=== PATIENT | male | born 1935 | race Caucasian/White ===

== ENCOUNTER 2022-01-19 20:55 | Emergency (ER) | payer MEDICARE, BC, SELFPAY ==
[2022-01-19 20:59] VITALS: BP 160/111; PULSE 88; RESP 30; TEMP 37.1; O2SAT 88
[2022-01-19 21:30] VITALS: BP 153/102; PULSE 73; RESP 23; O2SAT 100
[2022-01-19 22:00] VITALS: BP 148/113; PULSE 78; RESP 20; O2SAT 96
[2022-01-19 22:10] LABS: Basophils Absolute Auto 0.03 K/uL (0.00-0.30); Basophils Percent Auto 0.4 % (0.0-3.0); Eosinophils Absolute Auto 0.16 K/uL (0.00-0.50); Eosinophils Percent Auto 2.1 % (0.0-7.0); Hematocrit 47.3 % (37.0-53.0); Hemoglobin* 15.8 gm/dL (13.5-17.5); Immature Granulocytes Abs Auto 0.02 K/uL (0.00-0.30); Lymphocytes Absolute Auto 2.58 K/uL (0.90-2.90); Lymphocytes Percent Auto 34.4 % (20-44); Mean Corpuscular HGB Conc 33 gm/dL (32-36); Mean Corpuscular Hemoglobin 30 pg (26-34); Mean Corpuscular Volume 88 fL (80-100); Monocytes Percent Auto 7.6 % (0.0-11.0); Neutrophils Absolute Auto 4.14 K/uL (1.7-7.0); Neutrophils Percent Auto 55.2 % (42.0-72.0); Platelet Count* 273 K/uL (140-440); RDW Coefficient of Variation % 13.2 % (11.5-15.5); Red Blood Count 5.35 m/uL (4.30-5.90)
[2022-01-19 22:13] LABS: Slide Review Reflex No
--- NOTE | 2022-01-19 22:25 | ED.NURSE ---
Patient oxygen turned off to trial SpO2 response per Dr. Carolina verbal order.
[2022-01-19 22:30] VITALS: BP 145/109; PULSE 91; RESP 13; O2SAT 97
[2022-01-19 22:34] LABS: INR 1.18 (0.91-1.10); Prothrombin Time 15.4 Seconds
[2022-01-19 22:45] VITALS: BP 133/83; PULSE 87; RESP 19; O2SAT 97
[2022-01-19 22:46] LABS: Alanine Aminotransferase* 20 U/L (4-50); Albumin* 4.5 g/dL (3.3-5.0); Alkaline Phosphatase* 122 U/L (40-150); Aspartate Amino Transferase* 24 U/L (12-35); Bilirubin Total* 1.1 mg/dL (0.1-1.5); Blood Urea Nitrogen* 27 mg/dL (7-30); Calcium* 9.4 mg/dL (8.4-10.6); Carbon Dioxide* 26 mmol/L (20-32); Chloride* 103 mmol/L (96-114); Glucose* 156 mg/dL (60-115); Potassium* 4.1 mmol/L (3.6-5.1); Sodium* 139 mmol/L (135-149); Total Protein* 7.1 g/dL (6.0-8.3)
--- NOTE | 2022-01-19 23:14 | ED.NURSE ---
Pt voided x1 via urinal. MD at bedside reviewing results. VSS. Pt denies pain at this time. Friend at bedside. Report given to CHELSEA Carrington.
--- NOTE | 2022-01-19 23:22 | ED.ARRPALP ---
HPI - Arrhythmia/Palpitations General Date Seen: 01/19/22 Chief Complaint: Arrhythmia/Palpitations Stated Complaint: cardiac Time Seen by Provider: 01/19/22 21:31 History of Present Illness HPI narrative: Patient is an 86-year-old male who presents with palpitations. Says around 6:00 p.m. had been somewhere where they checked his heart rate and it was 114, which is very unusual for him. He says his heart rate is usually in the 40s. He does have a history of atrial fibrillation, which he told me he has only had once, but he says that he has been on Eliquis ever since his stroke back 15 years ago. He says this is due to atrial fibrillation, which he says he had at that time. He is under the impression that it never recurred. He came into the emergency department complaining of shortness of breath, he was tachypneic with a respiratory rate of 30, nursing reported that he was very panicky. He denied chest pain. He says that around 8:00 p.m. he checked his heart rate again in it was 100. He came into the ER around 9:00 p.m.. He otherwise has been feeling well, has not had any recent illness, fevers, vomiting or diarrhea, no black or bloody stools. Has not had a cough for shortness of breath otherwise. He has chronic swelling in his legs, no changes there. He says he was at [facility] 3 weeks ago for a checkup of his heart, which was not related any cardiac symptoms. He had an echocardiogram and says he was told that things were fine. He has a history of mitral valve replacement says he has never had a heart attack. He does not really know any results from his echo. 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 He gets around with a walker and a scooter now. Related Data Home Medications Medication Instructions Recorded Confirmed acetaminophen 500 mg tablet 500 mg PO Q4-6H PRN 01/19/22 01/19/22 (Tylenol Extra Strength) amiodarone 200 mg tablet 200 mg PO DAILY 01/19/22 01/19/22 amlodipine 5 mg tablet 5 mg PO DAILY 01/19/22 01/19/22 amoxicillin 500 mg capsule 2,000 mg PO PRN 01/19/22 01/19/22 apixaban 5 mg tablet (Eliquis) 5 mg PO BID 01/19/22 01/19/22 fluticasone propionate 110 2 puff INHALATION Q12H 01/19/22 01/19/22 mcg/actuation HFA aerosol inhaler (Flovent HFA) furosemide 40 mg tablet 40 mg PO DAILY 01/19/22 01/19/22 losartan 100 mg tablet 100 mg PO DAILY 01/19/22 01/19/22 multivitamin with minerals 1 tab PO DAILY 01/19/22 01/19/22 (Multiple Vitamin-Minerals tablet) rosuvastatin 10 mg tablet 10 mg PO .QHS 01/19/22 01/19/22 zolpidem 5 mg tablet 5 mg PO .HS PRN 01/19/22 01/19/22 Allergies Allergy/AdvReac Type Severity Reaction Status Date / Time Sulfa (Sulfonamide Allergy Intermediate Hives Verified 01/19/22 21:24 Antibiotics) latex Allergy Mild allergy Verified 01/19/22 21:24 test Review of Systems Status of ROS: Reports: 10 or more systems reviewed and unremarkable except as noted in History and below [facility] Medical History Arrhythmia Atrial fibrillation Chronic bronchitis Chronic insomnia CVA (cerebral vascular accident) Frailty syndrome in geriatric patient GERD (gastroesophageal reflux disease) Hyperlipidemia Hypertension Melanoma in situ Obstructive sleep apnea Pre-diabetes Rosacea Systolic congestive heart failure Thyroid nodule Tubular adenoma of colon Surgical History H/O arthroscopic knee surgery H/O bilateral cataract extraction Hx of tonsillectomy S/P hernia surgery S/P mitral valve repair S/P Mohs surgery for basal cell carcinoma S/P rotator cuff repair Status post prostatectomy Social History Smoking Status: Former smoker How often do you have a drink containing alcohol: 2-3 times a week AUDIT-C Alcohol total score: 3 Non-prescribed substance use: denies use Exam Narrative: Exam Narrative: Vital signs as noted below. In general, an alert, nontoxic elderly male. At the time of my exam, he is breathing comfortably. Head: Normocephalic, atraumatic. Eyes: Pupils are equal and reactive. Extraocular movements are full. Conjunctivae are normal. ENT: Mucous membranes are moist. Neck: Supple without lymphadenopathy. Heart: Irregularly irregular. Regular rate. No significant systolic murmur at this time. No click. Lungs: Clear bilaterally. No increased work of breathing, crackles or wheezes. Abdomen: Soft and nontender. No organomegaly. Extremities: Significant bilateral edema. No calf tenderness. Neurologic: Patient is alert and oriented to person and place. Speech is slightly dysarthric. He has a slight droop on the left side of his face. He is however conversant, answers questions appropriately, memory is reasonably good. Moves all extremities. Affect: Normal. Skin: Warm and dry. Well perfused. Const: Vital Signs, click to edit/add: Vital Signs - 24 hr 01/19/22 20:59 01/19/22 21:30 01/19/22 22:00 Temperature 98.7 F Pulse Rate [Left P ulse Oximeter] 88 73 78 Respiratory Rate 30 H 23 20 Blood Pressure [Ri ght Upper Arm] 160/111 H 153/102 H 148/113 H Pulse Oximetry 88 100 96 01/19/22 22:30 01/19/22 22:45 Temperature Pulse Rate [Left P ulse Oximeter] 91 87 Respiratory Rate 13 19 Blood Pressure [Ri ght Upper Arm] 145/109 H 133/83 Pulse Oximetry 97 97 Documenting provider has reviewed patient's vital signs: yes Course Course Hospital Course: On arrival, patient was initially put on oxygen. He had O2 sats recorded in the upper 80s, respiratory rates of 30, noted to be fairly anxious. We kept him on oxygen for a bit here, and he calmed down considerably. By the time I saw him he was resting comfortably. He had an EKG which by my review showed atrial fibrillation with a controlled ventricular rate of 88 beats per minute. I ordered labs including a CBC, metabolic panel, LFTs, INR, and troponin. In the meantime, I reviewed his records from our facility. We do not have his [place] or [place] records available. I noted that Dr. Mendoza mentioned at least 2 times he has had cardioversion with failure to convert of his atrial fibrillation. His rate has been consistently controlled here, I have not seen anything over 100. He has had echoes here previously that of showed an EF of 20-25%. At this time, his lungs are clear. We took him off oxygen and his O2 sats are 96%. He no longer feels short of breath. I did order a BNP although that was pending at the time of completion of the rest of his ER workup. His other labs showed a normal white blood cell count and hemoglobin, an INR of 1.18, a metabolic panel showed a creatinine of 1.0 and normal electrolytes. Troponin was 0, and I do not think there is any evidence here of acute coronary syndrome. LFTs were normal. Review of his records also show that he has had significantly more atrial fibrillation than he realizes. For a long period of time he was apparently chronically in atrial fibrillation. He was started on amiodarone for rate control and he remains on that drug. I do not think he would be served by a cardioversion tonight, despite the fact that he seems to have gone into atrial fibrillation in the past several hours according to him. At this point, he is tolerating atrial fibrillation well. Whether not he can use to tolerate it well remains to be seen. He has had an EF of 20-25% for quite some time, and seemingly tolerated AFib in the past. However, I discussed with him if he is developing more shortness of breath, or has difficulty with rate control he can certainly return to the emergency department. Otherwise, I would recommend that he follows up with Dr. Mendoza next week for recheck to make sure that he is not developing signs of congestive heart failure. For now, will keep him on his current medications including his Eliquis, amiodarone, and Lasix. I did not wait for his BNP to complete, because his friend, Earnest, who was his ride home, really needed to leave as it was after 11:00 p.m.. Vital Signs Vital signs: Initial Vital Signs Temperature 98.7 F 01/19/22 20:59 Temperature Source Temporal Artery Scan 01/19/22 20:59 Pulse Rate 88 01/19/22 20:59 Pulse Rhythm 01/19/22 20:59 Pulse Strength 3+ Normal 01/19/22 20:59 Respiratory Rate 30 H 01/19/22 20:59 Blood Pressure 160/111 H 01/19/22 20:59 Blood Pressure Mean 127 01/19/22 20:59 Blood Pressure Position Sitting 01/19/22 20:59 Pulse Oximetry 88 01/19/22 20:59 Oxygen Delivery Method 01/19/22 20:59 Vital Signs Temperature 98.7 F 01/19/22 20:59 Pulse Rate 88 01/19/22 20:59 Respiratory Rate 30 H 01/19/22 20:59 Blood Pressure 160/111 H 01/19/22 20:59 Pulse Oximetry 88 01/19/22 20:59 Temperature 98.7 F 01/19/22 20:59 Pulse Rate 87 01/19/22 22:45 Respiratory Rate 19 01/19/22 22:45 Blood Pressure 133/83 01/19/22 22:45 Pulse Oximetry 97 01/19/22 22:45 MDM - Arrhythmia/Palpitations Lab Data Labs: Lab Results 01/19/22 01/19/22 01/19/22 Range/Units 21:15 21:15 21:15 WBC 7.50 (4.50-11.00) K/uL RBC 5.35 (4.30-5.90) m/uL Hgb 15.8 (13.5-17.5) gm/dL Hct 47.3 (37.0-53.0) % MCV 88 (80-100) fL MCH 30 (26-34) pg MCHC 33 (32-36) gm/dL RDW Coeff of Melissa 13.2 (11.5-15.5) % Plt Count 273 (140-440) K/uL Neut % (Auto) 55.2 (42.0-72.0) % Lymph % (Auto) 34.4 (20-44) % [place] % (Auto) 7.6 (0.0-11.0) % Eos % (Auto) 2.1 (0.0-7.0) % Baso % (Auto) 0.4 (0.0-3.0) % Neut # (Auto) 4.14 (1.7-7.0) K/uL Lymph # (Auto) 2.58 (0.90-2.90) K/uL [place] # (Auto) 0.60 (0.00-0.90) K/UL Eos # (Auto) 0.16 (0.00-0.50) K/uL Baso # (Auto) 0.03 (0.00-0.30) K/uL Abs Immat Gran (auto) 0.02 (0.00-0.30) K/uL INR 1.18 H (0.91-1.10) Sodium 139 (135-149) mmol/L Potassium 4.1 (3.6-5.1) mmol/L Chloride 103 (96-114) mmol/L Carbon Dioxide 26 (20-32) mmol/L BUN 27 (7-30) mg/dL Creatinine 1.0 (0.5-1.5) mg/dL Glucose 156 H (60-115) mg/dL Calcium 9.4 (8.4-10.6) mg/dL Total Bilirubin 1.1 (0.1-1.5) mg/dL AST 24 (12-35) U/L ALT 20 (4-50) U/L Alkaline Phosphatase 122 (40-150) U/L Total Protein 7.1 (6.0-8.3) g/dL Albumin 4.5 (3.3-5.0) g/dL POC Troponin I (0.01-0.04) ng/ml 01/19/22 Range/Units 21:15 WBC (4.50-11.00) K/uL RBC (4.30-5.90) m/uL Hgb (13.5-17.5) gm/dL Hct (37.0-53.0) % MCV (80-100) fL MCH (26-34) pg MCHC (32-36) gm/dL RDW Coeff of Melissa (11.5-15.5) % Plt Count (140-440) K/uL Neut % (Auto) (42.0-72.0) % Lymph % (Auto) (20-44) % [place] % (Auto) (0.0-11.0) % Eos % (Auto) (0.0-7.0) % Baso % (Auto) (0.0-3.0) % Neut # (Auto) (1.7-7.0) K/uL Lymph # (Auto) (0.90-2.90) K/uL [place] # (Auto) (0.00-0.90) K/UL Eos # (Auto) (0.00-0.50) K/uL Baso # (Auto) (0.00-0.30) K/uL Abs Immat Gran (auto) (0.00-0.30) K/uL INR (0.91-1.10) Sodium (135-149) mmol/L Potassium (3.6-5.1) mmol/L Chloride (96-114) mmol/L Carbon Dioxide (20-32) mmol/L BUN (7-30) mg/dL Creatinine (0.5-1.5) mg/dL Glucose (60-115) mg/dL Calcium (8.4-10.6) mg/dL Total Bilirubin (0.1-1.5) mg/dL AST (12-35) U/L ALT (4-50) U/L Alkaline Phosphatase (40-150) U/L Total Protein (6.0-8.3) g/dL Albumin (3.3-5.0) g/dL POC Troponin I 0.00 L (0.01-0.04) ng/ml Discharge Plan Discharge Clinical Impression: Atrial fibrillation Patient Disposition: Home, Self-Care Condition: Stable Instructions: A-fib (Atrial Fibrillation) (ED) Additional Instructions: Follow-up in the next week with Dr. Mendoza for recheck. If you have new symptoms such as chest pain, worsening shortness of breath, very fast heart rate, or other significant changes, follow-up in the emergency department. Continue your current medications. Prescriptions: No Action amoxicillin 500 mg capsule 2,000 mg PO PRN 0RF Label Comments: TK FOUR CS PO 1 HOUR B DAPP furosemide 40 mg tablet 40 mg PO DAILY 0RF Label Comments: TAKE ONE TABLET BY MOUTH DAILY amiodarone 200 mg tablet 200 mg PO DAILY 0RF Label Comments: TAKE ONE TABLET BY MOUTH DAILY amlodipine 5 mg tablet 5 mg PO DAILY 0RF Label Comments: TAKE ONE TABLET BY MOUTH DAILY zolpidem 5 mg tablet 5 mg PO .HS PRN 0RF Label Comments: TAKE ONE TABLET BY MOUTH AT BEDTIME NEEDED losartan 100 mg tablet 100 mg PO DAILY 0RF Label Comments: TAKE ONE TABLET BY MOUTH DAILY fluticasone propionate [Flovent HFA] 110 mcg/actuation HFA aerosol inhaler 2 puff INHALATION Q12H 0RF Label Comments: INHALE 2 PUFFS TWICE A DAY rosuvastatin 10 mg tablet 10 mg PO .QHS 0RF Label Comments: TAKE ONE TABLET BY MOUTH DAILY Eliquis 5 mg tablet 5 mg PO BID 0RF Label Comments: TAKE ONE TABLET BY MOUTH TWICE A DAY Multiple Vitamin-Minerals Tablet 1 tab PO DAILY 0RF acetaminophen [Tylenol Extra Strength] 500 mg tablet 500 mg PO Q4-6H PRN0RF Follow Up/Referrals: Maria Esther Mendoza MD [Primary Care Provider] - Stand Alone Forms: [facility] Info Instructions
[2022-01-19 23:33] LABS: NT Pro B Type NatriureticPept* 297 PG/mL (0-450)
[2022-01-20 01:20] VITALS: BP 133/83; PULSE 87; RESP 19; TEMP 37.1
== END 2022-01-19 23:39 | disposition home or self-care (01) ==
LOC: ED 23:22
PROVIDERS: Emergency Provider Emergency Medicine; PCP Internal Medicine
DX: I48.91 Unspecified atrial fibrillation (principal)
CPT/HCPCS: 36415; 80053; 83880; 84484; 85025; 85610; 93005; 99284; 99285

== ENCOUNTER 2022-04-02 18:06 | Outpatient (CLI) | payer MEDICARE, BC, SELFPAY | END 2022-04-02 18:07 | disposition home or self-care (01) | LOC: AMB 04-20 15:36 | PROVIDERS: PCP Internal Medicine; Visit Provider Emergency Medicine Emergency Medical Services | DX: R06.09 Other forms of dyspnea (principal); R00.0 Tachycardia, unspecified | CPT/HCPCS: A0425; A0427 ==

== ENCOUNTER 2022-04-02 18:49 | Inpatient (IN) | payer MEDICARE, BC, SELFPAY ==
[2022-04-02] VITALS (10 sets, daily range): BP systolic 120–151; BP diastolic 88–109; PULSE 98–113; RESP 12–21; TEMP 36.8–37; O2SAT 90–97; BMI 65.0; BMI 29.5
--- OUTSIDE RECORDS SUMMARY | 2022-04-02 19:36 | XMS_ITS | Encounter Summary ---
:1935 Author Organization [facility] Address [address] [place] [address] Care Team Providers Name Role Phone Unavailable Primary Care Provider Unavailable Encounter Details Date Type Department Care Team Description 02/06/2022 Clinical Communication Department of Zoran Nuñez Cardiovascular Medicine Drew Baltazar in [facility] [address] [facility] [address] [place] [id number] [phone] Social History Tobacco Use Types Packs/Day Years Used Date Smoking Tobacco: Never Smokeless Tobacco: Never Alcohol Use Standard Drinks/Week Comments Yes 1 (1 standard drink = 0.6 oz pure alcoho l) Alcohol Habits Answer Date Recorded How often do you have a drink containing alcohol? 2-4 times a month 12/20/2021 How many drinks containing alcohol do you have on a 1 or 2 12/20/2021 typical day when you are drinking? How often do you have six or more drinks on one Never 12/20/2021 occasion? Comment: Not asked Social Isolation Answer Date Recorded In a typical week, how many times do you More than three jackelyn es a week 12/20/2021 talk on the phone with family, friends, or neighbors? How often do you get together with friends Three times a wee k 12/20/2021 or relatives? How often do you attend anabaptist or More than 4 times per year 12/20/2021 mandaen services? Do you belong to any clubs or Yes 12/20/2021 organizations such as anabaptist groups, unions, fraternal or athletic groups, or school groups? How often do you attend meetings of the More than 4 times pe r year 12/20/2021 clubs or organizations you belong to? Are you now , , , 12/20/2021 , never or living with a partner? Physical Activity Answer Date Recorded On average, how many days per week do you engage in moderate to 3 days 12/20/2021 strenuous exercise (like walking fast, running, jogging, dancing, swimming, biking, or other activities that cause a light or heavy sweat)? On average, how many minutes do you engage in exercise at th is 10 min 12/20/2021 level? Stress Answer Date Recorded Do you feel stress - tense, restless, nervous, or anxious, N ot at all 12/20/2021 or unable to sleep at night because your mind is troubled all the time - these days? Financial Resource Strain Answer Date Recorded How hard is it for you to pay for the very basics like Not h sally at all 12/20/2021 food, housing, medical care, and heating? Intimate Partner Violence Answer Date Recorded Within the last year, have you been afraid of your partner o r No 12/20/2021 ex-partner? Within the last year, have you been humiliated or emotionall y No 12/20/2021 abused in other ways by your partner or ex-partner? Within the last year, have you been kicked, hit, slapped, or No 12/20/2021 otherwise physically hurt by your partner or ex-partner? Within the last year, have you been raped or forced to have any No 12/20/2021 kind of sexual activity by your partner or ex-partner? Food Insecurity Answer Date Recorded Within the past 12 months, you worried that your food would Never true 12/20/2021 run out before you got money to buy more. Within the past 12 months, the food you bought just didn't N ever true 12/20/2021 last and you didn't have money to get more. Transportation Needs Answer Date Recorded In the past 12 months, has lack of transportation kept you f rom No 12/20/2021 medical appointments or from getting medications? In the past 12 months, has lack of transportation kept you f rom No 12/20/2021 meetings, work, or getting things needed for daily living? Housing Stability Answer Date Recorded In the last 12 months, was there a time when you were not ab le No 12/20/2021 to pay the mortgage or rent on time? In the last 12 months, how many places have you lived? 1 12/20/2021 In the last 12 months, was there a time when you did not hav e a No 12/20/[address] or slept in a long term (including now)? Education Answer Date Recorded What is the highest level of school you have completed or th e Doctorate 12/20/2021 highest degree you have received? Sex Assigned at Date Recorded Male 02/28/2018 2:32 PM CDT documented as of this encounter Miscellaneous Notes Telephone Encounter - Kelly Oneal - 02/06/2022 10:27 AM CDT Good morning, Pt called to report that he has had 5 episodes now of afib, the first of which sent him to his localER in [place]. He would like to know what you advise he do to treat this. He asked if he needed anew medication or an adjustment to dosage on the medication he takes now. If you wanted to see pt, pt will be here for other appts 02/22, so could coordinate a visit with you, if you were available. Thank you, Kelly documented in this encounter Plan of Treatment Not on filedocumented as of this encounter Visit Diagnoses Not on filedocumented in this encounter
--- OUTSIDE RECORDS SUMMARY | 2022-04-02 19:36 | XMS_ITS | Encounter Summary ---
:1935 Author Organization [facility] Address [address] [place] [address] Care Team Providers Name Role Phone Unavailable Primary Care Provider Unavailable Encounter Details Date Type Department Care Team Description 01/11/2022 Clinical Communication Division of Bud L[facility]pez Internal Medicine in [place], [place] [address] [facility] [address] [place] [id number] [phone] Social History Tobacco Use Types Packs/Day Years [...] or relatives? How often do you attend scientology or More than 4 times per year 12/20/2021 advent services? Do you belong to any clubs or Yes 12/20/2021 organizations such as scientology groups, unions, fraternal or athletic groups, or [...] minutes do you engage in exercise at is 10 min 12/20/2021 level? Stress Answer [...] place to sleep or slept in a senior care (including now)? Education Answer Date Recorded What is the highest level of school you have completed or th e Doctorate 12/20/2021 highest degree you have received? Sex Assigned at Date Recorded Male 02/28/2018 2:32 PM CDT documented as of this encounter Miscellaneous Notes Telephone Encounter - Maureen Tierney - 01/11/2022 10:[address] Shea, When calling to schedule the General Surgery Consult, they said it should go through Colon and Rectal Surgery for the indications. Maureen Amin documented in this encounter Plan of Treatment Not on filedocumented as of this encounter Visit Diagnoses Not on filedocumented in this encounter
--- OUTSIDE RECORDS SUMMARY | 2022-04-02 19:36 | XMS_ITS | Clinical Summary ---
:1935 Author Organization [facility] [place] [address] Care Team Providers Name Role Phone Garima Jorgensen AuD Unavailable [phone] Maria Esther Mendoza MD Primary Care Provider Allergies No known active allergies Medications Medication Sig Dispensed Refills Start Date End Date Status COZAAR 50 MG TAB None Entered 0 Active MULTIVITAMIN ORAL None Entered 0 Active FISH OIL CAP None Entered 0 Acti ve simvastatin (ZOCOR) 20 Take 20 mg by 3 04/26/2017 Active mg tablet mouth at bedtime. chlorpheniramine Take 1 tablet by 0 07/24/2017 Active (CHLOR-TRIMETON) 4 mg mouth every 4 tablet hours if needed for Rhinitis. triamcinolone, 55 mcg Inhale 2 Sprays 16.5 g 0 07/24/2017 Active each actuation, nasal into both nostrils (NASACORT AQ) 55 mcg once daily. nasal spray fluticasone (FLOVENT Inhale 1 Puff by 1 Inhaler 0 07/24/2017 Active DISKUS) 100 mouth 2 times mcg/actuation inhaler daily. medication order Focus Select 2mg 0 07/24/2017 Active composer per day, macular degeneration and glaucoma zolpidem (AMBIEN) 5 mg Take 1 tablet by 0 07/24/2017 Active tablet mouth at bedtime if needed for Sleep. furosemide (LASIX) 40 Take 1 tablet by 0 08/08/2017 Active mg tablet mouth every morning. amiodarone (CORDARONE) Start amiodarone 180 tablet 3 8 Active 200 mg 400mg (2 pills) tabletIndications: twice daily for Persistent atrial one week - fibrillation (HC) 09/04/2017 decrease to 400mg (2 pills) daily -10/03/2017 decrease to 200mg daily rivaroxaban (XARELTO) Take 1 tablet by 180 tablet 1 11/19/2017 Active 20 mg mouth once daily tabletIndications: with evening meal. Atrial fibrillation, unspecified type (HC) apixaban (ELIQUIS) 5 Take 1 tablet by 180 tablet 3 04/16/2020 Active mg tabletIndications: mouth 2 times PAF (paroxysmal atrial daily. fibrillation) (HC) Active Problems Problem Noted Date Persistent atrial fibrillation 08/28/2017 Unspecified essential hypertension 10/17/2006 Pure hypercholesterolemia 10/17/2006 Sensorineural hearing loss, bilateral 10/16/2006 Family History Medical History Relation Name Comments Cancer Brother 2 Psychiatric illness Brother 3 Good Health Daughter 2 Cancer Father Cancer Maternal Grandmother Arthritis Mother Cancer Mother Hypertension Mother Stroke Mother Heart Disease Paternal Grandfather Allergies Son 2 Relation Name Status Comments Brother 1 Alive Brother 2 Brother 3 Daughter 1 Alive Daughter 2 Father Maternal Grandmother Mother Other Other Sabrina Paternal Grandfather Son 1 Alive Son 2 Social History Tobacco Use Types Packs/Day Years Used Date Never Smoker Smokeless Tobacco: Never Used Tobacco Cessation: Counseling Given: Yes Alcohol Use Standard Drinks/Week Comments Yes 1 (1 standard drink = 0.6 oz pure alcoho l) Sex Assigned at Date Recorded Not on file Obstetrics History Last Filed Vital Signs Vital Sign Reading Time Taken Comments Blood Pressure 114/78 12/14/2020 11:07 AM CDT Pulse 60 12/14/2020 11:07 AM CDT Temperature 35.8 ??C (96.4 ??F) 08/28/2017 11:00 AM TAX RECORD CLERK Respiratory Rate 20 12/14/2020 11:07 AM CDT Oxygen Saturation 98% 08/28/2017 1:00 PM TAX RECORD CLERK Inhaled Oxygen Concentration - - Weight 87.1 kg (192 lb) 04/16/2020 2:43 PM CDT Height 172.7 cm (5' 8) 08/28/2017 10:57 AM TAX RECORD CLERK Body Mass Index 29.19 08/28/2017 10:57 AM TAX RECORD CLERK Plan of Treatment Health Maintenance Due Date Last Done Comments Tdap 1946 Depression screening for age 12+ 1947 BMI (ht and wt on same day) for age 0209/15/1953 18+ Tetanus booster 1955 Zoster (shingles) series for age 50+ 1985 (1 of 2) Medicare Wellness for age 65+ 2000 Pneumococcal series for age 65+ (1 - 2000 PCV) COVID-19 vaccine series (4 - Booster 10/11/2021 06/13/2021, 09/01/2020, for Moderna series) 08/04/2020 Influenza for age 65+ 03/23/2022 Results Not on filefrom Last 3 Months Insurance Payer Benefit Plan / Subscriber ID Effective Dates Phone Addre ss Type Group MEDICARE PART A MEDICARE PART A [id number] 2000-Presen ATTN: CLAIMS - HB USE ONLY HB ONLY t [address] [place] [address] MEDICARE PART B MEDICARE PART B [id number] 2003-Presen ATTN: CLAIMS - HB USE ONLY HB ONLY t [address] [place] [address] MEDICARE - PB MEDICARE PB [id number] 2003-Presen ATTN : CLAIMS USE ONLY ONLY t [address] [place] [address] BLUE CROSS BLUE CROSS OF [id number] 2016-Presen [address] [facility] [place] [address] Care Teams Product Safety Consultant Relationship Specialty Start Date End Date Maria Esther Mendoza MD PCP - General Internal Medicine 08/21/171999 [place] [address] Garima Jorgensen, [facility] 12/14/05
--- OUTSIDE RECORDS SUMMARY | 2022-04-02 19:36 | XMS_ITS | Encounter Summary ---
:1935 Author Organization [facility] Address [address] [place] [address] Care Team Providers Name Role Phone Unavailable Primary Care Provider Unavailable Reason for Referral Outpatient (Routine) - Closed Specialty Diagnoses / Procedures Referred By Contact Refer red To Contact Diagnoses Polyp Colon Personal History Ernesto Shea M.D. [facility] Procedures Colonoscopy [address] [place] [address] Referral ID Status Reason Start Date Expiration Date Visits Requ ested Visits Authorized [id number] Closed 12/20/2021 12/20/2022 1 1 Reason for Visit Outpatient (Routine) - Closed Specialty Diagnoses / Procedures Referred By Contact Refer red To Contact Diagnoses Polyp Colon Personal History Ernesto Shea M.D. [facility] Procedures Colonoscopy [address] [place] [address] Referral ID Status Reason Start Date Expiration Date Visits Requ ested Visits Authorized [id number] Closed 12/20/2021 12/20/2022 1 1 Encounter Details Date Type Department Care Team Description 12/23/2021 Hospital Encounter Division of [facility] on Gastroenterology in Ernesto Cai M.D. Personal History [place], [place] [address] [place] [address] [place] [phone] Social History Tobacco Use Types Packs/Day Years [...] or relatives? How often do you attend yazdanism or More than 4 times per year 12/20/2021 jainism services? Do you belong to any clubs or Yes 12/20/2021 organizations such as yazdanism groups, unions, fraternal or athletic groups, or [...] place to sleep or slept in a mcc (including now)? Education Answer Date Recorded What is the highest level of school you have completed or th e Doctorate 12/20/2021 highest degree you have received? Sex Assigned at Date Recorded Male 02/28/2018 2:32 PM CDT documented as of this encounter Last Filed Vital Signs Vital Sign Reading Time Taken Comments Blood Pressure 160/85 12/23/2021 4:44 PM CDT Pulse 62 12/23/2021 4:54 PM CDT Temperature 36.8 ??C (98.2 ??F) 12/23/2021 4:42 PM CDT Respiratory Rate 11 12/23/2021 4:54 PM CDT Oxygen Saturation 97% 12/23/2021 4:54 PM CDT Inhaled Oxygen Concentration - - Weight - - Height - - Body Mass Index - - documented in this encounter Medications at Time of Discharge Medication Sig Dispensed Refills Start Date End Date chlorpheniramine Take 1 tablet by 0 09/27/2016 (CHLOR-TRIMETON) 4 mg mouth daily as tablet needed. Rhinitis fluticasone propionate Inhale 1-2 puffs at 0 08/24 (FLOVENT HFA) 110 bedtime. 2 puffs mcg/actuation inhaler twice daily; during summer months only 1 puff twice daily triamcinolone (NASACORT) Administer 1-2 sprays 0 55 mcg/actuation nasal into each nostril spray daily. vit Take 2 tablets by 0 C/E/Zn/coppr/lutein/zeax mouth daily. an (PRESERVISION AREDS-2 ORAL) amiodarone (PACERONE) Take 200 mg by mouth 0 03/2302/22/2022 200 mg tablet daily. amLODIPine (NORVASC) 5 Take 5 mg by mouth 0 11/1402/22/2022 mg tablet daily. furosemide (LASIX) 40 mg Take 40 mg by mouth 0 02/22/2022 tablet daily. losartan (COZAAR) 100 mg Take 100 mg by mouth 0 0 10/18/2021 02/22/2022 tablet daily. zolpidem (AMBIEN) 5 mg Take 1 tablet by 0 017 02/22/2022 tablet mouth at bedtime. Insomnia acetaminophen (TYLENOL) Take 650 mg by mouth 0 02/22/2022 325 mg tablet every 4 (four) hours as needed for pain. amoxicillin (AMOXIL) 500 Take 4 capsules by 0 02/22/2022 mg capsule mouth once. Take all capsules one hour before procedure. apixaban (ELIQUIS) 5 mg Take 1 tablet by 0 201902/22/2022 tablet mouth 2 (two) times a day. AZITHROMYCIN ORAL Take by mouth as 0 06/25/2017 0 02/22/2022 needed. Capsule. 5 day regimen, Twice a year for bronchitis hydrocortisone (HYTONE) Apply topically as 0 /10/201602/22/2022 2.5 % cream needed. Hydrocortisone PF. Itching omeprazole magnesium Take 1 tablet by 0 7 02/22/2022 (PRILOSEC OTC ORAL) mouth as needed. Enteric coated. Acid Reflux simvastatin (ZOCOR) 10 Take 10 mg by mouth 0 08/200802/22/2022 mg tablet at bedtime. documented as of this encounter H&P Notes Tim Brown M.D. - 12/23/2021 2:30 PM CDT ASSESSMENT / PLAN Patient Name: Gregg Villa Colonoscopy Procedure Department : DIVISION OF GASTROENTEROLOGY IN [place], [place] SUBJECTIVE Past Medical History: Diagnosis Date ??? Gastroesophageal Reflux Disease NOS ??? Polyp Colon ??? Stroke (HCC) Past Surgical History: Procedure Laterality Date ??? CHOLECYSTECTOMY N/A 01/24/1991 Laparoscopic cholecystectomy. ??? COLONOSCOPY N/A 06/06/1996 Colonoscopy with Polyp Biopsies and Fulgurations ??? COLONOSCOPY W/ BIOPSIES AND POLYPECTOMY N/A 03/26/2009 Complex colonoscopy. Biopsy. Injection. Polypectomy, snare. Grade I external hemorrhoids. ??? MITRAL VALVE REPAIR N/A 08/15/2006 Mitral valve repair with insertion of C-shaped posterior annuloplasty ring and plication of the posterior leaflet. ??? MOHS EXCISION OF LESION N/A 05/27/2015 Mohs micrographic surgery with complex layered closure for nodular basal cell carcinoma, right central forehead, ??? POLYPECTOMY N/A 03/06/2012 Complex large polyp resection at the base of the cecum with submucosal injection, snare removal, hemoclip placement times two and López basket extraction. ??? PROSTATE BIOPSY N/A 05/10/2004 Transrectal diagnostic echography with needle biopsies of the prostate under ultrasound guidance inthe biopsy suite. ??? PROSTATECTOMY RADICAL RETROPUBIC N/A 07/25/2004 Radical retropubic prostatectomy with bilateral nerve bundle preservation. Bilateral pelvic lymphadenectomy (22 modifier, +1). ??? REPAIR HERNIA INGUINAL WITH MESH N/A 06/04/2007 Right inguinal hernia repair with panel of Prolene mesh. ??? REPAIR HERNIA RECURRENT INGUINAL N/A 03/25/2008 Prolene mesh repair, recurrent inguinal hernia, preperitoneal approach. ??? UVULOPALATOPHARYNGOPLASTY N/A 06/02/2002 Bilateral inferior turbinate radiofrequency reduction. Tongue base reduction. Uvulopalatopharyngoplasty. Social History Socioeconomic History ??? Marital status: ??? Highest education level: Doctorate Tobacco Use ??? Smoking status: Never Smoker ??? Smokeless tobacco: Never Used Vaping Use ??? Vaping Use: never used Substance and Sexual Activity ??? Alcohol use: Yes Alcohol/week: 1.0 standard drink Types: 1 Standard drinks or equivalent per week OBJECTIVE Pain Score: 0 - No pain Consents Obtained: written The benefits, risks and alternatives of sedation or anesthesia, as well as the names, roles, and responsibilities of the healthcare team members, were discussed with the patient and/or decision maker: yes Procedure / Reason for visit: colonoscopy The following portions of the patient's history were reviewed and updated as appropriate: allergies,current medications, family history, medical history, surgical history, social history and problem list. yes Review of systems: pertinent ROS negative Mallampati: unable to assess Heart: normal Lung: normal General / Constitutional: normal ASA physical exam: class 2 - patient with mild systemic disease Patient seen, evaluated and approved for sedation Sedation plan: sedation not required Baseline Behavior: Psychosocial (WDL): Within Defined Limits Abdominal Exam: Abdomen Inspection: Soft documented in this encounter Plan of Treatment Not on filedocumented as of this encounter Procedures Procedure Name Priority Date/Time Associated Diagnosis Comme nts SURGICAL PATHOLOGY Routine 12/23/2021 4:21 PM Res ults for this CDT procedure are i n the results section. COLONOSCOPY Routine 12/23/2021 3:53 PM Polyp Colon Personal R esults for this CDT History procedure are i n the results section. COLONOSCOPY Routine 12/23/2021 3:53 PM Polyp Colon Personal CDT History documented in this encounter Results Surgical Pathology (12/23/2021 4:21 PM CDT) Component Value Ref Test Analysis Performed At [facility] Method Time Signature 12/26/2021 DTL 12:00 PM CDT Report Di Osborne M.D., Ph.D. 12/26/2021 DTL electronically 12:00 PM signed by CDT I verify that I have examined all relevant slides/materials for the specimen(s) and rendered or confirmed the diagnosis. Gross Description Received in formalin labeled with patient's name, medical 12/26/2021 DTL record number and colon, cecum are three pale monzon-pink 12:00 PM irregular soft tissues, ranging from 0.1-0.5 cm in greatest CDT dimension. Specimens are submitted en toto in cassette A1. Grossed by LMB. Interpretation FINAL DIAGNOSIS 12/26/2021 DTL A. ??Colon, cecum, polypoid lesion, endoscopic biopsy: 12:00 PM Sessile serrated adenoma. CDT Specimen (Source) Anatomical Collection Method Collection Time Re ceived Time Location / / Volume Laterality Biopsy (Colon) 12/23/2021 4:21 PM CDT Narrative This result has an attachment that is no t available. Tim Brown M.D. LAB SURG PATH ORDERABLES Performing Organization Address City/State/ZIP Code Phon e Number [facility] [address] [place], [place] [address] [facility] [place] [address] [facility] [address] Colonoscopy (12/23/2021 3:53 PM CDT) Specimen (Source) Anatomical Collection Method Collection Time Re ceived Time Location / / Volume Laterality 12/23/2021 3:53 PM CDT [facility] 12/23/2021 4:56 PM CDT Post-op Diagnoses: ? - Hemorrhoids found on perianal e xam. ? - Benign polypoid lesion at the a ppendiceal orifice. Biopsied. ? - Diverticulosis in the sigmoid c olon. ? - External and internal hemorrhoi ds. ? - The examination was otherwise n ormal. ? - The examined portion of the ile um was normal. Narrative [facility] - 12/23/2021 4:56 PM CDT [facility] 9 GI GI Patient Name: Gregg Villa Date of : 1935 Age: 86 Gender: Male Procedure Date: 12/23/2021 Procedure: ? Colonosc opy Providers: ? Tim Brown MD Referring Provider: ?Ernesto Rosado anisasaleem Pre-op Diagnoses: ?High risk c olon cancer surveillance: Personal ? his tory of colonic polyps Recommendation: ? - Await pathology results. If tis gabriella is adenomatous, then would need to ? consider surgical consideration f or appendectomy, since endoscopic ? treatment at the appendiceal orif ice would likely be inadequate. Findings: ? Hemorrhoids were found on periana l exam. ? A 15 mm polypoid lesion was found at the appendiceal orifice. The lesion ? was flat. This was biopsied with a cold forceps for histology. ? Diverticula were found in the sig moid colon. ? External and internal hemorrhoids were found. The hemorrhoids were small. ? The exam was otherwise without ab normality. ? The terminal ileum appeared alfredo l. Procedural Details: ? The patient was seen, evaluated, history reviewed, airway and heart-lung ? exams were performed by licensed provider and were satisfactory for ? planned level of sedation care. ? The risks, benefits and alternati ves for the procedure and sedation were ? discussed and informed consent wa s obtained. A procedural pause was ? conducted in the presence of assi sting personnel to verify the correct ? patient identity and procedure to be performed. Throughout the ? procedure, the patient's blood pr essure, pulse, and oxygen saturations ? were monitored continuously. The Pediatric Colonoscope was introduced ? under direct vision through the a nus and advanced to 3 cm into the ? ileum. The colonoscopy was perfor med without difficulty. The patient ? tolerated the procedure well. The quality of the bowel preparation was ? adequate. The terminal ileum, ile ocecal valve, appendiceal orifice, and ? rectum were photographed. Estimated Blood Loss: ?Estimated blo od loss was minimal. Complications: ? No immedia te complications. Sedation: ? No sedation administered. Attending Participation: I personally pe rformed the entire procedure. Tim Brown MD 12/23/2021 4:56:42 PM This report has been signed electronical ly. Number of Addenda: 0 Ernesto Shea M.D. GI PROCEDURE ORDERABLES Performing Organization Address City/State/ZIP Code Phon e Number [employer] NA documented in this encounter Visit Diagnoses Diagnosis Polyp Colon Personal History documented in this encounter Administered Medications Inactive Administered Medications - up to 3 most recent administrations Medication Order MAR Action Action Date Dose Rate Site simethicone drops (MYLICON) Given 12/23/2021 4:20 PM CDT 40 mg Code/trauma/sedation medication, Starting on Sun12/23/21 at 1620 documented in this encounter
--- OUTSIDE RECORDS SUMMARY | 2022-04-02 19:36 | XMS_ITS | Clinical Summary ---
:1935 Author Organization [facility] Address [address] [place] [address] Care Team Providers Name Role Phone Unavailable Primary Care Provider Unavailable Source Comments Patient records contain information from all sites at [facility]. For routine questions regarding patient records, call [phone] during business hours, M-F 8:00 AM - 5:00 PM Central Time. Record requests for emergency care only can be directed to [phone] at any time.[facility] Allergies Active Allergy Reactions Severity Noted Date Comments Apple GI intolerance Low 12/23/2012 Raw apples ca use excessive amoun t of intestinal gas. Cat Dander Other (see comments) Low 02/25/2018 Itching , postnasal drip House Dust Mite Other (see comments) Low 10/18/2013 Itch ing, postnasal drip, throat irritation Grass Pollen Other (see comments) Medium 10/18/2013 Itching , postnasal drip, throat irritation Latex Other (see comments) Low 08/19/2009 Unknown reaction Mold Other (see comments) Medium 02/25/2018 Throat irritation Pollen Extracts Other (see comments) Medium 10/18/2013 Thro at irritation Sulfa (Sulfonamide Hives, Other (see Medium 02/23/2011 Slee p pattern change Antibiotics) comments) Medications Medication Sig Dispensed Refills Start Date End Date Status chlorpheniramine Take 1 tablet by 0 09/27/2016 Active (CHLOR-TRIMETON) 4 mg mouth daily as tablet needed. Rhinitis fluticasone propionate Inhale 1-2 puffs 0 09/12/2016 Active (FLOVENT HFA) 110 at bedtime. 2 mcg/actuation inhaler puffs twice daily; during summer months only 1 puff twice daily triamcinolone Administer 1-2 0 A ctive (NASACORT) 55 sprays into each mcg/actuation nasal nostril daily. spray vit Take 2 tablets by 0 Ac tive C/E/Zn/coppr/lutein/trena mouth daily. kelly (PRESERVISION AREDS-2 ORAL) amiodarone (PACERONE) Take 200 mg by 0 01/19/2022 Active 200 mg tablet mouth daily. amLODIPine (NORVASC) 5 Take 5 mg by 0 01/19/2022 Active mg tablet mouth daily. apixaban (ELIQUIS) 5 mg Take 5 mg by 0 01/19/2022 Active tablet mouth 2 (two) times a day. inhaler,assist Take 2 puffs by 0 01/19/2022 Active device,accesory mouth every 12 (INHALER,ASSIST (twelve) hours. DEVICES,ACCESS MISC) furosemide (LASIX) 40 Take 40 mg by 0 01/19/2022 Active mg tablet mouth daily. losartan (COZAAR) 100 Take 100 mg by 0 01/19/2022 Active mg tablet mouth daily. rosuvastatin (CRESTOR) Take 10 mg by 0 01/19/2022 Active 10 mg tablet mouth at bedtime. zolpidem (AMBIEN) 5 mg Take 5 mg by 0 01/19/2022 Active tablet mouth at bedtime as needed. 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 Atrial Fibrilla tion (HCC); Hypertension Es sential Primary; Bradycardia; Polyp Colon Rosalina nomatous 02/22/2022 Comprehensive Visit Colon and Rectal Bernadette Schwarz Colon Surgery Jose Alejandro Hernández M.D., M.B.AErnesto Og M.D. 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 01/11/2022 Orders Only General Internal Shabbir, Polyp Colon Medicine Ernesto Cai M.D. Adenomatous (Pr imary Dx) 01/11/2022 Clinical General Internal Shabbir, Communication Medicine Ernesto Cai M.D. 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 would like to receive here this visit.) SARS-COV-2 (COVID-19) - MODERNA 12/20/2021 (Deferred: Other - Pt. would like to receive this visit. Booster #2 (4th dose series)) Td Preservative Free (TENIVAC, 10/12/2014 DECAVAC) Tdap 10/12/2014 influenza high dose (65 years or 04/29/2020, 04/24/2019, 10/2017, older) (PF) 04/26/2017, 05/23/2016 influenza vaccine quad 05/03/2020, 03/25/2019, 05/06/2018, (FLUZONE/FLUARIX) (6 months and 05/10/2013 older)(PF) Social History Tobacco Use Types Packs/Day Years Used Date Smoking Tobacco: Never Smokeless Tobacco: Never Tobacco Cessation: Counseling Given: Not Answered Alcohol Use Standard Drinks/Week Comments Yes 1 [...] or relatives? How often do you attend temple or More than 4 times per year 12/20/2021 baptism services? Do you belong to any clubs or Yes 12/20/2021 organizations such as temple groups, unions, fraternal or athletic groups, or [...] Date Recorded Male 02/28/2018 2:32 PM CDT Last Filed Vital Signs Vital Sign Reading Time Taken Comments Blood Pressure 135/70 02/22/2022 10:00 AM CDT Pulse 50 02/22/2022 10:00 AM CDT Temperature 36.5 ??C (97.7 ??F) 01/10/2022 11:03 AM CDT Respiratory Rate 11 12/23/2021 4:54 PM CDT Oxygen Saturation 97% 12/23/2021 4:54 PM CDT Inhaled Oxygen Concentration - - Weight 90 kg (198 lb 6.6 oz) 01/10/2022 11:03 AM CDT Height 172 cm (5' 7.72) 12/20/2021 10:10 AM CDT Body Mass Index 30.42 12/20/2021 10:10 AM CDT Plan of Treatment Health Maintenance Due Date Last Done Comments Cologuard 1935 CT Colonography 09/12/2006 09/12/2001 Zoster Vaccines (3 of 3) 03/07/2022 01/10/2022, 06/12/2006 Influenza Vaccine (#1) 2022 05/09/2021, 05/03/2020, 04/29/2020, Additional history exists Creatinine Level 01/10/2023 01/10/2022, 04/15/2018, 09/28/2016, Additional history exists Potassium Level 01/10/2023 01/10/2022, 04/15/2018, 09/28/2016, Additional history exists Sodium Level 01/10/2023 01/10/2022, 04/15/2018, 09/28/2016, Additional history exists DTaP,Tdap,and Td Vaccines (2 - Td 10/12/2024 10/12/2014, or Tdap) Colonoscopy 12/23/2026 12/23/2021, 12/23/2021, 12/23/2021, Additional history exists Colorectal Cancer Surveillance 12/23/2026 Pneumococcal vaccine (65+ years) Completed 06/28/2017, 05/2017, 10/12/2014 Depression Screening (Annual Completed 12/20/2021 PHQ-2) Fall Risk Screen (Annual) Completed 12/23/2021 COVID-19 Vaccine Completed 01/09/2022, 06/13/2021, 09/01/2020, Additional history exists Medical Devices Implanted Type Area Candy Separator Enrobing Device Shelf Model / Identifier Expiration Serial / Date Lot Band-Annuloplasty Flex-25mm - Valenzuela [id number] Cardiac Valve Other/ Legacy - Medtronic Implanted: Qty: 1 on 08/15/2006 Prosthesis See Implant Description Description: Device Candy Separator Enrobing - [employer] Body Location - Other. Mitral. Device Status Text - [id number]. Hardware E.G. Hardware e.g. Mouth Pins/Screws/Rods pins/screws/rods Velma Lee Fuzzy 1 X 1 - Valenzuela 1667 Mesh or Patch DeRoyal In dustries Implanted: Qty: 1 on 08/15/2006 Inc Description: Device Candy Separator Enrobing - DeRoy al. Device Status Text - [id number]. [facility] Data - [id number]. Mesh Prolene 3 X 6 Pmii - Valenzuela 969 Mesh or Patch Ethicon Implanted: Qty: 1 on 06/04/2007 Description: Device Candy Separator Enrobing - Ethic on. Device Status Text - [id number]. Mesh Prolene 3 X 6 Pmii - Valenzuela 969 Mesh or Patch Ethicon Implanted: Qty: 2 on 03/25/2008 Description: Device Candy Separator Enrobing - Ethic on. Device Status Text - [id number]. Ocular Lens Ocular Lens Bilateral: Eye Procedures Procedure Name Priority Date/Time Associated Comments Diagnosis GLUCOSE, FASTING, S/P Routine 01/10/2022 10:16 Repair Mitral R esults for this AM CDT Valve Status Pos t procedure are in Cerebellar Stroke the result s Syndrome section. SODIUM, S/P Routine 01/10/2022 10:15 Repair Mitral Results fo r this AM CDT Valve Status Pos t procedure are in Cerebellar Stroke the result s Syndrome section. PROTHROMBIN TIME (PT), P Routine 01/10/2022 10:15 Repair Cecy l Results for this AM CDT Valve Status Pos t procedure are in Cerebellar Stroke the result s Syndrome section. POTASSIUM, S/P Routine 01/10/2022 10:15 Repair Mitral Results for this AM CDT Valve Status Pos t procedure are in Cerebellar Stroke the result s Syndrome section. NT-PRO B-TYPE Routine 01/10/2022 10:15 Repair Mitral Results f or this NATRIURETIC PEPTIDE AM CDT Valve Status Post procedure are in (BNP), S Cerebellar Stroke the result s Syndrome section. CREATININE WITH EGFR, Routine 01/10/2022 10:15 Repair Mitral R esults for this S/P AM CDT Valve Status Pos t procedure are in Cerebellar Stroke the result s Syndrome section. CBC WITH DIFFERENTIAL, B Routine 01/10/2022 10:15 Repair Cecy l Results for this AM CDT Valve Status Pos t procedure are in Cerebellar Stroke the result s Syndrome section. ASPARTATE Routine 01/10/2022 10:15 Repair Mitral Results fo r this AMINOTRANSFERASE (AST), AM CDT Valve St atus Post procedure are in S/P Cerebellar Stroke the result s Syndrome section. ALANINE AMINOTRANSFERASE Routine 01/10/2022 10:15 Repair Cecy l Results for this (ALT), S/P AM CDT Valve Status Pos t procedure are in Cerebellar Stroke the result s Syndrome section. ALBUMIN, S/P Routine 01/10/2022 10:15 Repair Mitral Results fo r this AM CDT Valve Status Pos t procedure are in Cerebellar Stroke the result s Syndrome section. from Last 3 Months Results (ABNORMAL) Glucose, Fasting (01/10/2022 10:16 AM CDT) athologist Signature Glucose, P 115 (H) 70 - 100 01/10/2022 DTL mg/dL 11:21 AM CDT Last Intake 17 hr 01/10/2022 DTL 10:16 AM CDT Specimen Anatomical Collection Method Collection Time Receive d Time (Source) Location / / Volume Laterality Blood (Blood, 01/10/2022 10:16 01/10/2022 Venous) AM CDT 11:03 AM CDT Ernesto Shea M.D. LAB BLOOD NON ADD-ON Performing Organization Address City/State/ZIP Code Phon e Number [facility] - [address] [place], [place] [address] [facility] [address] Laboratories-[facility] [address] NT-Pro B-Type Natriuretic Peptide (BNP) (01/10/2022 10:15 AM CDT) athologist Signature NT-Pro BNP 274 <=540 pg/mL 01/10/2022 DTL 11:38 AM CDT Comment: NT-proBNP values less than 300 pg/mL hav e a 99% negative predictive value for excluding acute con gestive heart failure. A cutoff of 1200 pg/mL for cathryn ents with an eGFR<60 yields a diagnostic sensitivity and spec ificity of 89% and 72% for acute congestive heart failure. A diagnostic NT-proBNP cutoff of 1800 pg/mL has been suggested in adults over 75 years of age in the absence of r enal failure. Specimen Anatomical Collection Method Collection Time Receive d Time (Source) Location / / Volume Laterality Blood (Blood, 01/10/2022 10:15 01/10/2022 Venous) AM CDT 11:04 AM CDT Ernesto Shea M.D. LAB BLOOD ADD-ON Performing Organization Address City/[facility] Phon e Number [facility] - [address] [place], [place] [address] [facility] [place] [address] Laboratories-[address] (ABNORMAL) Prothrombin Time (PT) (01/10/2022 10:15 AM CDT) Patholo gist Method Time Signature Prothrombin 14.3 (H) 9.4 - 12.5 01/10/2022 DTL Time, P sec 10:50 AM CDT INR 1.3 0.9 - 1.1 01/10/2022 DTL 10:50 AM CDT Comment: ----ADDITIONAL INFORMATION---- Standard intensity warfarin therapeutic range: 2.0 to 3.0 ?? High intensity warfarin therapeutic rang e: 2.5 to 3.5 Specimen Anatomical Collection Method Collection Time Receive d Time (Source) Location / / Volume Laterality Blood (Blood, 01/10/2022 10:15 01/10/2022 Venous) AM CDT 10:36 AM CDT Ernesto Shea M.D. LAB BLOOD ADD-ON Performing Organization Address City/[facility] Phon e Number [facility] - [address] [place] [address] [facility] [place] [address] Laboratories-[address] CBC with Differential, Blood (01/10/2022 10:15 AM CDT) P athologist Signature Hemoglobin 13.6 13.2 - 01/10/2022 DTL 16.6 g/dL 11:02 AM CDT Hematocrit 42.6 38.3 - 01/10/2022 DTL 48.6 % 11:02 AM CDT Erythrocytes 4.70 4.35 - 01/10/2022 DTL 5.65 11:02 AM CDT x10(12)/L MCV 90.6 78.2 - 01/10/2022 DTL 97.9 fL 11:02 AM CDT RBC Distrib Width 13.3 11.8 - 01/10/2022 DTL 14.5 % 11:02 AM CDT Platelet Count 228 135 - 317 01/10/2022 DTL x10(9)/L 11:02 AM CDT Leukocytes 7.1 3.4 - 9.6 01/10/2022 DTL x10(9)/L 11:02 AM CDT Neutrophils 5.46 1.56 - 01/10/2022 DTL 6.45 11:02 AM CDT x10(9)/L Lymphocytes 1.00 0.95 - 01/10/2022 DTL 3.07 11:02 AM CDT x10(9)/L Monocytes 0.45 0.26 - 01/10/2022 DTL 0.81 11:02 AM CDT x10(9)/L Eosinophils 0.15 0.03 - 01/10/2022 DTL 0.48 11:02 AM CDT x10(9)/L Basophils 0.04 0.01 - 01/10/2022 DTL 0.08 11:02 AM CDT x10(9)/L Specimen Anatomical Collection Method Collection Time Receive d Time (Source) Location / / Volume Laterality Blood (Blood, 01/10/2022 10:15 01/10/2022 Venous) AM CDT 10:36 AM CDT Ernesto Shea M.D. LAB BLOOD ADD-ON Performing Organization Address City/State/ZIP Code Phon e Number [facility] - [address] [place], [place] [address] [facility] [place] [address] Laboratories-[facility] [address] ALT (Alanine Aminotransferase) (01/10/2022 10:15 AM CDT) [facility] gist Method Time Signature Alanine 16 7 - 55 01/10/2022 DTL Aminotransferase U/L 11:38 AM CDT (ALT), S Specimen Anatomical Collection Method Collection Time Receive d Time (Source) Location / / Volume Laterality Blood (Blood, 01/10/2022 10:15 01/10/2022 Venous) AM CDT 11:04 AM CDT Ernesto Shea M.D. LAB BLOOD ADD-ON Performing Organization Address City/[facility]/ZIP Code Phon e Number [facility] - [address] AST (Aspartate Aminotransferase) (01/10/2022 10:15 AM CDT) Patholo gist Method Time Signature Aspartate 17 8 - 48 01/10/2022 DTL Aminotransferase U/L 11:38 AM CDT (AST), S Specimen Anatomical Collection Method Collection Time Receive d Time (Source) Location / / Volume Laterality Blood (Blood, 01/10/2022 10:15 01/10/2022 Venous) AM CDT 11:04 AM CDT Ernesto Shea M.D. LAB BLOOD ADD-ON Performing Organization Address City/[facility]/ZIP Code Phon e Number [facility] - [id number] [place] [address] (ABNORMAL) Sodium (01/10/2022 10:15 AM CDT) P athologist Signature Sodium, S 146 (H) 135 - 145 01/10/2022 DTL mmol/L 11:38 AM CDT Specimen Anatomical Collection Method Collection Time Receive d Time (Source) Location / / Volume Laterality Blood (Blood, 01/10/2022 10:15 01/10/2022 Venous) AM CDT 11:04 AM CDT Ernesto Shea M.D. LAB BLOOD ADD-ON Performing Organization Address City/State/ZIP Code Phon e Number [facility] - [address] Potassium (01/10/2022 10:15 AM CDT) P athologist Signature Potassium, S 4.2 3.6 - 5.2 01/10/2022 DTL mmol/L 11:38 AM CDT Specimen Anatomical Collection Method Collection Time Receive d Time (Source) Location / / Volume Laterality Blood (Blood, 01/10/2022 10:15 01/10/2022 Venous) AM CDT 11:04 AM CDT Ernesto Shea M.D. LAB BLOOD ADD-ON Performing Organization Address City/State/[facility] Code Phon e Number [facility] - [address] [place], [place] [address] [facility] [place] [address] Laboratories-[address] (ABNORMAL) Creatinine with Estimated GFR (01/10/2022 10:15 AM CDT) athologist Signature Creatinine 1.17 0.74 - 01/10/2022 DTL 1.35 mg/dL 11:38 AM CDT eGFR-Non 56 (L) >=60 01/10/2022 DTL Black/ mL/min/BSA 11:38 AM CDT Ecuadorean Comment: ----ADDITIONAL INFORMATION---- Estimated GFR calculated using the 2009 CKD_EPI creatinine equation. eGFR-Black/ 65 >=60 mL/min/BSA 2021 11:38 AM CDT DTL Comment: ----ADDITIONAL INFORMATION---- Estimated GFR calculated using the 2009 CKD_EPI creatinine equation. Specimen Anatomical Collection Method Collection Time Receive d Time (Source) Location / / Volume Laterality Blood (Blood, 01/10/2022 10:15 01/10/2022 Venous) AM CDT 11:04 AM CDT Ernesto Shea M.D. LAB BLOOD ADD-ON Performing Organization Address City/State/ZIP Code Phon e Number [facility] - [address] [place], [place] [address] [facility] [place] [address] Laboratories-[address] Albumin (01/10/2022 10:15 AM CDT) athologist Signature Albumin, S 4.0 3.5 - 5.0 01/10/2022 DTL g/dL 11:38 AM CDT Specimen Anatomical Collection Method Collection Time Receive d Time (Source) Location / / Volume Laterality Blood (Blood, 01/10/2022 10:15 01/10/2022 Venous) AM CDT 11:04 AM CDT Ernesto H Shea M.D. LAB BLOOD ADD-ON Performing Organization Address City/State/ZIP Code Phon e Number [facility] - [address] [place], [place] [address] [facility] [place] [address] Laboratories-[facility] [address] from Last 3 Months Insurance Payer Benefit Plan Subscriber ID Effective Phone Address Typ e / Group Dates MEDICARE MEDICARE A [id number] 2000-Prese [address] [place] [address] [employer] [id number] 2016-Prese [phone] [address] Indemnity [employer] [place] [phone] [place] [address] Advance Directives For more information, please contact: [phone] Documents on File Type Date Recorded Patient Technical Instructor Explanati on Advance Directives 08/22/2006 12:00 AM Legacy doc ument. See document viewer.
--- OUTSIDE RECORDS SUMMARY | 2022-04-02 19:36 | XMS_ITS | Encounter Summary ---
:1935 Author Organization [facility] Address [address] [place] [address] Care Team Providers Name Role Phone Unavailable Primary Care Provider Unavailable Encounter Details Date Type Department Care Team Description 01/10/2022 Hospital Encounter Department of Ernesto Shea Mitral Valve Status Post; Laboratory Medicine Joann Cai Cerebellar Stroke Syndrome and Pathology, [address] [facility], in [place], [place] [address] [place] [address] [place], [place] (Work) [phone] Social History Tobacco Use Types Packs/Day Years [...] or relatives? How often do you attend pentecostalism or More than 4 times per year 12/20/2021 voodoo services? Do you belong to any clubs or Yes 12/20/2021 organizations such as pentecostalism groups, unions, fraternal or athletic groups, or [...] place to sleep or slept in a longterm (including now)? Education Answer Date Recorded What is the highest level of school you have completed or th e Doctorate 12/20/2021 highest degree you have received? Sex Assigned at Date Recorded Male 02/28/2018 2:32 PM CDT documented as of this encounter Medications at Time of Discharge [...] C/E/Zn/coppr/lutein/zeax mouth daily. an (PRESERVISION AREDS-2 ORAL) acetaminophen (TYLENOL) Take 650 mg by mouth 0 02/22/2022 325 mg tablet every 4 (four) hours as needed for pain. amiodarone (PACERONE) Take 200 mg by mouth 0 03/2302/22/2022 200 mg tablet daily. amLODIPine (NORVASC) 5 Take 5 mg by mouth 0 11/1402/22/2022 mg tablet daily. amoxicillin (AMOXIL) 500 Take 4 capsules by 0 02/22/2022 mg capsule mouth once. Take all capsules one hour before procedure. apixaban (ELIQUIS) 5 mg Take 1 tablet by 0 201902/22/2022 tablet mouth 2 (two) times a day. AZITHROMYCIN ORAL Take by mouth as 0 06/25/2017 0 02/22/2022 needed. Capsule. 5 day regimen, Twice a year for bronchitis furosemide (LASIX) 40 mg Take 40 mg by mouth 0 02/22/2022 tablet daily. hydrocortisone (HYTONE) Apply topically as 0 10/201602/22/2022 2.5 % cream needed. Hydrocortisone PF. Itching losartan (COZAAR) 100 mg Take 100 mg by mouth 0 0 10/18/2021 02/22/2022 tablet daily. omeprazole magnesium Take 1 tablet by 0 7 02/22/2022 (PRILOSEC OTC ORAL) mouth as needed. Enteric coated. Acid Reflux simvastatin (ZOCOR) 10 Take 10 mg by mouth 0 08/200802/22/2022 mg tablet at bedtime. zolpidem (AMBIEN) 5 mg Take 1 tablet by 0 017 02/22/2022 tablet mouth at bedtime. Insomnia documented as of this encounter Plan of Treatment Not on filedocumented as of this encounter Procedures Procedure Name Priority Date/Time Associated Comments [...] Cerebellar Stroke the result s Syndrome section. documented in this encounter Results (ABNORMAL) Glucose, Fasting (01/10/2022 10:16 AM [...] LAB BLOOD NON ADD-ON Performing Organization Address City/[facility] Code Phon e Number [facility] - [address] [place], [place] [address] [facility] [place] [address] Laboratories-[facility] [address] [facility] (ABNORMAL) Sodium (01/10/2022 10:15 AM CDT) athologist Signature Sodium, S 146 (H) 135 - 145 01/10/2022 DTL mmol/L 11:38 AM CDT Specimen Anatomical Collection Method Collection Time Receive d Time (Source) Location / / Volume Laterality Blood (Blood, 01/10/2022 10:15 01/10/2022 Venous) AM CDT 11:04 AM CDT Ernesto Shea M.D. LAB BLOOD ADD-ON Performing Organization Address City/[facility] Code Phon e Number [facility] - [address] [place], [place] [address] [place] [address] [place] [address] (ABNORMAL) Prothrombin Time (PT) (01/10/2022 10:15 AM CDT) [facility] g[facility] Method Time Signature Prothrombin 14.3 (H) [...] M.D. LAB BLOOD ADD-ON Performing Organization Address City/State/[facility] Code Phon e Number [facility] - [address] [place], [place] [address] [place] [address] Potassium (01/10/2022 10:15 AM CDT) athologist [facility] Potassium, S 4.2 3.6 - 5.2 01/10/2022 DTL mmol/L 11:38 AM CDT Specimen Anatomical Collection Method Collection Time Receive d Time (Source) Location / / Volume Laterality Blood (Blood, 01/10/2022 10:15 01/10/2022 Venous) AM CDT 11:04 AM CDT Ernesto Shea M.D. LAB BLOOD ADD-ON Performing Organization Address City/State/[facility] Phon e Number [facility] [address] [place], [place] [phone] [place] [address] NT-Pro B-Type Natriuretic Peptide (BNP) (01/10/2022 10:15 [...] M.D. LAB BLOOD ADD-ON Performing Organization Address City/[facility] Phon e Number [facility] - [address] (ABNORMAL) Creatinine with Estimated GFR (01/10/2022 10:15 AM CDT) athologist Signature Creatinine 1.17 0.74 - 01/10/2022 DTL 1.35 mg/dL 11:38 AM CDT eGFR-Non 56 (L) >=60 01/10/2022 DTL Black/ mL/min/BSA 11:38 AM CDT Belarusian Comment: ----ADDITIONAL INFORMATION---- Estimated GFR calculated using [...] M.D. LAB BLOOD ADD-ON Performing Organization Address City/[facility] Phon e Number [facility] - [address] [place] [address] [address] [facility] [address] CBC with Differential, Blood (01/10/2022 10:15 [...] Organization Address City/State/ZIP Code Phon e Number [facility] - [address] [place] [address] [facility] [place] [address] [facility] [address] [facility] AST (Aspartate Aminotransferase) (01/10/2022 10:15 AM CDT) [facility] gist Method Time Signature Aspartate 17 8 - 48 01/10/2022 DTL Aminotransferase U/L 11:38 AM CDT (AST), S Specimen Anatomical Collection Method Collection Time Receive d Time (Source) Location / / Volume Laterality Blood (Blood, 01/10/2022 10:15 01/10/2022 Venous) AM CDT 11:04 AM CDT Ernesto Shea M.D. LAB BLOOD ADD-ON Performing Organization Address City/State/ZIP Code Phon e Number [facility] [address] [place], [place] [address] [place] [address] ALT (Alanine Aminotransferase) (01/10/2022 10:15 AM CDT) [facility] Method Time Signature Alanine 16 7 - 55 01/10/2022 DTL Aminotransferase U/L 11:38 AM CDT (ALT), S Specimen Anatomical Collection Method Collection Time Receive d Time (Source) Location / / Volume Laterality Blood (Blood, 01/10/2022 10:15 01/10/2022 Venous) AM CDT 11:04 AM CDT Ernesto Shea M.D. LAB BLOOD ADD-ON Performing Organization Address City/State/ZIP Code Phon e Number [facility] - [address] [place], [place] [address] [facility] [place] [address] Albumin (01/10/2022 10:15 AM CDT) P athologist Signature Albumin, S 4.0 3.5 - 5.0 01/10/2022 DTL g/dL 11:38 AM CDT Specimen Anatomical Collection Method Collection Time Receive d Time (Source) Location / / Volume Laterality Blood (Blood, 01/10/2022 10:15 01/10/2022 Venous) AM CDT 11:04 AM CDT Ernesto Shea M.D. 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
--- OUTSIDE RECORDS SUMMARY | 2022-04-02 19:36 | XMS_ITS | Encounter Summary ---
:1935 Author Organization [facility] Address [address] [place] [address] Care Team Providers Name Role Phone Unavailable Primary Care Provider Unavailable Encounter Details Date Type Department Care Team Description 12/23/2021 Ancillary Procedure Department of Gastroenterology Social History Tobacco Use Types Packs/Day Years [...] or relatives? How often do you attend gnosticist or More than 4 times per year 12/20/2021 zoroastrianism services? Do you belong to any clubs or Yes 12/20/2021 organizations such as gnosticist groups, unions, fraternal or athletic groups, or [...] place to sleep or slept in a chcf (including now)? Education Answer Date Recorded What is the highest level of school you have completed or th e Doctorate 12/20/2021 highest degree you have received? Sex Assigned at Date Recorded Male 02/28/2018 2:32 PM CDT documented as of this encounter Plan of Treatment Not on filedocumented as of this encounter Procedures Procedure Name Priority Date/Time Associated Comments Diagnosis GASTROENTEROLOGY IMAGE Routine 12/23/2021 3:55 Re sults for this EXAM PM CDT procedure are i n the results section. documented in this encounter Results Colon, Appendiceal orifice Colonoscopy-Gastroenterology Image Exam (12/23/2021 3:55 PM CDT) Specimen (Source) Anatomical Collection Method Collection Time Re ceived Time Location / / Volume Laterality 12/23/2021 3:53 PM CDT Narrative [facility] - 12/23/2021 5:01 PM CDT This order has been created and auto-finalized to support the import of images acquired without order. The clini kaci documentation to support these images can be found on the encounter kelvin t produced images. Provider Not In System IMG NON RAD IMAGING PROCEDUR ES Performing Organization Address City/State/ZIP Code Phon e Number [facility] NA documented in this encounter Visit Diagnoses Not on filedocumented in this encounter
--- OUTSIDE RECORDS SUMMARY | 2022-04-02 19:36 | XMS_ITS | Encounter Summary ---
:1935 Author Organization 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 [address] [place] [address] Referral ID Status Reason Start Expiration Visits Visits Date Date Requested Authorized [id number] Authorized Patient 02/22/2022 02/22/2023 99 99 Preference Reason for Visit Outpatient (Routine) - Closed Specialty Diagnoses / Procedures Referred By Referred To Contact Contact Physical Medicine and Diagnoses 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 [facility]brovascular Acc[facility] [address] [place] [address] Referral ID Status Reason Start Date Expiration Date Visits Requ ested Visits Authorized [id number] Closed 12/20/2021 12/20/2022 1 1 Encounter Details Date Type Department Care Team Description 02/22/2022 Comprehensive Visit Department of Loki 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, [place] [address] [facility] [phone] [place] [phone] Social History Tobacco Use Types Packs/Day [...] or relatives? How often do you attend muslim or More than 4 times per year 12/20/2021 advent services? Do you belong to any clubs or Yes 12/20/2021 organizations such as muslim groups, unions, fraternal or athletic groups, or [...] Pulse 50 02/22/2022 10:00 AM CDT Temperature - - Respiratory Rate - - Oxygen Saturation - - Inhaled Oxygen Concentration - - Weight - - Height - - Body Mass Index - - documented in this encounter Consult Notes Maine Avelar M.D. - 02/22/2022 10:00 AM CDT SUBJECTIVE REQUESTING PROVIDER Ernesto Shea M.D. 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 At that time, there was discussion on sending him for driving assessment to determine whether he would be safe to return to driving. 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 Additionally, he reports that driving outside of town is becoming very tiring and taxing for him. Instead, heis now utilizing his electric scooter which has an approximate 14 mi radius, which enables him to goto and from the grocery store, as well as struggling down by the river. When not utilizing his electric scooter, he is consistently ambulating with his 4 wheeled walker which provides him stability. Due to the consistent use of his walker, he denies any falls since 2019. In fact, he has been practicing getting up from the ground in the event that he does fall and able to use the furniture surroundinghim to assist him back up to a seated position. He has also been exercising more, utilizing a stationary bike regularly and now is able to walk up to 1/2 mi before he feels tired or needs to take a rest. 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 Due to this instability in the right hand, he does require assistance with cutting his food. Otherwise, he is independent with all his other ADLs and IADLs. He is able to transfer independently to and from the bed into his electric scooter or to his 4 wheeled walker. Denies any current pain or recurrent dizziness. He states that later this month, he is planning on going to occupational therapy to assist him with his writing difficulties. Upon review of the [facility] symptom checklist, he does report decreased hearing for which he uses hearing aids, along with decreased vision. He states it has been over a year since his last eye exam and finds that reading the small text in the newspapers has become more difficult. Additionally, he states that he has been experiencing some urinary accidents due to urinary frequency.He is currently taking Lasix as well as losartan. Since his stroke in 2017, he is also now taking zolpidem more regularly, previously was utilizing a few times a week and is now taking it every single night before bed at a dose of 5 mg. He on average sleeps 8 hours a night and once he falls asleep butthe zolpidem, he is able to stay asleep all night. Lastly, he has been experiencing more dry mouth and finds that eating and drinking can be difficult at times if he does not pre hydrate enough beforehand. The following portions of the patient's history were reviewed and updated as appropriate: allergies,current medications, family history, medical history, social history, surgical history, and problem list. REVIEW OF SYSTEMS I have briefly reviewed the Review of Systems as noted on the Health history form. I am only responding to those symptoms which are directly relevant to the specific indication for my consultation. I recommend that the patient follow up with their primary or referring provider to pursue any other symptoms which may be of concern. Ears, nose, mouth, throat, and face: positive for dry mouth Genitourinary:positive for frequency Musculoskeletal:negative except for mild decreased range of motion at the level of the knees Neurological: positive for coordination problems, gait problems, and tremors OBJECTIVE BP 135/70 (BP Location: Right arm, Patient Position: Sitting, Cuff Size: Regular) Pulse (!) 50 PHYSICAL EXAM General/Constitutional: Alert. Well-developed, well-nourished individual in no acute distress. Mental Status/Psychiatric: Appropriate mood and affect. Grossly oriented with coherent speech and thought processing. Neurologic: Cranial nerves: Cranial nerve function grossly intact bilaterally. Coordination abnormal in the right upper and lower extremities, including overshooting on airblg-ui-ixns testing, dysdiadochokinesia, inability to perform adequate heel to trevizo test. Muscle strength 5/5 bilateral upper lower extremities. Musculoskeletal: Strength: All major muscle groups of the bilateral upper and lower extremities havenormal and symmetric muscle strength, bulk, and tone. Gait was not evaluated secondary to safety issues with lack of 4 walker on hand for ambulation Skin: Skin inspection grossly negative for erythema, breakdown, or concerning lesions in affected area. Eyes: Visual field grossly intact to confrontation. No redness appreciated. 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 At this time, his biggest concern is maintaining his strength in continuing to practice safe ambulation in an attempt to prevent future falls and complications. We did discuss sending him to the physical therapist for 1 time visit in order to obtain a series of graded exercise programs along with stretches which can then be taken with him to his local gym where he can work with a lead trainer to keep him accountable for these exercises. He states that otherwise, if given the exercises to do at home, he will notconsistently perform them. We will plan to keep him scheduled for occupational therapy to work on his writing and also look into using adaptive equipment to help with cutting his food. I did provide him a fall prevention strategies book today and went through the major higgins components of preventing falls. #2 Insomnia He continues to use zolpidem 5 mg every night, which is an increase from what he used to use years ago for sleep. He has not tried any other medication strategies for sleep and due to his fall risk, herve discuss also looking into alternative medications for his sleep with his primary care provider. Some examples include but are not limited to melatonin, valerian root and trazodone. His daughter whowas with him at the appointment today stated that his last fall in 2019 was due to the fact that he took his zolpidem to early on before heading to bed. He was open to discussing this further with his primary care provider to find a better alternative that would provide him with restful sleep as well as reducing his fall risk. Additionally, we discussed undergoing home sleep studies/oximetry study todetermine if this is also affecting his sleep. #3 Urinary Frequency There was some concern regarding his frequency of urination and a potential fall risk during the daytime if he is rushing to use the bathroom. He states that often times, if he is unable to make to thebathroom in time, he will not quiles himself as he knows he is at increased risk of falls, however this then results in urinary accidents. We did discuss speaking to his primary care provider regarding his Lasix and losartan doses to determine if any adjustments can be made to help reduce his urinary frequency. EDUCATION We discussed the diagnosis and treatment plan in detail. The patient expressed understanding of the content. No apparent learning barriers were identified; learning preferences include listening. Signed by: Maine Avelar M.D. 02/22/2022 10:08 AM CDT Associated attestation - Kalina Manjarrez M.D. - 02/22/2022 2:41 PM CDT I saw and evaluated the patient, participating in the higgins portions of the service. I reviewed the resident/fellow???s note. I agree with the resident/fellow???s findings and plan. I have generated external PT prescription and will send to his patient portal. Recommend that once he has established independent exercise program from his PT, he should establish with a local computer technology trainer to help him with continuing exercise program to maintain benefits. I have placed order for pulse oximetry overnight given his worsened sleep disturbance after his stroke such that he is requiring prescription sleep aid. Discussed increase risk for falls in the setting of using Ambien and diuretics that are causing him urinary urgency. Recommend that he review these medications with his prescribing health manager medicare to determine if there are reasonable alternatives. Kalina Manjarrez M.D. 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
--- OUTSIDE RECORDS SUMMARY | 2022-04-02 19:36 | XMS_ITS | Encounter Summary ---
:1935 Author Organization [facility] Address [address] [place] [address] Care Team Providers Name Role Phone Unavailable Primary Care Provider Unavailable Encounter Details Date Type Department Care Team Description 01/18/2022 Orders Only Division of General Internal [place] Ernesto perla M.D. Medicine in [place], [facility] [address] [place], [place] [address] [facility] [address] [place] [address] [phone] Social History Tobacco Use Types Packs/Day Years [...] place to sleep or slept in a intermediate (including now)? Education Answer Date Recorded What is the highest level of school you have completed or e Doctorate 12/20/2021 highest degree you have received? Sex Assigned at Date Recorded Male 02/28/2018 2:32 PM CDT documented as of this encounter Plan of Treatment Not on filedocumented as of this encounter Visit Diagnoses Not on filedocumented in this encounter
--- OUTSIDE RECORDS SUMMARY | 2022-04-02 19:36 | XMS_ITS | Encounter Summary ---
:1935 Author Organization [facility] Address [address] [place] [address] Care Team Providers Name Role Phone Unavailable Primary Care Provider Unavailable Reason for Visit Outpatient (Routine) - Closed Specialty Diagnoses / Procedures Referred By Contact Refer red To Contact Colon and Rectal Diagnoses Polyp Colon Adenomatous Ernesto Shea, [facility] [address] [place] [address] Referral ID Status Reason Start Date Expiration Date Visits Requ ested Visits Authorized [id number] Closed 01/11/2022 01/11/2023 1 1 Encounter Details Date Type Department Care Team Description 02/22/2022 Comprehensive Visit Division of Colon Jefferson Schwarz M.D., M.B.A. [address] [place] [phone] Polyp Colon and Rectal Surgery Ernesto Shea M.D. [address] [place] [phone] Adenomatous in [place], [place] [address] [place] [address] [phone] Social History Tobacco Use Types Packs/Day Years [...] or relatives? How often do you attend orthodox or More than 4 times per year 12/20/2021 latter day services? Do you belong to any clubs or Yes 12/20/2021 organizations such as orthodox groups, unions, fraternal or athletic groups, or [...] PM CDT documented as of this encounter Consult Notes Dimitris Schwarz M.D., M.B.A. 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 given the patient's comorbidities and age I would not recommend surgical therapy if desires to desire to cross all TS a CT of the abdomen pelvis would define whether not the appendix is indeed abnormal if normal in caliber than he is at e xtremely low risk of this being a malignancy or devolved into of malignancy during his lifetime and therefore I would not recommend surgical therapy that has high risk if the appendix on CT was grosslyabnormal then there would be a higher need or likely head of a potential malignancy and therefore surgical indication would be increased all this is been described the patient at this time point the patient wishes to be conservative without any further therapy documented in this encounter Plan of Treatment Not on filedocumented as of this encounter Visit Diagnoses Diagnosis Polyp Colon Adenomatous documented in this encounter
--- OUTSIDE RECORDS SUMMARY | 2022-04-02 19:36 | XMS_ITS | Encounter Summary ---
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 [facility] [address] [place] [phone] Referral ID Status Reason Start Date Expiration Date Visits Requ ested Visits Authorized [id number] Closed 10/25/2021 10/25/2022 1 1 Encounter Details Date Type Department Care Team Description 01/10/2022 Comprehensive Visit Department of Nir Johnson Mitral Valve Status Post; Neurology in [place] Ba Cerebellar Stroke Syndrome [place], [place] [address] [place] [address] [address] [place] [phone] Social History Tobacco Use Types Packs/Day Years [...] or relatives? How often do you attend pentecostal or More than 4 times per year 12/20/2021 latter day services? Do you belong to any clubs or Yes 12/20/2021 organizations such as pentecostal groups, unions, fraternal or athletic groups, or [...] place to sleep or slept in a snf (including now)? Education Answer Date Recorded What is the highest level of school you have completed or th e Doctorate 12/20/2021 highest degree you have received? Sex Assigned at Date Recorded Male 02/28/2018 2:32 PM CDT documented as of this encounter Last Filed Vital Signs Vital Sign Reading Time Taken Comments Blood Pressure 152/77 01/10/2022 11:03 AM CDT Pulse 54 01/10/2022 11:03 AM CDT Temperature 36.5 ??C (97.7 ??F) 01/10/2022 11:03 AM CDT Respiratory Rate - - Oxygen Saturation - - Inhaled Oxygen Concentration - - Weight 90 kg (198 lb 6.6 oz) 01/10/2022 11:03 AM CDT Height - - Body Mass Index 30.42 12/20/2021 10:10 AM CDT documented in this encounter Consult Notes Nir Johnson M.D. - 01/10/2022 11:00 AM CDT SUBJECTIVE Ernesto Shea M.D. CHIEF COMPLAINT / REASON FOR VISIT Gregg Villa is a 86 y.o. male who presents for evaluation of . 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 He suffered the infarction as noted above. Although initially not ambulating give ventrally through physical therapy and some occupational therapy was able to ambulate short distances without an aid but routinely used a walker and went home often a cane. He now states that his walking has deteriorated. He can walk short distances with a walker and he has concerns about falls. He has been scheduled to be seen physical medicine rehabilitation with his main concerns likely occupational therapy, things he can do to make his walking safer. Hiswife is in a care unit [place] with dementia. He would like to be able to go out visit her. Afsanehws that with his physical limitations he would be able to take care of her needs. The mechanism of his infarctions was likely atrial fibrillation which is been subsequently documented. When last seen he was on rivaroxaban but because of financial considerations he is on Eliquis which he had taken previously. This was discontinued only because of financial reasons. Overall he had itremains as active as he can be. As far as his exercise program he does note that if he rides his stationary bike three to 4 times a week that his ambulation is better. REVIEW OF SYSTEMS: REVIEW OF SYSTEMS OBJECTIVE PHYSICAL EXAM Patient is bright alert. Language appears to be normal. 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 His speech is clearly intelligible however. When formal muscle testing is performed when he activates I think the muscle strength is normal throughout with the exception of his rotator cuffs which are 3- patrick aterally. Coordination of the left upper and left lower extremity are normal. He has significant 2+ ataxia of right upper extremity and left lower extremity. On reflex testing he has a pendular reflex in the right lower extremity. 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 He is appropriately cautious and transfers. I think from the standpoint of stroke prevention he is doing everything that needs to be done. I think the main issue is gait safety and perhaps exercises for him to maintain his current level of independence. He notes that he does not right perhaps there would be some things occupational therapy could do to improve his writing using the right hand. From talking to the patient a goal would be to go to [place] and be able to see his . He conversed six days a week, primarily singing via the computer. 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
--- OUTSIDE RECORDS SUMMARY | 2022-04-02 19:36 | XMS_ITS | Encounter Summary ---
:1935 Author Organization [facility] Address [address] [place] [address] Care Team Providers Name Role Phone Unavailable Primary Care Provider Unavailable Reason for Visit Appointment Request (Routine) - Closed Specialty Diagnoses / Procedures Referred By Contact Refer red To Contact General Internal Medicine Referral ID Status Reason Start Date Expiration Date Visits Requ ested Visits Authorized [id number] Closed 01/09/2022 01/09/2023 1 Encounter Details Date Type Department Care Team Description 01/10/2022 Nurse Only Division of General Internal Kirshna Baumann ra, Medicine in [facility] [address] [place] [phone] Social History Tobacco Use Types Packs/Day Years [...] or relatives? How often do you attend worship or More than 4 times per year 12/20/2021 zoroastrianism services? Do you belong to any clubs or Yes 12/20/2021 organizations such as worship groups, unions, fraternal or athletic groups, or [...] place to sleep or slept in a custodial (including now)? Education Answer Date Recorded What [...]
--- OUTSIDE RECORDS SUMMARY | 2022-04-02 19:36 | XMS_ITS | Encounter Summary ---
:1935 Author Organization [facility] Address [address] [place] [address] Care Team Providers Name Role Phone Unavailable Primary Care Provider Unavailable Reason for Visit Appointment Request (Routine) - Authorized Specialty Diagnoses / Procedures Referred By Contact Refer red To Contact General Internal Medicine Referral ID Status Reason Start Date Expiration Date Visits V isits Requested Authorized [id number] Authorized 12/20/2021 12/20/2022 1 Encounter Details Date Type Department Care Team Description 12/20/2021 Admin Visit Division of General Internal Medicine in [place], [place] [address] [place] [phone] Social History Tobacco Use Types Packs/Day Years Used Date Smoking Tobacco: Never Smokeless Tobacco: Never Alcohol Habits Answer Date Recorded How often [...] or relatives? How often do you attend nondenominational or More than 4 times per year 12/20/2021 buddhist services? Do you belong to any clubs or Yes 12/20/2021 organizations such as nondenominational groups, unions, fraternal or athletic groups, or [...]
--- OUTSIDE RECORDS SUMMARY | 2022-04-02 19:36 | XMS_ITS | Encounter Summary ---
:1935 Author Organization [facility] Address [address] [place] [address] Care Team Providers Name Role Phone Unavailable Primary Care Provider Unavailable Reason for Visit Appointment Request (Routine) - Closed Specialty Diagnoses / Procedures Referred By Contact Refer red To Contact General Internal Medicine Referral ID Status Reason Start Date Expiration Date Visits Requ ested Visits Authorized [id number] Closed 11/02/2021 11/02/2022 1 1 Encounter Details Date Type Department Care Team Description 01/10/2022 Office Visit Division of Ernesto López 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 Cerebrovascular Accident (Primary Dx); Internal Medicine in H, M.D. Atrial Fibrillation (HCC); [place], [place] [address] [facility] Hypertension Essential Primary; [address] [place], [place] Bradycardia; [place] [address] Cancer Skin Basal Cell Personal History; [id number] Polyp Colon Adenomatous Social History Tobacco Use Types Packs/Day Years [...] or relatives? How often do you attend roman catholic or More than 4 times per year 12/20/2021 mormon services? Do you belong to any clubs or Yes 12/20/2021 organizations such as roman catholic groups, unions, fraternal or athletic groups, or [...] place to sleep or slept in a prison (including now)? Education Answer Date Recorded What is the highest level of school you have completed or th e Doctorate 12/20/2021 highest degree you have received? Sex Assigned at Date Recorded Male 02/28/2018 2:32 PM CDT documented as of this encounter Progress Notes Ernesto Shea M.D. - 01/10/2022 3:30 PM CDT CHIEF COMPLAINT Mr. Villa presents to clinic for follow up of tests and/or consultations completed to date. Recall that he is an 86 y.o. 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 The stroke was in the posterior inferior cerebel lar artery territory and has left him with significant ataxia ever since as well as increasing difficulty writing. He manages to navigate his apartment with a walker as well as to ambulate down to the dining hay 3 times daily and to the exercise room as well. He has not had any recent falls after falling 4 times between 2017 and 2019 without major injury. He came for re-evaluation and recommendations with regard to his ambulation and strength. He has been seen by Neurology with plans for additional evaluation to come in February 2022 with the [facility]. He also has a history of prior mitral valve repair and was seen again byCardiology with an accompanying echocardiogram performed showing stability. His past history has additionally been inclusive of a sessile serrated adenoma noted in 2014. We repeated a colonoscopy at his request and found a 1.5 cm polyp at the cecum. At this juncture, he and we are considering options focused on his preferences and the risks and benefits involved with an operative intervention. We anticipate his return in February. The following portions of the patient's history were reviewed and updated as appropriate: allergies,current medications, family history, medical history, social history, surgical history and problem list. ASSESSMENT AND PLAN #1 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 Cerebrovascular Accident Consultation: Neurology Recommendations: We include the following taken directly from their note. Overall since I saw him in 2018 I think things are relatively stable. He is appropriately cautious and transfers. I think from the standpoint of stroke prevention he is doing everything that needs to be done. I think the main issue is gait safety and perhaps exercises for him to maintain his current level of independence. ?? He notes that he does not right perhaps there would be some things occupational therapy could do to improve his writing using the right hand. ?? From talking to the patient a goal would be to go to [place] and be able to see his . He conversed six days a week, primarily singing via the computer. #2 Atrial Fibrillation (HCC) #3 Hypertension Essential Primary #4 Bradycardia Consultation: Cardiology Procedures: Electrocardiogram showed sinus bradycardia with first-degree AV block. Heart rate was 48 but regular. Nonspecific T-wave abnormalities were noted. Minimal criteria for a past anteroseptal infarct or present but this is without clinical correlates. There are no major concerns otherwise. Echocardiogram was performed which showed the following--- 1. Mildly enlarged left ventricular chamber size, no regional wall motion abnormalities, calculated 2-D linear ejection fraction 55%. 2. Abnormal left ventricular geometry with eccentric left ventricular hypertrophy, indeterminate filling pressure. 3. Mildly enlarged right ventricular chamber size, normal systolic function, estimated right ventricular systolic pressure 43 mmHg (right atrial pressure of 5 mmHg). 4. Status post mitral valve repair ( 2006). Moderate residual regurgitation with a very eccentric anteriorly directed jet with Coanda effect. This appears unchanged on direct [id number] comparison with the study of 04/15/2018. There is no stenosis with a mean diastolic gradient of 1 mmHg at a heart rate of 50. 5. Moderate-severe tricuspid valve regurgitation. Regurgitant volume 45 ml. This has worsened compared to previous study. 6. No pericardial effusion. 7. Repeat transthoracic echocardiogram is recommended in 1-2 years. Recommendations: We include the following taken directly from their note. 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 His last echocardiogram in 2018 showed moderate mitral regurgitation. He has no clinical symptoms fortunately. I was not able to hear a murmur today that does not exclude mild or moderate mitral regurgitation. He is having an echocardiogram later. I will review that and correspond with him. ?? He is not experiencing any signs or symptoms of heart failure. His lipids are reasonably well controlled although I would like his LDL cholesterol at or below 70 mg/dL given his prior history of stroke. His stroke was attributable to paroxysmal atrial fibrillation but he has history of hypertension makes me suspicious that he may have suffered a stroke from it. Nonetheless he will continue on anticoagulation as appropriate. ?? I explained to him that should he require mitral valve treatment going forward we likely would recommend percutaneous treatment of transcatheter edge to edge mitral valve repair or mitral valve replacement percutaneously if it is available when the need arises. His history of stroke makes redo surgeryhigher risk option. ?? Later: I reviewed the echocardiogram. The result shows no significant change from his last echo - hehas residual moderate MR with preserved LV systolic function. I would not recommend any additional treatment at this time. ?? #5 Cancer Skin Basal Cell Personal History Recommendations: Continue yearly skin checks with Dermatology. #6 Polyp Colon Adenomatous Procedures: Colonoscopy was performed which showed a 1.5 cm sessile serrated adenomatous polyp at the appendiceal orifice. Recommendations: Surgery consult along with risk calculator estimates and contacts once more with the clinicians above to help the patient make an informed decision. Answers for HPI/ROS submitted by the patient on 12/20/2021 No general issues: Yes No eye issues: Yes No ENT issues: Yes No heart issues: Yes No respiratory issues: Yes No GI issues: Yes No muscle/bone issues: Yes No skin issues: Yes No neurologic issues: Yes No mental health issues: Yes No blood/lymph issues: Yes Urgency: Yes documented in this encounter Plan of Treatment Not on filedocumented as of this encounter Visit Diagnoses Diagnosis 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 Cerebrovascular Accid ent - Primary Atrial Fibrillation (HCC) Hypertension Essential Primary Bradycardia Cancer Skin Basal Cell Personal History Polyp Colon Adenomatous documented in this encounter
--- OUTSIDE RECORDS SUMMARY | 2022-04-02 19:36 | XMS_ITS | Encounter Summary ---
:1935 Author Organization [facility] Address [address] [place] [address] Care Team Providers Name Role Phone Unavailable Primary Care Provider Unavailable Reason for Referral Outpatient (Routine) - Closed Specialty Diagnoses / Procedures Referred By Contact Refer red To Contact Colon and Rectal Diagnoses Polyp [facility]omatous [facility] [address] [place] [address] Referral ID Status Reason Start Date Expiration Date Visits Requ ested Visits Authorized [id number] Closed 01/11/2022 01/11/2023 1 1 Encounter Details Date Type Department Care Team Description 01/11/2022 Orders Only Division of Ernesto López Polyp Colon Adenomatous Internal Medicine hugh Cai M.D. (Primary Dx) [place], [place] [address] [facility] [address] [place] [phone] Social History Tobacco Use Types Packs/Day Years [...] or relatives? How often do you attend yarsanism or More than 4 times per year 12/20/2021 religion services? Do you belong to any clubs or Yes 12/20/2021 organizations such as yarsanism groups, unions, fraternal or athletic groups, or [...] place to sleep or slept in a nursing home (including now)? Education Answer Date Recorded What is the highest level of school you have completed or th e Doctorate 12/20/2021 highest degree you have received? Sex Assigned at Date Recorded Male 02/28/2018 2:32 PM CDT documented as of this encounter Plan of Treatment Scheduled Referrals Name Type Priority Associated Diagnoses Order S chedule Colon and Rectal Outpatient Referral Routine Polyp Colon Expe cted: Surgery - General Adenomatous 01/11/2022 consult (clinic) (Approximat e), Expires: 04/13/2023 documented as of this encounter Visit Diagnoses Diagnosis Polyp Colon Adenomatous - Primary documented in this encounter
--- OUTSIDE RECORDS SUMMARY | 2022-04-02 19:37 | XMS_ITS | Encounter Summary ---
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 [facility] Procedures DX Chest AP or PA and Lateral 2 Views [address] [place] [address] Referral ID Status Reason Start Date Expiration Date Visits V isits Requested Authorized [id number] Authorized 12/20/2021 12/20/2022 1 1 Outpatient (Routine) - Authorized Specialty Diagnoses / Procedures Referred By Contact Refer red To Contact [facility] [address] [place] [phone] Referral ID Status Reason Start Date Expiration Date Visits V isits Requested Authorized [id number] Authorized 12/20/2021 12/20/2022 1 1 Reason for Visit Outpatient (Routine) - Closed Specialty Diagnoses / Referred By Contact Referred To Contact Procedures Cardiovascular Diseases / Diagnoses Repair Mitral Valve Status Post Cerebellar Stroke Syndrome [facility] Joann [address] [place] [address] Referral ID Status Reason Start Date Expiration Date Visits Requ ested Visits Authorized [id number] Closed 10/25/2021 10/25/2022 1 1 Encounter Details Date Type Department Care Team Description 12/20/2021 Comprehensive Visit Department of Zoran Nuñez 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 Do you belong to any clubs [...] place to sleep or slept in a assisted (including now)? Education Answer Date Recorded What is the highest level of school you have completed or th e Doctorate 12/20/2021 highest degree you have received? Sex Assigned at Date Recorded Male 02/28/2018 2:32 PM CDT documented as of this encounter Consult Notes Zoran Nuñez M.D. - 12/20/2021 3:00 PM CDT SUBJECTIVE Referring Provider: Ernesto Shea M.D. CHIEF COMPLAINT / REASON FOR CONSULT Cardiovascular follow-up HISTORY OF PRESENT ILLNESS Gregg Villa is a 86 y.o. male who presents to [facility] for cardiovascular follow-up. He underwent mitral valve repair on 08/15/2006 for severe mitral regurgitation. He hadinsertion of a C-shaped posterior annuloplasty ring with plication of the posterior leaflet. He had p ostoperative atrial fibrillation for a short time and required amiodarone. He converted to normal sinus rhythm. He was dismissed home after a few days in hospital and has had no further cardiovascular issues to speak of. 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 He presented to the [facility] with nausea, vomiting, severe frontal headaches, some dysarthria andright-sided incoordination. He was noted to be severely hypertensive at that time. He now requires the use of a walker because of the issues following the stroke and lives alone in anapartment in [place], [place]. His second suffer severe dementia and is in a long-term care facility in [place]. They communicate daily via video conference seeing and stay connected with singing. He does not have any active cardiovascular symptoms. Specifically he is not having exertional dyspnea, orthopnea, paroxysmal nocturnal dyspnea, palpitations or chest discomfort. He has intermittent edema and manages it with compression socks and low-dose furosemide. He leads his active lifestyle as possible. 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 Cardiac History: Previous cardiac history includes: Patient Active Problem List Diagnosis ??? Hypertension ??? 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 Stroke (HCC) ??? Bronchitis Chronic (HCC) ??? Asthma NOS ??? Abnormal Oximetry ??? Atrial Fibrillation Paroxysmal (HCC) PAST MEDICAL/SURGICAL HISTORY 1. Previous colon polypectomy. 2. Labile hypertension. 3. Hyperlipidemia, treated. 4. Status post tonsillectomy. 5. Status post cholecystectomy. 6. Prostate cancer status post radical prostatectomy in 2004. Ten months after this surgery, he developed an abscess (Staphylococcus) and was treated accordingly. 7. Gastroesophageal reflux disease. 8. Davison of hearing, wears hearing aids. 9. Varicose veins. 10. Seasonal allergies. 11. Atrial premature beats. 12. Status post mitral valve repair, 08/15/2006. 13. Paroxysmal atrial fibrillation ?? No past medical history on file. 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 No tobacco or alcohol use. He has two adult children who do not live in [place]. Social History Tobacco Use ??? Smoking status: Never Smoker ??? Smokeless tobacco: Never Used Substance Use Topics ??? Alcohol use: Not on file No family history on file. Current Outpatient Medications: ??? acetaminophen (TYLENOL) 325 mg tablet, Take 650 mg by mouth every 4 (four) hours as needed for pain., Disp: , Rfl: ??? amiodarone (PACERONE) 200 mg tablet, Take 200 mg by mouth daily., Disp: , Rfl: ??? amLODIPine (NORVASC) 5 mg tablet, Take 5 mg by mouth daily., Disp: , Rfl: ??? amoxicillin (AMOXIL) 500 mg capsule, Take 4 capsules by mouth once. Take all capsules one hour before procedure., Disp: , Rfl: ??? apixaban (ELIQUIS) 5 mg tablet, Take 1 tablet by mouth 2 (two) times a day., Disp: , Rfl: ??? AZITHROMYCIN ORAL, Take by mouth as needed. Capsule. 5 day regimen, Twice a year for bronchitis,Disp: , Rfl: ??? chlorpheniramine (CHLOR-TRIMETON) 4 mg tablet, Take 1 tablet by mouth daily as needed. Rhinitis,Disp: , Rfl: ??? fluticasone propionate (FLOVENT HFA) 110 mcg/actuation inhaler, Inhale 1-2 puffs at bedtime. 2 puffs twice daily; during summer months only 1 puff twice daily, Disp: , Rfl: ??? furosemide (LASIX) 40 mg tablet, Take 40 mg by mouth daily., Disp: , Rfl: ??? hydrocortisone (HYTONE) 2.5 % cream, Apply topically as needed. Hydrocortisone PF. Itching, Disp: , Rfl: ??? losartan (COZAAR) 100 mg tablet, Take 100 mg by mouth daily., Disp: , Rfl: ??? omeprazole magnesium (PRILOSEC OTC ORAL), Take 1 tablet by mouth as needed. Enteric coated. AcidReflux, Disp: , Rfl: ??? polyethylene glycol-electrolytes (NULYTELY) 420 gram solution, Take 4,000 mL by mouth once for 1dose., Disp: 4000 mL, Rfl: 0 ??? simvastatin (ZOCOR) 10 mg tablet, Take 10 mg by mouth at bedtime., Disp: , Rfl: ??? triamcinolone (NASACORT) 55 mcg/actuation nasal spray, Administer 1-2 sprays into each nostril daily., Disp: , Rfl: ??? vit C/E/Zn/coppr/lutein/zeaxan (PRESERVISION AREDS-2 ORAL), Take 2 tablets by mouth daily., Disp: , Rfl: ??? zolpidem (AMBIEN) 5 mg tablet, Take 1 tablet by mouth at bedtime. Insomnia, Disp: , Rfl: Allergies Allergen Reactions ??? Grass Pollen Other (see comments) Itching, postnasal drip, throat irritation ??? Mold Other (see comments) Throat irritation ??? Pollen Extracts Other (see comments) Throat irritation ??? Sulfa (Sulfonamide Antibiotics) Hives and Other (see comments) Sleep pattern change ??? Apple GI intolerance Raw apples cause excessive amount of intestinal gas. ??? Cat Dander Other (see comments) Itching, postnasal drip ??? Dust Mite [House Dust Mite] Other (see comments) Itching, postnasal drip, throat irritation ??? Latex Other (see comments) Unknown reaction I have reviewed the chart including most recent evaluations and noted the findings. REVIEW OF SYSTEMS Pertinent items are noted in HPI; all other review of systems was negative. OBJECTIVE There were no vitals taken for this visit. PHYSICAL EXAMINATION General Appearance: Alert, cooperative, no distress, appears stated age. Eyes: Normal without any redness or drainage. Neck: Supple, symmetrical. Trachea midline. No adenopathy. Carotids 4/4, no bruits; JVP 8 cm, normalwaveform Lungs: Clear to auscultation bilaterally, respirations unlabored. Chest Wall: No tenderness or deformity. Heart: Regular rate and rhythm, S1 normal and S2 normal, no rub or gallop, no appreciable murmur. Abdomen: Soft, nontender. Bowel sounds active all four quadrants. No masses. No organomegaly. Extremities: Extremities normal, atraumatic, no cyanosis or edema. Vessels: No edema appreciated. Peripheral pulses are symmetrical and of normal contour. Skin: Skin color, texture, turgor normal. No rashes or lesions. Psychiatric: Normal mood and cognitive reasoning appear normal. Neurologic: Normal strength and sensation. No obvious weakness. DIAGNOSTICS I have reviewed the patient's current laboratory, imaging, and other diagnostic studies. Pertinent imaging studies have been reviewed and are notable for: ECG: ECG 12 Lead Result Date: 12/20/2021 Marked sinus bradycardia with 1st degree A-V block Non-specific intra-ventricular conduction delay Cannot rule out Anteroseptal infarct Nonspecific T wave abnormality When compared with ECG of 15-APR-2018 12:59, Minimal criteria for Anteroseptal infarct is now present Reviewed by CORWIN Clarke Chest x-ray: DX Chest AP or PA and Lateral 2 Views Result Date: 12/20/2021 Impression: Sternotomy with mitral annuloplasty. Mild cardiomegaly. The heart has enlarged slightly since 04/15/2018. Slight increase in mildly enlarged central pulmonary arteries which may be due to pulmonary arterial hypertension. Small amount of new scarring/atelectasis in the lower lungs. Otherwise no change. Segmental eventration right hemidiaphragm. Mild degenerative changes in the spine. Abdominal surgical clips. Echocardiogram: Pending for later today Labs: Appointment on 12/20/2021 Component Date Value ??? Ventricular Rate ECG/Min 12/20/2021 48 ??? CT Interval 12/20/2021 224 ??? QRSD Interval 12/20/2021 110 ??? QT Interval 12/20/2021 490 ??? QTC Interval 12/20/2021 437 ??? R [place] 12/20/2021 62 ??? 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 He is not experiencing any signs or [...] he will continue on anticoagulation as appropriate. I explained to him that should he require mitral valve treatment going forward we likely would recommend percutaneous treatment of transcatheter edge to edge mitral valve repair or mitral valve replacement percutaneously if it is available when the need arises. His history of stroke makes redo surgeryhigher risk option. Later: I reviewed the echocardiogram. The result shows no significant change from his last echo - hehas residual moderate MR with preserved LV systolic function. I would not recommend any additional treatment at this time. It was a pleasure to see him today and answer questions. I will plan to see him back in a year or sooner if clinically appropriate. 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 3 Cerebrovascular Accident Hyperlipidemia Mixed Echo Transthoracic Echocardiography Routine Repair Mitral Valv e Expected: (TTE) Status Post 12/20/2022 Cerebellar Stroke (Approxima te) Syndrome , Expires: 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 3 Cerebrovascular Accident Hyperlipidemia Mixed AST (Aspartate Lab Routine Repair Mitral Valve Expect ed: Aminotransferase) Status Post 12/20/2022 Cerebellar Stroke (Approxima te) Syndrome , Expires: 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 3 Cerebrovascular Accident Hyperlipidemia Mixed Comprehensive Lab Routine Repair Mitral Valve Expecte d: Metabolic Panel Status Post 12/20/2022 Cerebellar Stroke (Approxima te) Syndrome , Expires: 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 3 Cerebrovascular Accident Hyperlipidemia Mixed Lipid Panel Lab Routine Repair Mitral Valve Expected : Status Post 12/20/2022 Cerebellar Stroke (Approxima te) Syndrome , Expires: 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
--- OUTSIDE RECORDS SUMMARY | 2022-04-02 19:37 | XMS_ITS | Encounter Summary ---
:1935 Author Organization [facility] Address [address] [place] [address] Care Team Providers Name Role Phone Unavailable Primary Care Provider Unavailable Encounter Details Date Type Department Care Team Description 05/14/2018 Documentation Department of Cardiovascular Sandoval, Maryanne Mathis Jr., Medicine in [facility] [address] [facility] [address] [place] [phone] (Wo rk) Social History Tobacco Use Types Packs/Day Years Used Date Smoking Tobacco: Never Alcohol Habits Answer Date Recorded [...] or relatives? How often do you attend jehovah's witness or More than 4 times per year 12/20/2021 yazidism services? Do you belong to any clubs or Yes 12/20/2021 organizations such as jehovah's witness groups, unions, fraternal or athletic groups, or [...] place to sleep or slept in a long-term (including now)? Sex Assigned at Date Recorded Male 02/28/2018 2:32 PM CDT documented as of this encounter Progress Notes Liang Sandoval Jr., M.D. 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 He tells me that his overnight oximetry study showed saturations below 90% about 25% of the time. I believe this is important enough to have him be seen in [place] [facility] to consider polysomnography. He will send a copy of the overnight oximetry report to me and I will request a sleep consultation in the meantime. He has paroxysmal atrial fibrillation, had a CVA, and we do not wish to have any further potential CATALOGUE ILLUSTRATOR emboli or to have him become demented.. documented in this encounter Plan of Treatment Not on filedocumented as of this encounter Visit Diagnoses Not on filedocumented in this encounter
--- OUTSIDE RECORDS SUMMARY | 2022-04-02 19:37 | XMS_ITS | Encounter Summary ---
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 [facility] Procedures Echo Transthoracic (TTE) [address] [place] [address] Referral ID Status Reason Start Date Expiration Date Visits Requ ested Visits Authorized [id number] Closed 10/25/2021 10/25/2022 1 1 Encounter Details Date Type Department Care Team Description 12/20/2021 Hospital Encounter [employer] Shea itral Valve Status Post; Cardiovascular Diseases Ernesto Cai M.D. Cerebellar Stroke Syndrome in [facility] [address] [place] [id number] Social History Tobacco Use Types Packs/Day Years [...] or relatives? How often do you attend synagogue or More than 4 times per year 12/20/2021 christianity services? Do you belong to any clubs or Yes 12/20/2021 organizations such as synagogue groups, unions, fraternal or athletic groups, or [...] for the very basics like Not h salyl at all 12/20/2021 food, housing, medical care, [...] place to sleep or slept in a [place] facility (including now)? Education Answer Date Recorded What [...] 10 Take 10 mg by mouth 0 09/08/200802/22/2022 mg tablet at bedtime. zolpidem (AMBIEN) 5 mg Take 1 tablet by 0 017 02/22/2022 tablet mouth at bedtime. Insomnia documented as of this encounter Plan of Treatment Not on filedocumented as of this encounter Procedures Procedure Name Priority Date/Time Associated Diagnosis Comme nts (TTE) 2D ECHO Routine 12/20/2021 6:15 PM Repair Mitral Valve R esults for this DOPPLER COLOR CDT Status Post procedure are in Cerebellar Stroke the result s Syndrome section. documented in this encounter Results (TTE) 2D ECHO DOPPLER COLOR (12/20/2021 6:15 PM CDT) [facility] Method Time Signature Ejection Fraction 55 MC CV EIMS Mid-Ascending Aorta 42 MC CV EIMS LV Mass Index 122 MC CV EIMS LV End-Diastolic 54 MC CV EIMS Diameter LV End-Systolic 38 MC CV EIMS Diameter Left ventricular 37 MC CV EIMS stroke volume index Cardiac Output 3.58 MC CV EIMS Cardiac Index 1.76 MC CV EIMS LV Interventricular 12 MC CV EIMS Septal Wall Thickness LV Posterior Wall 11 MC CV EIMS Thickness LV Relative Wall 41 MC CV EIMS Thickness TAPSE 22 MC CV EIMS Tricuspid Annular S? 0.17 MC CV EIMS TR Vmax 3.10 MC CV EIMS RA Pressure 5 MC CV EIMS RV Systolic Pressure 43 MC CV EIM S AV mean gradient 2 MC CV EIMS Aortic valve area 3.60 MC CV EIMS Aortic Valve 0.73 MC CV EIMS Dimensionless Index MV mean gradient 1 MC CV EIMS TV Regurgitant 45 MC CV EIMS Volume LA Volume Index 58 MC CV EIMS Aortic Valve 0.80 MC CV EIMS Systolic Peak Velocity Anatomical Region Laterality Modality Echocardiography Specimen (Source) Anatomical Collection Method Collection Time Re ceived Time Location / / Volume Laterality 12/20/2021 5:10 PM CDT Impressions 12/20/2021 6:46 PM CDT LEFT VENTRICLE:Mildly enlarged left ventricular chamber size. Abnormal left ventricular geometry with ??eccentric left ventricular hypertrophy. Calculated 2-D linear left ventricular ejection fraction 5 5%. No regional wall motion abnormalitie s. Indeterminate left ventricular filling p ressure. RIGHT VENTRICLE:Mildly enlarged right ve ntricular chamber size. Normal right ventricular systolic function. Estimated right ventricular systolic pressure 43 mmHg (right atrial pressure of 5 mmHg). ATRIA:Severely enlarged left atrial size . Left atrial volume index 58 ml/m2. Severely enlarged right atrial size. CARDIAC VALVES:Trileaflet aortic valve. Mildly thickened aortic valve. Trivial aortic valve regurgitation. 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 Mitral valve diastolic mean Doppler gradient 1 mmHg (heart rate 50 BPM). Moderate mitral valve regurgitation. Normal pulmonary valve. N ormal pulmonary valve systolic velocities. Trivial pulmonary valve regurgitation. Normal tricuspid valve. Tricuspid annulus dilatation. Moderate-severe tricuspid valve regurgitation. Tricuspid regurgita tion ERO (PISA) 0.42 cm2. Tricuspid regurgitant v olume (PISA) 45 ml. OTHER ECHO FINDINGS:Normal inferior vena cava size with normal inspiratory collapse (>50%). Normal mid ascending aorta diameter of 42 mm. Upper limit of normal of the mid ascending aorta, for age, sex and BSA is 44 mm. Abdominal aorta incompletely visualized. Normal abdominal aorta Doppl er flow pattern. Positive for atrial level shunt by color flow imaging. No intracardiac mass or thrombus, but the left atrial appendage cannot be visualized adequ ately with transthoracic echo to exclude thrombus in this location. No ??pericardial effusion . For the complete report, see the [employer] Documents. Narrative 12/20/2021 6:46 PM CDT For the complete report, see the Order-Level Documents. Final Impressions 1. Mildly enlarged left ventricular christophe milo size, no regional wall motion abnormalities, calculated 2-D linear ejection fraction 55%. 2. Abnormal left ventricular geometry wi th ??eccentric left ventricular hypertrophy, indeterminate filling pressure. 3. Mildly enlarged right ventricular brady mber size, normal systolic function, estimated right ventricular systolic pressure 43 mmHg (right atrial pressure of 5 mmHg). 4. Status post mitral valve repair ( 200 7). Moderate residual regurgitation with ??a very eccentric anteriorly directed jet with Coanda effect. This appears unchanged on direct [id number]-[id number] comparison w ith the study of 04/15/2018. There is no stenosis with a mean diastolic gradient of 1 mmHg at a heart rate of 50. 5. Moderate-severe tricuspid valve regur gitation. Regurgitant volume 45 ml. This has worsened compared to previous study. 6. No ??pericardial effusion. 7. Repeat transthoracic echocardiogram i s recommended in 1-2 years. Procedure Note Preet Horan M.D., Ph.D. - 022 For the complete report, see the [employer] Documents. Final Impressions 1. Mildly enlarged left ventricular christophe milo size, no regional wall motion abnormalities, calculated 2-D linear ejection fraction 55%. 2. Abnormal left ventricular geometry wi th eccentric left ventricular hypertrophy, indeterminate filling pressure. 3. Mildly enlarged right ventricular brady mber size, normal systolic function, estimated right ventricular systolic pressure 43 mmHg (right atrial pressure of 5 mmHg). 4. Status post mitral valve repair ( 200 7). Moderate residual regurgitation with a very eccentric anteriorly directed jet with Coanda effect. This appears unchanged on direct [id number] comparison with the study of 04/15/2018. There is no stenosi s with a mean diastolic gradient of 1 mmHg at a heart rate of 50. 5. Moderate-severe tricuspid valve regur gitation. Regurgitant volume 45 ml. This has worsened compared to previous study. 6. No pericardial effusion. 7. Repeat transthoracic echocardiogram i s recommended in 1-2 years. Findings LEFT VENTRICLE:Mildly enlarged left vent ricular chamber size. Abnormal left ventricular geometry with eccentric left ventricular hypertrophy. Calculated 2-D linear left ventricular ejection fraction 55%. No regional wall motion abnormalities. Indeterminate left ventricular filling pressure. RIGHT VENTRICLE:Mildly enlarged right ve ntricular chamber size. Normal right ventricular systolic function. Estimated right ventricular systolic pressure 43 mmHg (right atrial pressure of 5 mmHg). ATRIA:Severely enlarged left atrial size . Left atrial volume index 58 ml/m2. Severely enlarged right atrial size. CARDIAC VALVES:Trileaflet aortic valve. Mildly thickened aortic valve. Trivial aortic valve regurgitation. 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 Mitral valve diastolic mean Doppler gradient 1 mmHg (heart rate 50 BPM). Moderate mitral valve regu rgitation. Normal pulmonary valve. Normal pulmonary valve systolic velocities. Trivial pulmonary valve regurgitation. Normal tricuspid valve. Tricuspid annulus dilatation. Moderate-severe tricuspid valve regurgit ation. Tricuspid regurgitation ERO (PISA) 0.42 cm2. Tricuspid regurgitant volume (PISA) 45 ml. OTHER ECHO FINDINGS:Normal inferior vena cava size with normal inspiratory collapse (>50%). Normal mid ascending aorta diameter of 42 mm. Upper limit of normal of the mid ascending aorta, for age, sex and BSA is 44 mm. Abdominal aorta incompletely visualized. Normal abdominal aorta Doppler flow pattern. Positive for atrial level shunt by color flow imaging. No intracardiac mass or thrombus, but the left atrial appendage cannot be visualized adequately with transthoracic echo to exclude thrombus in this location. No pericardial effusion. For the complete report, see the [employer] Documents. Ernesto Shea M.D. 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
--- OUTSIDE RECORDS SUMMARY | 2022-04-02 19:37 | XMS_ITS | Encounter Summary ---
:1935 Author Organization [facility] Address [address] [place] [address] Care Team Providers Name Role Phone Unavailable Primary Care Provider Unavailable Encounter Details Date Type Department Care Team Description 05/27/2015 Hospital Encounter HX RST DERM SURG Andrea [place] [address] Social History Tobacco Use Types Packs/Day Years Used Date Smoking Tobacco: Never Assessed Alcohol Habits Answer Date Recorded How often [...] or relatives? How often do you attend quaker or More than 4 times per year 12/20/2021 worship services? Do you belong to any clubs or Yes 12/20/2021 organizations such as quaker groups, unions, fraternal or athletic groups, or [...] place to sleep or slept in a detention (including now)? Sex Assigned at Date Recorded Male 02/28/2018 2:32 PM CDT documented as of this encounter Last Filed Vital Signs Vital Sign Reading Time Taken Comments Blood Pressure 141/87 05/27/2015 3:11 PM [employer] Vital sign result from Clinical Notes. Pulse 55 05/27/2015 3:11 PM [employer] Vital sign result from Clinical Notes. Temperature - - Respiratory Rate - - Oxygen Saturation - - Inhaled Oxygen Concentration - - Weight - - Height - - Body Mass Index - - documented in this encounter Medications at Time of Discharge Medication Sig Dispensed Refills Start Date End Date simvastatin (ZOCOR) 10 mg Take 10 mg by mouth 0 0 03/24/2009 02/22/2022 tablet at bedtime. documented as of this encounter Plan of Treatment Not on filedocumented as of this encounter Visit Diagnoses Not on filedocumented in this encounter Additional Health Concerns Assessment Noted Time PHQ-9 Depression Total Score: 1 12/24/2012 5:00 PM CDT documented as of this encounter
--- OUTSIDE RECORDS SUMMARY | 2022-04-02 19:37 | XMS_ITS | Encounter Summary ---
:1935 Author Organization [facility] Address [address] [place] [address] Care Team Providers Name Role Phone Unavailable Primary Care Provider Unavailable Encounter Details Date Type Department Care Team Description 03/11/2018 Orders Only Department of Liang Sandoval Fibrillation Atrial Cardiovascular Medicine Arya Saldana Paroxysmal (HCC) in [facility] pacheco [address] [facility] (Primary Dx) [address] [place] [phone] Social History Tobacco Use Types Packs/Day Years [...] or relatives? How often do you attend methodist or More than 4 times per year 12/20/2021 protestant services? Do you belong to any clubs or Yes 12/20/2021 organizations such as methodist groups, unions, fraternal or athletic groups, or [...] place to sleep or slept in a fdc (including now)? Sex Assigned at Date Recorded Male 02/28/2018 2:32 PM CDT documented as of this encounter Plan of Treatment Not on filedocumented as of this encounter Results (TTE) 2D ECHO DOPPLER COLOR (04/15/2018 5:26 PM CDT) [facility] Method Time Signature Ejection Fraction 52 MC CV EIMS Sinus of Valsalva 38 MC CV EIMS Sinotubular Junction 26 MC CV EIM S Mid-Ascending Aorta 41 MC CV EIMS LV Mass Index 98 MC CV EIMS LV End-Diastolic 54 MC CV EIMS Diameter LV End-Systolic 40 MC CV EIMS Diameter MV E Velocity 0.9 MC CV EIMS MV A Velocity 0.5 MC CV EIMS MV E/A 1.80 MC CV EIMS MV e' Velocity 0.07 MC CV EIMS Medial MV e' Velocity 0.11 MC CV EIMS Lateral MV E/e' Medial 12.9 MC CV EIMS MV E/e' Lateral 8.2 MC CV EIMS Left ventricular 51 MC CV EIMS stroke volume index Cardiac Output 4.74 MC CV EIMS Cardiac Index 2.41 MC CV EIMS LV Interventricular 10 MC CV EIMS Septal Wall Thickness LV Posterior Wall 9 MC CV EIMS Thickness LV Relative Wall 33 MC CV EIMS Thickness TAPSE 18 MC CV EIMS Tricuspid Annular S? 0.13 MC CV EIMS TR Vmax 3.00 MC CV EIMS RA Pressure 5 MC CV EIMS RV Systolic Pressure 41 MC CV EIM S MV mean gradient 2 MC CV EIMS MV regurgitant 49 MC CV EIMS volume LA Volume Index 53 MC CV EIMS Anatomical Region Laterality Modality Echocardiography Specimen (Source) Anatomical Collection Method Collection Time Re ceived Time Location / / Volume Laterality 04/15/2018 2:16 PM CDT Narrative 04/15/2018 4:13 PM CDT This result has an attachment that is no t available. See PDF For Result Procedure Note Dany Arreola M.D. - 04/15/2018F ormatting of this note might be different from the original. See PDF For Result Liang Sandoval Jr., M.D. CV ECHO PROCEDURES ECG 12 Lead (04/15/2018 12:59 PM CDT) P athologist Signature Ventricular Rate 60 BPM MUSE ECG/Min [place] Interval 282 ms MUSE QRSD Interval 120 ms MUSE QT Interval 480 ms MUSE QTC Interval 480 ms MUSE P [place] 80 degrees MUSE R [place] 7 degrees MUSE T Wave [place] 51 degrees MUSE Specimen Anatomical Collection Method Collection Time Receive d Time (Source) Location / / Volume Laterality 04/15/2018 12:59 04/15/2018 1:27 PM CDT PM CDT Impressions MUSE - 04/15/2018 1:27 PM CDT Sinus rhythm with 1st degree A-V block Non-specific intra-ventricular conductio n delay Nonspecific T wave abnormality When compared with ECG of 11-SEP-2016 18 :18, Premature ventricular complexes are no l onger present Narrative This result has an attachment that is no t available. Liang Sandoval Jr., M.D. ECG ORDERABLES Performing Organization Address City/State/ZIP Code Phon e Number MUSE MUSE NA DX Chest AP or PA and Lateral 2 Views (04/15/2018 12:25 PM CDT) Anatomical Region Laterality Modality Chest, Thoracic RST LOS, Thoracic ARZ LOS, Thoracic N/A Digital Radiography FLA LOS Specimen (Source) Anatomical Collection Method Collection Time Re ceived Time Location / / Volume Laterality 04/15/2018 1:05 PM CDT Impressions 04/15/2018 1:06 PM CDT IMPRESSION: ??No change since 11/16/2015. Sternotomy with mitral annuloplasty. Borderline cardiomegaly. Pulmonary vascu larity is within normal limits. Prominent fat pad at the cardiac apex. M ildly tortuous aorta. Abdominal surgical clips. Postoperative changes left should er. Narrative 04/15/2018 1:06 PM CDT EXAM: ??DX CHEST AP OR PA AND LATERAL 2 VIEWS Procedure Note Nicole Greene M.D. - 04/15/2018Fo rmatting of this note might be different from the original. EXAM: DX CHEST AP OR PA AND LATERAL 2 EWS IMPRESSION: No change since 11/16/2015. S ternotomy with mitral annuloplasty. Borderline cardiomegaly. Pulmonary vascu larity is within normal limits. Prominent fat pad at the cardiac apex. M ildly tortuous aorta. Abdominal surgical clips. Postoperative changes left should er. Liang Sandoval Jr., M.D. IMG DIAGNOSTIC IMAGING PROCE DURES (ABNORMAL) NT-Pro B-Type Natriuretic Peptide (BNP) (04/15/2018 11:59 AM CDT) athologist Signature NT-Pro BNP 274 (H) <=135 04/15/2018 [facility] pg/mL 1:34 PM CDT [facility] Comment: NT-proBNP values less than 300 pg/mL hav e a 99% negative predictive value for excluding acute congestive heart carl lure. A cutoff of 1200 pg/mL for patients with an eGFR<60 yields a diagno stic sensitivity and specificity of 89% and 72% for acute congestive heart f ailure. ??A diagnostic NT-proBNP cutoff of 1800 pg/mL has been suggested in adults over 75 years of age in the absence of renal failure. Specimen Anatomical Collection Method Collection Time Receive d Time (Source) Location / / Volume Laterality Blood (Blood, 04/15/2018 11:59 04/15/2018 Venous) AM CDT 12:08 PM CDT Liang Sandoval Jr., M.D. LAB BLOOD ADD-ON Performing Organization Address City/State/ZIP Code Phon e Number [facility]ATORIES - [address] [place], [place] [address] [facility] Lipid Panel (04/15/2018 11:59 AM CDT) athologist Signature Cholesterol, 174 mg/dL 04/15/2018 [facility] Total 1:34 PM CDT [facility] Comment: ----REFERENCE VALUE---- Desirable: < 200 Borderline high: 200 - 239 High: > or = 240 Triglycerides 74 mg/dL 04/15/2018 1:34 PM CDT [facility] S Comment: ----REFERENCE VALUE---- Normal: <150 Borderline high: 150-199 High: 200-499 Very high: > or =500 Cholesterol, HDL, S 59 >=40 mg/dL 04/15/2018 1:34 PM CDT [facility] PUS Calculated LDL 100 mg/dL 04/15/2018 1:34 PM CDT [place] [facility] P[facility] Comment: ----REFERENCE VALUE---- Desirable: <100 Above Desirable: 100-129 Borderline high: 130-159 High: 160-189 Very high: > or =190 Cholesterol, Non-HDL, 115 mg/dL 04/15/2018 1:3 4 PM CDT [facility] Calculated - [facility] Comment: ----REFERENCE VALUE---- Desirable: <130 Above Desirable: 130-159 Borderline high: 160-189 High: 190-219 Very high: > or =220 Specimen Anatomical Collection Method Collection Time Receive d Time (Source) Location / / Volume Laterality Blood (Blood, 04/15/2018 11:59 04/15/2018 Venous) AM CDT 12:08 PM CDT Liang Sandoval Jr., M.D. LAB BLOOD ADD-ON Performing Organization Address City/State/ZIP Code Phon e Number [facility] - [address] [place], [place] [address] [facility] CBC with Differential (04/15/2018 11:59 AM CDT) [facility] gist Method Time Signature Hemoglobin 15.0 13.2 - 04/15/2018 [facility] 16.6 g/dL 12:13 PM CDT [facility] Hematocrit 46.0 38.3 - 04/15/2018 [facility] 48.6 % 12:13 PM CDT [facility] Erythrocytes 5.08 4.35 - 04/15/2018 [facility] 5.65 12:13 PM CDT LABORATORIES - x10(12)/L [facility] MCV 90.6 78.2 - 04/15/2018 [facility] 97.9 fL 12:13 PM CDT [facility] RBC Distrib Width 13.6 11.8 - 04/15/2018 [facility] 14.5 % 12:13 PM CDT [facility] Platelet Count 237 135 - 317 04/15/2018 [facility] x10(9)/L 12:13 PM CDT [facility] Leukocytes 6.4 3.4 - 9.6 04/15/2018 [facility] x10(9)/L 12:13 PM CDT [facility] Neutrophils 3.98 1.56 - 04/15/2018 [facility] 6.45 12:13 PM CDT LABORATORIES - x10(9)/L [facility] Lymphocytes 1.81 0.95 - 04/15/2018 [facility] 3.07 12:13 PM CDT LABORATORIES - x10(9)/L [facility] Monocytes 0.47 0.26 - 04/15/2018 [facility] 0.81 12:13 PM CDT LABORATORIES - x10(9)/L [facility] Eosinophils 0.08 0.03 - 04/15/2018 [facility] 0.48 12:13 PM CDT LABORATORIES - x10(9)/L [facility] Basophils 0.03 0.01 - 04/15/2018 [facility] 0.08 12:13 PM CDT LABORATORIES - x10(9)/L [facility] Specimen Anatomical Collection Method Collection Time Receive d Time (Source) Location / / Volume Laterality Blood (Blood, 04/15/2018 11:59 04/15/2018 Venous) AM CDT 12:08 PM CDT Liang Sandoval Jr., M.D. LAB BLOOD ADD-ON Performing Organization Address City/[facility]/ZIP Code Phon e Number [facility]IES - [address] S-TSH (Thyroid-Stimulating Hormone - Sensitive) (04/15/2018 11:59 AM CDT) P athologist Signature TSH, Sensitive 0.5 0.3 - 4.2 04/15/2018 [facility] mIU/L 1:34 PM CDT LABORATORIES - [facility] Specimen Anatomical Collection Method Collection Time Receive d Time (Source) Location / / Volume Laterality Blood (Blood, 04/15/2018 11:59 04/15/2018 Venous) AM CDT 12:08 PM CDT Liang Sandoval Jr., M.D. LAB BLOOD ADD-ON Performing Organization Address City/[facility] Code Phon e Number [facility]IES - [address] (ABNORMAL) PT (Prothrombin Time) with INR (04/15/2018 11:59 AM CDT) Patholo gist Method Time Signature Prothrombin 13.4 (H) 9.4 - 04/15/2018 [facility] Time, P 12.5 sec 12:24 PM CDT LABORATORIES - [facility] INR 1.2 0.9 - 1.1 04/15/2018 [facility] 12:24 PM CDT LABORATORIES - [facility] Comment: ----ADDITIONAL INFORMATION---- Standard intensity warfarin therapeutic range: 2.0 to 3.0 ?? High intensity warfarin therapeutic rang e: 2.5 to 3.5 Specimen Anatomical Collection Method Collection Time Receive d Time (Source) Location / / Volume Laterality Blood (Blood, 04/15/2018 11:59 04/15/2018 Venous) AM CDT 12:09 PM CDT Liang Sandoval Jr., M.D. LAB BLOOD ADD-ON Performing Organization Address City/[facility] Code Phon e Number [facility] - [address] [place] [phone] [facility] (ABNORMAL) Sodium (04/15/2018 11:59 AM CDT) P athologist Signature Sodium, S 148 (H) 135 - 145 04/15/2018 [facility] mmol/L 1:34 PM CDT LABORATORIES - [facility] Specimen Anatomical Collection Method Collection Time Receive d Time (Source) Location / / Volume Laterality Blood (Blood, 04/15/2018 11:59 04/15/2018 Venous) AM CDT 12:08 PM CDT Liang Sandoval Jr., M.D. LAB BLOOD ADD-ON Performing Organization Address City/[facility]/ZIP Code Phon e Number [facility]IES - [address] [place] [phone] [facility] Potassium (04/15/2018 11:59 AM CDT) P athologist Signature Potassium, S 4.9 3.6 - 5.2 04/15/2018 [facility] mmol/L 1:34 PM CDT LABORATORIES - [facility] Specimen Anatomical Collection Method Collection Time Receive d Time (Source) Location / / Volume Laterality Blood (Blood, 04/15/2018 11:59 04/15/2018 Venous) AM CDT 12:08 PM CDT Liang Sandoval Jr., M.D. LAB BLOOD ADD-ON Performing Organization Address City/[facility]/ZIP Code Phon e Number [facility]IES - [address] [place] [phone] [facility] (ABNORMAL) Glucose, Fasting (04/15/2018 11:59 AM CDT) P athologist Signature Glucose, P 116 (H) 70 - 100 04/15/2018 [facility] mg/dL 12:43 PM CDT [facility] Last Intake 17 hr 04/15/2018 [facility] 12:08 PM CDT LABORATORIES - [facility] Specimen Anatomical Collection Method Collection Time Receive d Time (Source) Location / / Volume Laterality Blood (Blood, 04/15/2018 11:59 04/15/2018 Venous) AM CDT 12:08 PM CDT Liang Sandoval Jr., M.D. LAB BLOOD NON ADD-ON Performing Organization Address City/[facility] Code Phon e Number [facility]IES - [address] Creatinine with Estimated GFR (04/15/2018 11:59 AM CDT) [facility] Time Signature Creatinine 1.12 0.74 - 04/15/2018 [facility] 1.35 mg/dL 1:34 PM CDT LABORATORIES [facility] eGFR-Non 61 >=60 04/15/2018 [facility] Black/ mL/min/BSA 1:34 PM CDT LABORATORIES - [facility] Comment: ----ADDITIONAL INFORMATION---- Estimated GFR calculated using the 2009 CKD_EPI creatinine equation. eGFR-Black/ 70 >=60 mL/min/BSA 04/15/2018 1:34 [facility] Haitian CDT LABORATORIES [facility] Comment: ----ADDITIONAL INFORMATION---- Estimated GFR calculated using the 2009 CKD_EPI creatinine equation. Specimen Anatomical Collection Method Collection Time Receive d Time (Source) Location / / Volume Laterality Blood (Blood, 04/15/2018 11:59 04/15/2018 Venous) AM CDT 12:08 PM CDT Liang Sandoval Jr., M.D. LAB BLOOD ADD-ON Performing Organization Address City/State/[facility] Phon e Number [facility]IES - [address] [place] [phone] [facility] Albumin (04/15/2018 11:59 AM CDT) athologist Signature Albumin, S 4.3 3.5 - 5.0 04/15/2018 [facility] g/dL 1:34 PM CDT LABORATORIES - [facility] Specimen Anatomical Collection Method Collection Time Receive d Time (Source) Location / / Volume Laterality Blood (Blood, 04/15/2018 11:59 04/15/2018 Venous) AM CDT 12:08 PM CDT Liang Sandoval Jr., M.D. LAB BLOOD ADD-ON Performing Organization Address City/State/ZIP Code Phon e Number [facility]IES - [address] [place], [place] [address] [facility] documented in this encounter Visit Diagnoses Diagnosis Atrial Fibrillation Paroxysmal (HCC) - P rimary Atrial Fibrillation Paroxysmal (HCC) Atrial Fibrillation Paroxysmal (HCC) documented in this encounter
--- OUTSIDE RECORDS SUMMARY | 2022-04-02 19:37 | XMS_ITS | Encounter Summary ---
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 [facility] Procedures DX Chest AP or PA and Lateral 2 Views [address] [place] [address] Referral ID Status Reason Start Date Expiration Date Visits Requ ested Visits Authorized [id number] Closed 10/25/2021 10/25/2022 1 1 Outpatient (Routine) - Closed Specialty Diagnoses / Referred By Contact Referred To Contact Procedures Cardiovascular Diseases / Diagnoses Repair Mitral Valve Status [facility] C[facility] Joann [address] [place] [address] Referral ID Status Reason Start Date Expiration Date Visits Requ ested Visits Authorized [id number] Closed 10/25/2021 10/25/2022 1 1 Scheduling Instructions CM Outpatient (Routine) - Closed Specialty Diagnoses / Procedures Referred By Contact Refer red To Contact Neurology Diagnoses 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 [facility] [address] [place] [address] Referral ID Status Reason Start Date Expiration Date Visits Requ ested Visits Authorized [id number] Closed 10/25/2021 10/25/2022 1 1 Scheduling Instructions CM Reason for Visit Reason Comments Triage Encounter Details Date Type Department Care Team Description 10/11/2021 Clinical Communication Division of General Prescheduli ng, Triage Internal Medicine in [place], [place] [address] [place] [phone] Social History Tobacco Use Types Packs/Day Years [...] or slept in a mcc (including now)? Sex Assigned at Date Recorded Male 02/28/2018 2:32 PM CDT documented as of this encounter Miscellaneous Notes Telephone Encounter - Yanet Swenson - 10/12/2021 2:47 PM CDT [facility] DECISION: Approve CONSULTS: Cardiology: Valvular heart disease consult. Indication: Mitral valve repair, cerebellar stroke, query pacemaker versus Watchman. Integrative Medicine. Lifestyle medicine. Indication: Wellness consult Neurology: Cerebrovascular consult. Indication: Cerebellar stroke, mitral valve repair, patient would like to review medications prescribed to prevent further stroke. Complexity: LOW Telephone Encounter - Boo Bolaños - 10/11/2021 3:42 PM CDT Gregg Villa [id number] years Gender: Male Who filled out ARF: Patient?? 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 The records of all my many visits are at [facility]. 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 After intensive physical therapy I stillneed a walker and have limited mobility which has impeded my coming to [place]. It is past time tohave a more complete physical examination. I might also need a pacemaker or Watchman. Duration: More than 12 months Previous Eval: Yes Institution: [place] [address] Maria Esther Carroll is my primary care physician. Have had: Blood or urine tests Diagnosis: Take medicines; all is probably OK. Outcome: My blood pressure has increased recently for no apparent reason. My heart rate remains low (42-55). Expectations: I need a complete physical exam to see what problems may have developed. ADDITIONAL - 1 My medicines. Description: I now take many stroke-related medicines. Is this the right combination given my bradycardia and heart history? Duration: More than 12 months Previous Eval: Yes Institution: [facility] Have had: Blood or urine tests Diagnosis: All is probably OK. Outcome: It probably OK. Expectations: A thorough examination. ADDITIONAL - 2 Description: Duration: Previous Eval: Institution: Have had: Diagnosis: Outcome: Expectations: ADDITIONAL - 3 Description: Duration: Previous Eval: Institution: Have had: Diagnosis: Outcome: Expectations: ADDITIONAL - 4 Description: Duration: Previous Eval: Institution: Have had: Diagnosis: Outcome: Expectations: ADDITIONAL CONCERNS: ? LIFESTYLE MEDICINE CONSULTATION: Yes? CONDITIONS: None of the above BOTHERED BY: Feeling nervous, anxious or on edge - Not being able to control or stop worrying - Little interest or pleasure in doing things - Feeling down, depressed, or helpless - Willing to speak to a mental health professional - PAIN LONGER THAN 3 MONTHS: CARE PROVIDERS TO DATE: LOWEST PAIN LAST 7 DAYS (0 to 10): PAIN INTERFERENCE PAST 3 MONTHS (0 to 10): PAIN AREAS: FATIGUE A MAIN REASON FOR VISIT: FATIGUE/HOW LONG: PROBLEMS WITH SLEEP: SLEEP PROBLEMS LAST 2 WEEKS: SLEEP APNEA DIAGNOSIS: Willing to attend [facility] appointments - DAILY MEDS: 7 OPIOIDS: No CURRENT DIALYSIS: No CURRENT HEALTH/PAST YEAR: Good CONFIDENCE: Agree NOT AVAILABLE: I AM AVAILABLE ANY TIME PHONE: [phone] documented in this encounter Plan of Treatment Scheduled Referrals Name Type Priority Associated Order Schedule Diagnoses Neurology - Outpatient Routine Repair Mitral Expected: Cerebrovascular consult Referral Valve St atus Post 12/20/2021, (clinic) Cerebellar Stroke Expires: Syndrome 12/20/2022 Cardiovascular Disease - Outpatient Routine Repair Mitral Ex pected: Valvular heart disease Referral Valve Sta tus Post 12/20/2021, ([facility]) consult (clinic) Cerebellar Stroke Expires: Syndrome 12/20/2022 documented as of this encounter Results (ABNORMAL) Glucose, Fasting (01/10/2022 10:16 AM CDT) P athologist Signature Glucose, P 115 (H) 70 - 100 01/10/2022 DTL mg/dL 11:21 AM CDT Last Intake 17 hr 01/10/2022 DTL 10:16 AM CDT Specimen Anatomical Collection Method Collection Time Receive d Time (Source) Location / / Volume Laterality Blood (Blood, 01/10/2022 10:16 01/10/2022 Venous) AM CDT 11:03 AM CDT Ernesto Shea M.D. LAB BLOOD NON ADD-ON Performing Organization Address City/[facility] Phon e Number [facility] - [address] [place] [address] [address] [facility] (ABNORMAL) Sodium (01/10/2022 10:15 AM CDT) P athologist Signature Sodium, S 146 (H) 135 - 145 01/10/2022 DTL mmol/L 11:38 AM CDT Specimen Anatomical Collection Method Collection Time Receive d Time (Source) Location / / Volume Laterality Blood (Blood, 01/10/2022 10:15 01/10/2022 Venous) AM CDT 11:04 AM CDT Ernesto Shea M.D. LAB BLOOD ADD-ON Performing Organization Address City/[facility] Phon e Number [facility] - [address] [place] [address] (ABNORMAL) Prothrombin Time (PT) (01/10/2022 10:15 [...] M.D. LAB BLOOD ADD-ON Performing Organization Address City/[facility] Phon e Number [facility] - [address] Potassium (01/10/2022 10:15 AM CDT) athologist [facility] Potassium, S 4.2 3.6 - 5.2 01/10/2022 DTL mmol/L 11:38 AM CDT Specimen Anatomical Collection Method Collection Time Receive d Time (Source) Location / / Volume Laterality Blood (Blood, 01/10/2022 10:15 01/10/2022 Venous) AM CDT 11:04 AM CDT Ernesto Shea M.D. LAB BLOOD ADD-ON Performing Organization Address City/[facility] Phon e Number [facility] - [address] NT-Pro B-Type Natriuretic Peptide (BNP) (01/10/2022 [...] M.D. LAB BLOOD ADD-ON Performing Organization Address City/[facility] Phon e Number [facility] - [address] [place], [place] [address] [place] [address] [place] [address] (ABNORMAL) Creatinine with Estimated GFR (01/10/2022 10:15 AM CDT) athologist Signature Creatinine 1.17 0.74 - 01/10/2022 DTL 1.35 mg/dL 11:38 AM CDT eGFR-Non 56 (L) >=60 01/10/2022 DTL Black/ mL/min/BSA 11:38 AM CDT South African Comment: ----ADDITIONAL INFORMATION---- Estimated GFR calculated using [...] M.D. LAB BLOOD ADD-ON Performing Organization Address City/[facility] Phon e Number [facility] - [address] [place], [place] [address] [place] [address] [place], [place] [phone] [place] [address] CBC with Differential, Blood (01/10/2022 10:15 AM CDT) athologist Signature Hemoglobin 13.6 13.2 - 01/10/2022 [...] Address City/State/ZIP Code Phon e Number [facility] - [address] [place], [place] [address] [facility] [place] [address] Laboratories-[facility] [address] AST (Aspartate Aminotransferase) (01/10/2022 10:15 AM CDT) [facility] Method Time Signature Aspartate 17 8 - 48 01/10/2022 DTL Aminotransferase U/L 11:38 AM CDT (AST), S Specimen Anatomical Collection Method Collection Time Receive d Time (Source) Location / / Volume Laterality Blood (Blood, 01/10/2022 10:15 01/10/2022 Venous) AM CDT 11:04 AM CDT Ernesto Shea M.D. LAB BLOOD ADD-ON Performing Organization Address City/State/ZIP Code Phon e Number [facility] - [address] [place], [place] [address] [facility] [place] [phone] [place] [address] ALT (Alanine Aminotransferase) (01/10/2022 10:15 AM CDT) [facility] Method Time Signature Alanine 16 7 - 55 01/10/2022 DTL Aminotransferase U/L 11:38 AM CDT (ALT), S Specimen Anatomical Collection Method Collection Time Receive d Time (Source) Location / / Volume Laterality Blood (Blood, 01/10/2022 10:15 01/10/2022 Venous) AM CDT 11:04 AM CDT Ernesto Shea M.D. LAB BLOOD ADD-ON Performing Organization Address City/State/ZIP Code Phon e Number [facility] - [address] [place], [place] [address] [facility] [place], [place] [phone] [place] [address] Albumin (01/10/2022 10:15 AM CDT) P athologist Signature Albumin, S 4.0 3.5 - 5.0 01/10/2022 DTL g/dL 11:38 AM CDT Specimen Anatomical Collection Method Collection Time Receive d Time (Source) Location / / Volume Laterality Blood (Blood, 01/10/2022 10:15 01/10/2022 Venous) AM CDT 11:04 AM CDT Ernesto Shea M.D. LAB BLOOD ADD-ON Performing Organization Address City/State/ZIP Code Phon e Number [facility] - [address] [place] [address] [place] [phone] [place] [address] (TTE) 2D ECHO DOPPLER COLOR (12/20/2021 6:15 PM CDT) [facility] Method Time Signature Ejection Fraction 55 [...] For the complete report, see the [employer] Documents. Narrative 12/20/2021 6:46 PM CDT For [...] Coanda effect. This appears unchanged on direct tzqi-uo-uwwl comparison w ith the study of 04/15/2018. [...] 022 For the complete report, see the [employer] [facility] [employer] Documents. Final Impressions 1. Mildly enlarged left [...] Coanda effect. This appears unchanged on direct mito-ho-eriz comparison with the study of 04/15/2018. There [...] Documents. Ernesto Shea M.D. CV ECHO PROCEDURES DX Chest AP or PA and Lateral 2 Views (12/20/2021 12:53 PM CDT) Anatomical Region Laterality Modality Chest, Thoracic RST LOS, Thoracic ARZ LOS, Thoracic N/A Digital Radiography FLA LOS Specimen (Source) Anatomical Collection Method Collection Time Re ceived Time Location / / Volume Laterality 12/20/2021 12:55 PM CDT Impressions 12/20/2021 12:57 PM CDT Sternotomy with mitral annuloplasty. Mild cardiomegaly. The heart has enlarged slightly since 04/15/2018. Slight increase in mil dly enlarged central pulmonary arteries which may be due to pulmonary arterial hypertension. Small a mount of new scarring/atelectasis in the lower lungs. Otherwise no change. Segmental eventrati on right hemidiaphragm. Mild degenerative changes in the spine. Abdominal surgical clips. Narrative 12/20/2021 12:57 PM CDT EXAM: ??DX CHEST AP OR PA AND LATERAL 2 VIEWS Procedure Note Nicole Greene M.D. - 12/20/2021Fo rmatting of this note might be different from the original. EXAM: DX CHEST AP OR PA AND LATERAL 2 EWS IMPRESSION: Sternotomy with mitral annuloplasty. Mil d cardiomegaly. The heart has enlarged slightly since 04/15/2018. Slight increase in mil dly enlarged central pulmonary arteries which may be due to pulmonary arterial hypertension. Small a mount of new scarring/atelectasis in the lower lungs. Otherwise no change. Segmental eventrati on right hemidiaphragm. Mild degenerative changes in the spine. Abdominal surgical clips. Ernesto Shea M.D. IMG DIAGNOSTIC IMAGING PROCE [facility] ECG 12 Lead (12/20/2021 12:18 PM CDT) P athologist Signature Ventricular Rate 48 BPM MUSE ECG/Min MS Interval 224 ms MUSE QRSD Interval 110 ms MUSE QT Interval 490 ms MUSE QTC Interval 437 ms MUSE R [place] 62 degrees MUSE T Wave [place] 42 degrees MUSE Specimen Anatomical Collection Method Collection Time Receive d Time (Source) Location / / Volume Laterality 12/20/2021 12:18 12/20/2021 PM CDT 12:25 PM CDT Impressions MUSE - 12/20/2021 12:25 PM CDT Marked sinus bradycardia with 1st degree A-V block Non-specific intra-ventricular conductio n delay Cannot rule out Anteroseptal infarct Nonspecific T wave abnormality When compared with ECG of 15-APR-2018 12 :59, Minimal criteria for Anteroseptal infarc t is now present Reviewed by CORWIN Clarke Narrative This result has an attachment that is no t available. Procedure Note Bereket Garcia M.D. - 12/20/2021Forma tting of this note might be different from the original. IMPRESSION: Marked sinus bradycardia with 1st degree A-V block Non-specific intra-ventricular conductio n delay Cannot rule out Anteroseptal infarct Nonspecific T wave abnormality When compared with ECG of 15-APR-2018 12 :59, Minimal criteria for Anteroseptal infarc t is now present Reviewed by CORWIN Clarke Ernesto Shea M.D. 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
--- OUTSIDE RECORDS SUMMARY | 2022-04-02 19:37 | XMS_ITS | Encounter Summary ---
:1935 Author Organization [facility] Address [address] [place] [address] Care Team Providers Name Role Phone Unavailable Primary Care Provider Unavailable Encounter Details Date Type Department Care Team Description 09/11/2016 Hospital Encounter HX NO MAPPING Social History Tobacco Use Types Packs/Day Years [...] or relatives? How often do you attend scientologist or More than 4 times per year 12/20/2021 restoration services? Do you belong to any clubs or Yes 12/20/2021 organizations such as scientologist groups, unions, fraternal or athletic groups, or [...] place to sleep or slept in a fci (including now)? Sex Assigned at Date Recorded [...]
--- OUTSIDE RECORDS SUMMARY | 2022-04-02 19:37 | XMS_ITS | Encounter Summary ---
:1935 Author Organization [facility] Address [address] [place] [address] Care Team Providers Name Role Phone Unavailable Primary Care Provider Unavailable Encounter Details Date Type Department Care Team Description 06/04/2015 Hospital Encounter HX RST [facility] Gloria Roper M.B.B.S. [address] [place] [address] (Wo rk) Social History Tobacco Use Types [...] More than 4 times per year 12/20/2021 restorationist services? Do you belong to any clubs [...] or slept in a [facility] (including now)? Sex Assigned at Date Recorded [...]
--- OUTSIDE RECORDS SUMMARY | 2022-04-02 19:37 | XMS_ITS | Encounter Summary ---
:1935 Author Organization [facility] Address [address] [place] [address] Care Team Providers Name Role Phone Unavailable Primary Care Provider Unavailable Encounter Details Date Type Department Care Team Description 03/28/2018 Documentation Department of Cardiovascular Sandoval, Maryanne Mathis Jr., Medicine in [facility] [address] [facility] [address] [place] [phone] (Wo rk) Social History Tobacco Use Types [...] place to sleep or slept in a care home (including now)? Sex Assigned at Date Recorded Male 02/28/2018 2:32 PM CDT documented as of this encounter Progress Notes Liang Sandoval Jr., M.D. - 03/28/2018 9:28 AM CDT Outside records received from [facility] and [facility] dated September 11, 2016. The MRI scan was interpreted to show a recent acute to subacute infarct of the right cerebellum predominantly within the right SCA distribution without intracranial hemorrhage, plus mild generalized global volume loss and chronic deep white matter small vessel ischemic changes. Another report from 3 min later indicates: bilateral carotid siphons are patent, patent comanche of [place] with diminutive bilateral posterior communicating arteries comma visualized bilateral DAVID and MCA circulations are patent without focal stenosis or aneurysm, bilateral NURSE MIDWIFE circulations are patent without stenosis or aneurysm comma code dominant vertebrobasilar system. The report of a chest image from September 11, 2016 done because of ???hypoxia?? was reported shows sternotomy wires with prior mitral valve surgery and elevation of the right hemidiaphragm with some bibasilar atelectasis but without any consolidation or pleural effusion. The report of new chest images from July 25, 2017, was compared with the previous study. The new report describes hyperinflated lungs with flat hemidiaphragm suggesting chronic obstructive pulmonary disease, previous median sternotomy with (sic.) prosthetic mitral valve, enlarged heart with mild inte rstitial vascular congestion and small left pleural effusion consistent with congestive heart failure, monitoring leads over the chest wall and surgical clips in the upper abdomen. 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 I will have the reports scanned into the chart. documented in this encounter Plan of Treatment Not on filedocumented as of this encounter Visit Diagnoses Not on filedocumented in this encounter
--- OUTSIDE RECORDS SUMMARY | 2022-04-02 19:37 | XMS_ITS | Encounter Summary ---
:1935 Author Organization [facility] Address [address] [place] [address] Care Team Providers Name Role Phone Unavailable Primary Care Provider Unavailable Encounter Details Date Type Department Care Team Description 04/15/2018 Hospital Encounter Department of Liang Sandoval Atrial Cardiovascular Diseases Drew Mathis Jr. Paroxysmal (HCC) in [facility] pacheco [address] [place] [phone] Social History Tobacco Use Types Packs/Day Years [...] or relatives? How often do you attend taoist or More than 4 times per year 12/20/2021 worship services? Do you belong to any clubs or Yes 12/20/2021 organizations such as taoist groups, unions, fraternal or athletic groups, or [...] place to sleep or slept in a retirement (including now)? Sex Assigned at Date Recorded [...] puff twice daily triamcinolone (NASACORT) Administer 1-2 0 55 mcg/actuation nasal sprays into each spray nostril daily. acetaminophen (TYLENOL) Take 2 tablets by 0 09/2712/20/2021 325 mg tablet mouth every 6 (six) hours as needed. Pain amiodarone (PACERONE) 200 Start amiodarone 0 12/201712/20/2021 mg tablet 400mg (2 pills) twice daily for one week - 09/04/2017 decrease to 400mg (2 pills) daily -10/03/2017 decrease to 200mg daily amoxicillin (AMOXIL) 500 Take 4 capsules by 0 02/22/2022 mg capsule mouth once. Take all capsules one hour before procedure. AZITHROMYCIN ORAL Take by mouth as 0 06/25/2017 0 02/22/2022 needed. Capsule. 5 day regimen, Twice a year for bronchitis dilTIAZem CD (CARDIZEM Take 180 mg by mouth 3 12/20/2021 CD/CARTIA XT) 180 mg 24 hr once daily. capsule fluticasone (FLONASE) 50 Administer 2 sprays 0 12/20/2021 mcg/actuation nasal spray into affected nostril(s) at bedtime. One spray per nostril daily. furosemide (LASIX) 40 mg Take 40 mg by mouth 0 02/22/2022 tablet daily. hydroCHLOROthiazide Take 2 tablets by 0 7 12/20/2021 (HYDRODIURIL) 12.5 mg mouth daily. tablet hydrocortisone (HYTONE) Apply topically as 0 12/10/201602/22/2022 2.5 % cream needed. Hydrocortisone PF. Itching losartan (COZAAR) 25 mg Take 2 tablets by 0 09/2712/20/2021 tablet mouth daily. metroNIDAZOLE (METROCREAM) Apply topically as 0 1 08/26/2016 12/20/2021 0.75 % cream needed. Rosacea iqmtngxpjkks-tvppccck-UJ-l Take 1 tablet by 0 12/20/2021 ycopene-lutein (CENTRUM mouth as directed. SILVER) 0.4 mg-300 mcg- takes four times 250 mcg tablet weekly omega-3/dha/epa/fish oil Take 1 capsule by 0 08/2412/20/2021 (SEA-OMEGA 50 ORAL) mouth daily. 500-300-200 mg capsule. Contains 500 mg Theresa-3 Fatty acids per capsule omeprazole magnesium Take 1 tablet by 0 7 02/22/2022 (PRILOSEC OTC ORAL) mouth as needed. Enteric coated. Acid Reflux rivaroxaban (XARELTO) 20 Take 1 tablet by 0 12/1412/20/2021 mg tablet mouth daily. With food simvastatin (ZOCOR) 10 mg Take 10 mg by mouth 0 0 03/24/2009 02/22/2022 tablet at bedtime. UNABLE TO FIND daily. Focus Select, 0 06/25/2017 12/20/2021 2 one time daily. Macular degeneration. vitamins A,C,Y-xzdg-epogks Take 1 tablet by 0 12/20/2021 (PRESERVISION AREDS) 7,160 mouth daily. Units-113 mg-100 Units per tablet zinc 50 mg tablet Take 2-3 tablets by 0 7 12/20/2021 mouth once a week. Zinc-50 tablet 50 mg zolpidem (AMBIEN) 5 mg Take 1 tablet by 0 017 02/22/2022 tablet mouth at bedtime. Insomnia documented as of this encounter Plan of Treatment Not on filedocumented as of this encounter Procedures Procedure Name Priority Date/Time Associated Diagnosis Comme nts (TTE) 2D ECHO Routine 04/15/2018 5:26 PM Fibrillation Atrial R esults for this DOPPLER COLOR CDT Paroxysmal (HCC) procedure are in the results section. documented in this encounter Results (TTE) 2D ECHO DOPPLER COLOR (04/15/2018 5:26 PM CDT) [facility] Method Time Signature Ejection Fraction 52 [...] Liang Sandoval Jr., M.D. CV ECHO PROCEDURES documented in this encounter Visit Diagnoses Diagnosis Atrial Fibrillation Paroxysmal (HCC) documented in this encounter
--- OUTSIDE RECORDS SUMMARY | 2022-04-02 19:37 | XMS_ITS | Encounter Summary ---
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 [facility] Procedures DX Chest AP or PA and Lateral 2 Views [address] [place] [phone] Referral ID Status Reason Start Date Expiration Date Visits Requ ested Visits Authorized [id number] Closed 10/25/2021 10/25/2022 1 1 Encounter Details Date Type Department Care Team Description 12/20/2021 Hospital Encounter Department of Ernesto Shea Mitral Valve Status Post; Radiology, Juan Cai M.D. Cerebellar Stroke Syndrome Building, in [address] [place], [place] [address] [facility] [address] [place], [place] [phone] (Work) [phone] Social History Tobacco Use Types Packs/Day Years [...] or relatives? How often do you attend christianity or More than 4 times per year 12/20/2021 buddhism services? Do you belong to any clubs or Yes 12/20/2021 organizations such as christianity groups, unions, fraternal or athletic groups, or [...] fluticasone propionate Inhale 1-2 puffs at 0 2 07/2016 (FLOVENT HFA) 110 bedtime. 2 puffs mcg/actuation inhaler twice daily; during summer months only 1 puff twice daily triamcinolone (NASACORT) Administer 1-2 sprays 0 55 mcg/actuation nasal into each nostril spray daily. vit Take 2 tablets by 0 C/E/Zn/coppr/lutein/zeax mouth daily. an (PRESERVISION AREDS-2 ORAL) polyethylene Take 4,000 mL by 4000 mL 0 12/20/20212021 glycol-electrolytes mouth once for 1 (NULYTELY) 420 gram dose. solution acetaminophen (TYLENOL) Take 650 mg by mouth [...] Procedure Name Priority Date/Time Associated Comments Diagnosis DX CHEST AP OR PA RAD - Routine 12/20/2021 12:53 Repair Mitral Resu lts for this AND LATERAL 2 (most inpatients PM CDT Valve Status Po st procedure are in VIEWS and all Cerebellar Stroke the result s outpatients) Syndrome section. documented in this encounter Results DX Chest AP or PA and Lateral [...] in the spine. Abdominal surgical clips. 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
--- OUTSIDE RECORDS SUMMARY | 2022-04-02 19:37 | XMS_ITS | Encounter Summary ---
:1935 Author Organization [facility] Address [address] [place] [address] Care Team Providers Name Role Phone Unavailable Primary Care Provider Unavailable Encounter Details Date Type Department Care Team Description 06/04/2015 Hospital Encounter HX NO MAPPING Social History [...] or relatives? How often do you attend oriental orthodox or More than 4 times per year 12/20/2021 alevism services? Do you belong to any clubs or Yes 12/20/2021 organizations such as oriental orthodox groups, unions, fraternal or athletic groups, [...] place to sleep or slept in a usp (including now)? Sex Assigned at Date Recorded [...]
--- OUTSIDE RECORDS SUMMARY | 2022-04-02 19:37 | XMS_ITS | Encounter Summary ---
:1935 Author Organization [facility] Address [address] [place] [address] Care Team Providers Name Role Phone Unavailable Primary Care Provider Unavailable Reason for Referral Outpatient (Routine) - Closed Specialty Diagnoses / Procedures Referred By Contact Refer red To Contact Diagnoses Polyp Colon Personal History Ernesto Shea M.D. 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 ? Need for pace maker. Annual Exam Colonoscopy Hx: Polyps.Last colonoscopy 6 years ago. Stroke Follow up-Affected Cerebellu m Appointment Request (Routine) - Closed Specialty Diagnoses / Procedures Referred By Contact Refer red To Contact General Internal Diagnoses General Medical Examination Adult Medicine Referral ID Status Reason Start Date Expiration Date Visits Requ ested Visits Authorized [id number] Closed 10/10/2021 10/10/2022 1 Encounter Details Date Type Department Care Team Description 12/20/2021 Comprehensive Visit Division of General Mejia Shea Mitral Valve Status Post (Primary Dx); Internal Medicine Ernesto Cai M.D. 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 Do you belong to any clubs [...] place to sleep or slept in a correction (including now)? Education Answer Date Recorded What is the highest level of school you have completed or th e Doctorate 12/20/2021 highest degree you have received? Sex Assigned at Date Recorded Male 02/28/2018 2:32 PM CDT documented as of this encounter Last Filed Vital Signs Vital Sign Reading Time Taken Comments Blood Pressure 147/69 12/20/2021 10:10 AM Average of 3 . CDT Pulse 47 12/20/2021 10:10 AM CDT Temperature - - Respiratory Rate - - Oxygen Saturation - - Inhaled Oxygen Concentration - - Weight 91 kg (200 lb 9.9 oz) 12/20/2021 10:10 AM CDT Height 172 cm (5' 7.72) 12/20/2021 10:10 AM CDT Body Mass Index 30.76 12/20/2021 10:10 AM CDT documented in this encounter H&P Notes Ernesto Shea M.D. - 12/20/2021 10:30 AM CDT CHIEF COMPLAINT/REASON FOR VISIT Chief Complaint Patient presents with ??? Heart Problem Open heart surgery 15 years ago. ? Need for pace maker. ??? Annual Exam ??? Colonoscopy Hx: Polyps. Last colonoscopy 6 years ago. ??? Stroke Follow up-Affected Cerebellum HISTORY OF PRESENT ILLNESS Gregg Villa is an 86 y.o. 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 He manages to navigate his apartment with a walker as well as to ambulate down to the dining hay 3 times daily and to the exercise room as well. He has not had any recent falls after falling 4 times between 2017 and 2019 without major injury. He comes for re-evaluation and recommendations with regard to his ambulation and strengt h. 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 An annuloplasty ring was placed. He presented with dyspnea on exertion at the time. He presently does not describe symptoms of palpitations, progressive shortness of breath, or chest pain. He ambulates as described above. He also exercises on a stationary bike 3 times weekly for 14 minutes or more. We note that he has bradycardia as well as hypertension which is not maximally controlled. He denies any episodes of syncope. The patient also has a history of colon polyps in the past with his most recent colonoscopy being performed on 06/10/2015 and showing a 6 mm sessile serrated adenoma in the ascending colon. He has not had any repeat surveillance. He requests a colonoscopy. We apprised him of the risks. He is strong inhis preference for a repeat procedure and is aware that his Eliquis will be discontinued. He states that the Eliquis was held for 3 days last year when he underwent a basal cell skin cancer removal. Hehas been followed up again by his mortgage manager within the past 12 months. He does not abuse substances. He is quite proud of his to children who are both teachers. His son chito church history professor at the [employer]. His daughter is a Special Education high-head school custodian in [employer] [place]. His 1st tragically while they were hiking in [facility] andshe fell off a paul ledge with resulting skull fracture and brain hemorrhage almost instantaneously. His 2nd has significant dementia and has now moved in with her daughter in [place]. The following portions of the patient's history were reviewed and updated as appropriate: allergies,current medications, family history, medical history, social history, surgical history and problem list. REVIEW OF SYSTEMS A complete review of systems was performed and negative except as mentioned in the HPI. VITAL SIGNS Blood Pressure: 147/69 Height: 172 cm Weight: 91 kg BMI (Calculated): 30.8 kg/m?? PHYSICAL EXAM General: Healthy well-appearing, in no acute distress. Wears hearing aids. ENT: Tympanic membranes visualized with normal landmarks. Oral mucosa without lesions. Lymph: No palpable axillary, cervical or supraclavicular lymphadenopathy. Heart: Slow rate and regular rhythm. Prominen mitral regurgitation murmur radiating to the mid axillary line. Lungs: Clear to auscultation bilaterally. Abdomen: Soft, nontender, nondistended. No pain with palpation. Normal bowel sounds. Extremities: Bilateral venous stasis edema with evidence of varicosities. Gait: Patient can stand but cannot walk without 2 person assist or a walker. Neuro: Ataxia apparent. Mental: , ZHENG-7 Total Score (max 21): 0 (12/20/21 0939), PHQ-2 Score: 0 ASSESSMENT/PLAN #1 Repair Mitral Valve Status Post Echocardiogram and Cardiology review. #2 Bradycardia Cardiology review. I have some question as to whether the amiodarone may be playing a role here. #3 Atrial Fibrillation (HCC) Remains on Eliquis as well as amiodarone. #4 Hypertension Essential Primary Consider increasing medication thing. 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 #6 Polyp Colon Personal History Colonoscopy at patient's request #7 Cancer Skin Basal Cell Personal History Up-to-date surveillance. Answers for HPI/ROS submitted by the patient [...] Name Type Priority Associated Diagnoses Order 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
--- OUTSIDE RECORDS SUMMARY | 2022-04-02 19:37 | XMS_ITS | Encounter Summary ---
:1935 Author Organization [facility] Address [address] [place] [address] Care Team Providers Name Role Phone Unavailable Primary Care Provider Unavailable Encounter Details Date Type Department Care Team Description 09/13/2016 - Hospital Encounter HX RST CARLOS ALLEN [address] [place], 09/29/2016 Joann Gilman [address] [place] [address] Social History Tobacco Use Types Packs/Day Years [...] or relatives? How often do you attend faith or More than 4 times per year 12/20/2021 gnosticism services? Do you belong to any clubs or Yes 12/20/2021 organizations such as faith groups, unions, fraternal or athletic groups, or [...] place to sleep or slept in a half-way (including now)? Sex Assigned at Date Recorded Male 02/28/2018 2:32 PM CDT documented as of this encounter Last Filed Vital Signs Vital Sign Reading Time Taken Comments Blood Pressure 144/79 09/29/2016 9:56 AM NIBP - Value from [facility]. Pulse 80 09/29/2016 9:56 AM Value from [facility]. [facility] Temperature - - Respiratory Rate 16 09/29/2016 9:56 AM Value from C [facility]. TRAUMA DIRECTOR Oxygen Saturation - - Inhaled Oxygen - - Concentration Weight 83.5 kg (184 lb 1.4 09/27/2016 6:39 AM standing scale oz) TRAUMA DIRECTOR Height 172 cm (5' 7.72) 09/13/2016 8:50 PM TRAUMA DIRECTOR Body Mass Index 28.22 09/13/2016 8:50 PM TRAUMA DIRECTOR documented in this encounter Medications at Time of Discharge Medication Sig Dispensed Refills Start Date End Date chlorpheniramine Take 1 tablet by 0 09/27/2016 (CHLOR-TRIMETON) 4 mg mouth daily as tablet needed. Rhinitis fluticasone propionate Inhale 1-2 puffs 0 017 (FLOVENT HFA) 110 at bedtime. 2 mcg/actuation inhaler puffs twice daily; during summer months only 1 puff twice daily acetaminophen (TYLENOL) 325 Take 2 tablets by 0 0 09/27/2016 12/20/2021 mg tablet mouth every 6 (six) hours as needed. Pain fluticasone (FLONASE) 50 Administer 2 0 7 12/20/2021 mcg/actuation nasal spray sprays into affected nostril(s) at bedtime. One spray per nostril daily. hydroCHLOROthiazide Take 2 tablets by 0 7 12/20/2021 (HYDRODIURIL) 12.5 mg mouth daily. tablet losartan (COZAAR) 25 mg Take 2 tablets by 0 09/2712/20/2021 tablet mouth daily. qxpdxwznffcq-lybryozu-HX-ly Take 1 tablet by 0 12/20/2021 copene-lutein (CENTRUM mouth as directed. SILVER) 0.4 mg-300 mcg- 250 takes four times mcg tablet weekly omega-3/dha/epa/fish oil Take 1 capsule by 0 08/2412/20/2021 (SEA-OMEGA 50 ORAL) mouth daily. 500-300-200 mg capsule. Contains 500 mg [place]-3 Fatty acids per capsule simvastatin (ZOCOR) 10 mg Take 10 mg by 0 009 02/22/2022 tablet mouth at bedtime. zolpidem (AMBIEN) 5 mg Take 1 tablet by 0 017 02/22/2022 tablet mouth at bedtime. Insomnia documented as of this encounter Plan of Treatment Not on filedocumented as of this encounter Procedures Procedure Name Priority Date/Time Associated Comments Diagnosis ELECTROLYTE (CHEM 4) Routine 09/28/2016 8:28 AM R esults for this PANEL, S/P TRAUMA DIRECTOR procedure are i n the results section. ELECTROLYTE (CHEM 4) Routine 09/24/2016 6:24 AM R esults for this PANEL, S/P TRAUMA DIRECTOR procedure are i n the results section. ELECTROLYTE (CHEM 4) Routine 09/21/2016 6:49 AM R esults for this PANEL, S/P TRAUMA DIRECTOR procedure are i n the results section. documented in this encounter Results Electrolyte (Chem 4) Panel (09/28/2016 8:28 AM TRAUMA DIRECTOR) Analysis Performed At Patho logist Time Signature Chloride, S 103 98 - 107 [facility] MMOL/L LAB[facility]ATORIES - [facility] HX Bicarbonate, 23 22 - 29 [facility] P/S MMOL/L LAB[facility]IES - [facility] Creatinine 0.9 0.8 - 1.3 [facility] MG/DL LABORATORIES - [facility] BUN (Blood Urea 23 8 - 24 [facility] Nitrogen), S MG/DL LABORATORIES [facility] Sodium, S 141 135 - 145 [facility] MMOL/L [facility] - [facility] Potassium, S 4.4 3.6 - 5.2 [facility] MMOL/L LABORATORIES [facility] Anion Gap 15 7 - 15 [facility] - [facility] Glucose, S 123 70 - 140 [facility] MG/DL [facility] Specimen Anatomical Collection Method Collection Time Receive d Time (Source) Location / / Volume Laterality 09/28/2016 8:28 AM 7 8:28 TRAUMA DIRECTOR AM TRAUMA DIRECTOR Vidya Lynne M.D. LAB BLOOD ADD-ON Performing Organization Address City/[facility] Code Phon e Number [facility]ORATORIES - [address] [place] [id number] [facility] (ABNORMAL) Electrolyte (Chem 4) Panel (09/24/2016 6:24 AM TRAUMA DIRECTOR) [facility] Method Time Signature Sodium, S 140 135 - 145 [facility] MMOL/L [facility] - [facility] Potassium, S 4.4 3.6 - 5.2 [facility] MMOL/L [facility]ATORIES - [facility] Creatinine 0.9 0.8 - 1.3 [facility] MG/DL [facility] - [facility] BUN (Blood Urea 24 8 - 24 [facility] Nitrogen), S MG/DL [facility] - [facility] Chloride, S 104 98 - 107 [facility] MMOL/L [facility] - [facility] HX Bicarbonate, 21 (L) 22 - 29 [facility] P/S MMOL/L [facility] - [facility] Anion Gap 15 7 - 15 [facility] - [facility] Glucose, S 108 70 - 140 [facility] MG/DL [facility] - [facility] Specimen Anatomical Collection Method Collection Time Receive d Time (Source) Location / / Volume Laterality 09/24/2016 6:24 AM 7 6:24 TRAUMA DIRECTOR AM TRAUMA DIRECTOR Ofelia Montalvo M.D. LAB BLOOD ADD-ON Performing Organization Address City/[facility] Code Phon e Number [facility] - [address] [place] [id number] [facility] (ABNORMAL) Electrolyte (Chem 4) Panel (09/21/2016 6:49 AM TRAUMA DIRECTOR) [facility] Method Time Signature Chloride, S 106 98 - 107 [facility] MMOL/L [facility] - [facility] Creatinine 1.0 0.8 - 1.3 [facility] MG/DL [facility] - [facility] Sodium, S 140 135 - 145 [facility] MMOL/L [facility] - [facility] Potassium, S 5.1 3.6 - 5.2 [facility] MMOL/L [facility] - [facility] BUN (Blood Urea 25 (H) 8 - 24 [facility] Nitrogen), S MG/DL [facility]IES - [facility] Glucose, S 118 70 - 140 [facility] MG/DL [facility] - [facility] HX Bicarbonate, 23 22 - 29 [facility] P/S MMOL/L LABORATORIES - [facility] Anion Gap 11 7 - 15 [facility] - [facility] Specimen Anatomical Collection Method Collection Time Receive d Time (Source) Location / / Volume Laterality 09/21/2016 6:49 AM 7 6:49 TRAUMA DIRECTOR AM TRAUMA DIRECTOR Vidya Lynne M.D. LAB BLOOD ADD-ON Performing Organization Address City/State/ZIP Code Phon e Number [facility] - [address] [place], [place] [address] [facility] documented in this encounter Visit Diagnoses Not on filedocumented in this encounter
--- OUTSIDE RECORDS SUMMARY | 2022-04-02 19:37 | XMS_ITS | Encounter Summary ---
:1935 Author Organization [facility] Address [address] [place] [address] Care Team Providers Name Role Phone Unavailable Primary Care Provider Unavailable Encounter Details Date Type Department Care Team Description 11/16/2015 Hospital Encounter HX NO MAPPING Social History [...] or relatives? How often do you attend sikh or More than 4 times per year 12/20/2021 evangelical services? Do you belong to any clubs or Yes 12/20/2021 organizations such as sikh groups, unions, fraternal or athletic groups, or [...] [place] [facility] (including now)? Sex Assigned at Date Recorded [...]
--- OUTSIDE RECORDS SUMMARY | 2022-04-02 19:37 | XMS_ITS | Encounter Summary ---
:1935 Author Organization [facility] Address [address] [place] [address] Care Team Providers Name Role Phone Unavailable Primary Care Provider Unavailable Encounter Details Date Type Department Care Team Description 09/11/2016 - Hospital Encounter HX RST LINDSEY 2D Nir Johnson, 09/13/2016 M.DHorace [address] [place] [address] Social History Tobacco Use Types Packs/Day Years [...] or relatives? How often do you attend gnosticism or More than 4 times per year 12/20/2021 yarsani services? Do you belong to any clubs or Yes 12/20/2021 organizations such as gnosticism groups, unions, fraternal or athletic groups, or [...] place to sleep or slept in a [facility] (including now)? Sex Assigned at Date Recorded Male 02/28/2018 2:32 PM CDT documented as of this encounter Last Filed Vital Signs Vital Sign Reading Time Taken Comments Blood Pressure 141/83 09/13/2016 12:42 NIBP - Value fr om PM BATCH TANK CONTROLLER [employer]. Pulse 51 09/13/2016 12:42 Value from Sarah tplus. PM BATCH TANK CONTROLLER Temperature - - Respiratory Rate 18 09/13/2016 12:42 Value from Yesenia rtplus. PM BATCH TANK CONTROLLER Oxygen Saturation - - Inhaled Oxygen - - Concentration Weight 80 kg (176 lb 5.9 09/11/2016 5:35 PM oz) B[employer] T[employer]ER Height 172 cm (5' 7.72) 09/11/2016 5:35 PM BATCH TANK CONTROLLER Body Mass Index 27.04 09/11/2016 5:35 PM BATCH TANK [employer]OLLER documented in this encounter Medications at Time of Discharge Medication Sig Dispensed Refills Start Date End Date fluticasone propionate Inhale 1-2 puffs at 0 08/24 (FLOVENT HFA) 110 bedtime. 2 puffs mcg/actuation inhaler twice daily; during summer months only 1 puff twice daily lnkcuxpxdlco-eqvmmewe-QW Take 1 tablet by 0 09/1212/20/2021 -lycopene-lutein mouth as directed. (CENTRUM SILVER) 0.4 takes four times mg-300 mcg- 250 mcg weekly tablet omega-3/dha/epa/fish oil Take 1 capsule by 0 08/2412/20/2021 (SEA-OMEGA 50 ORAL) mouth daily. 500-300-200 mg capsule. Contains 500 mg [place]-3 Fatty acids per capsule simvastatin (ZOCOR) 10 Take 10 mg by mouth 0 08/200802/22/2022 mg tablet at bedtime. documented as of this encounter Plan of Treatment Not on filedocumented as of this encounter Procedures Procedure Name Priority Date/Time Associated Comments Diagnosis LIPID PANEL, S Routine 09/11/2016 7:29 PM Results for this B[employer]ER procedure are i n the results section. ELECTROLYTE (CHEM 4) Routine 09/11/2016 7:29 PM R esults for this PANEL, S/P B[employer]LLER procedure are i n the results section. SEDIMENTATION RATE, B Routine 09/11/2016 7:29 PM Results for this B[employer]ER procedure are i n the results section. CBC WITH DIFFERENTIAL, Routine 09/11/2016 7:29 PM Results for this B BATCH TANK [employer]OLLER procedure are i n the results section. C-REACTIVE PROTEIN Routine 09/11/2016 7:29 PM Res ults for this (CRP), S/P B[employer] T[employer]OLLER procedure are i n the results section. THYROID-STIMULATING Routine 09/11/2016 7:29 PM Re sults for this HORMONE-SENSITIVE B[employer]LLER procedure are in (S-TSH) the results section. HEMOGLOBIN A1C, B Routine 09/11/2016 7:29 PM Resu lts for this [employer]ER procedure are i n the results section. INTERPRETATION OF Routine 09/11/2016 6:35 PM Resu lts for this OUTSIDE MR NECK B[employer] T[employer]OLLER procedure ar e in the results section. INTERPRETATION OF Routine 09/11/2016 6:34 PM Resu lts for this OUTSIDE MR HEAD B[employer] TANK [employer]OLLER procedure ar e in the results section. ECG Routine 09/11/2016 6:18 PM Results f or this B[employer] T[employer]LLER procedure are i n the results section. documented in this encounter Results (ABNORMAL) Hemoglobin A1c (09/11/2016 7:29 PM BATCH TANK CONTROLLER) [facility] Method Time Signature Hemoglobin A1c, 6.1 (H) 4.0 - 5.6 [facility] B % LABORATORIES - [facility] Comment: Hemoglobin A1c values of 5.7-6.4 percent indicate an ? increased risk for developing diabetes m ellitus. In ? diabetic patients, HbA1c goals should be discussed with ? healthcare provider. ? Specimen Anatomical Collection Method Collection Time Receive d Time (Source) Location / / Volume Laterality 09/11/2016 7:29 PM 7 7:29 BATCH TANK CONTROLLER PM BATCH TANK CONTROLLER Nida Walter M.D. LAB BLOOD ADD-ON Performing Organization Address City/State/[facility] Code Phon e Number [facility] LABORATORIES - [address] [place], [place] [address] [facility] (ABNORMAL) Electrolyte (Chem 4) Panel (09/11/2016 7:29 PM BATCH TANK CONTROLLER) [facility] gist Method Time Signature Sodium, S 143 135 - 145 [facility] MMOL/L [facility] Potassium, S 3.6 3.6 - 5.2 [facility] MMOL/L [facility] Chloride, S 103 98 - 107 [facility] MMOL/L [facility] HX Bicarbonate, 23 22 - 29 [facility] P/S MMOL/L [facility] Creatinine 1.0 0.8 - 1.3 [facility] MG/DL [facility] BUN (Blood Urea 18 8 - 24 [facility] Nitrogen), S MG/DL [facility] Anion Gap 17 (H) 7 - 15 [facility] Glucose, S 121 70 - 140 [facility] MG/DL [facility] Specimen Anatomical Collection Method Collection Time Receive d Time (Source) Location / / Volume Laterality 09/11/2016 7:29 PM 7 7:29 BATCH TANK CONTROLLER PM B[employer] TANK CONTROLLER Nida Walter M.D. LAB BLOOD ADD-ON Performing Organization Address City/State/ZIP Code Phon e Number [facility] LABORATORIES - [address] [place], [place] [address] [facility] Sedimentation Rate (09/11/2016 7:29 PM BATCH TANK CONTROLLER) [facility] Behind the [employer]er Method Time Signature Sedimentation 5 0 - 22 [facility] Rate, B MM/1 H [facility] Specimen Anatomical Collection Method Collection Time Receive d Time (Source) Location / / Volume Laterality 09/11/2016 7:29 PM 7 7:29 BATCH TANK CONTROLLER PM BATCH TANK CONTROLLER Nida Walter M.D. LAB BLOOD ADD-ON Performing Organization Address City/[facility] Code Phon e Number [facility] LABORATORIES - [address] [place], [place] [address] [facility] Lipid Panel (09/11/2016 7:29 PM BATCH TANK CONTROLLER) [facility] [employer] Method Time Signature Cholesterol, 121 SeeComment [facility] Total MG/DL [facility] Comment: ? REFERENCE VALUE------ ? Desirable: < 200 ? Borderline high: 200 - 239 ? High: > or = 240 ? Triglycerides 50 SeeComment MG/DL [facility] Comment: ? REFERENCE VALUE------ ? Normal: <150 ? Borderline high: 150-199 ? High: 200-499 ? Very high: > or =500 ? Cholesterol, Non-HDL, 67 SeeComment MG/DL [facility] - Calculated [facility] Comment: ? REFERENCE VALUE------ ? Desirable: <130 ? Above Desirable: 130-159 ? Borderline high: 160-189 ? High: 190-219 ? Very high: > or =220 ? Cholesterol, HDL, S 54 >=40 MG/DL [facility] Calculated LDL 57 SeeComment MG/DL [facility] Comment: ? REFERENCE VALUE------ ? Desirable: <100 ? Above Desirable: 100-129 ? Borderline high: 130-159 ? High: 160-189 ? Very high: > or =190 ? Specimen Anatomical Collection Method Collection Time Receive d Time (Source) Location / / Volume Laterality 09/11/2016 7:29 PM 7 7:29 BATCH TANK CONTROLLER PM BATCH TANK CONTROLLER Nida Walter M.D. LAB BLOOD ADD-ON Performing Organization Address City/[facility]/ZIP Code Phon e Number [facility] LABORATORIES - [address] S-TSH (Thyroid-Stimulating Hormone - Sensitive) (09/11/2016 7:29 PM BATCH TANK CONTROLLER) P athologist Signature TSH, Sensitive 0.7 0.3 - 4.2 [facility] MIU/L [facility] Specimen Anatomical Collection Method Collection Time Receive d Time (Source) Location / / Volume Laterality 09/11/2016 7:29 PM 7 7:29 BATCH TANK CONTROLLER PM BATCH TANK CONTROLLER Nida Walter M.D. LAB BLOOD ADD-ON Performing Organization Address City/[facility]/ZIP Code Phon e Number [facility] LABORATORIES - [address] (ABNORMAL) CBC with Differential (09/11/2016 7:29 PM BATCH TANK CONTROLLER) [facility] gist Method Time Signature Hemoglobin 13.7 13.5 - [facility] 17.5 G/DL [facility] Hematocrit 39.5 38.8 - [facility] 50.0 % LABORATORIES - [facility] RBC Distrib 13.1 11.8 - [facility] Width 15.6 % LABORATORIES - [facility] Platelet Count 183 150 - 450 [facility] X10(9)/L LABORATORIES - [facility] Leukocytes 8.4 3.5 - [facility] 10.5 LABORATORIES - X10(9)/L [facility] Neutrophils 6.84 1.70 - [facility] 7.00 LABORATORIES - X10(9)/L [facility] Lymphocytes 1.05 0.90 - [facility] 2.90 LABORATORIES - X10(9)/L [facility] Monocytes 0.51 0.30 - [facility] 0.90 LABORATORIES - X10(9)/L [facility] Erythrocytes 4.44 4.32 - [facility] 5.72 LABORATORIES - X10(12)/L [facility] MCV 89.0 81.2 - [facility] 95.1 [place] LABORATORIES - [facility] Eosinophils 0.00 (L) 0.05 - [facility] 0.50 LABORATORIES - X10(9)/L [facility] Basophils 0.00 0.00 - [facility] 0.30 LABORATORIES - X10(9)/L [facility] Specimen Anatomical Collection Method Collection Time Receive d Time (Source) Location / / Volume Laterality 09/11/2016 7:29 PM 7 7:29 BATCH TANK CONTROLLER PM BATCH TANK CONTROLLER Nida Walter M.D. LAB BLOOD ADD-ON Performing Organization Address City/[facility]/ZIP Code Phon e Number [facility] LABORATORIES - [address] CRP (C-Reactive Protein) (09/11/2016 7:29 PM BATCH TANK CONTROLLER) P athologist Signature C-Reactive <3.0 <=8.0 MG/L [facility] Protein (CRP), LABORATORIES - S [facility] Specimen Anatomical Collection Method Collection Time Receive d Time (Source) Location / / Volume Laterality 09/11/2016 7:29 PM 7 7:29 BATCH TANK CONTROLLER PM BATCH TANK CONTROLLER Nida Walter M.D. LAB BLOOD ADD-ON Performing Organization Address City/[facility] Phon e Number [facility] LABORATORIES - [address] [place] [phone] [facility] Interpretation of Outside MR Neck (09/11/2016 6:35 PM BATCH TANK CONTROLLER) Anatomical Region Laterality Modality N/A Magnetic Resonance Specimen (Source) Anatomical Collection Method Collection Time Re ceived Time Location / / Volume Laterality 09/11/2016 6:35 PM BATCH TANK CONTROLLER Narrative 09/11/2016 7:24 PM BATCH TANK CONTROLLER 11-Sep-2016 18:35:00 ??Exam: Interp of OS MR Neck Indications: evaluation of arteries for stenosis/dissection ORIGINAL REPORT - 11-Sep-2016 19:24:00 EXAM: ??Interp of OS MR Head ??(accessio n [id number]), Interp of OS MR Neck (accession [id number]) Outside MRI of the head without and with contrast dated 09/11/2016 Outside noncontrast intracranial MRA of the head dated 09/11/2016 Outside MRA of the neck without and with contrast dated 09/11/2016 FINDINGS: Head: Since 12/24/2012, there has been int erval development of restricted diffusion within the right cerebellar hemisphere consistent with an acute infarct. Minimal associated nonenhancing T2 signal with this infarct without evidence for signif icant mass effect within the posterior fossa at this time. No hydrocephalus. Stable appearance to the moderate changes of generalized cerebral and cerebellar volu me loss as well as moderate changes of c hronic small vessel ischemia. No other areas of restricted diffusion to suggest additional areas of acute infarction. Remainder of the head is negative. Intracranial MRA demonstrates codominant vertebral arteries which are patent with flow in the cephalad direction. Diminutive/absent posterior communicating arteries bilaterally. Patent anterior communic ating artery. Nothing convincing for int racranial aneurysm. MRA of the neck: The images are of borde rline technical quality with associated motion artifact as well as venous contamination. Normal branching pattern to the great vessels as they arise from the aort ic arch. Nothing convincing for hemodyna mically significant stenoses involving the bilateral common, external, or internal carotid arteries. Nothing convincing for dissection. Remainder negative. Electronically signed by: ?? Johnna Sumner MD [id number] 11-Sep-2016 19:24 Procedure Note Carmelo Sumner M.D. - 10/17/2017Fo rmatting of this note might be different from the original. 11-Sep-2016 18:35:00 Exam: Interp of OS MR Neck Indications: evaluation of arteries for stenosis/dissection ORIGINAL REPORT - 11-Sep-2016 19:24:00 EXAM: Interp of OS MR Head (accession [id number]), Interp of OS MR Neck (accession [id number]) Outside MRI of the head without and with contrast dated 09/11/2016 Outside noncontrast intracranial MRA of the head dated 09/11/2016 Outside MRA of the neck without and with contrast dated 09/11/2016 FINDINGS: Head: Since 12/24/2012, there has been int erval development of restricted diffusion within the right cerebellar hemisphere consistent with an acute infarct. Minimal associated nonenhancing T2 signal with this infarct without evidence for significant mass ef fect within the posterior fossa at this time. No hydrocephalus. Stable appearance to the moderate changes of generalized cerebral and cerebellar volume loss as well as moderate changes of chronic small vessel ischemia . No other areas of restricted diffusion to suggest additional areas of acute infarction. Remainder of the head is negative. Intracranial MRA demonstrates codominant vertebral arteries which are patent with flow in the cephalad direction. Diminutive/absent posterior communicating arteries bilaterally. Patent anterior communicating artery. Nothing convincing for intracranial aneu rysm. MRA of the neck: The images are of borde rline technical quality with associated motion artifact as well as venous contamination. Normal branching pattern to the great vessels as they arise from the aortic arch. Nothing convincing for hemodynamically s ignificant stenoses involving the bilateral common, external, or internal carotid arteries. Nothing convincing for dissection. Remainder negative. Electronically signed by: Johnna Sumner MD [id number] 11-Sep-2016 19:24 Nida ZENG MRI PROCEDURES Interpretation of Outside MR Head (09/11/2016 6:34 PM BATCH TANK CONTROLLER) Anatomical Region Laterality Modality N/A Magnetic Resonance Specimen (Source) Anatomical Collection Method Collection Time Re ceived Time Location / / Volume Laterality 09/11/2016 6:34 PM BATCH TANK CONTROLLER Narrative 09/11/2016 7:24 PM BATCH TANK CONTROLLER 11-Sep-2016 18:34:00 ??Exam: Interp of OS MR Head Indications: evaluation of arteries for stenosis/dissection ORIGINAL REPORT - 11-Sep-2016 19:24:00 EXAM: ??Interp of OS MR Head ??(accessio n [id number]), Interp of OS MR Neck (accession [id number]) Outside MRI of the head without and with contrast dated 09/11/2016 Outside noncontrast intracranial MRA of the head dated 09/11/2016 Outside MRA of the neck without and with contrast dated 09/11/2016 FINDINGS: Head: Since 12/24/2012, there has been int erval development of restricted diffusion within the right cerebellar hemisphere consistent with an acute infarct. Minimal associated nonenhancing T2 signal with this infarct without evidence for signif icant mass effect within the posterior fossa at this time. No hydrocephalus. Stable appearance to the moderate changes of generalized cerebral and cerebellar volu me loss as well as moderate changes of c hronic small vessel ischemia. No other areas of restricted diffusion to suggest additional areas of acute infarction. Remainder of the head is negative. Intracranial MRA demonstrates codominant vertebral arteries which are patent with flow in the cephalad direction. Diminutive/absent posterior communicating arteries bilaterally. Patent anterior communic ating artery. Nothing convincing for int racranial aneurysm. MRA of the neck: The images are of borde rline technical quality with associated motion artifact as well as venous contamination. Normal branching pattern to the great vessels as they arise from the aort ic arch. Nothing convincing for hemodyna mically significant stenoses involving the bilateral common, external, or internal carotid arteries. Nothing convincing for dissection. Remainder negative. Electronically signed by: ?? Johnna Sumner MD [phone] 11-Sep-2016 19:24 Procedure Note Carmelo Sumner M.D. - 10/17/2017Fo rmatting of this note might be different from the original. 11-Sep-2016 18:34:00 Exam: Interp of OS MR Head Indications: evaluation of arteries for stenosis/dissection ORIGINAL REPORT - 11-Sep-2016 19:24:00 EXAM: Interp of OS MR Head (accession [id number]), Interp of OS MR Neck (accession [id number]) Outside MRI of the head without and with contrast dated 09/11/2016 Outside noncontrast intracranial MRA of the head dated 09/11/2016 Outside MRA of the neck without and with contrast dated 09/11/2016 FINDINGS: Head: Since 12/24/2012, there has been int erval development of restricted diffusion within the right cerebellar hemisphere consistent with an acute infarct. Minimal associated nonenhancing T2 signal with this infarct without evidence for significant mass ef fect within the posterior fossa at this time. No hydrocephalus. Stable appearance to the moderate changes of generalized cerebral and cerebellar volume loss as well as moderate changes of chronic small vessel ischemia . No other areas of restricted diffusion to suggest additional areas of acute infarction. Remainder of the head is negative. Intracranial MRA demonstrates codominant vertebral arteries which are patent with flow in the cephalad direction. Diminutive/absent posterior communicating arteries bilaterally. Patent anterior communicating artery. Nothing convincing for intracranial aneu rysm. MRA of the neck: The images are of borde rline technical quality with associated motion artifact as well as venous contamination. Normal branching pattern to the great vessels as they arise from the aortic arch. Nothing convincing for hemodynamically s ignificant stenoses involving the bilateral common, external, or internal carotid arteries. Nothing convincing for dissection. Remainder negative. Electronically signed by: Johnna Sumner MD [id number] 11-Sep-2016 19:24 Nida Walter M.D. IMG MRI PROCEDURES ECG 12 Lead (09/11/2016 6:18 PM BATCH TANK CONTROLLER) Specimen (Source) Anatomical Collection Method Collection Time Re ceived Time Location / / Volume Laterality 09/11/2016 6:18 PM [facility] RADIOLOGY SYSTEM - 09/11/2016 6:23 PM [facility] [id number] 18:18 VENTRICULAR RATE 56 Sinus bradycardia with 1st degree A-V bl ock Premature ventricular complexes Otherwise normal ECG When compared with ECG of 16-NOV-2015 08 :41, No significant change was found [id number]^YADIRA FARRELL^BIJAN Procedure Note Bijan Chakraborty M.D., Ph.D. - 8 [id number] 18:18 VENTRICULAR RATE 56 Sinus bradycardia with 1st degree A-V bl ock Premature ventricular complexes Otherwise normal ECG When compared with ECG of 16-NOV-2015 08 :41, No significant change was found [id number]^YADIRA FARRELL^BIJAN Nida Walter M.D. ECG ORDERABLES Performing Organization Address City/State/ZIP Code Phon e Number HX [facility] [address] [place] [address], [place] documented in this encounter Visit Diagnoses Not on filedocumented in this encounter Additional Health Concerns Assessment Noted Time PHQ-9 Depression Total Score: 1 12/24/2012 5:00 PM CDT documented as of this encounter
--- OUTSIDE RECORDS SUMMARY | 2022-04-02 19:37 | XMS_ITS | Encounter Summary ---
:1935 Author Organization [facility] Address [address] [place] [address] Care Team Providers Name Role Phone Unavailable Primary Care Provider Unavailable Encounter Details Date Type Department Care Team Description 04/15/2018 Hospital Encounter Department of Liang Sandoval Atrial Radiology, Nate Saldana M.D. Paroxysmal ([facility]) Building, in [address] [place] [address] [place] [id number] [place], [place] [phone] (Work) [phone] Social History Tobacco Use Types Packs/Day Years [...] More than 4 times per year 12/20/2021 anabaptism services? Do you belong to any clubs [...] place to sleep or slept in a jail (including now)? Sex Assigned at Date Recorded [...] only 1 puff twice daily acetaminophen (TYLENOL) Take 2 tablets by 0 [...] 08/26/2016 12/20/2021 0.75 % cream needed. Rosacea mlpmkmgbnczg-xgownexh-TG-l Take 1 tablet by 0 12/20/2021 ycopene-lutein (CENTRUM mouth as directed. SILVER) 0.4 mg-300 mcg- takes four times 250 mcg tablet weekly omega-3/dha/epa/fish oil Take 1 capsule by 0 08/2412/20/2021 (SEA-OMEGA 50 ORAL) mouth daily. 500-300-200 mg capsule. Contains 500 mg [place]-3 Fatty acids per capsule omeprazole magnesium Take [...] 12/20/2021 2 one time daily. Macular degeneration. zinc 50 mg tablet Take 2-3 tablets [...] CHEST AP OR PA RAD - Routine 04/15/2018 12:25 Fibrillation Atria l Results for this AND LATERAL 2 (most inpatients PM CDT Paroxysmal (HCC) proced ure are in VIEWS and all the results outpatients) section. documented in this encounter Results DX [...] Liang Sandoval Jr., M.D. IMG DIAGNOSTIC IMAGING CHRIS KRISHNAN documented in this encounter Visit Diagnoses Diagnosis Atrial Fibrillation Paroxysmal (HCC) documented in this encounter
--- OUTSIDE RECORDS SUMMARY | 2022-04-02 19:37 | XMS_ITS | Encounter Summary ---
:1935 Author Organization [facility] Address [address] [place] [address] Care Team Providers Name Role Phone Unavailable Primary Care Provider Unavailable Encounter Details Date Type Department Care Team Description 02/25/2018 Abstract DATA ABSTRACTION Provider, Historical Social History Tobacco Use Types Packs/Day Years [...] or relatives? How often do you attend latter-day or More than 4 times per year 12/20/2021 cheondoism services? Do you belong to any clubs or Yes 12/20/2021 organizations such as latter-day groups, unions, fraternal or athletic groups, or [...]
--- OUTSIDE RECORDS SUMMARY | 2022-04-02 19:37 | XMS_ITS | Encounter Summary ---
:1935 Author Organization [facility] Address [address] [place] [address] Care Team Providers Name Role Phone Unavailable Primary Care Provider Unavailable Reason for Visit Appointment Request (Routine) - Closed Specialty Diagnoses / Procedures Referred By Contact Refer red To Contact Neurology Nir Johnson M. D. [address] [place] [address] Referral ID Status Reason Start Date Expiration Date Visits Requ ested Visits Authorized [id number] Closed 02/22/2018 02/22/2019 1 Encounter Details Date Type Department Care Team Description 03/04/2018 Office Visit Department of Nir Johnson Fibrillation Atrial (HCC) (Primary Dx); Neurology hugh Ba M.D. Stroke (HCC); [place], [place] [address] [facility] Anticoagulant Therapy [address] [place] [phone] Social History Tobacco Use Types Packs/Day Years [...] or relatives? How often do you attend mormonism or More than 4 times per year 12/20/2021 yarsanism services? Do you belong to any clubs or Yes 12/20/2021 organizations such as mormonism groups, unions, fraternal or athletic groups, or [...] documented as of this encounter Consult Notes Nir Johnson M.D. - 03/04/2018 2:30 PM CDT HPI: Mr. 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 Initially he was not ambulating but sincethrough physical therapy and occupational therapy he is able to ambulate short distances without an aid but routinely uses a walker when he is away from home and may use a cane at home. He did have 1 fall associated with taking Ambien and then sitting up watching TV and when he tried to go to bed he was very drowsy. He fell against a piece of furniture. His evaluation in hospital include cardiac monitoring and this captured an event that was disputed as whether it represented atrial fibrillation or atrial tachycardia. He was however started on anticoagulation initially with apixaban and subsequently because of Medicare rules this was switched to rivaroxaban. While on anticoagulation he had episode of bleeding from the left nostril. This needed to becoagulated. This is not recurred. 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 Cardioversion was attempted but did not hold now he is on amiodarone. At the same time they are tapering his diltiazem. He is driving but only short distances and limits himself primarily to [place]. He has changed his living arrangements, into assisted living. But he still maintains his independence. 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 On formal muscle testing when he activates I think power is normal on the right except for the rotator cuff which is weakbilaterally. On reflex testing he has symmetric but diminished reflexes in both upper extremities and reflexes are trace at the knee essentially absent at the ankles bilaterally (this has been long-standing). Assessment and plan: #1 Embolic right cerebellar infarction #2 Atrial fibrillation #3 Right alida ataxia Overall I find that Mr. Villa his doing quite well. He initially was unable to walk after his stroke and now he is doing quite well. I would overall make no specific changes in his medical program although he will be meeting with Cardiology next month, Dr. Sandoval, to assess his medical program in regards to his atrial fibrillation. He tells me he would like to get off of amiodarone. I discussed with him the need to avoid falls as much as possible because of his use of anticoagulation and the risk of bleeding. I also recommended that he use his ceiling wash for his nose on a regular basis even in the summer. Together we reviewed his MR scan and discussed that we could anticipate in the future. I do not believe that the ataxia will totally resolved but it is important to continue using the right hand and would continue with occupational and physical therapies that he has done before to continue at least keeping things stable. He expressed understanding. 35 min total time documented in this encounter Plan of Treatment Not on filedocumented as of this encounter Visit Diagnoses Diagnosis Atrial Fibrillation (HCC) - Primary Stroke (HCC) Anticoagulant Therapy documented in this encounter
--- OUTSIDE RECORDS SUMMARY | 2022-04-02 19:37 | XMS_ITS | Encounter Summary ---
:1935 Author Organization [facility] Address [address] [place] [address] Care Team Providers Name Role Phone Unavailable Primary Care Provider Unavailable Encounter Details Date Type Department Care Team Description 05/14/2018 Orders Only Department of Liang Sandoval (Primary Dx); Cardiovascular Medicine Arya Saldana 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 Cerebrovascular Accid ent; in [facility] pacheco [address] Fibrillation Atrial Paroxysmal (HCC) [address] [place] [phone] Social History Tobacco Use Types Packs/Day Years [...] or relatives? How often do you attend christian or More than 4 times per year 12/20/2021 mandaeism services? Do you belong to any clubs or Yes 12/20/2021 organizations such as christian groups, unions, fraternal or athletic groups, or [...] or slept in a longterm (including now)? Sex Assigned at Date Recorded Male 02/28/2018 2:32 PM CDT documented as of this encounter Plan of Treatment Not on filedocumented as of this encounter Visit Diagnoses Diagnosis Abnormal Oximetry - Primary 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 Cerebrovascular Accid ent Atrial Fibrillation Paroxysmal (HCC) documented in this encounter
--- OUTSIDE RECORDS SUMMARY | 2022-04-02 19:37 | XMS_ITS | Encounter Summary ---
:1935 Author Organization [facility] Address [address] [place] [address] Care Team Providers Name Role Phone Unavailable Primary Care Provider Unavailable Reason for Visit Reason Comments Triage Encounter Details Date Type Department Care Team Description 10/26/2021 Clinical Communication Department of Edgard Schwarz Cardiovascular Medicine Mejia, M.S.NHorace, in [facility] R.N. [address] [facility] [address] [place] [phone] [place], [place] [phone] Social History Tobacco Use Types Packs/Day Years [...] or relatives? How often do you attend amish or More than 4 times per year 12/20/2021 jehovah's witness services? Do you belong to any clubs or Yes 12/20/2021 organizations such as amish groups, unions, fraternal or athletic groups, or [...] this encounter Miscellaneous Notes Telephone Encounter - Yuly Ramon - 10/28/2021 2:54 PM CDT Called pt, l/m. Telephone Encounter - Edna Escobar RBenigno. - 10/27/2021 1:24 PM CDT Melinda- Patient does not meet LAAO criteria as he has no bleeding events. It sounds like he just wants to beoff his medications. Please let him know this Watchman procedure is for patients that are not able to tolerate anticoagulation. From his MD notes, he is tolerating his just fine. If he still wants to pursue, there is a trial that he could potentially be able to enroll in and this is just for patients that just want to be off anticoagulation but have no bleeding disorders. You could let him know that and if interested, then I can contact the trial coordinators for him. Please let me know what he wants to do- Edna Amin Telephone Encounter - Germania Del Cid RAlden - 10/26/2021 12:57 PM CDT Images from the original note were not included. NFTF Chart Review for L[facility]O [facility] Gregg Villa is a 86 y.o. male was self-referred to [facility] and questions PPM vs LAAO per [facility]. Indication for referral for LAAO: per patient, cerebellar stroke 5 years ago. [id number] score of 5 (age, HTN, stroke). Past Medical History: Last Available Cardiology Note 04/16/2020 Dr. Dimitris Michel: Current anticoagulation/antiplatelet medications: Unclear if it is Xarelto or Eliquis currently. Does patient have HHT? no Nickel Allergy: none CV Surgical History: Mitral Valve repair 2006 - [facility] ??? Has BRIANNA been amputated? Documented atrial fibrillation on ECG: yes Recent TTE from 04/15/2018: -- future scheduled for 01/03/2022 Any Mitral Valve Stenosis? No Patient meets FDA/CMS criteria for LAAO implant due to ncreased [id number] score. Telephone Encounter - Alejandra Green - 10/26/2021 12:43 PM CDT Triage/Record Review Internal/external: Internal/Valve/LAAO vs PPM Goal or summary: Query PPM vs LAAO Requested date: First Available Additional comments: Per Valve Traige Telephone Encounter - Edgard Schwarz M.S.N., R.N. - 10/26/2021 11:27 AM CDT INTERNAL REFERRING PROVIDER: Ernesto Shea M.D. CHIEF COMPLAINT/REASON FOR VISIT: Mitral valve repair, cerebellar stroke, query pacemaker versus Watchman RECOMMENDATIONS TO APPOINTMENT OFFICE Regular Valve testing / Consult documented in this encounter Plan of Treatment Not on filedocumented as of this encounter Visit Diagnoses Not on filedocumented in this encounter
--- OUTSIDE RECORDS SUMMARY | 2022-04-02 19:38 | XMS_ITS | Encounter Summary ---
:1935 Author Organization [facility] Address [address] [place] [address] Care Team Providers Name Role Phone Unavailable Primary Care Provider Unavailable Encounter Details Date Type Department Care Team Description 12/26/2001 Hospital Encounter HX NO MAPPING Social History [...] or relatives? How often do you attend baptist or More than 4 times per year 12/20/2021 mandaen services? Do you belong to any clubs or Yes 12/20/2021 organizations such as baptist groups, unions, fraternal or athletic groups, or [...] place to sleep or slept in a alf (including now)? Sex Assigned at Date Recorded Male 02/28/2018 2:32 PM CDT documented as of this encounter Plan of Treatment Not on filedocumented as of this encounter Visit Diagnoses Not on filedocumented in this encounter
--- OUTSIDE RECORDS SUMMARY | 2022-04-02 19:38 | XMS_ITS | Encounter Summary ---
:1935 Author Organization [facility] Address [address] [place] [address] Care Team Providers Name Role Phone Unavailable Primary Care Provider Unavailable Encounter Details Date Type Department Care Team Description 03/25/2008 Hospital Encounter HX NO MAPPING Social History [...] More than 4 times per year 12/20/2021 orthodox services? Do you belong to any clubs [...]
--- OUTSIDE RECORDS SUMMARY | 2022-04-02 19:38 | XMS_ITS | Encounter Summary ---
:1935 Author Organization [facility] Address [address] [place] [address] Care Team Providers Name Role Phone Unavailable Primary Care Provider Unavailable Encounter Details Date Type Department Care Team Description 06/02/2002 Hospital Encounter HX NO MAPPING Social History [...] More than 4 times per year 12/20/2021 congregation services? Do you belong to any clubs [...] or slept in a snf (including now)? Sex Assigned at Date Recorded Male 02/28/2018 2:32 PM CDT documented as of this encounter Plan of Treatment Not on filedocumented as of this encounter Procedures Procedure Name Priority Date/Time Associated Diagnosis Comme nts HXGENERAL PATHOLOGY Routine 06/02/2002 3:21 PM Re sults for this REPORT STOP ATTACHER procedure are i n the results section. documented in this encounter Results Hx general Pathology Report (06/02/2002 3:21 PM STOP ATTACHER) Specimen Anatomical Collection Method Collection Time Receive d Time (Source) Location / / Volume Laterality 06/02/2002 3:21 PM 2 3:21 STOP ATTACHER PM STOP ATTACHER Narrative [facility] - 06/02/2002 3:21 PM STOP ATTACHER [id number] Surgical Pathology Requested By: ? Erik ramsay M.D. ?([id number]) ?? TISSUE DESCRIPTION: ?? Uvula (2.2 x 1.2 x 1 cm) ?? [id number] ?? DIAGNOSIS: ?? Uvula, excision: ??Uvula lined by be nign squamous mucosa. ?? 02Jun2002 ?Kelly Díaz M.D.:mgs Procedure Note 10/13/2017 02Jun2002 Surgical Pathology Requested By: Erik Solorzano M.D. ( [id number]) TISSUE DESCRIPTION: Uvula (2.2 x 1.2 x 1 cm) [id number] DIAGNOSIS: Uvula, excision: Uvula lined by benign squamous mucosa. 02Jun2002 Kelly Díaz M.D.:s Erik Solorzano M.D. LAB PATHOLOGY/CYTOLOGY ORDER RAMA Performing Organization Address City/State/ZIP Code Phon e Number [facility] - [address] [place], [place] [address] [facility] documented in this encounter Visit Diagnoses Not on filedocumented in this encounter
--- OUTSIDE RECORDS SUMMARY | 2022-04-02 19:38 | XMS_ITS | Encounter Summary ---
:1935 Author Organization [facility] Address [address] [place] [address] Care Team Providers Name Role Phone Unavailable Primary Care Provider Unavailable Encounter Details Date Type Department Care Team Description 06/04/2007 Hospital Encounter HX NO MAPPING Social History [...] More than 4 times per year 12/20/2021 church services? Do you belong to any clubs [...]
--- OUTSIDE RECORDS SUMMARY | 2022-04-02 19:38 | XMS_ITS | Encounter Summary ---
:1935 Author Organization [facility] Address [address] [place] [address] Care Team Providers Name Role Phone Unavailable Primary Care Provider Unavailable Encounter Details Date Type Department Care Team Description 03/29/2005 Hospital Encounter HX NO MAPPING Social History [...] or relatives? How often do you attend confucianist or More than 4 times per year 12/20/2021 uatsdin services? Do you belong to any clubs or Yes 12/20/2021 organizations such as confucianist groups, unions, fraternal or athletic groups, or [...]
--- OUTSIDE RECORDS SUMMARY | 2022-04-02 19:38 | XMS_ITS | Encounter Summary ---
:1935 Author Organization [facility] Address [address] [place] [address] Care Team Providers Name Role Phone Unavailable Primary Care Provider Unavailable Encounter Details Date Type Department Care Team Description 06/02/2002 - Hospital Encounter HX RST CAROLS LAZAROErik Kelley 06/03/2002 Joann Calvillo Social History Tobacco Use Types Packs/Day Years [...] or relatives? How often do you attend voodoo or More than 4 times per year 12/20/2021 orthodoxy services? Do you belong to any clubs or Yes 12/20/2021 organizations such as voodoo groups, unions, fraternal or athletic groups, or [...] place to sleep or slept in a residential (including now)? Sex Assigned at Date Recorded Male 02/28/2018 2:32 PM CDT documented as of this encounter Plan of Treatment Not on filedocumented as of this encounter Visit Diagnoses Not on filedocumented in this encounter
--- OUTSIDE RECORDS SUMMARY | 2022-04-02 19:38 | XMS_ITS | Encounter Summary ---
:1935 Author Organization [facility] Address [address] [place] [address] Care Team Providers Name Role Phone Unavailable Primary Care Provider Unavailable Encounter Details Date Type Department Care Team Description 06/12/2006 - Hospital Encounter HX RST [facility] Yara Negrete 06/19/2006 ALYSON Hay M.D. [address] [place] [address] Social History Tobacco Use Types Packs/Day Years [...] More than 4 times per year 12/20/2021 hindu services? Do you belong to any clubs [...]
--- OUTSIDE RECORDS SUMMARY | 2022-04-02 19:38 | XMS_ITS | Encounter Summary ---
:1935 Author Organization [facility] Address [address] [place] [address] Care Team Providers Name Role Phone Unavailable Primary Care Provider Unavailable Encounter Details Date Type Department Care Team Description 08/14/2006 - Hospital Encounter HX RST [facility] FLOOR Alejandra Gamble, 08/21/2006 PRACTICE P[facility] [address] [place] [address] Social History Tobacco Use Types Packs/Day Years [...] or relatives? How often do you attend jewish or More than 4 times per year 12/20/2021 zoroastrianism services? Do you belong to any clubs or Yes 12/20/2021 organizations such as jewish groups, unions, fraternal or athletic groups, or [...]
--- OUTSIDE RECORDS SUMMARY | 2022-04-02 19:38 | XMS_ITS | Encounter Summary ---
:1935 Author Organization [facility] Address [address] [place] [address] Care Team Providers Name Role Phone Unavailable Primary Care Provider Unavailable Encounter Details Date Type Department Care Team Description 04/04/2002 Hospital Encounter HX NO MAPPING Provider, Historical Social History Tobacco Use Types [...] or relatives? How often do you attend caodaism or More than 4 times per year 12/20/2021 cheondoism services? Do you belong to any clubs or Yes 12/20/2021 organizations such as caodaism groups, unions, fraternal or athletic groups, or [...]
--- OUTSIDE RECORDS SUMMARY | 2022-04-02 19:38 | XMS_ITS | Encounter Summary ---
:1935 Author Organization [facility] Address [address] [place] [address] Care Team Providers Name Role Phone Unavailable Primary Care Provider Unavailable Encounter Details Date Type Department Care Team Description 06/02/2005 - 06/05/2005 Hospital Encounter HX RST DOMITIZANAA 3D Social History Tobacco Use Types Packs/Day Years [...] or relatives? How often do you attend zoroastrianism or More than 4 times per year 12/20/2021 pentecostalism services? Do you belong to any clubs or Yes 12/20/2021 organizations such as zoroastrianism groups, unions, fraternal or athletic groups, or [...] or slept in a assisted (including now)? Sex Assigned at Date Recorded Male 02/28/2018 2:32 PM CDT documented as of this encounter Plan of Treatment Not on filedocumented as of this encounter Visit Diagnoses Not on filedocumented in this encounter
--- OUTSIDE RECORDS SUMMARY | 2022-04-02 19:38 | XMS_ITS | Encounter Summary ---
:1935 Author Organization [facility] Address [address] [place] [address] Care Team Providers Name Role Phone Unavailable Primary Care Provider Unavailable Encounter Details Date Type Department Care Team Description 06/02/2013 Hospital Encounter HX NO MAPPING Social History [...] or relatives? How often do you attend sabianism or More than 4 times per year 12/20/2021 church services? Do you belong to any clubs or Yes 12/20/2021 organizations such as sabianism groups, unions, fraternal or athletic groups, or [...]
--- OUTSIDE RECORDS SUMMARY | 2022-04-02 19:38 | XMS_ITS | Encounter Summary ---
:1935 Author Organization [facility] Address [address] [place] [address] Care Team Providers Name Role Phone Unavailable Primary Care Provider Unavailable Encounter Details Date Type Department Care Team Description 06/09/2005 Hospital Encounter HX NO MAPPING Social History [...] or slept in a prison (including now)? Sex Assigned at Date Recorded Male 02/28/2018 2:32 PM CDT documented as of this encounter Plan of Treatment Not on filedocumented as of this encounter Visit Diagnoses Not on filedocumented in this encounter
--- OUTSIDE RECORDS SUMMARY | 2022-04-02 19:38 | XMS_ITS | Encounter Summary ---
:1935 Author Organization [facility] Address [address] [place] [address] Care Team Providers Name Role Phone Unavailable Primary Care Provider Unavailable Encounter Details Date Type Department Care Team Description 12/23/2012 - Hospital Encounter HX RST Tom Huerta , 12/25/2012 M.DHorace [address] [place] [address] Social History Tobacco Use Types Packs/Day Years [...] or relatives? How often do you attend hinduism or More than 4 times per year 12/20/2021 yazidi services? Do you belong to any clubs or Yes 12/20/2021 organizations such as hinduism groups, unions, fraternal or athletic groups, or [...] Sign Reading Time Taken Comments Blood Pressure 137/60 12/25/2012 8:30 AM NIBP - Value from CDT [facility]. Pulse 58 12/25/2012 9:00 AM Value from Ch [facility]. CDT Temperature - - Respiratory Rate 16 12/25/2012 8:30 AM Value from C [facility]art[facility]. CDT Oxygen Saturation - - Inhaled Oxygen - - Concentration Weight 84.9 kg (187 lb 2.7 12/25/2012 7:30 AM Value fro m [facility]. oz) CDT Height - - Body Mass Index 28.04 12/23/2012 3:43 PM CDT documented in this encounter Medications at Time of Discharge Medication Sig Dispensed Refills Start Date End Date simvastatin (ZOCOR) 10 mg Take 10 mg by mouth 0 0 03/24/2009 02/22/2022 tablet at bedtime. documented as of this encounter Plan of Treatment Not on filedocumented as of this encounter Procedures Procedure Name Priority Date/Time Associated Comments Diagnosis EXERCISE ECG Routine 12/24/2012 4:31 PM CDT MR BRAIN WITHOUT AND Routine 12/24/2012 10:59 Res ults for this WITH IV CONTRAST AM CDT procedure a re in the results section. DX CHEST AP OR PA AND Routine 12/23/2012 8:02 PM Results for this LATERAL 2 VIEWS CDT procedure ar e in the results section. ELECTROLYTE (CHEM 4) Routine 12/23/2012 6:07 PM R esults for this PANEL, S/P CDT procedure are i n the results section. CBC WITH Routine 12/23/2012 6:07 PM Results f or this DIFFERENTIAL, B CDT procedure ar e in the results section. documented in this encounter Results Exercise ECG (12/24/2012 4:31 PM CDT) Specimen (Source) Anatomical Collection Method Collection Time Re ceived Time Location / / Volume Laterality 12/24/2012 4:31 PM CDT Jaki Navarro M.D. CV STRESS PROCEDURES Performing Organization Address City/State/ZIP Code Phon e Number HX [place] CONVERSION MR Brain without and with IV Contrast (12/24/2012 10:59 AM CDT) Anatomical Region Laterality Modality Head, Brain N/A Magnetic Resonance Specimen (Source) Anatomical Collection Method Collection Time Re ceived Time Location / / Volume Laterality 12/24/2012 10:59 AM CDT Narrative 12/24/2012 11:40 AM CDT 24-Dec-2012 10:59:00 ??Exam: MRI Hd wo&w Indications: [id number] mri head - d izziness; r/o cerebellar infarct; pt had an artificial heart valve repair in 2007 ORIGINAL REPORT - 24-Dec-2012 11:40:00 EXAM: MRI Brain without and with IV cont rast: COMPARISON: No prior MRIs. Prior maxillo facial CT scan May 30, 2010. FINDINGS: ?? Mild cerebral and cerebellar volume loss . A few, scattered, periventricular and subcortical T2/FLAIR hyperintensities are nonspecific though most compatible chronic small vessel ischemia. Numerous sligh tly prominent perivascular spaces bilate rally at the level of the basal ganglia and high anterior frontal lobes. No mass, abnormal enhancement, hemorrhage, or restricted diffusion. 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 Mil d mucosal thickening of a few ethmoid ai r cells. Trace fluid within the right mastoid air cells. Remainder normal. [id number] Electronically signed by: ?? Dorota Soliman M.D. 24-Dec-2012 11:40 ?Ori Myles MD [phone] 24-Dec-2012 11:40 ?Lilly Maharaj MD [phone] [id number] 24-Dec-2012 11:40 Procedure Note Ernesto Soliman M.D., Ph.D. - 10/19/2017Fo rmatting of this note might be different from the original. 24-Dec-2012 10:59:00 Exam: MRI Hd wo&w Indications: [id number] mri head - d izziness; r/o cerebellar infarct; pt had an artificial heart valve repair in 2007 ORIGINAL REPORT - 24-Dec-2012 11:40:00 EXAM: MRI Brain without and with IV cont rast: COMPARISON: No prior MRIs. Prior maxillo facial CT scan May 30, 2010. FINDINGS: Mild cerebral and cerebellar volume loss . A few, scattered, periventricular and subcortical T2/FLAIR hyperintensities are nonspecific though most compatible chronic small vessel ischemia. Numerous slightly prominent perivascular spaces bilaterall y at the level of the basal ganglia and high anterior frontal lobes. No mass, abnormal enhancement, hemorrhage, or restricted diffusion. 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 Mild mucosal thickening of a few ethmoid air cells. T race fluid within the right mastoid air cells. Remainder normal. [id number] Electronically signed by: Dorota Soliman M.D. 8-24-Dec-2012 11:40 Ori Myles MD [phone] 24-Dec-2012 11:40 Lilly Maharaj MD [phone] [id number] 24-Dec-2012 11:40 Tom Barahona M.D. IMG MRI PROCEDURES DX Chest AP or PA and Lateral 2 Views (12/23/2012 8:02 PM CDT) Anatomical Region Laterality Modality Chest N/A Radiographic Imaging Specimen (Source) Anatomical Collection Method Collection Time Re ceived Time Location / / Volume Laterality 12/23/2012 8:02 PM CDT Narrative 12/24/2012 6:24 AM CDT 23-Dec-2012 20:02:00 ??Exam: Chest-- 2 Views Indications: baseline ORIGINAL REPORT - 23-Dec-2012 20:28:00 Chest; 2 views: No significant change since 05/06/2010. Sternotomy with mitral valve annuloplasty. Linear scarring and/or atelectasis in the left costophrenic angle. Thoracolumbar curve. Degenerative changes in the upper lumbar spine. Surgical clips RUQ. Electronically signed by: ?Jamie Salas MD [phone] 23-Dec-2012 20:28 I have reviewed the films/images and agr ee with the above interpretation. Electronically signed by: ?? Winsome Scales ?? [phone] 24-Dec-2012 06:24 Procedure Note Tao Scales M.D. - 10/19/2017Formatti ng of this note might be different from the original. 23-Dec-2012 20:02:00 Exam: Chest-- 2 Vie ws Indications: baseline ORIGINAL REPORT - 23-Dec-2012 20:28:00 Chest; 2 views: No significant change since 05/06/2010. Sternotomy with mitral valve annuloplasty. Linear scarring and/or atelectasis in the left costophrenic angle. Thoracolumbar curve. Degenerative changes in the upper lumbar spine. Surgical clips RUQ. Electronically signed by: Felicia Salas MD [phone] 23-Dec-2012 20:28 I have reviewed the films/images and agr ee with the above interpretation. Electronically signed by: Winsome Scales MD [phone] 24-Dec-2012 06:24 Wilma Solano APRN, C.N.P. IMG DIAGNOSTIC IMAGING PROCEDURES Electrolyte (Chem 4) Panel (12/23/2012 6:07 PM CDT) Analysis Performed At Patho logist Time Signature Sodium, S 143 135 - 145 [facility] MMOL/L [facility] Potassium, S 4.2 3.6 - 5.2 [facility] MMOL/L [facility] Creatinine 0.9 0.8 - 1.3 [facility] MG/DL [facility] BUN (Blood Urea 20 8 - 24 [facility] Nitrogen), S MG/DL [facility] Chloride, S 104 100 - 108 [facility] MMOL/L [facility] HX Bicarbonate, 26 22 - 29 [facility] P/S MMOL/L LAB[facility]ATORIES - [facility] Anion Gap 13 7 - 15 [facility] - [facility] Glucose, S 106 70 - 140 [facility] MG/DL [facility] Specimen Anatomical Collection Method Collection Time Receive d Time (Source) Location / / Volume Laterality 12/23/2012 6:07 PM 3 6:07 CDT PM CDT Wilma Solano APRN, C.N.P. LAB BLOOD ADD-ON Performing Organization Address City/State/ZIP Code Phon e Number [facility] - [address] [place] [id number] [facility] CBC with Differential (12/23/2012 6:07 PM CDT) [facility] gist Method Time Signature Erythrocytes 5.04 4.32 - [facility] 5.72 LABORATORIES - X10(12)/L [facility] MCV 88.7 81.2 - [facility] 95.1 [place] LABORATORIES - [facility] Leukocytes 5.7 3.5 - [facility] 10.5 LABORATORIES - X10(9)/L [facility] Neutrophils 3.86 1.70 - [facility] 7.00 LABORATORIES - X10(9)/L [facility] Lymphocytes 1.37 0.90 - [facility] 2.90 LABORATORIES - X10(9)/L [facility] Monocytes 0.34 0.30 - [facility] 0.90 LABORATORIES - X10(9)/L [facility] Hemoglobin 15.4 13.5 - [facility] 17.5 G/DL LAB[facility]ATORIES - [facility] Hematocrit 44.7 38.8 - [facility] 50.0 % LABORATORIES - [facility] RBC Distrib Width 12.9 11.8 - [facility] 15.6 % LABORATORIES - [facility] Platelet Count 162 150 - 450 [facility] X10(9)/L LABORATORIES - [facility] Eosinophils 0.08 0.05 - [facility] 0.50 LABORATORIES - X10(9)/L [facility] Basophils 0.01 0.00 - [facility] 0.30 LABORATORIES - X10(9)/L [facility] Specimen Anatomical Collection Method Collection Time Receive d Time (Source) Location / / Volume Laterality 12/23/2012 6:07 PM 3 6:07 CDT PM CDT Wilma Solano APRN, C.N.P. LAB BLOOD ADD-ON Performing Organization Address City/State/ZIP Code Phon e Number [facility] - [address] [place], [place] [address] [facility] documented in this encounter Visit Diagnoses Not on filedocumented in this encounter
--- OUTSIDE RECORDS SUMMARY | 2022-04-02 19:38 | XMS_ITS | Encounter Summary ---
:1935 Author Organization [facility] Address [address] [place] [address] Care Team Providers Name Role Phone Unavailable Primary Care Provider Unavailable Encounter Details Date Type Department Care Team Description 05/29/2001 Hospital Encounter HX NO MAPPING Provider, Historical [...] or relatives? How often do you attend samaritan or More than 4 times per year 12/20/2021 congregational services? Do you belong to any clubs or Yes 12/20/2021 organizations such as samaritan groups, unions, fraternal or athletic groups, or [...] place to sleep or slept in a penitentiary (including now)? 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
--- OUTSIDE RECORDS SUMMARY | 2022-04-02 19:38 | XMS_ITS | Encounter Summary ---
:1935 Author Organization [facility] Address [address] [place] [address] Care Team Providers Name Role Phone Unavailable Primary Care Provider Unavailable Encounter Details Date Type Department Care Team Description 04/29/2007 Hospital Encounter HX NO MAPPING Social History [...] or relatives? How often do you attend congregation or More than 4 times per year 12/20/2021 nondenominational services? Do you belong to any clubs or Yes 12/20/2021 organizations such as congregation groups, unions, fraternal or athletic groups, or [...]
--- OUTSIDE RECORDS SUMMARY | 2022-04-02 19:38 | XMS_ITS | Encounter Summary ---
:1935 Author Organization [facility] Address [address] [place] [address] Care Team Providers Name Role Phone Unavailable Primary Care Provider Unavailable Encounter Details Date Type Department Care Team Description 02/23/2011 Hospital Encounter HX NO MAPPING Social History [...] or relatives? How often do you attend restorationism or More than 4 times per year 12/20/2021 oriental orthodox services? Do you belong to any clubs or Yes 12/20/2021 organizations such as restorationism groups, unions, fraternal or athletic groups, or [...]
--- OUTSIDE RECORDS SUMMARY | 2022-04-02 19:38 | XMS_ITS | Encounter Summary ---
:1935 Author Organization [facility] Address [address] [place] [address] Care Team Providers Name Role Phone Unavailable Primary Care Provider Unavailable Encounter Details Date Type Department Care Team Description 08/14/2006 - Hospital Encounter HX RST [facility] Yara Negrete 08/21/2006 ALYSON Hay M.D. [address] [place] [address] Social History Tobacco Use Types Packs/Day Years [...] or relatives? How often do you attend shinto or More than 4 times per year 12/20/2021 presybeterian services? Do you belong to any clubs or Yes 12/20/2021 organizations such as shinto groups, unions, fraternal or athletic groups, or [...]
--- OUTSIDE RECORDS SUMMARY | 2022-04-02 19:38 | XMS_ITS | Encounter Summary ---
:1935 Author Organization [facility] Address [address] [place] [address] Care Team Providers Name Role Phone Unavailable Primary Care Provider Unavailable Encounter Details Date Type Department Care Team Description 07/24/2004 Hospital Encounter HX NO MAPPING Social History [...] or relatives? How often do you attend mu-ism or More than 4 times per year 12/20/2021 latter-day services? Do you belong to any clubs or Yes 12/20/2021 organizations such as mu-ism groups, unions, fraternal or athletic groups, or [...]
--- OUTSIDE RECORDS SUMMARY | 2022-04-02 19:38 | XMS_ITS | Encounter Summary ---
:1935 Author Organization [facility] Address [address] [place] [address] Care Team Providers Name Role Phone Unavailable Primary Care Provider Unavailable Encounter Details Date Type Department Care Team Description 06/05/2006 Hospital Encounter HX NO MAPPING Social History [...] More than 4 times per year 12/20/2021 faith services? Do you belong to any clubs [...]
--- OUTSIDE RECORDS SUMMARY | 2022-04-02 19:38 | XMS_ITS | Encounter Summary ---
:1935 Author Organization [facility] Address [address] [place] [address] Care Team Providers Name Role Phone Unavailable Primary Care Provider Unavailable Encounter Details Date Type Department Care Team Description 03/26/2009 Hospital Encounter HX NO MAPPING Social History [...] or relatives? How often do you attend mosque or More than 4 times per year 12/20/2021 sikhism services? Do you belong to any clubs or Yes 12/20/2021 organizations such as mosque groups, unions, fraternal or athletic groups, or [...]
--- OUTSIDE RECORDS SUMMARY | 2022-04-02 19:38 | XMS_ITS | Encounter Summary ---
:1935 Author Organization [facility] Address [address] [place] [address] Care Team Providers Name Role Phone Unavailable [...] or relatives? How often do you attend presybeterian or More than 4 times per year 12/20/2021 anglican services? Do you belong to any clubs or Yes 12/20/2021 organizations such as presybeterian groups, unions, fraternal or athletic groups, or [...] or slept in a intermediate (including now)? Sex Assigned at Date Recorded Male 02/28/2018 2:32 PM CDT documented as of this encounter Miscellaneous Notes Miscellaneous - Conversion, Historical Provider Ser - 05/29/2001 12:00 AM SOCIAL [employer] J[employer] [id number] *-*-*-*-* SEE SCANNED REPORT *-*-*-*-* Source: [id number] Document Id: [id number] documented in this encounter Plan of Treatment Not on filedocumented as of this encounter Visit Diagnoses Not on filedocumented in this encounter
--- OUTSIDE RECORDS SUMMARY | 2022-04-02 19:38 | XMS_ITS | Encounter Summary ---
:1935 Author Organization [facility] Address [address] [place] [address] Care Team Providers Name Role Phone Unavailable Primary Care Provider Unavailable Encounter Details Date Type Department Care Team Description 06/16/2005 Hospital Encounter HX NO MAPPING Social History [...]
--- OUTSIDE RECORDS SUMMARY | 2022-04-02 19:38 | XMS_ITS | Encounter Summary ---
:[address] [facility] Address [address] [place] [address] Care Team Providers Name Role Phone Unavailable [...] or relatives? How often do you attend taoism or More than 4 times per year 12/20/2021 pentecostal services? Do you belong to any clubs or Yes 12/20/2021 organizations such as taoism groups, unions, fraternal or athletic groups, or [...] slept in a senior care (including now)? Sex Assigned at Date Recorded Male 02/28/2018 2:32 PM CDT documented as of this encounter Plan of Treatment Not on filedocumented as of this encounter Visit Diagnoses Not on filedocumented in this encounter
[2022-04-02 19:46] LABS: Lactate* 1.5 mmol/L (0.5-1.9)
[2022-04-02 19:55] LABS: Eosinophils Absolute Auto 0.01 K/uL (0.00-0.50); Eosinophils Percent Auto 0.1 % (0.0-7.0); Immature Granulocytes Abs Auto 0.01 K/uL (0.00-0.30); Lymphocytes Percent Auto 6.5 % (20-44); Mean Corpuscular HGB Conc 33 gm/dL (32-36); Mean Corpuscular Hemoglobin 30 pg (26-34); Mean Corpuscular Volume 89 fL (80-100); Monocytes Percent Auto 6.4 % (0.0-11.0); Neutrophils Percent Auto 86.9 % (42.0-72.0); Platelet Count* 229 K/uL (140-440); RDW Coefficient of Variation % 13.1 % (11.5-15.5); Red Blood Count 5.05 m/uL (4.30-5.90); White Blood Count* 6.72 K/uL (4.50-11.00)
[2022-04-02 19:59] LABS: Slide Review Reflex No
[2022-04-02 20:00] LABS: Troponin, Point-of-Care* 0.02 ng/ml (0.01-0.04)
[2022-04-02 20:06] LABS: Albumin* 4.4 g/dL (3.3-5.0); Chloride* 104 mmol/L (96-114)
[2022-04-02 20:07] LABS: Sodium* 138 mmol/L (135-149)
[2022-04-02 20:08] LABS: SARS PCR* POSITIVE SARS-CoV-2 (Negative)
[2022-04-02 20:09] LABS: Aspartate Amino Transferase* 24 U/L (12-35); Bilirubin Direct* 0.2 mg/dL (0.0-0.5); Bilirubin Total* 1.3 mg/dL (0.1-1.5); Carbon Dioxide* 26 mmol/L (20-32); Creatinine* 1.1 mg/dL (0.5-1.5); Est. Creatinine Clearance* 46.64; Estimated Glomerular Filt Rate 65 ml/min; Total Protein* 7.7 g/dL (6.0-8.3)
[2022-04-02 20:10] LABS: Alanine Aminotransferase* 18 U/L (4-50); Alkaline Phosphatase* 98 U/L (40-150); Blood Urea Nitrogen* 29 mg/dL (7-30); Calcium* 8.7 mg/dL (8.4-10.6); Glucose* 178 mg/dL (60-115); Magnesium* 2.1 mg/dL (1.5-2.6)
[2022-04-02 20:12] LABS: C Reactive Protein* 1.7 mg/dL (0.5-1.0)
--- NOTE | 2022-04-02 21:55 | ED.GENADULT ---
HPI - General Adult General Date Seen: 04/02/22 Chief complaint: Weakness Stated complaint: Weakness Time Seen by Provider: 04/02/22 19:00 Source: patient History of Present Illness HPI narrative: Patient is an 86-year-old male who comes in saying he felt weaker than usual after watching TV this afternoon. He says he usually gets around with a walker and does reasonably well but he tried to get up from watching TV and he says he tried 20 times and he just could not get up. He lives in assisted living at [facility]. He denies any focal symptoms. He specifically denies headache, fever, chest pain, abdominal pain, vomiting, diarrhea, black or bloody stools, he does note that he is feeling just a little bit short of breath but he thinks that is because he tried to get up so many times in a row. He thinks his heart is going a little bit fast for the same reason, but also says it might be because he has not been drinking enough fluids. He says as long as he is laying in bed he feels pretty okay, just when he tries to get up and walk that he notices that his legs feel weak. He denies focal weakness. He says his arms feel fine. No difficulty with speech or balance. Related Data Home Medications Medication Instructions Recorded Confirmed acetaminophen 500 mg tablet 500 mg PO Q4-6H PRN 01/19/22 01/24/22 (Tylenol Extra Strength) amoxicillin 500 mg capsule 2,000 mg PO PRN 01/19/22 01/24/22 rosuvastatin 10 mg tablet 10 mg PO .QHS 01/19/22 01/24/22 Previous Rx's Medication Instructions Recorded fluticasone propionate 110 2 puff inhalation Q12H #12 grams 01/24/22 mcg/actuation HFA aerosol inhaler (Flovent HFA) zolpidem 5 mg tablet 5 mg PO .HS PRN #90 tabs 02/27/22 amiodarone 200 mg tablet 200 mg PO DAILY #90 tabs 03/28/22 amlodipine 5 mg tablet 5 mg PO DAILY #90 tabs 03/28/22 apixaban 5 mg tablet (Eliquis) 5 mg PO BID #180 tabs 03/28/22 furosemide 40 mg tablet 40 mg PO DAILY #90 tabs 09/06/22 losartan 100 mg tablet 100 mg PO DAILY #90 tabs 03/28/22 Allergies Allergy/AdvReac Type Severity Reaction Status Date / Time Sulfa (Sulfonamide Allergy Intermediate Hives Verified 01/24/22 11:15 Antibiotics) latex Allergy Mild allergy Verified 01/24/22 11:15 test Review of Systems Status of ROS: Reports: 10 or more systems reviewed and unremarkable except as noted in History and below [facility] Medical History Obstructive sleep apnea Physician orders for life-sustaining treatment (POLST) form indicates patient wish for full code resuscitation status (01/08/18) Pre-diabetes Thyroid nodule Tubular adenoma of colon Surgical History H/O arthroscopic knee surgery H/O bilateral cataract extraction History of cholecystectomy (1990) History of uvulopalatopharyngoplasty (2001) Hx of tonsillectomy (~1942) Melanoma in situ (2018) S/P hernia surgery (2006) S/P mitral valve repair (2006) S/P Mohs surgery for basal cell carcinoma (2014) S/P rotator cuff repair Status post prostatectomy Social History Smoking Status: Never smoker How often do you have a drink containing alcohol: 2-3 times a week AUDIT-C Alcohol total score: 3 Non-prescribed substance use: denies use Exam Narrative: Exam Narrative: Vital signs as noted above. In general, an alert, well-appearing patient. Head: Normocephalic, atraumatic. Eyes: Pupils are equal reactive. Extraocular movements are full. Conjunctivae are normal. ENT: Mucous membranes are moist. Throat is normal. Neck: Supple without lymphadenopathy. Heart: Regular rate and rhythm. No murmur or rub. Lungs: Clear bilaterally. No increased work of breathing, crackles or wheezes. Abdomen: Soft and nontender. No organomegaly. Extremities: Well perfused. No edema. No calf tenderness. Pulses intact. Neurologic: Patient is alert and oriented to person and place. Speech is fluent. Face is symmetric. Moves all extremities equally. Affect: Normal. Skin: Warm and dry. Well perfused. Const: Vital Signs, click to edit/add: Vital Signs - 24 hr 04/02/22 19:03 Temperature 98.6 F Pulse Rate [Pulse Oximeter] 110 H Respiratory Rate 18 Blood Pressure [Le ft Upper Arm] 120/92 H Pulse Oximetry 95 Oxygen Delivery Me thod Nasal Cannula Course Course Hospital Course: Patient had an EKG which by my review was actually essentially useless. There is significant artifact, the nurse said that she just could not get it resolved any better than it was. I am not even able to tell whether it sinus as there is so much baseline artifact. On the monitor it does look like of sinus tachycardia at around 105. Labs showed normal white blood cell count 6.7, hemoglobin of 15, normal platelets. Electrolytes are entirely within normal limits. Blood sugars 178. LFTs are normal. CRP minimally elevated at 1.7. Most notably, his COVID is positive. Troponin is unremarkable at 0.02. We did try and see if he was able to manage with his walker, he simply isn't able to stand here. I do think he will need to be in the hospital until his strength improves. Vital Signs Vital signs: Initial Vital Signs Temperature 98.6 F 04/02/22 19:03 Temperature Source Temporal Artery Scan 04/02/22 19:03 Pulse Rate 110 H 04/02/22 19:03 Respiratory Rate 18 04/02/22 19:03 Blood Pressure 120/92 H 04/02/22 19:03 Blood Pressure Mean 101 04/02/22 19:03 Blood Pressure Position Supine 04/02/22 19:03 Pulse Oximetry 95 04/02/22 19:03 Oxygen Delivery Method 04/02/22 19:03 Vital Signs Temperature 98.6 F 04/02/22 19:03 Pulse Rate 110 H 04/02/22 19:03 Respiratory Rate 18 04/02/22 19:03 Blood Pressure 120/92 H 04/02/22 19:03 Pulse Oximetry 95 04/02/22 19:03 Oxygen Delivery Method 04/02/22 19:03 Temperature 98.6 F 04/02/22 19:03 Pulse Rate 110 H 04/02/22 19:03 Respiratory Rate 18 04/02/22 19:03 Blood Pressure 120/92 H 04/02/22 19:03 Pulse Oximetry 95 04/02/22 19:03 Oxygen Delivery Method 04/02/22 19:03 Medical Decision Making Lab Data Labs: Lab Results 04/02/22 04/02/22 04/02/22 Range/Units 19:18 19:41 19:41 WBC 6.72 (4.50-11.00) K/uL RBC 5.05 (4.30-5.90) m/uL Hgb 15.0 (13.5-17.5) gm/dL Hct 45.0 (37.0-53.0) % MCV 89 (80-100) fL MCH 30 (26-34) pg MCHC 33 (32-36) gm/dL RDW Coeff of Melissa 13.1 (11.5-15.5) % Plt Count 229 (140-440) K/uL Neut % (Auto) 86.9 H (42.0-72.0) % Lymph % (Auto) 6.5 L (20-44) % Richardson % (Auto) 6.4 (0.0-11.0) % Eos % (Auto) 0.1 (0.0-7.0) % Baso % (Auto) 0.0 (0.0-3.0) % Neut # (Auto) 5.80 (1.7-7.0) K/uL Lymph # (Auto) 0.40 L (0.90-2.90) K/uL Richardson # (Auto) 0.40 (0.00-0.90) K/UL Eos # (Auto) 0.01 (0.00-0.50) K/uL Baso # (Auto) 0.00 (0.00-0.30) K/uL Abs Immat Gran (auto) 0.01 (0.00-0.30) K/uL Sodium 138 (135-149) mmol/L Potassium 4.0 (3.6-5.1) mmol/L Chloride 104 (96-114) mmol/L Carbon Dioxide 26 (20-32) mmol/L BUN 29 (7-30) mg/dL Creatinine 1.1 (0.5-1.5) mg/dL Estimated Creat Clear 46.64 Estimated GFR 65 ml/min Glucose 178 H (60-115) mg/dL Lactate (0.5-1.9) mmol/L Calcium 8.7 (8.4-10.6) mg/dL Magnesium 2.1 (1.5-2.6) mg/dL Total Bilirubin 1.3 (0.1-1.5) mg/dL Direct Bilirubin 0.2 (0.0-0.5) mg/dL AST 24 (12-35) U/L ALT 18 (4-50) U/L Alkaline Phosphatase 98 (40-150) U/L C-Reactive Protein 1.7 H (0.5-1.0) mg/dL Total Protein 7.7 (6.0-8.3) g/dL Albumin 4.4 (3.3-5.0) g/dL SARS-CoV-2 (PCR) POSITIVE SARS-CoV-2 A (Negative) POC Troponin I (0.01-0.04) ng/ml 04/02/22 04/02/22 Range/Units 19:41 19:41 WBC (4.50-11.00) K/uL RBC (4.30-5.90) m/uL Hgb (13.5-17.5) gm/dL Hct (37.0-53.0) % MCV (80-100) fL MCH (26-34) pg MCHC (32-36) gm/dL RDW Coeff of Melissa (11.5-15.5) % Plt Count (140-440) K/uL Neut % (Auto) (42.0-72.0) % Lymph % (Auto) (20-44) % Richardson % (Auto) (0.0-11.0) % Eos % (Auto) (0.0-7.0) % Baso % (Auto) (0.0-3.0) % Neut # (Auto) (1.7-7.0) K/uL Lymph # (Auto) (0.90-2.90) K/uL Richardson # (Auto) (0.00-0.90) K/UL Eos # (Auto) (0.00-0.50) K/uL Baso # (Auto) (0.00-0.30) K/uL Abs Immat Gran (auto) (0.00-0.30) K/uL Sodium (135-149) mmol/L Potassium (3.6-5.1) mmol/L Chloride (96-114) mmol/L Carbon Dioxide (20-32) mmol/L BUN (7-30) mg/dL Creatinine (0.5-1.5) mg/dL Estimated Creat Clear Estimated GFR ml/min Glucose (60-115) mg/dL Lactate 1.5 (0.5-1.9) mmol/L Calcium (8.4-10.6) mg/dL Magnesium (1.5-2.6) mg/dL Total Bilirubin (0.1-1.5) mg/dL Direct Bilirubin (0.0-0.5) mg/dL AST (12-35) U/L ALT (4-50) U/L Alkaline Phosphatase (40-150) U/L C-Reactive Protein (0.5-1.0) mg/dL Total Protein (6.0-8.3) g/dL Albumin (3.3-5.0) g/dL SARS-CoV-2 (PCR) (Negative) POC Troponin I 0.02 (0.01-0.04) ng/ml Discharge Plan Discharge Clinical Impression: COVID-19 Patient Disposition: Admitted As Inpatient Condition: Stable
--- NOTE | 2022-04-02 22:24 | ED.NURSE ---
Pt's daughter, Teresa, updated with plan to hospitalize pt and pt on portable phone with daughter. Daughter requests updates ([phone]) tomorrow morning with plan. Daughter also states she will update [facility] that pt to stay overnight, as RN unable to get ahold of facility. Pt requesting food/drink. Okayed with MD and pt eats half ham sandwich, jello, apple sauce, and drinking water. Pt still unable to provide UA at this time.
--- NOTE | 2022-04-02 23:14 | W.PC.EDHO ---
Primary Language: Preferred Language: Orientation Status: [] Alert & Oriented [] Slight Confusion [] Known Dx Dementia Transfers By: [] Assist of 1 [] Assist of 2 [] Lift Description of Symptoms ED Triage Present Problem pt was watching tv, went to the bathroom and could Description not gget self off toilet. was too weak. went out to lunch and had walked to car without difficulty. pt lives at [facility]. per ems pt had hr higher than usual. blood sugar 201 for ems . ED Triage Date of Onset of 04/02/22 Symptoms Oxygen Administration Pulse Oximetry 95 Oxygen Delivery Method Nasal Cannula
--- NOTE | 2022-04-03 00:10 | ED.NURSE ---
Pt's shoes brought to med surg unit in belongings bag with pt's label. Per , acceptance by [facility]. Med surg updated.
--- NOTE | 2022-04-03 00:10 | ED.NURSE ---
Unable to obtain UA in ER. rn security updated.
--- NOTE | 2022-04-03 00:24 | P.IMCN_ITS ---
Date of Consult Consult date: 04/03/22 Primary Care Provider: Maria Esther Mendoza MD Consult Narrative Narrative: Gregg Villa is a 86 year old male [facility] Medical History Obstructive sleep apnea Physician orders for life-sustaining treatment (POLST) form indicates patient wish for full code resuscitation status (01/08/18) Pre-diabetes Thyroid nodule Tubular adenoma of colon Surgical History H/O arthroscopic knee surgery H/O bilateral cataract extraction History of cholecystectomy (1990) History of uvulopalatopharyngoplasty (2001) Hx of tonsillectomy (~1942) Melanoma in situ (2018) S/P hernia surgery (2006) S/P mitral valve repair (2006) S/P Mohs surgery for basal cell carcinoma (2014) S/P rotator cuff repair Status post prostatectomy Social History Smoking Status: Never smoker How often do you have a drink containing alcohol: 2-3 times a week AUDIT-C Alcohol total score: 3 Non-prescribed substance use: denies use Meds Home Medications and Allergies Home Medications Medication Instructions Recorded Confirmed Type acetaminophen 500 mg tablet 500 mg PO Q4-6H PRN 01/19/22 01/24/22 History (Tylenol Extra Strength) amoxicillin 500 mg capsule 2,000 mg PO PRN 01/19/22 01/24/22 History rosuvastatin 10 mg tablet 10 mg PO .QHS 01/19/22 01/24/22 History Allergies Allergy/AdvReac Type Severity Reaction Status Date / Time Sulfa (Sulfonamide Allergy Intermediate Hives Verified 01/24/22 11:15 Antibiotics) latex Allergy Mild allergy Verified 01/24/22 11:15 test Exam Const: Vital Signs, click to edit/add: Vital Signs - 24 hr 04/02/22 19:03 04/02/22 19:02 04/02/22 19:30 Temperature 98.6 F Pulse Rate [Pulse Oximeter] 110 H 108 H Respiratory Rate 18 20 Blood Pressure [Le ft Upper Arm] 120/92 H 134/92 H Pulse Oximetry 95 94 90 Oxygen Delivery Me thod Nasal Cannula Room Air 04/02/22 20:00 04/02/22 20:30 04/02/22 21:00 Temperature Pulse Rate [Pulse Oximeter] 106 H 107 H 108 H Respiratory Rate 17 21 20 Blood Pressure [Le ft Upper Arm] 140/88 H 133/93 H 136/96 H Pulse Oximetry 94 97 Oxygen Delivery Me thod Room Air Room Air Room Air 04/02/22 22:00 04/02/22 23:00 Temperature Pulse Rate [Pulse Oximeter] 113 H 111 H Respiratory Rate 12 15 Blood Pressure [Le ft Upper Arm] 147/109 H 128/102 H Pulse Oximetry 95 97 Oxygen Delivery Me thod Room Air Room Air Labs Labs: Short CBC 04/02/22 Range/Units 19:41 WBC 6.72 (4.50-11.00) K/uL Hgb 15.0 (13.5-17.5) gm/dL Hct 45.0 (37.0-53.0) % Plt Count 229 (140-440) K/uL BMP 04/02/22 19:41 Sodium 138 Potassium 4.0 Chloride 104 Carbon Dioxide 26 BUN 29 Creatinine 1.1 Glucose 178 H Calcium 8.7 Liver Function 04/02/22 Range/Units 19:41 Total Bilirubin 1.3 (0.1-1.5) mg/dL Direct Bilirubin 0.2 (0.0-0.5) mg/dL AST 24 (12-35) U/L ALT 18 (4-50) U/L Alkaline Phosphatase 98 (40-150) U/L Albumin 4.4 (3.3-5.0) g/dL Assessment and Plan Assessment and plan (1) COVID-19: Status[facility]: Reason for consult: COVID infection, weakness HPI: Patient is a pleasant 86-year-old male brought in from his assisted living facility for weakness that started this afternoon. He became too weak to get around. He is also been having some shortness of breath which he noticed when he tried to do minimal activity. He has had some cough that started today. He denies any fevers or chills. He has not had any significant chest pain but did have a couple brief intermittent episodes of chest pain earlier today. He denies headache or lightheadedness. He denies any abdominal pain, nausea, or diarrhea. He has not had dysuria. He denies fevers or chills. Patient is a non-smoker. He drinks alcohol on rare occasion. He does not use any recreational drugs. We did discuss CODE STATUS and he wishes to be a full code. Exam (performed via interactive video with assistance of bedside nurse): General: Alert, cooperative, no acute distress HEENT: Pupils reported ERRL, oral mucosa pink and moist without erythema Lungs: Clear to auscultation bilaterally without crackle or wheeze CV: Irregularly irregular, tachycardic Abd: Bowel sounds present, denies tenderness and does not exhibit signs of pain with palpation done by bedside nurse Ext: +2 pitting edema noted bilateral lower EXTR Skin: No rashes, bruises or lesions appreciated on gross visualization of exposed skin Neuro: Alert, oriented x 3. CN III -VII, XI, XII grossly intact, moves all extremities without any significant focal deficit appreciated by nurse Assessment and Plan: 1. COVID infection 2. Weakness Patient is a pleasant 86-year-old male admitted for COVID infection. He was too weak to get around at his assisted living facility. He has not been hypoxic at any point here so no COVID-specific therapies have been initiated. If he does require oxygen dexamethasone should be initiated and remdesivir could be considered. For his weakness we will PT and OT assess him in the morning. His chronic outpatient medications have been restarted per the med rec. He is chronically anticoagulated so no pharmacologic DVT prophylaxis has been entered. PRNs are available for pain and nausea. Patient is a full code. Thank you for including [facility] in the patients care. This service is available for further assistance as requested by your care team by calling [phone].
[2022-04-03] MEDS: ZOLPIDEM 5 MG TABLET PO ×2 (01:07→20:43)
[2022-04-03] MEDS: ROSUVASTATIN CALCIUM 10 MG TABLET PO ×2 (01:11→20:43)
--- NOTE | 2022-04-03 01:22 | PC.NURSE ---
PIV attempted X4 by 2 different nurses, patient refused further attempts, education provided on need for PIV and patient continues to refuse.
[2022-04-03 02:30] LABS: Appearance Urine Cloudy (Clear); Bilirubin Urine Negative (Negative); Blood Urine Negative (Negative); Color Urine Yellow (Yellow); Glucose Urine Negative (Negative); Ketones Urine Negative (Negative); Leukocyte Esterase Urine Negative (Negative); Nitrite Urine Negative (Negative); Protein Urine 1+ (Negative); Urobilinogen Urine 0.2 (0.2-1.0); pH Urine 5.5 (5.0-8.5)
[2022-04-03 02:37] LABS: Fine Granular Casts Urine Few; RBC Urine 0-2 (0-2)
[2022-04-03 03:00] VITALS: BP 139/102; PULSE 96; RESP 18; TEMP 36.6; O2SAT 92
--- NOTE | 2022-04-03 05:44 | PC.NURSE ---
patient brought to floor from ER via . patient states he is to weak to stand on scale, bed scale used for admit weight, able to pivot from WC to bed with assist of one staff and tolerated fair. patient in able to turn side to side in bed independency. patient states he has occasional urinary incontinence at baseline but refused brief and prefers own sleep pants/underpants. slept majority of shift. pleasant and cooperative with cares. patient has been on room air entire shift, sats 90-95%, no c/o SOB, afebrile. BPs remain elevated and HR tachy 90s-110s, Dr Alcantara aware, patient refused PIV placement. appears to have slept well overnight. patient reports occasional dry cough
[2022-04-03 07:00] VITALS: BP 102/75; PULSE 96; RESP 20; TEMP 36.2; O2SAT 92
--- NOTE | 2022-04-03 07:31 | CRLHL7_ITS ---
For Patients: As a result of the Century Cures Act, medical imaging exams and procedure reports are released immediately into your electronic medical record. You may view this report before your referring provider. If you have questions, please contact your health care provider. INDICATION: weakness, covid + TECHNIQUE: Chest 1 view COMPARISON: 07/25/2017 FINDINGS: Cardiovascular and mediastinum: Postop changes median sternotomy. Cardiac silhouette upper limits normal. Tortuosity aorta. Lungs and pleural spaces: No dense consolidation. No edema or effusion. No pneumothorax. Mild ill-defined parenchymal densities right lung. Bones and soft tissues: Postop changes left shoulder. IMPRESSION: Mild right-sided infiltrates. Dictated by Dimitris Magaña MD @ 04/03/2022 9:14:17 AM (Electronically Signed)
[2022-04-03] MEDS: APIXABAN 5 MG TABLET PO ×2 (09:24→20:43)
[2022-04-03] MEDS: FUROSEMIDE 40 MG TABLET PO (09:24)
[2022-04-03] MEDS: AMIODARONE 200 MG TABLET PO (09:24)
--- NOTE | 2022-04-03 09:39 | PM.IMPN1 ---
Progress Note: A&P Assessment and plan (1) COVID-19: Problem details: + 04/02/2022 Status: Acute Assessment and Plan: Patient continues to do well, not requiring supplemental oxygen or COVID specific therapies. (2) Hypertension: Problem details: Outpatient management: Losartan increased 04/11 and 05/11, Amlodipine added 11/11 Status: Chronic Assessment and Plan: Intermittent hypotension, holding parameters placed on losartan and amlodipine. (3) Atrial fibrillation: Problem details: noted at time of stroke 09/08 and anticoagulation started then, s/p unsuccessful DCCV at [facility] 09/09, amiodarone started then Status: Acute Assessment and Plan: Patient remains rate controlled, continue amiodarone and apixaban. (4) Pneumonia: Status: Acute Assessment and Plan: Initiate azithromycin and ceftriaxone today for radiographic findings of pneumonia. (5) Weakness: Status: Acute Assessment and Plan: Appreciate input from PT and OT. (6) Systolic congestive heart failure: Problem details: Right and left systolic function decreased, first noted 08/09. Last TTE 12/2021: 1. Mildly enlarged left ventricular chamber size, no regional wall motion abnormalities, calculated 2-D linear ejection fraction 55%. 2. Abnormal left ventricular geometry with eccentric left ventricular hypertrophy, indeterminate filling pressure. 3. Mildly enlarged right ventricular chamber size, normal systolic function, estimated right ventricular systolic pressure 43 mmHg (right atrial pressure of 5 mmHg). 4. Status post mitral valve repair (2006). Moderate residual regurgitation with a very eccentric anteriorly directed jet with Coanda effect. This appears unchanged on direct [id number] comparison with the study of 04/15/2018. There is no stenosis with a mean diastolic gradient of 1 mmHg at a heart rate of 50. 5. Moderate-severe tricuspid valve regurgitation. Regurgitant volume 45 ml. This has worsened compared to previous study. 6. No pericardial effusion. 7. Repeat transthoracic echocardiogram is recommended in 1-2 years. Status: Chronic Assessment and Plan: At Baseline, continue home dosing of Lasix (monitoring fluid balance). 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 Ambulates with walker. Follows with [facility] as an outpatient. Status: Acute Assessment and Plan: Baseline. Plan Per above. Appreciate input from PT, OT, and SW regarding dispo planning (patient lives at [facility], may require SNF placement upon discharge for weakness). Continue ppx with Apixaban. Daughter Teresa ([phone]) updated by phone, questions answered. Time Spent With Patient Total time spent: 35, >50% in chart review, care coordination, updates. Subjective Date Seen: 04/03/22 Interval history: No acute events overnight. Gregg continues to complain of weakness, primarily in his lower extremities. He continues to have intermittent coughing, but no dyspnea and no chest pain today. Appetite has been poor, but working on eating and drinking. Chest x-ray completed this morning, right-sided infiltrates noted. Patient has no history of aspiration, denies any recent choking episodes. Exam Narrative: Exam Narrative: GEN: Alert and oriented, answering questions appropriately and speaking in full sentences HEENT: Normal external ears, EOMIs bilaterally, no scleral icterus CV: Rate in the 80s, rhythm is controlled atrial fibrillation, no concerning murmurs, rubs, or gallops R: LCTA bilaterally without concerning wheezing. Mild rhonchi bilateral bases, air movement adequate Ext: wwp, no concerning edema, wearing Laron hose Skin: No concerning skin lesions or rashes on exposed skin Neuro: Nonfocal, no resting tremor Psych: Appropriate Const: Vital Signs, click to edit/add: Vital Signs - 24 hr 04/02/22 19:03 04/02/22 23:47 04/02/22 23:47 Temperature 98.6 F 98.2 F Pulse Rate [Pulse Oximeter] 110 H Pulse Rate [Right Pulse Oximeter] 98 Respiratory Rate 18 18 Blood Pressure [Le ft Upper Arm] 120/92 H Blood Pressure [Ri ght Arm] 151/101 H Pulse Oximetry 95 92 93 Oxygen Delivery Me thod Nasal Cannula Room Air Room Air 04/02/22 19:18 04/02/22 19:02 04/02/22 19:30 Temperature Pulse Rate [Pulse Oximeter] 108 H Pulse Rate [Right Pulse Oximeter] Respiratory Rate 20 Blood Pressure [Le ft Upper Arm] 134/92 H Blood Pressure [Ri ght Arm] Pulse Oximetry 92 94 90 Oxygen Delivery Me thod Room Air 04/02/22 20:00 04/02/22 20:30 04/02/22 21:00 Temperature Pulse Rate [Pulse Oximeter] 106 H 107 H 108 H Pulse Rate [Right Pulse Oximeter] Respiratory Rate 17 21 20 Blood Pressure [Le ft Upper Arm] 140/88 H 133/93 H 136/96 H Blood Pressure [Ri ght Arm] Pulse Oximetry 94 97 Oxygen Delivery La thod Room Air Room Air Room Air 04/02/22 22:00 04/02/22 23:00 04/03/22 03:00 Temperature 98 F Pulse Rate [Pulse Oximeter] 113 H 111 H Pulse Rate [Right Pulse Oximeter] 96 Respiratory Rate 12 15 18 Blood Pressure [Le ft Upper Arm] 147/109 H 128/102 H Blood Pressure [Ri ght Arm] 139/102 H Pulse Oximetry 95 97 92 Oxygen Delivery La thod Room Air Room Air Room Air 04/03/22 07:00 04/03/22 07:00 Temperature 97.1 F L Pulse Rate [Pulse Oximeter] Pulse Rate [Right Pulse Oximeter] 96 96 Respiratory Rate 20 20 Blood Pressure [Le ft Upper Arm] Blood Pressure [Ri ght Arm] 102/75 Pulse Oximetry 92 Oxygen Delivery La thod Room Air Labs Labs: Laboratory Results - last 24 hr 04/02/22 04/02/22 04/02/22 19:18 19:18 19:41 WBC 6.72 RBC 5.05 Hgb 15.0 Hct 45.0 MCV 89 MCH 30 MCHC 33 RDW Coeff of Melissa 13.1 Plt Count 229 Neut % (Auto) 86.9 H Lymph % (Auto) 6.5 L [place] % (Auto) 6.4 Eos % (Auto) 0.1 Baso % (Auto) 0.0 Neut # (Auto) 5.80 Lymph # (Auto) 0.40 L [place] # (Auto) 0.40 Eos # (Auto) 0.01 Baso # (Auto) 0.00 Abs Immat Gran (auto) 0.01 Sodium Potassium Chloride Carbon Dioxide BUN Creatinine Estimated Creat Clear Estimated GFR Glucose Lactate Calcium Magnesium Total Bilirubin Direct Bilirubin AST ALT Alkaline Phosphatase C-Reactive Protein Total Protein Albumin Urine Color Yellow Urine Appearance Cloudy A Urine pH 5.5 Ur Specific [place] 1.020 Urine Protein 1+ A Urine Glucose (UA) Negative Urine Ketones Negative Urine Blood Negative Urine Nitrite Negative Urine Bilirubin Negative Urine Urobilinogen 0.2 Ur Leukocyte Esterase Negative Urine RBC 0-2 Urine WBC 2-5 Ur Squamous Epith Cells None Urine Bacteria None Fine Granular Casts Few A SARS-CoV-2 (PCR) POSITIVE SARS-CoV-2 A POC Troponin I 04/02/22 04/02/22 04/02/22 19:41 19:41 19:41 WBC RBC Hgb Hct MCV MCH MCHC RDW Coeff of Melissa Plt Count Neut % (Auto) Lymph % (Auto) [place] % (Auto) Eos % (Auto) Baso % (Auto) Neut # (Auto) Lymph # (Auto) [place] # (Auto) Eos # (Auto) Baso # (Auto) Abs Immat Gran (auto) Sodium 138 Potassium 4.0 Chloride 104 Carbon Dioxide 26 BUN 29 Creatinine 1.1 Estimated Creat Clear 46.64 Estimated GFR 65 Glucose 178 H Lactate 1.5 Calcium 8.7 Magnesium 2.1 Total Bilirubin 1.3 Direct Bilirubin 0.2 AST 24 ALT 18 Alkaline Phosphatase 98 C-Reactive Protein 1.7 H Total Protein 7.7 Albumin 4.4 Urine Color Urine Appearance Urine pH Ur Specific [place] Urine Protein Urine Glucose (UA) Urine Ketones Urine Blood Urine Nitrite Urine Bilirubin Urine Urobilinogen Ur Leukocyte Esterase Urine RBC Urine WBC Ur Squamous Epith Cells Urine Bacteria Fine Granular Casts SARS-CoV-2 (PCR) POC Troponin I 0.02
--- NOTE | 2022-04-03 09:42 | PC.NURSE ---
Addendum entered by All Vides RN 04/03/22 10:48: PT assisted pt up to chair with moderate assist. Pt took small steps using walker from bed to chair. Pt verbalized, I'm still weak but this is better than yesterday. Dtr Teresa ( ) updated at 1030. IV abx and oral started today d/t CXR. repeat CXR ordered for tomorrow AM. No 02 support needed at this time, 02 sats 90-93% on RA. Pt up in chair reading a book at this time. Original Note: Low BP this AM, encouraged fluids. Dr. Zazueta updated and 2 BP meds held today. Pt tolerated regular diet in bed due to weakness. PT in room at this time to assess transfer and ambulation. Pt denies pain. fine crackles to lower lobes. CXR done this AM at bedside, shows some infiltrates right lobe. IV placed to left FA, #22. Saline locked. Afebrile. 2+ pitting edema to BLE, TEDS on.
[2022-04-03] MEDS: AZITHROMYCIN 250 MG TABLET 500 MG PO (10:13)
[2022-04-03] MEDS: cefTRIAXone 1 GM in 0.9 % SODIUM CHLORIDE Mini-bag 100 ML IVPB (10:14)
[2022-04-03 10:17] LABS: Thyroid Stimulating Hormone* 0.953 uIU/mL (0.270-4.20)
[2022-04-03] MEDS: FLUTICASONE 110 MCG INHALER 2 PUFF IH ×2 (10:59→20:43)
[2022-04-03 11:00] VITALS: BP 129/87; PULSE 97; RESP 20; TEMP 36.7; O2SAT 93
[2022-04-03 15:00] VITALS: BP 125/85; PULSE 98; RESP 18; RESP 20; TEMP 36.7; O2SAT 94
[2022-04-03 19:00] VITALS: BP 151/78; PULSE 60; RESP 22; TEMP 37.1; O2SAT 96
[2022-04-03 23:00] VITALS: BP 132/62; PULSE 74; RESP 20; TEMP 37.1; O2SAT 93
[2022-04-04] VITALS (9 sets, daily range): BP systolic 111–151; BP diastolic 65–83; PULSE 51–103; RESP 16–24; TEMP 36.6–37.2; O2SAT 91–95
--- NOTE | 2022-04-04 05:51 | PC.NURSE ---
END OF SHIFT NOTE: PT VSS ON RA. AFEBRILE. BLE WITH 2+ PITTING EDEMA. BLL DIMINISHED WITH FINE CRACKLES. INTERMITTENT NON-PRODUCTIVE COUGH. PT DID NOT GET OUT OF BED THIS SHIFT. PT IS ABLE TO TURN IN BED WITH MINIMAL ASSISTANCE AND WAS NOTED TO BE REPOSITIONING SELF IN BED DURING [employer]. PT USED URINAL IN BED. ATTEMPT TO MOVE PT TO SIDE OF BED TO USE URINAL WAS UNSUCCESSFUL D/T PT'S UNSTEADINESS AND WEAKNESS TO SIT. PT EDUCATED ON USE OF INCENTIVE SPIROMETER AND AEROBIKA WITH PT'S RETURNING DEMONSTRATION. PT PATRICK.
--- NOTE | 2022-04-04 07:00 | CRLHL7_ITS ---
For Patients: As a result of the Century Cures Act, medical imaging exams and procedure reports are released immediately into your electronic medical record. You may view this report before your referring provider. If you have questions, please contact your health care provider. INDICATION: COVID with question of pneumonia. COMPARISON: 04/03/2022 TECHNIQUE: AP sitting single-view study obtained portably FINDINGS: TUBES AND LINES: None. HEART AND MEDIASTINUM: The heart size is normal. The mediastinal contour appears normal for patient age. LUNGS AND PLEURAL SPACES: Trace patchy opacities laterally at the left base and at the right base. Is could be atelectatic or inflammatory. No micheal focal consolidation.The pleural spaces are unremarkable. OSSEOUS STRUCTURES: Age-appropriate appearance. No acute focal finding. IMPRESSION: Bilateral patchy opacities. These are primarily at the bases and appears minimally progressive since the prior study. No micheal focal consolidation. No pleural effusion. Dictated by Jeff Mkcinley MD @ 04/04/2022 9:58:57 AM (Electronically Signed)
[2022-04-04 07:19] LABS: Basophils Absolute Auto 0.01 K/uL (0.00-0.30); Basophils Percent Auto 0.2 % (0.0-3.0); Eosinophils Absolute Auto 0.04 K/uL (0.00-0.50); Eosinophils Percent Auto 0.6 % (0.0-7.0); Hematocrit 38.3 % (37.0-53.0); Hemoglobin* 12.9 gm/dL (13.5-17.5); Immature Granulocytes Abs Auto 0.01 K/uL (0.00-0.30); Lymphocytes Percent Auto 16.5 % (20-44); Mean Corpuscular HGB Conc 34 gm/dL (32-36); Mean Corpuscular Hemoglobin 30 pg (26-34); Mean Corpuscular Volume 89 fL (80-100); Monocytes Percent Auto 10.9 % (0.0-11.0); Neutrophils Absolute Auto 4.49 K/uL (1.7-7.0); Neutrophils Percent Auto 71.6 % (42.0-72.0); Platelet Count* 174 K/uL (140-440); RDW Coefficient of Variation % 13.5 % (11.5-15.5); Red Blood Count 4.29 m/uL (4.30-5.90); White Blood Count* 6.26 K/uL (4.50-11.00)
[2022-04-04 07:22] LABS: Slide Review Reflex No
[2022-04-04 07:38] LABS: Chloride* 105 mmol/L (96-114)
[2022-04-04 07:39] LABS: Potassium* 3.4 mmol/L (3.6-5.1); Sodium* 137 mmol/L (135-149)
[2022-04-04 07:41] LABS: Estimated Glomerular Filt Rate 73 ml/min
[2022-04-04 07:42] LABS: Blood Urea Nitrogen* 21 mg/dL (7-30); Calcium* 7.9 mg/dL (8.4-10.6); Carbon Dioxide* 25 mmol/L (20-32); Glucose* 131 mg/dL (60-115)
[2022-04-04] MEDS: FUROSEMIDE 40 MG TABLET PO (08:52)
[2022-04-04] MEDS: AMIODARONE 200 MG TABLET PO (08:52)
[2022-04-04] MEDS: LOSARTAN POTASSIUM 50 MG TABLET 100 MG PO (08:52)
[2022-04-04] MEDS: APIXABAN 5 MG TABLET PO ×2 (08:52→20:10)
[2022-04-04] MEDS: AZITHROMYCIN 250 MG TABLET 500 MG PO (09:35)
[2022-04-04] MEDS: cefTRIAXone 1 GM in 0.9 % SODIUM CHLORIDE Mini-bag 100 ML IVPB (09:36)
--- NOTE | 2022-04-04 09:48 | PM.IMPN1 ---
Progress Note: A&P Assessment and plan (1) COVID-19: Problem details: + 04/02/2022 Status: Acute Assessment and Plan: Doing well at this time without hypoxia, not requiring COVID specific therapies. (2) Hypertension: Problem details: Outpatient management: Losartan increased 04/11 and 05/11, Amlodipine added 11/11 Status: Chronic Assessment and Plan: Intermittent hypotension noted throughout stay, we are holding his amlodipine and we have holding parameters on his losartan. (3) Atrial fibrillation: Problem details: noted at time of stroke 09/08 and anticoagulation started then, s/p unsuccessful DCCV at [facility] 09/09, amiodarone started then Status: Acute Assessment and Plan: Continue amiodarone and apixaban. (4) Pneumonia: Problem details: Ceftriaxone and azithromycin initiated 04/03/2022 Status: Acute Assessment and Plan: Chest x-ray appears improved today; formal radiology read pending. Continue ceftriaxone and azithromycin. (5) Weakness: Status: Acute Assessment and Plan: Continue PT and OT. Patient will be able to return to [facility] when back to functional baseline. (6) Systolic congestive heart failure: Problem details: Right and left systolic function decreased, first noted 08/09. Last TTE 12/2021: 1. Mildly enlarged left ventricular chamber size, no regional wall motion abnormalities, calculated 2-D linear ejection fraction 55%. 2. Abnormal left ventricular geometry with eccentric left ventricular hypertrophy, indeterminate filling pressure. 3. Mildly enlarged right ventricular chamber size, normal systolic function, estimated right ventricular systolic pressure 43 mmHg (right atrial pressure of 5 mmHg). 4. Status post mitral valve repair (2006). Moderate residual regurgitation with a very eccentric anteriorly directed jet with Coanda effect. This appears unchanged on direct [id number] comparison with the study of 04/15/2018. There is no stenosis with a mean diastolic gradient of 1 mmHg at a heart rate of 50. 5. Moderate-severe tricuspid valve regurgitation. Regurgitant volume 45 ml. This has worsened compared to previous study. 6. No pericardial effusion. 7. Repeat transthoracic echocardiogram is recommended in 1-2 years. Status: Chronic Assessment and Plan: Continue home medications, holding parameters placed on losartan given intermittent hypotension. 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 Ambulates with walker. Follows with [facility] as an outpatient. Status: Acute (8) Normocytic anemia: Status: Acute Assessment and Plan: Noted on labs 04/04. No evidence of acute bleeding. BUN is normal. Continue to follow. Plan Per above. Patient improving, anticipates going back to [facility] when back to functional baseline. Time Spent With Patient Total time spent: 35, including care coordination and discussion of care plan with patient Subjective Date Seen: 04/04/22 Interval history: No acute events overnight. Gregg is feeling better today, feels that his strength is improving. His cough is also improving. He has intermittent rhinorrhea, does not feel that he needs any additional treatment for this. He ate his entire breakfast this morning. Exam Narrative: Exam Narrative: GEN: Alert and oriented, answering questions appropriately and sitting comfortably in bedside chair HEENT: Normal external ears, EOMIs bilaterally, no scleral icterus CV: Atrial fibrillation with rate in the 70s, No concerning murmurs, rubs, or gallops R: Mild rhonchi bilateral bases, right greater than left, air movement adequate. No wheezing. Ext: wwp, trace bilateral lower extremity edema, symmetric Skin: No concerning skin lesions or rashes on exposed skin Neuro: Nonfocal Psych: Appropriate Const: Vital Signs, click to edit/add: Vital Signs - 24 hr 04/03/22 11:00 04/03/22 15:00 04/03/22 15:00 Temperature 98.1 F 98.1 F Pulse Rate [Right Pulse Oximeter] 97 98 98 Respiratory Rate 20 20 18 Blood Pressure [Le ft Arm] Blood Pressure [Ri ght Arm] 129/87 125/85 Pulse Oximetry 93 94 Oxygen Delivery Me thod Room Air Room Air 04/03/22 19:00 04/03/22 23:00 04/03/22 23:00 Temperature 98.8 F 98.8 F Pulse Rate [Right Pulse Oximeter] 60 74 74 Respiratory Rate 22 20 20 Blood Pressure [Le ft Arm] Blood Pressure [Ri ght Arm] 151/78 H 132/62 Pulse Oximetry 96 93 Oxygen Delivery Me thod Room Air Room Air 04/04/22 03:00 04/04/22 08:08 04/04/22 09:10 Temperature 98.5 F 98.2 F Pulse Rate [Right Pulse Oximeter] 103 H 67 67 Respiratory Rate 16 20 20 Blood Pressure [Le ft Arm] 111/77 117/65 Blood Pressure [Ri ght Arm] Pulse Oximetry 93 91 Oxygen Delivery Me thod Room Air Room Air Labs Labs: Laboratory Results - last 24 hr 04/02/22 04/04/22 04/04/22 19:41 07:07 07:07 WBC 6.26 RBC 4.29 L Hgb 12.9 L Hct 38.3 MCV 89 MCH 30 MCHC 34 RDW Coeff of Melissa 13.5 Plt Count 174 Neut % (Auto) 71.6 Lymph % (Auto) 16.5 L [place] % (Auto) 10.9 Eos % (Auto) 0.6 Baso % (Auto) 0.2 Neut # (Auto) 4.49 Lymph # (Auto) 1.00 [place] # (Auto) 0.70 Eos # (Auto) 0.04 Baso # (Auto) 0.01 Abs Immat Gran (auto) 0.01 Sodium 137 Potassium 3.4 L Chloride 105 Carbon Dioxide 25 BUN 21 Creatinine 1.0 Estimated Creat Clear 51.30 Estimated GFR 73 Glucose 131 H Calcium 7.9 L TSH 0.953
[2022-04-04] MEDS: POTASSIUM CHLORIDE 10 MEQ CAPSULE ER 20 MEQ PO (10:40)
--- NOTE | 2022-04-04 17:35 | PC.NURSE ---
End of shift-- Very pleasant and cooperative, alert and oriented patient. [place]. VSS and pt is afebrile. SPO2 maintained >90% on RA. He denied any pain. He c/o some mild SOB following exertion, but otherwise denied. Irregular heart rate as per pt's baseline afib. Occasionally jerrod with HR as low as high 40s. 2+ pitting edema in bilateral LE. Occasional rhonchi noted in right base of lungs, otherwise clear but diminished. Occasional cough noted and pt stated that he did manage to produce some sputum this afternoon but none was visualized. He declined to use Aerobika and/or IS stating, I just don't think I need that. He denied nausea and appetite was improved today with patient eating 100% of breakfast, 50% of lunch and ordering a full dinner. No BM today, but BS+ x4 and pt is passing flatus. Pt initially voided frequent small amounts with urinal this morning, but voided 700ml+ clear, yellow urine once he got up to commode. He was up to the chair and commode with assist of 1, belt and walker and tolerated it fairly well. Update was given to daughter Teresa via telephone and all questions were answered. Report to oncoming shift.
[2022-04-04] MEDS: ROSUVASTATIN CALCIUM 10 MG TABLET PO (20:10)
[2022-04-04] MEDS: ZOLPIDEM 5 MG TABLET PO ×2 (20:17→22:23)
[2022-04-04] MEDS: SODIUM CHLORIDE 0.9 % (FLUSH) 10 ML SYRINGE 5 ML IVF (20:18)
--- NOTE | 2022-04-04 22:48 | PC.NURSE ---
shift [id number] pt this shift in bed for the night upon arrival. Talked extensively about , children, career, and current physical health as well as an upcoming trip. Request Ambien 5mg HS. After an hour, requested a second dose, new order placed, see eMAR. Second dose given after 2 hours of first dose. Upper lobes clear, distal lobes diminished. Pt refused IS, Aerobika, and inhaler. Intermittent cough, non productive, though pt reports coughing up phlegm throughout day. Moderate tremor noted in upper extremities. 2+ pitting edema bilat lower extremities. dorsiflexion and plantar flexion against resistance equal in strength, pt tolerated well. Able to lift each leg 30 degrees off of bed while semi-seymour. Assisted to right lateral position for bed.
[2022-04-05] MEDS: MELATONIN 3 MG TABLET PO ×2 (01:17→21:34)
[2022-04-05 05:44] VITALS: BP 154/91; PULSE 77; RESP 18; TEMP 36.9; O2SAT 91
--- NOTE | 2022-04-05 05:46 | PC.NURSE ---
Shift note: The pt has been in RA with Spo2 in low 90s. He has been coughing occasionally. He denied chest pain and other distress throughout the shift. The pt was 2 assist to [facility] last night; the pt was very weak . The pt stated that he had been having difficult of sleeping after Ambien was given; PRN Melatonin was given;the pt stated that he has been sleeping well since.
[2022-04-05 07:00] VITALS: BP 134/74; PULSE 74; RESP 22; TEMP 37.2; O2SAT 93
[2022-04-05 07:44] LABS: Basophils Absolute Auto 0.02 K/uL (0.00-0.30); Basophils Percent Auto 0.3 % (0.0-3.0); Eosinophils Absolute Auto 0.03 K/uL (0.00-0.50); Eosinophils Percent Auto 0.5 % (0.0-7.0); Hematocrit 38.7 % (37.0-53.0); Immature Granulocytes Abs Auto 0.01 K/uL (0.00-0.30); Lymphocytes Percent Auto 14.8 % (20-44); Mean Corpuscular HGB Conc 34 gm/dL (32-36); Mean Corpuscular Hemoglobin 30 pg (26-34); Mean Corpuscular Volume 89 fL (80-100); Monocytes Percent Auto 8.6 % (0.0-11.0); Neutrophils Percent Auto 75.6 % (42.0-72.0); Platelet Count* 171 K/uL (140-440); RDW Coefficient of Variation % 13.2 % (11.5-15.5); Red Blood Count 4.34 m/uL (4.30-5.90); White Blood Count* 6.62 K/uL (4.50-11.00)
[2022-04-05 07:51] LABS: Chloride* 107 mmol/L (96-114); Potassium* 3.5 mmol/L (3.6-5.1); Sodium* 138 mmol/L (135-149)
[2022-04-05 07:54] LABS: Blood Urea Nitrogen* 25 mg/dL (7-30); Carbon Dioxide* 23 mmol/L (20-32); Creatinine* 0.9 mg/dL (0.5-1.5); Estimated Glomerular Filt Rate 83 ml/min; Glucose* 143 mg/dL (60-115)
[2022-04-05 07:55] LABS: Calcium* 8.1 mg/dL (8.4-10.6)
[2022-04-05 07:56] LABS: Slide Review Reflex No
[2022-04-05] MEDS: SODIUM CHLORIDE 0.9 % (FLUSH) 10 ML SYRINGE 5 ML IVF ×3 (10:01→21:45)
[2022-04-05] MEDS: 0.9 % SODIUM CHLORIDE 250 ml IV (10:02)
[2022-04-05] MEDS: cefTRIAXone 1 GM in 0.9 % SODIUM CHLORIDE Mini-bag 100 ML IVPB (10:02)
[2022-04-05] MEDS: FUROSEMIDE 40 MG TABLET PO (10:24)
[2022-04-05] MEDS: LOSARTAN POTASSIUM 50 MG TABLET 100 MG PO (10:24)
[2022-04-05] MEDS: POTASSIUM CHLORIDE 10 MEQ CAPSULE ER 20 MEQ PO (10:24)
[2022-04-05] MEDS: APIXABAN 5 MG TABLET PO ×2 (10:44→21:34)
[2022-04-05] MEDS: AMIODARONE 200 MG TABLET PO (10:44)
[2022-04-05] MEDS: FLUTICASONE 110 MCG INHALER 2 PUFF IH ×2 (10:44→21:34)
[2022-04-05 11:00] VITALS: BP 126/74; PULSE 63; RESP 20; TEMP 36.6; O2SAT 93
--- NOTE | 2022-04-05 11:22 | PM.IMPN1 ---
Progress Note: A&P Assessment and plan (1) COVID-19: Problem details: + 04/02/2022 Status: Acute Assessment and Plan: Doing well, has remained on room air throughout stay. Has not required any COVID specific therapies. (2) Hypertension: Problem details: Outpatient management: Losartan increased 04/11 and 05/11, Amlodipine added 11/11 Status: Chronic Assessment and Plan: We are holding his home amlodipine given hypotension on admission, blood pressure currently stable. (3) Atrial fibrillation: Problem details: noted at time of stroke 09/08 and anticoagulation started then, s/p unsuccessful DCCV at [facility] 09/09, amiodarone started then Status: Acute Assessment and Plan: Rate controlled, continue amiodarone and apixaban (4) Pneumonia: Problem details: Ceftriaxone and azithromycin initiated 04/03/2022 Status: Acute Assessment and Plan: Continues to improve, no hypoxia. (5) Weakness: Status: Acute Assessment and Plan: Improving with therapies. Will likely be able to discharge back to [facility] with home care. (6) Systolic congestive heart failure: Problem details: Right and left systolic function decreased, first noted 08/09. Last TTE 12/2021: 1. Mildly enlarged left ventricular chamber size, no regional wall motion abnormalities, calculated 2-D linear ejection fraction 55%. 2. Abnormal left ventricular geometry with eccentric left ventricular hypertrophy, indeterminate filling pressure. 3. Mildly enlarged right ventricular chamber size, normal systolic function, estimated right ventricular systolic pressure 43 mmHg (right atrial pressure of 5 mmHg). 4. Status post mitral valve repair (2006). Moderate residual regurgitation with a very eccentric anteriorly directed jet with Coanda effect. This appears unchanged on direct [id number] comparison with the study of 04/15/2018. There is no stenosis with a mean diastolic gradient of 1 mmHg at a heart rate of 50. 5. Moderate-severe tricuspid valve regurgitation. Regurgitant volume 45 ml. This has worsened compared to previous study. 6. No pericardial effusion. 7. Repeat transthoracic echocardiogram is recommended in 1-2 years. Status: Chronic Assessment and Plan: Stable, continue home Lasix, ARB. 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 Ambulates with walker. Follows with [facility] as an outpatient. Status: Acute (8) Normocytic anemia: Status: Acute Assessment and Plan: Stable, routine outpatient f/u. Plan Per above. Continue Apixaban for ppx. Likely d/c in the next 1-2 days, back to [facility], with HomeCare. Time Spent With Patient Total time spent: 25 Subjective Date Seen: 04/05/22 Interval history: No acute events overnight. Gregg continues to feel stronger every day; this is endorsed by therapies. Appetite remains adequate, tolerating p.o. intake. No concerns for me today. Exam Narrative: Exam Narrative: GEN: Alert and oriented, answering questions appropriately. Sitting comfortably in bedside chair and speaking in full sentences HEENT: Normal external ears, EOMIs bilaterally, no scleral icterus CV: Rate controlled atrial fibrillation (baseline), No concerning murmurs, rubs, or gallops R: Adequate air movement, mild rhonchi bilateral bases, no wheezing Ext: wwp, no concerning edema Skin: No concerning skin lesions or rashes on exposed skin Neuro: Nonfocal Psych: Appropriate Const: Vital Signs, click to edit/add: Vital Signs - 24 hr 04/04/22 12:00 04/04/22 15:50 04/04/22 15:00 Temperature 97.8 F 98.2 F Pulse Rate [Right Pulse Oximeter] 51 L 56 L 56 L Respiratory Rate 18 18 18 Blood Pressure [Le ft Arm] 126/83 Blood Pressure [Ri ght Arm] 137/82 Pulse Oximetry 95 94 Oxygen Delivery Me thod Room Air Room Air 04/04/22 19:00 04/04/22 19:27 04/04/22 23:15 Temperature 98.9 F Pulse Rate [Right Pulse Oximeter] 58 L 58 L 67 Respiratory Rate 24 24 18 Blood Pressure [Le ft Arm] Blood Pressure [Ri ght Arm] 151/74 H Pulse Oximetry 93 Oxygen Delivery Me thod Room Air 04/04/22 23:15 04/05/22 05:44 04/05/22 07:00 Temperature 98.8 F 98.5 F Pulse Rate [Right Pulse Oximeter] 67 77 74 Respiratory Rate 18 18 22 Blood Pressure [Le ft Arm] 147/79 H Blood Pressure [Ri ght Arm] 154/91 H Pulse Oximetry 92 91 Oxygen Delivery Me thod Room Air Room Air 04/05/22 07:00 Temperature 98.9 F Pulse Rate [Right Pulse Oximeter] 74 Respiratory Rate 22 Blood Pressure [Le ft Arm] 134/74 Blood Pressure [Ri ght Arm] Pulse Oximetry 93 Oxygen Delivery Me thod Room Air Labs Labs: Laboratory Results - last 24 hr 04/05/22 04/05/22 07:23 07:23 WBC 6.62 RBC 4.34 Hgb 13.0 L Hct 38.7 MCV 89 MCH 30 MCHC 34 RDW Coeff of Melissa 13.2 Plt Count 171 Neut % (Auto) 75.6 H Lymph % (Auto) 14.8 L [place] % (Auto) 8.6 Eos % (Auto) 0.5 Baso % (Auto) 0.3 Neut # (Auto) 5.00 Lymph # (Auto) 1.00 [place] # (Auto) 0.60 Eos # (Auto) 0.03 Baso # (Auto) 0.02 Abs Immat Gran (auto) 0.01 Sodium 138 Potassium 3.5 L Chloride 107 Carbon Dioxide 23 BUN 25 Creatinine 0.9 Estimated Creat Clear 51.30 Estimated GFR 83 Glucose 143 H Calcium 8.1 L
[2022-04-05] MEDS: AZITHROMYCIN 250 MG TABLET 500 MG PO (12:04)
[2022-04-05 15:00] VITALS: PULSE 64; PULSE 65; RESP 18; RESP 20; TEMP 36.8; O2SAT 94
--- NOTE | 2022-04-05 15:15 | PC.SOCIAL ---
Pt. resides at [facility] and was independent with all ADL's, meals and medications. Pt. now is requiring more assistance. Spoke with the RN at [facility] and they can accept pt. back if he is a one assist and they can increase services to offer meals, cleaning, toileting, bathing, AM and PM dressing. Pt. will most likely need PT and OT at discharge. Per nursing pt. did much better today and independently took himself to the bathroom. A message was left with [facility] on availability. Left a message with pt.'s daughter Vee in [place] at [phone] to update.
[2022-04-05 19:00] VITALS: BP 141/86; PULSE 56; RESP 18; TEMP 36.8; O2SAT 95
--- NOTE | 2022-04-05 19:06 | PC.NURSE ---
Pt pleasant, conversational, and cooperative with all cares. Up with SBA, gait belt, and 4 wheel walker. Denies SOB, pain, or N/V. Used [employer] pedal bike x1 for 2 minutes. Agreed to us of IS and aerobika. Up in chair most of day working on [employer] or reading.
[2022-04-05] MEDS: ZOLPIDEM 5 MG TABLET PO (21:33)
[2022-04-05] MEDS: ROSUVASTATIN CALCIUM 10 MG TABLET PO (21:34)
[2022-04-05 22:38] VITALS: PULSE 58; RESP 18; TEMP 36.6; O2SAT 93
[2022-04-06 02:39] VITALS: PULSE 60; RESP 18; O2SAT 92
[2022-04-06 07:00] VITALS: BP 149/93; PULSE 60; PULSE 67; RESP 18; TEMP 36.6; O2SAT 95
[2022-04-06] MEDS: POTASSIUM CHLORIDE 10 MEQ CAPSULE ER 20 MEQ PO (08:54)
[2022-04-06] MEDS: SODIUM CHLORIDE 0.9 % (FLUSH) 10 ML SYRINGE 5 ML IVF ×2 (08:55→20:36)
[2022-04-06] MEDS: APIXABAN 5 MG TABLET PO ×2 (08:56→20:36)
[2022-04-06] MEDS: FUROSEMIDE 40 MG TABLET PO (08:56)
[2022-04-06] MEDS: LOSARTAN POTASSIUM 50 MG TABLET 100 MG PO (08:56)
[2022-04-06] MEDS: AZITHROMYCIN 250 MG TABLET 500 MG PO (08:56)
[2022-04-06] MEDS: AMIODARONE 200 MG TABLET PO (08:57)
[2022-04-06] MEDS: DOCUSATE SODIUM 100 MG CAPSULE PO (09:20)
[2022-04-06] MEDS: cefTRIAXone 1 GM in 0.9 % SODIUM CHLORIDE Mini-bag 100 ML IVPB (10:36)
[2022-04-06] MEDS: 0.9 % SODIUM CHLORIDE 250 ml IV (10:36)
[2022-04-06 11:00] VITALS: BP 145/81; PULSE 57; RESP 18; TEMP 36.6; O2SAT 95
--- NOTE | 2022-04-06 12:25 | P.IMPN_ITS ---
Progress Note: A&P Assessment and plan (1) COVID-19: Problem details: + 04/02/2022 Status: Acute Assessment and Plan: Reason patient remained stable on room air, has not required any COVID specific therapies. (2) Hypertension: Problem details: Outpatient management: Losartan increased 04/11 and 05/11, Amlodipine added 11/11 Status: Chronic Assessment and Plan: Holding home dose of amlodipine given hypotension on arrival. Currently has age-appropriate blood pressure control, will follow-up with Dr. Mendoza as an outpatient for blood pressure management. (3) Atrial fibrillation: Problem details: noted at time of stroke 09/08 and anticoagulation started then, s/p unsuccessful DCCV at [facility] 09/09, amiodarone started then Status: Acute Assessment and Plan: Persistent, rate controlled. (4) Pneumonia: Problem details: Ceftriaxone and azithromycin initiated 04/03/2022 Status: Acute Assessment and Plan: Will complete 5 days of antibiotic therapy on 04/07. (5) Weakness: Status: Acute Assessment and Plan: Continue OT and PT. Will likely require home care services at [facility] upon discharge. (6) Systolic congestive heart failure: Problem details: Right and left systolic function decreased, first noted 08/09. Last TTE 12/2021: 1. Mildly enlarged left ventricular chamber size, no regional wall motion abnormalities, calculated 2-D linear ejection fraction 55%. 2. Abnormal left ventricular geometry with eccentric left ventricular hypertrophy, indeterminate filling pressure. 3. Mildly enlarged right ventricular chamber size, normal systolic function, estimated right ventricular systolic pressure 43 mmHg (right atrial pressure of 5 mmHg). 4. Status post mitral valve repair (2006). Moderate residual regurgitation with a very eccentric anteriorly directed jet with Coanda effect. This appears unchanged on direct [id number] comparison with the study of 04/15/2018. There is no stenosis with a mean diastolic gradient of 1 mmHg at a heart rate of 50. 5. Moderate-severe tricuspid valve regurgitation. Regurgitant volume 45 ml. This has worsened compared to previous study. 6. No pericardial effusion. 7. Repeat transthoracic echocardiogram is recommended in 1-2 years. Status: Chronic Assessment and Plan: Continue home medications. 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 Ambulates with walker. Follows with [facility] as an outpatient. Status: Acute (8) Normocytic anemia: Status: Acute Assessment and Plan: Stable during stay. Routine outpatient f/u. Plan Per above. Continue apixaban for prophylaxis. Will complete course of antibiotics 04/07. Patient continues to improve with therapies, is close to baseline for discharge with home therapies. Time Spent With Patient Total time spent: 35, >50% in discharge planning and updates. Subjective Date Seen: 04/06/22 Interval history: No acute events overnight. Gregg continues to feel stronger every day, feels that he's 2/5 of his baseline. Tolerating po intake. Exam Narrative: Exam Narrative: GEN: Alert and oriented, hard of hearing but answering questions appropriately HEENT: Normal external ears, EOMIs bilaterally CV: Rate controlled atrial fibrillation, no concerning murmurs, rubs, or gallops R: LCTA bilaterally without concerning wheezing, rales, or rhonchi Ext: wwp Neuro: Nonfocal Psych: Appropriate Const: Vital Signs, click to edit/add: Vital Signs - 24 hr 04/05/22 15:00 04/05/22 15:00 04/05/22 19:00 Temperature 98.2 F 98.2 F Pulse Rate [Right Pulse Oximeter] 64 65 56 L Respiratory Rate 20 18 18 Blood Pressure [Ri ght Arm] 141/86 H Pulse Oximetry 94 95 Oxygen Delivery Me thod Room Air Room Air 04/05/22 22:38 04/05/22 22:38 04/06/22 02:39 Temperature 98 F Pulse Rate [Right Pulse Oximeter] 58 L 58 L 60 Respiratory Rate 18 18 18 Blood Pressure [Ri ght Arm] Pulse Oximetry 93 92 Oxygen Delivery Me thod Room Air Room Air 04/06/22 07:00 04/06/22 07:00 04/06/22 11:00 Temperature 97.9 F 97.9 F Pulse Rate [Right Pulse Oximeter] 60 67 57 L Respiratory Rate 18 18 Blood Pressure [Ri ght Arm] 149/93 H 145/81 H Pulse Oximetry 95 95 Oxygen Delivery Me thod Room Air Room Air
--- NOTE | 2022-04-06 14:32 | PC.SOCIAL ---
Per physician she will have pt. discharge tomorrow to [facility] [place]. Spoke with pt. and updated him that [facility] has been arranged for nursing, PT, and OT and they will open pt. to home care services tomorrow afternoon at home. [facility] staff has said they can assist pt. with AM/PM cares, bathing, meals, and toileting if needed. Pt. is aware he can have an increase in services at discharge.
[2022-04-06 15:00] VITALS: PULSE 60; RESP 18; O2SAT 95
[2022-04-06 19:00] VITALS: BP 149/81; PULSE 60; RESP 18; TEMP 36.6; O2SAT 95
--- NOTE | 2022-04-06 19:45 | PC.NURSE ---
Pt up with SBA, gait belt, and 4 wheel walker. Stronger and able to walk slightly faster than the day before. Pt states he is not at baseline for speed or duration with ambulation. 2 BM today after colace given in am.
[2022-04-06] MEDS: ROSUVASTATIN CALCIUM 10 MG TABLET PO (20:36)
[2022-04-06] MEDS: FLUTICASONE 110 MCG INHALER 2 PUFF IH (20:36)
[2022-04-06] MEDS: MELATONIN 3 MG TABLET PO (20:43)
[2022-04-06] MEDS: ZOLPIDEM 5 MG TABLET PO ×2 (20:43→23:28)
[2022-04-06 22:08] VITALS: PULSE 60; RESP 18
[2022-04-07 03:00] VITALS: BP 131/81; PULSE 62; RESP 18; TEMP 36.6; O2SAT 95
--- NOTE | 2022-04-07 06:56 | PC.NURSE ---
Alert and oriented x4. Satting >90% on RA. Vitals stable. Denies pain. Denies concerns overnight. SBA of one with ambulation using a rolling walker.
[2022-04-07 07:47] LABS: Chloride* 109 mmol/L (96-114); Sodium* 142 mmol/L (135-149)
[2022-04-07 07:48] LABS: Potassium* 3.7 mmol/L (3.6-5.1)
[2022-04-07 07:50] LABS: Creatinine* 0.8 mg/dL (0.5-1.5); Estimated Glomerular Filt Rate 86 ml/min
[2022-04-07 07:51] LABS: Blood Urea Nitrogen* 27 mg/dL (7-30); Calcium* 8.2 mg/dL (8.4-10.6); Glucose* 132 mg/dL (60-115)
[2022-04-07 08:00] LABS: Carbon Dioxide* 26 mmol/L (20-32)
[2022-04-07 09:00] VITALS: BP 148/81; PULSE 80; RESP 15; TEMP 36.6; O2SAT 99
--- NOTE | 2022-04-07 09:25 | PC.SOCIAL ---
Pt. is set to return to [facility]. EMS is unable to transport and [facility] will not transport a COVID positive pt. Pt. states he can call a friend to get a ride but will need to get let in and a ride up to his apartment. Updated pt. he will have [facility] for nursing, PT and OT. Pt. is aware he can ask staff at [facility] for additional assistance as needed. Updated [facility] and they will have someone at the door to transport pt. to his room when he arrives. Pt. will have his friend pick him up at 11:30-12 from [facility]. Updated [facility] that pt. will be return in time for [facility] to open pt. to services.
[2022-04-07] MEDS: LOSARTAN POTASSIUM 50 MG TABLET 100 MG PO (09:43)
[2022-04-07] MEDS: POTASSIUM CHLORIDE 10 MEQ CAPSULE ER 20 MEQ PO (09:43)
[2022-04-07] MEDS: APIXABAN 5 MG TABLET PO (09:44)
[2022-04-07] MEDS: AZITHROMYCIN 250 MG TABLET 500 MG PO (09:44)
--- NOTE | 2022-04-07 10:48 | PC.NURSE ---
alert and oriented. up with sba and walker. vs wnl. sats wnl. rare cough. good po intake and urine output. partial bath and pericare this am. will be returning to [facility] via taxi. report called
--- NOTE | 2022-04-07 16:52 | P.DS_ITS ---
DS: Providers Provider Date Seen: 04/07/22 Date of admission: 04/03/22 12:59 Primary care physician: Maria Esther Mendoza MD Admitting Clinician: Yuly Carolina MD Consults: 04/03/22 00:19 Consult to Physical Therapy [CONS] Routine Comment: Reason(s) for PT Consult:: Weakness Any Restrictions?:: No Restrictions 04/03/22 00:21 Consult to Occupational Therapy [CONS] Routine Comment: Reason(s) for OT Consult:: Evaluate and Treat Any Restrictions?:: No Restrictions 04/03/22 00:39 Consult to Physical Therapy [CONS] Routine Comment: Reason(s) for PT Consult:: Evaluate and Treat Any Restrictions?:: Wt Bearing as Tolerated Attending Physician on discharge: Zina Campos MD [facility] Date of Discharge: 04/07/22 DS: Diagnosis Discharge Diagnosis (1) COVID-19: Status: Acute Problem details: + 04/02/2022. Quarantine was completed while inpatient. Five more days, 04/11/2022, for mask where around others. No COVID specific therapies. Was treated for community-acquired pneumonia. (2) Pneumonia: Status: Acute Problem details: Ceftriaxone and azithromycin initiated 04/03/2022, completed in hospital. No discharge antibiotics. (3) Weakness: Status: Acute Problem details: Improving. Home health arranged at his assisted living facility. (4) Atrial fibrillation: Status: Acute Problem details: noted at time of stroke 09/08 and anticoagulation started then, s/p unsuccessful DCCV at [facility] 09/09, amiodarone started then (5) Frailty syndrome in geriatric patient: Status: Chronic Problem details: Home health arranged. DS: Summary Hospital Course Hospital Course: HOSPITALIST DISCHARGE SUMMARY ATTENDING PHYSICIAN: Zina Campos MD FINAL DIAGNOSIS: COVID-19 without hypoxia Community-acquired pneumonia AFib with chronic anticoagulation Frail elderly HOSPITAL FOLLOWUP ISSUES: Home health to visit and assess with OT, PT. Community-acquired pneumonia, completed antibiotic therapy as an inpatient. Not hypoxic. Still mildly weak from baseline. I would ask his PCP to see him and re-evaluate in the next week. REFERRALS WHILE ADMITTED: PT, OT REFERRALS AFTER DISCHARGE: Home health BRIEF HOSPITAL COURSE: Gregg was admitted with weakness and COVID-19 diagnosis. His chest x-ray showed a possible infiltrate consistent with community-acquired pneumonia. He was treated with IV Rocephin and p.o. azithromycin for 5 days. He was never hypoxic. OT and PT worked with him and he regained strength quite markedly. He was ready for discharge on 04/07. He actually asked for a cab to take him home as he did not have a friend able to pick him up. He did not receive any COVID specific therapies as he was not hypoxic. VITAL SIGN, MEDICATION, LAB/MICRO, IMAGING SUMMARY (full details available in account tabs or by records request) DISCHARGE MEDICATIONS: See Reconciled list REVIEW OF SYSTEMS No new chest pain or dyspnea Pain controlled No voiding difficulties Tolerating diet challenge PHYSICAL EXAM: CONSTITUTIONAL: Alert. Oriented. VITAL SIGNS: see record. HEENT: Normocephalic, atraumatic. PERRL, EOMI, conjunctivae pink, no scleral icterus. Ears and nose externally normal. Pharynx normal. NECK: No JVD. No carotid bruit, no thyromegaly, no adenopathy. CHEST: Clear to auscultation bilaterally. HEART: S1 and S2 normal. Edema ABDOMEN: Soft, nontender. Normal bowel sounds. MUSCULOSKELETAL: No gross joint deformity or swelling. NEURO: Cranial nerves intact. Grossly intact. No asymmetric findings. SKIN: No rashes, petechiae, concerning changes PSYCHIATRIC: Mood euthymic. DISPOSITION: Home. Assisted living. Increased services. Time spent on discharge 37 minutes. Status at Discharge Functional status at discharge: uses cane/walker Overall status at discharge: patient is progressing back to baseline Time Spent with Patient Time attestation: Total time spent providing and/or coordinating discharge services: Time spent: Greater than 30 minutes Exam Const: Vital Signs, click to edit/add: Vital Signs - 24 hr 04/06/22 19:00 04/06/22 22:08 04/07/22 03:00 Temperature 97.9 F 97.9 F Pulse Rate [Left A pical] Pulse Rate [Right Pulse Oximeter] 60 60 62 Respiratory Rate 18 18 18 Blood Pressure [Le ft Arm] Blood Pressure [Ri ght Arm] 149/81 H 131/81 Pulse Oximetry 95 95 Oxygen Delivery Me thod Room Air Room Air 04/07/22 09:00 Temperature 98 F Pulse Rate [Left A pical] 80 Pulse Rate [Right Pulse Oximeter] Respiratory Rate 15 Blood Pressure [Le ft Arm] 148/81 H Blood Pressure [Ri ght Arm] Pulse Oximetry 99 Oxygen Delivery Me thod Room Air DS: Data Data Completed and Pending Labs on day of discharge: Labs from last 24 hours 04/07/22 06:42 Sodium 142 Potassium 3.7 Chloride 109 Carbon Dioxide 26 BUN 27 Creatinine 0.8 Estimated Creat Clear 51.30 Estimated GFR 86 Glucose 132 H Calcium 8.2 L Discharge Plan Discharge Disposition: Home Health Service Date of Admission: 04/03/22 12:59 Attending Provider on Discharge: Zina Campos Primary Care Provider: Maria Esther Mendoza Condition: Stable Anticipated Discharge Date/Time: 04/07/22 10:44 Discharge Medications: New acetaminophen 500 mg Tablet 500 mg PO Q4H PRN (Reason: Pain) Qty: 60 0RF Continued fluticasone propionate [Flovent HFA] 110 mcg/actuation HFA aerosol inhaler 2 puff INHALATION Q12H Qty: 12 4RF rosuvastatin 10 mg tablet 10 mg PO HS zolpidem 5 mg tablet 5 mg PO HS PRN amiodarone 200 mg tablet 200 mg PO DAILY Qty: 90 3RF Eliquis 5 mg tablet 5 mg PO BID Qty: 180 3RF losartan 100 mg tablet 100 mg PO DAILY Qty: 90 3RF furosemide 40 mg tablet 40 mg PO DAILY Qty: 90 3RF Discontinued amlodipine 5 mg tablet 5 mg PO DAILY Qty: 90 3RF Discharge Orders: Discharge Order (Routine); Ordered 04/07/22 Ordered By: Zina Campos Patient Education: Acetaminophen (By mouth), Weakness (DC), COVID-19 (Coronavirus Disease 2019) (DC) Activity Restrictions/Additional Instructions: Hold Amlodipine until f/u appt with Dr. Mendoza - your BP was on the lower side during your hospital stay. Quarantine is/was from 04/02-04/06. Mask wear around others 04/07-04/11. Please take your meals in your apartment until 04/11. Activity Level: Activity as Tolerated Follow Up Appointments: Maria Esther Mendoza MD [Primary Care Provider] - 04/11/22 3:30 pm Forms: [facility] Info Instructions Hospital Course: HOSPITALIST DISCHARGE SUMMARY ATTENDING PHYSICIAN: Zina Campos MD FINAL DIAGNOSIS: COVID-19 without hypoxia Community-acquired pneumonia AFib with chronic anticoagulation Frail elderly HOSPITAL FOLLOWUP ISSUES: Home health to visit and assess with OT, PT. Community-acquired pneumonia, completed antibiotic therapy as an inpatient. Not hypoxic. Still mildly weak from baseline. I would ask his PCP to see him and re-evaluate in the next week. REFERRALS WHILE ADMITTED: PT, OT REFERRALS AFTER DISCHARGE: Home health BRIEF HOSPITAL COURSE: Gregg was admitted with weakness and COVID-19 diagnosis. His chest x-ray showed a possible infiltrate consistent with community-acquired pneumonia. He was treated with IV Rocephin and p.o. azithromycin for 5 days. He was never hypoxic. OT and PT worked with him and he regained strength quite markedly. He was ready for discharge on 04/07. He actually asked for a cab to take him home as he did not have a friend able to pick him up. He did not receive any COVID specific therapies as he was not hypoxic. VITAL SIGN, MEDICATION, LAB/MICRO, IMAGING SUMMARY (full details available in account tabs or by records request) DISCHARGE MEDICATIONS: See Reconciled list REVIEW OF SYSTEMS No new chest pain or dyspnea Pain controlled No voiding difficulties Tolerating diet challenge PHYSICAL EXAM: CONSTITUTIONAL: Alert. Oriented. VITAL SIGNS: see record. HEENT: Normocephalic, atraumatic. PERRL, EOMI, conjunctivae pink, no scleral icterus. Ears and nose externally normal. Pharynx normal. NECK: No JVD. No carotid bruit, no thyromegaly, no adenopathy. CHEST: Clear to auscultation bilaterally. HEART: S1 and S2 normal. Edema ABDOMEN: Soft, nontender. Normal bowel sounds. MUSCULOSKELETAL: No gross joint deformity or swelling. NEURO: Cranial nerves intact. Grossly intact. No asymmetric findings. SKIN: No rashes, petechiae, concerning changes PSYCHIATRIC: Mood euthymic. DISPOSITION: Home. Assisted living. Increased services. Time spent on discharge 37 minutes.
== END 2022-04-07 12:08 | disposition home health service (06) | DRG 177 ==
LOC: ED 21:59 → MEDSURG 23:56
PROVIDERS: Admitting Provider Emergency Medicine; Emergency Provider Emergency Medicine; PCP Internal Medicine; Visit Provider Family Medicine
DX: U07.1 COVID-19 (principal); J12.82 Pneumonia due to coronavirus disease 2019; I50.20 Unspecified systolic (congestive) heart failure; I69.351 Hemiplegia and hemiparesis following cerebral infarction affecting right dominant side; I48.91 Unspecified atrial fibrillation; Z79.01 Long term (current) use of anticoagulants; G47.33 Obstructive sleep apnea (adult) (pediatric); R73.03 Prediabetes; E04.1 Nontoxic single thyroid nodule; Z85.820 Personal history of malignant melanoma of skin; I10 Essential (primary) hypertension; I11.0 Hypertensive heart disease with heart failure; I69.322 Dysarthria following cerebral infarction; I69.393 Ataxia following cerebral infarction; D64.9 Anemia, unspecified; R54 Age-related physical debility
CPT/HCPCS: 36415; 71045; 80048; 80076; 81001; 83605; 83735; 84443; 84484; 85025; 86140; 87635; 93005; 94664; 94761; 97110; 97116; 97162; 97165; 97535; 99284; 99285; A9270; G0378; J0696; J7050

== ENCOUNTER 2023-01-15 07:01 | Outpatient (CLI) | payer MEDICARE, BC, SELFPAY | END 2023-01-15 07:02 | disposition home or self-care (01) | LOC: AMB 01-17 09:21 | PROVIDERS: PCP Internal Medicine; Visit Provider Family Medicine | DX: R53.1 Weakness (principal) | CPT/HCPCS: A0998 ==

== ENCOUNTER 2023-01-15 11:43 | Outpatient (CLI) | payer MEDICARE, BC, SELFPAY | END 2023-01-15 11:44 | disposition home or self-care (01) | LOC: AMB 01-17 09:44 | PROVIDERS: PCP Internal Medicine; Visit Provider Family Medicine | DX: R53.1 Weakness (principal) | CPT/HCPCS: A0425; A0429; A0998 ==

== ENCOUNTER 2023-01-15 12:10 | Emergency (ER) | payer MEDICARE, BC, SELFPAY ==
[2023-01-15 12:20] VITALS: BP 137/77; PULSE 57; RESP 16; TEMP 36.6; O2SAT 96; BMI 29.2
--- NOTE | 2023-01-15 12:54 | ED_ITS ---
HPI - General Adult General Date Seen: 01/15/23 Chief complaint: Weakness Stated complaint: weakness Time Seen by Provider: 01/15/23 12:24 Source: patient Mode of arrival: EMS Limitations: no limitations History of Present Illness HPI narrative: Patient is an 87-year-old male with a history of stroke, he notes for the past couple of days he has been more generally weak than usual. He says that he typically gets around with a walker but last night he had trouble getting into bed, had trouble getting up to urinate this morning, was not able to get out of bed without assistance which is unusual for him. He denies any focal weakness. He says last time he felt like this was last fall when he had COVID. He denies any upper respiratory symptoms, says he had a temp of a 100? yesterday but no fever today. He has not had any diarrhea, black or bloody stools he did have 1 episode of vomiting yesterday evening. No hematemesis. No shortness of breath or chest pain, chronic lower extremity edema which is stable. Related Data Home Medications Medication Instructions Recorded Confirmed vit C 250 mg-vit E 90 mg-zinc 40 1 tab PO QAM AND QHS 01/15/23 01/15/23 mg-copper 1 og-[id number] capsule (PreserVision AREDS-2) Previous Rx's Medication Instructions Recorded fluticasone propionate 110 2 puff inhalation Q12H #12 grams 01/24/22 mcg/actuation HFA aerosol inhaler (Flovent HFA) amiodarone 200 mg tablet 200 mg PO DAILY #90 tabs 03/28/22 apixaban 5 mg tablet (Eliquis) 5 mg PO BID #180 tabs 03/28/22 acetaminophen 500 mg tablet 500 mg PO Q4H PRN Pain #60 tabs 04/06/22 furosemide 40 mg tablet 40 mg PO DAILY #30 tabs 01/09/23 losartan 100 mg tablet 100 mg PO DAILY #30 tabs 01/09/23 rosuvastatin 10 mg tablet 10 mg PO HS #30 tabs 01/09/23 zolpidem 5 mg tablet 5 mg PO HS PRN insomnia #90 tabs 01/09/23 Allergies Allergy/AdvReac Type Severity Reaction Status Date / Time Sulfa (Sulfonamide Allergy Intermediate Hives Verified 01/15/23 12:26 Antibiotics) latex Allergy Mild allergy Verified 01/15/23 12:26 test grass pollen AdvReac Intermediate Verified 01/15/23 12:26 mold AdvReac Intermediate Verified 01/15/23 12:26 pollen extracts AdvReac Intermediate Verified 01/15/23 12:26 apple AdvReac Mild Gastrointestinal Verified 01/15/23 12:26 Upset cat dander AdvReac Mild Verified 01/15/23 12:26 house dust mite AdvReac Mild Verified 01/15/23 12:26 Review of Systems Status of ROS: Reports: 10 or more systems reviewed and unremarkable except as noted in History and below [facility] Medical History Thyroid nodule ?E04.1 - Nontoxic single thyroid nodule (ICD-10) Surgical History History of cholecystectomy (1990) ?Z90.49 - Acquired absence of other specified parts of digestive tract (ICD- 10) History of uvulopalatopharyngoplasty (2001) ?Z98.890 - Other specified postprocedural states (ICD-10) Melanoma in situ (2019) ?D03.9 - Melanoma in situ, unspecified (ICD-10) Hx of tonsillectomy (~1942) ?Z90.89 - Acquired absence of other organs (ICD-10) H/O arthroscopic knee surgery ?Z98.890 - Other specified postprocedural states (ICD-10) H/O bilateral cataract extraction ?Z98.41 - Cataract extraction status, right eye (ICD-10) ?Z98.42 - Cataract extraction status, left eye (ICD-10) S/P rotator cuff repair ?Z98.890 - Other specified postprocedural states (ICD-10) S/P mitral valve repair (2006) ?Z98.890 - Other specified postprocedural states (ICD-10) S/P Mohs surgery for basal cell carcinoma (2014) ?Z98.890 - Other specified postprocedural states (ICD-10) ?Z85.828 - Personal history of other malignant neoplasm of skin (ICD-10) Status post prostatectomy ?Z90.79 - Acquired absence of other genital organ(s) (ICD-10) S/P hernia surgery (2006) ?Z98.890 - Other specified postprocedural states (ICD-10) ?Z87.19 - Personal history of other diseases of the digestive system (ICD-10) Social History Smoking Status: Never smoker How often do you have a drink containing alcohol: 2-4 times a month Alcohol type: wine Alcohol type details: occassional How many standard drinks containing alcohol do you have on a typical day: 1 or 2 How often do you have six or more drinks on one occasion: Never AUDIT-C Alcohol total score: 2 Non-prescribed substance use: denies use Caffeine: Yes (3 cups per day of tea) service: Yes Exam Narrative: Exam Narrative: Vital signs as noted above. In general, an alert, well-appearing patient. Head: Normocephalic, atraumatic. Eyes: Pupils are equal reactive. Extraocular movements are full. Conjunctivae are normal. ENT: Mucous membranes are moist. Throat is normal. Neck: Supple without lymphadenopathy. Heart: Regular rate and rhythm. No murmur or rub. Lungs: Clear bilaterally. No increased work of breathing, crackles or wheezes. Abdomen: Soft and nontender. No organomegaly. Extremities: Well perfused. No edema. No calf tenderness. Pulses intact. Neurologic: Patient is alert and oriented to person and place. Speech is fluent. Face is symmetric. Moves all extremities equally. Affect: Normal. Skin: Warm and dry. Well perfused. Const: Vital Signs, click to edit/add: Vital Signs - 24 hr 01/15/23 12:20 Temperature 97.9 F Pulse Rate [Pulse Oximeter] 57 L Respiratory Rate 16 Blood Pressure [Le ft Upper Arm] 137/77 Pulse Oximetry 96 Oxygen Delivery Me thod Room Air Documenting provider has reviewed patient's vital signs: yes Course Course Hospital Course: Overall exam is unrevealing, vital signs are normal aside from mild bradycardia. Will check for metabolic, infectious, hematologic potential causes. I do not find any focal signs suggestive of stroke. Labs are fairly unrevealing. White blood cell count is 10.9. Hemoglobin is 13.4. Sed rate is essentially normal at 16 and CRP is somewhat elevated at 6.7. LFTs are notable for a bilirubin of 1.8, direct is normal at 0, AST ALT and alk-phos are all normal. Metabolic panel was unremarkable. Troponin is 0.01. EKG showed a sinus bradycardia, ventricular rate of 56, nonspecific intraventricular conduction delay. No acute ST segment changes. First-degree AV block is noted as well. COVID influenza and RSV are negative. I elected to do right upper quadrant ultrasound because of the mildly elevated bilirubin, vomiting yesterday. He is status post cholecystectomy previously. Final radiology read is essentially unremarkable. His common bile duct is at 0.7 cm, normal for age. His daughter called and had concerns about the swelling in his legs, he does have some edema noted in both lower extremities, he tells me that he always has some swelling, his daughter says that he will lie about things. In any case, his BNP is only 745. Renal function, liver function otherwise unremarkable. TSH is normal. I do not think that he is in congestive heart failure. Swelling is symmetric and by his report, chronic. He is chronically maintained on Eliquis due to his AFib. He is already on Lasix 40 daily. Lungs are clear, O2 sats are normal, he has no complaints of shortness of breath. He was up and ambulatory without any assistance here. He feels that he is able to go home, and certainly with the degree of mobility that he showing in the emergency department I do not see a clear reason for admission to the hospital or transfer to prison at this time. Discussed that if he finds he is not able to manage once he gets home, he can always return and we would at that time consider admission and looking for prison options. In terms of the swelling in his legs, compression stockings, elevate. Primary care follow-up for reassessment. Vital Signs Vital signs: Initial Vital Signs Temperature 97.9 F 01/15/23 12:20 Temperature Source Temporal Artery Scan 01/15/23 12:20 Pulse Rate 57 L 01/15/23 12:20 Pulse Rhythm Irregular 01/15/23 12:20 Pulse Strength 3+ Normal 01/15/23 12:20 Respiratory Rate 16 01/15/23 12:20 Blood Pressure 137/77 01/15/23 12:20 Blood Pressure Mean 97 01/15/23 12:20 Blood Pressure Position Supine 01/15/23 12:20 Pulse Oximetry 96 01/15/23 12:20 Oxygen Delivery Method Room Air 01/15/23 12:20 Vital Signs Temperature 97.9 F 01/15/23 12:20 Pulse Rate 57 L 01/15/23 12:20 Respiratory Rate 16 01/15/23 12:20 Blood Pressure 137/77 01/15/23 12:20 Pulse Oximetry 96 01/15/23 12:20 Oxygen Delivery Method Room Air 01/15/23 12:20 Temperature 97.9 F 01/15/23 12:20 Pulse Rate 57 L 01/15/23 12:20 Respiratory Rate 16 01/15/23 12:20 Blood Pressure 137/77 01/15/23 12:20 Pulse Oximetry 96 01/15/23 12:20 Oxygen Delivery Method Room Air 01/15/23 12:20 Medical Decision Making Lab Data Labs: Lab Results 01/15/23 01/15/23 01/15/23 Range/Units 12:53 13:05 13:06 WBC 10.95 (4.50-11.00) K/uL RBC 4.47 (4.30-5.90) m/uL Hgb 13.4 L (13.5-17.5) gm/dL Hct 40.4 (37.0-53.0) % MCV 90 (80-100) fL MCH 30 (26-34) pg MCHC 33 (32-36) gm/dL RDW Coeff of Melissa 13.5 (11.5-15.5) % Plt Count 183 (140-440) K/uL Neut % (Auto) 85.8 H (42.0-72.0) % Lymph % (Auto) 8.0 L (20-44) % [place] % (Auto) 5.8 (0.0-11.0) % Eos % (Auto) 0.1 (0.0-7.0) % Baso % (Auto) 0.1 (0.0-3.0) % Neut # (Auto) 9.40 H (1.7-7.0) K/uL Lymph # (Auto) 0.90 (0.90-2.90) K/uL [place] # (Auto) 0.60 (0.00-0.90) K/UL Eos # (Auto) 0.01 (0.00-0.50) K/uL Baso # (Auto) 0.01 (0.00-0.30) K/uL ESR 16 H (2-15) mm/hr Sodium 138 (135-149) mmol/L Potassium 3.5 L (3.6-5.1) mmol/L Chloride 104 (96-114) mmol/L Carbon Dioxide 24 (20-32) mmol/L BUN 29 (7-30) mg/dL Creatinine 1.1 (0.5-1.5) mg/dL Estimated Creat Clear 45.77 Estimated GFR 65 ml/min Glucose 129 H (60-115) mg/dL Lactate 1.4 (0.5-1.9) mmol/L Calcium 8.5 (8.4-10.6) mg/dL Total Bilirubin 1.8 H (0.1-1.5) mg/dL Direct Bilirubin 0.0 (0.0-0.5) mg/dL AST 18 (12-35) U/L ALT 19 (4-50) U/L Alkaline Phosphatase 65 (40-150) U/L C-Reactive Protein 6.7 H (0.5-1.0) mg/dL NT-Pro-B Natriuret Pep 745 pg/mL Total Protein 6.5 (6.0-8.3) g/dL Albumin 3.6 (3.3-5.0) g/dL Lipase 28 (23-300) U/L TSH 0.457 (0.270-4.200) uIU/mL Urine Color (Yellow) Urine Appearance (Clear) Urine pH (5.0-8.5) Ur Specific [place] (1.000-1.030) Urine Protein (Negative) Urine Glucose (UA) (Negative) Urine Ketones (Negative) Urine Blood (Negative) Urine Nitrite (Negative) Urine Bilirubin (Negative) Urine Urobilinogen (0.2-1.0) Ur Leukocyte Esterase (Negative) Urine RBC (0-2) Urine WBC (0-5) Ur Squamous Epith Cells (None-Few) Urine Bacteria (None) SARS-CoV-2 (PCR) Negative SARS-CoV-2 (Negative) Influenza Type A (PCR) Negative PCR FLU A (Negative) Influenza Type B (PCR) Negative PCR FLU B (Negative) RSV (PCR) Negative PCR RSV (Negative) POC Troponin I 0.01 (0.01-0.04) ng/ml 01/15/23 Range/Units 14:50 WBC (4.50-11.00) K/uL RBC (4.30-5.90) m/uL Hgb (13.5-17.5) gm/dL Hct (37.0-53.0) % MCV (80-100) fL MCH (26-34) pg MCHC (32-36) gm/dL RDW Coeff of Melissa (11.5-15.5) % Plt Count (140-440) K/uL Neut % (Auto) (42.0-72.0) % Lymph % (Auto) (20-44) % [place] % (Auto) (0.0-11.0) % Eos % (Auto) (0.0-7.0) % Baso % (Auto) (0.0-3.0) % Neut # (Auto) (1.7-7.0) K/uL Lymph # (Auto) (0.90-2.90) K/uL [place] # (Auto) (0.00-0.90) K/UL Eos # (Auto) (0.00-0.50) K/uL Baso # (Auto) (0.00-0.30) K/uL ESR (2-15) mm/hr Sodium (135-149) mmol/L Potassium (3.6-5.1) mmol/L Chloride (96-114) mmol/L Carbon Dioxide (20-32) mmol/L BUN (7-30) mg/dL Creatinine (0.5-1.5) mg/dL Estimated Creat Clear Estimated GFR ml/min Glucose (60-115) mg/dL Lactate (0.5-1.9) mmol/L Calcium (8.4-10.6) mg/dL Total Bilirubin (0.1-1.5) mg/dL Direct Bilirubin (0.0-0.5) mg/dL AST (12-35) U/L ALT (4-50) U/L Alkaline Phosphatase (40-150) U/L C-Reactive Protein (0.5-1.0) mg/dL NT-Pro-B Natriuret Pep pg/mL Total Protein (6.0-8.3) g/dL Albumin (3.3-5.0) g/dL Lipase (23-300) U/L TSH (0.270-4.200) uIU/mL Urine Color Yellow (Yellow) Urine Appearance Clear (Clear) Urine pH 5.5 (5.0-8.5) Ur Specific [place] 1.020 (1.000-1.030) Urine Protein Negative (Negative) Urine Glucose (UA) Negative (Negative) Urine Ketones Negative (Negative) Urine Blood Trace-intact A (Negative) Urine Nitrite Negative (Negative) Urine Bilirubin Negative (Negative) Urine Urobilinogen 0.2 (0.2-1.0) Ur Leukocyte Esterase Negative (Negative) Urine RBC 0-2 (0-2) Urine WBC 0-2 (0-5) Ur Squamous Epith Cells None (None-Few) Urine Bacteria None (None) SARS-CoV-2 (PCR) (Negative) Influenza Type A (PCR) (Negative) Influenza Type B (PCR) (Negative) RSV (PCR) (Negative) POC Troponin I (0.01-0.04) ng/ml Discharge Plan Discharge Clinical Impression: Weakness Patient Disposition: Home, Self-Care Condition: Improved Instructions: Weakness (ED) Additional Instructions: Your test today are all pretty reassuring. Your ultrasound was unremarkable, and your labs are largely normal. Your bilirubin was very mildly elevated, which is nonspecific as the rest of your liver function tests are normal. I do not find any evidence of acute infection, anemia, metabolic abnormalities. For swelling in the legs, strategies such as compression stockings and keeping her legs elevated as much as possible help with this problem. I would recommend recheck with primary doctor in the next week. If at any time you have new symptoms such as fever, difficulty breathing, chest pain, vomiting etcetera, or you do not feel that you can manage safely at home, return to the emergency department. Prescriptions: No Action fluticasone propionate [Flovent HFA] 110 mcg/actuation HFA aerosol inhaler 2 puff INHALATION Q12H Qty: 12 4RF acetaminophen 500 mg Tablet 500 mg PO Q4H PRN (Reason: Pain) Qty: 60 0RF PreserVision AREDS-2 250-90-40-1 mg capsule 1 tab PO QAM AND QHS amiodarone 200 mg tablet 200 mg PO DAILY Qty: 90 3RF Eliquis 5 mg tablet 5 mg PO BID Qty: 180 3RF rosuvastatin 10 mg tablet 10 mg PO HS Qty: 30 0RF losartan 100 mg tablet 100 mg PO DAILY Qty: 30 0RF furosemide 40 mg tablet 40 mg PO DAILY Qty: 30 0RF zolpidem 5 mg tablet 5 mg PO HS PRN (Reason: insomnia) Qty: 90 1RF Follow Up/Referrals: Maria Esther Mendoza MD [Primary Care Provider] - Stand Alone Forms: Secure[employer] Info Instructions
[2023-01-15 13:16] LABS: Lactate* 1.4 mmol/L (0.5-1.9)
[2023-01-15 13:19] LABS: Basophils Absolute Auto 0.01 K/uL (0.00-0.30); Basophils Percent Auto 0.1 % (0.0-3.0); Eosinophils Absolute Auto 0.01 K/uL (0.00-0.50); Eosinophils Percent Auto 0.1 % (0.0-7.0); Hematocrit 40.4 % (37.0-53.0); Hemoglobin* 13.4 gm/dL (13.5-17.5); Immature Granulocytes Abs Auto 0.02 K/uL (0.00-0.30); Immature Granulocytes Pct Auto 0.2 %; Mean Corpuscular HGB Conc 33 gm/dL (32-36); Mean Corpuscular Hemoglobin 30 pg (26-34); Mean Corpuscular Volume 90 fL (80-100); Monocytes Percent Auto 5.8 % (0.0-11.0); Neutrophils Percent Auto 85.8 % (42.0-72.0); Platelet Count* 183 K/uL (140-440); RDW Coefficient of Variation % 13.5 % (11.5-15.5); Red Blood Count 4.47 m/uL (4.30-5.90); White Blood Count* 10.95 K/uL (4.50-11.00)
[2023-01-15 13:21] LABS: Slide Review Reflex No
--- NOTE | 2023-01-15 13:22 | ED.NURSE ---
attempted to void and was not able to so repositioned in the bed.
[2023-01-15 13:26] LABS: Troponin, Point-of-Care* 0.01 ng/ml (0.01-0.04)
[2023-01-15 13:33] LABS: Chloride* 104 mmol/L (96-114); Potassium* 3.5 mmol/L (3.6-5.1); Sodium* 138 mmol/L (135-149)
[2023-01-15 13:36] LABS: Blood Urea Nitrogen* 29 mg/dL (7-30); Carbon Dioxide* 24 mmol/L (20-32); Creatinine* 1.1 mg/dL (0.5-1.5); Est. Creatinine Clearance* 45.77; Estimated Glomerular Filt Rate 65 ml/min
[2023-01-15 13:37] LABS: Calcium* 8.5 mg/dL (8.4-10.6); Glucose* 129 mg/dL (60-115)
[2023-01-15 13:39] LABS: C Reactive Protein* 6.7 mg/dL (0.5-1.0)
--- NOTE | 2023-01-15 13:40 | ED.NURSE ---
This web content writer went to perform EKG on pt as ordered by MD. Upon lifting pt's shirt, rash noted to left side of chest with raised areas, crusted over. Denies being itchy or painful. Notes rash has been present x [address] Carolina verbally notified at [phone] for assessment.
[2023-01-15 13:45] LABS: Albumin* 3.6 g/dL (3.3-5.0)
[2023-01-15 13:48] LABS: Alanine Aminotransferase* 19 U/L (4-50); Alkaline Phosphatase* 65 U/L (40-150); Aspartate Amino Transferase* 18 U/L (12-35); Bilirubin Total* 1.8 mg/dL (0.1-1.5); Total Protein* 6.5 g/dL (6.0-8.3)
[2023-01-15 13:59] LABS: NT Pro B Type NatriureticPept* 745 pg/mL; PCR FLU A Negative PCR FLU A (Negative); PCR FLU B Negative PCR FLU B (Negative); PCR RSV Negative PCR RSV (Negative)
[2023-01-15 14:05] LABS: Erythrocyte SedimentationRate* 16 mm/hr (2-15)
[2023-01-15 14:07] LABS: SARS PCR* Negative SARS-CoV-2 (Negative); TSH With Reflex to FT4* 0.457 uIU/mL (0.270-4.200)
--- NOTE | 2023-01-15 14:22 | CRLHL7_ITS ---
For Patients: As a result of the Century Cures Act, medical imaging exams and procedure reports are released immediately into your electronic medical record. You may view this report before your referring provider. If you have questions, please contact your health care provider. INDICATION: Weakness, vomiting, low grade fever.. TECHNIQUE: Ultrasound abdomen limited. Sonographic images of the right upper quadrant were obtained using berg-scale and color Doppler images. COMPARISON: None. FINDINGS: Liver: Normal in size and echotexture. No suspicious masses. No intrahepatic biliary dilatation. Gallbladder: Surgically absent. Common bile duct: 7 mm. Pancreas: Not well visualized due to overlying bowel gas Right kidney: Normal in size. Normal echotexture and cortex. No suspicious masses, stones, or hydronephrosis. Cyst identified the right kidney measuring up to 3 centimeters. Vasculature: Proximal abdominal aorta and IVC are unremarkable. IMPRESSION: Status post cholecystectomy. CBD within normal limits for age. Dictated by Kristin Vásquez MD @ 01/15/2023 4:16:21 PM (Electronically Signed)
[2023-01-15 14:40] LABS: Lipase* 28 U/L (23-300)
--- NOTE | 2023-01-15 14:52 | ED.NURSE ---
Pt assited to use urinal in bed. Urine came out of urinal and got pt's underwear and pants wet. Pt assited to get out of bed, bedding changed, and fresh clothing put on. Pt was also able to stand and urinate into urinal with SBA. Approximately 300cc of urine out.
[2023-01-15 15:04] LABS: Appearance Urine Clear (Clear); Bilirubin Urine Negative (Negative); Blood Urine Trace-intact (Negative); Color Urine Yellow (Yellow); Glucose Urine Negative (Negative); Ketones Urine Negative (Negative); Leukocyte Esterase Urine Negative (Negative); Nitrite Urine Negative (Negative); Protein Urine Negative (Negative); Urobilinogen Urine 0.2 (0.2-1.0); pH Urine 5.5 (5.0-8.5)
[2023-01-15 15:13] LABS: RBC Urine 0-2 (0-2); WBC Urine 0-2 (0-5)
[2023-01-15 18:30] VITALS: BP 167/78; RESP 20; TEMP 36.6; O2SAT 97
== END 2023-01-15 18:33 | disposition home or self-care (01) ==
PROVIDERS: Emergency Provider Emergency Medicine; PCP Internal Medicine
DX: R53.1 Weakness (principal)
CPT/HCPCS: 36415; 76705; 80048; 80076; 81001; 83605; 83690; 83880; 84443; 84484; 85025; 85651; 86140; 87631; 93005; 99284

== ENCOUNTER 2023-01-16 10:18 | Outpatient (CLI) | payer MEDICARE, BC, SELFPAY | END 2023-01-16 10:19 | disposition home or self-care (01) | LOC: NFLDREF 16:25 | PROVIDERS: PCP Internal Medicine; Referring Provider Internal Medicine; Visit Provider Internal Medicine | DX: E78.5 Hyperlipidemia, unspecified (principal); I10 Essential (primary) hypertension; R73.03 Prediabetes | CPT/HCPCS: 80048; 80061 ==

== ENCOUNTER 2023-03-15 08:24 | Outpatient (CLI) | payer MEDICARE, BC, SELFPAY | END 2023-03-15 08:25 | disposition home or self-care (01) | LOC: AMB 03-17 20:12 | PROVIDERS: PCP Internal Medicine; Visit Provider Internal Medicine | DX: R53.1 Weakness (principal) | CPT/HCPCS: A0998 ==

== ENCOUNTER 2024-02-04 10:26 | Outpatient (CLI) | payer MEDICARE, BC, SELFPAY ==
--- OUTSIDE RECORDS SUMMARY | 2024-02-05 18:22 | XMS_ITS | Encounter Summary ---
Author Organization [facility] Address [address] [place] [address] Care Team Providers Care Building Wrecker Name Role Phone Unavailable Primary Care Provider Unavailabl e Reason for Referral * Outpatient (Routine) - Authorized Specialty Diagnoses / Procedures Referred By Contac t Referred To Contact Cardiovascular Disease Ange Parry APRN, C.N.PHorace, D.N.P. [address] [place] [address] [facility] Referral ID Status Reason Start Date Expiration Date V isits Requested Visits Authorized [id number] Authorized 01/01/2024 07/02/2025 1 1 Scheduling Instructions Self or any provider if I have no availability. To review Holter results * Outpatient (Routine) - Authorized Specialty Diagnoses / Procedures Referred By Contac t Referred To Contact Diagnoses Atrial Fibrillation Paroxysmal (HCC) Manager Pest (Current) Anticoagulant Treatment Procedures ECG Heart Rhythm Monitor (Holter) Ange Parry APRN, Del.N.P., D.N.P. [address] [place] [address] [facility] Referral ID Status Reason Start Date Expiration Date V isits Requested Visits Authorized [id number] Authorized 01/01/2024 12/31/2024 1 1 Reason for Visit * Reason Comments Med Refill Encounter Details Date Type Department Care Team (Late st Contact Info) Description 12/29/2023 Refill Department of Cardiovascular Medicine in [place], [place] [address] [place] [address] Ange Parry APRN, C.N.P., D.N.P. [address] [place] [phone] Med Refill Social History Tobacco Use Types Packs/Day Years Used Date Smoking Tobacco: Never Smokeless Tobacco: Never Alcohol Use Standard Drinks/Week Comments Yes 1 (1 standard drink = 0.6 oz pur e alcohol) Humiliation, Afraid, Rape, and Kick questionnair e Answer Date Recorded Within the last year, have y ou been afraid of your partner or ex-partner? No 12/20/2021 Within the last year, have y ou been humiliated or emotionally abused in other ways by your partner or ex-partner? No Within the last year, have y ou been kicked, hit, slapped, or otherwise physically hurt by your partner or ex-partner? No 12/20/2021 Within the last year, have y ou been raped or forced to have any kind of sexual activity by your partner or ex-partner? No 12/20/2021 Social Connection and Isolat ion Panel [NHANES] Answer Date Recorded In a typical week, how many times do you talk on the phone with family, friends, or neighbors? More than three times a week 12/20/2021 How often do you get togethe r with friends or relatives? Three times a week 12/20/2021 How often do you attend chur ch or sabianism services? More than 4 times per year 12/20/2021 Do you belong to any clubs o r organizations such as religion groups, unions, fraternal or athletic groups, or school groups? Yes 12/20/2021 How often do you attend meet ings of the clubs or organizations you belong to? More than 4 times per year 12/20/2021 Are you , , di vorced, , never , or living with a partner? 12/20/2021 AUDIT-C Answer Date Recorded Q1: How often do you have a drink containing alc ohol? 2-4 times a month 12/20/2021 Q2: How many drinks containi ng alcohol do you have on a typical day when you are drinking? 1 or 2 12/20/2021 Q3: How often do you have si x or more drinks on one occasion? Never 12/20/2021 Overall Financial Resource Strain (CARDIA) Answe r Date Recorded How hard is it for you to pa y for the very basics like food, housing, medical care, and heating? Not hard at all 04/08/2023 PHQ-2 Answer Date Recorded PHQ-2 Score 0 12/20/2021 [facility] - Occupational Stress Questionnaire Answer Date Recorded Do you feel stress - tense, restless, nervous, or anxious, or unable to sleep at night because your mind is troubled all the time - these days? Not at all 12/20/2021 Exercise Vital Sign Answer Date Recorde d On average, how many days pe r week do you engage in moderate to strenuous exercise (like a brisk walk)? Patient declined On average, how many minutes do you engage in exercise at this level? 10 min 04/08/2023 Hunger Vital Sign Answer Date Recorded Within the past 12 months, y ou worried that your food would run out before you got the money to buy more. Never true 04/08/20 23 Within the past 12 months, t he food you bought just didn't last and you didn't have money to get more. Never true 04/08/2023 PRAPARE - Transportation Answer Date Re corded In the past 12 months, has l ack of transportation kept you from medical appointments or from getting medications? Yes 03/23 In the past 12 months, has l ack of transportation kept you from meetings, work, or from getting things needed for daily living? No 04/08/2023 Nutrition Answer Date Recorded Nutrition: EVOO Fat Source No 04/08 On average, how many serving s of fruits and vegetables do you eat per day (serving size is equal to 1 cup or approximately the size of a tennis ball)? 3-5 04/08/2023 Dental Answer Date Recorded Dental: Regular Dentist Yes 12/21/19 Employment Answer Date Recorded Employment status Retired 04/08/2023 Housing Stability Answer Date Recorded What is your living situation today? I have a [facility] place to live 04/08/2023 Education Answer Date Recorded What is the highest level of school you have completed or the highest degree you have received? Doctorate 12/20/2021 Sex and Gender Information Value Date Recorded Sex Assigned at Male 02/28/2018 2:32 PM CDT Gender Identity Male 02/28/2018 2:32 PM CDT Sexual Orientation Straight 02/28/2018 2: 32 PM CDT documented as of this encounter Miscellaneous Notes * Addendum Note - Ange Parry APRN, C.N.P., D.N.P. - 01/01/2024 1:11 PM CDTAddended by: ANGE PARRY on: 01/01/2024 01:11 PM Modules accepted: Orders documented in this encounter Plan of Treatment Scheduled Orders Name Type Priority Associated Diagnoses Orde r Schedule ECG Heart Rhythm Monitor (Holter) Cardiac Services Routine Atrial Fibrillation Paroxysmal (HCC) Manager Pest (Current) Anticoagulant Treatment Expected: 01/01/2024, Expires: 04/02/2025 Scheduled Referrals Name Type Priority Associated Diagnoses Order Schedule Cardiovascular Disease office visit (clinic) Outpatient Referral Routine Expect ed: 01/01/2024, Expires: 04/02/2025 documented as of this encounter Visit Diagnoses Diagnosis Atrial Fibrillation Paroxysmal (HCC)- Primary Custodial (Current) Anticoagulant Treatment documented in this encounter Additional Health Concerns Assessment Noted Time PHQ-9 Depression Total Score: 0 09/13/19 17 5:57 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
--- OUTSIDE RECORDS SUMMARY | 2024-02-05 18:22 | XMS_ITS | Clinical Summary ---
Author Organization [facility] Address [place], [place] [address] Care Team Providers Care Water Plant Operator Name Role Phone Garima Jorgensen AuD Unavailable [phone] Maria Esther Mendoza MD Primary Care Provider [phone] Allergies No known active allergies Medications Medication Sig Dispensed Refills Start Date End Date Status COZAAR 50 MG TAB None Entered 0 Active MULTIVITAMIN ORAL None Entered 0 Activ e FISH OIL CAP None Entered 0 Active simvastatin (ZOCOR) 20 mg tablet Take 20 mg by mouth at bedtime. 3 04/26/2017 Active chlorpheniramine (CHLOR-TRIMETON) 4 mg tablet Take 1 tablet by mouth every 4 hours if needed for Rhinitis. 0 07/24/2017 Active triamcinolone, 55 mcg each actuation, nasal (NASACORT AQ) 55 mcg nasal spray Inhale 2 Sprays into both nostrils once daily. 16.5 g 07/24/2017 Active fluticasone (FLOVENT DISKUS) 100 mcg/actuation inhaler Inhale 1 Puff by mouth 2 times daily. 1 Inhaler 07/24/2017 Active medication order composer Focus Select 2mg per day, macular degeneration and glaucoma 0 07/24/2017 Active zolpidem (AMBIEN) 5 mg tablet Take 1 tablet by mouth at bedtime if needed for Sleep. 0 07/24/2017 Active furosemide (LASIX) 40 mg tablet Take 1 tablet by mouth every morning. 0 08/08/2017 Active amiodarone (CORDARONE) 200 mg tabletIndications:P ersistent atrial fibrillation (HC) Start amiodarone 400mg (2 pills) twice daily for one week - 09/04/2017 decrease to 400mg (2 pills) daily -10/03/2017 decrease to 200mg daily 180 tablet 3 08/28/2017 Active rivaroxaban (XARELTO) 20 mg tabletIndications:A trial fibrillation, unspecified type (HC) Take 1 tablet by mouth once daily with evening meal. 180 tablet 1 11/19/2017 Active apixaban (ELIQUIS) 5 mg tabletIndications:P AF (paroxysmal atrial fibrillation) (HC) Take 1 tablet by mouth 2 times daily. 180 tablet 3 04/16/2020 Active Active Problems Problem Noted Date Diagnosed Date Persistent atrial fibrillation 08/28/2017 Unspecified essential [...] Smoking Tobacco: Never Smokeless Tobacco: Never Tobacco Cessation:Counseling Given: Yes Alcohol Use Standard Drinks/Week Comments Yes 1 (1 standard drink = 0.6 oz pur e alcohol) Social Connections Answer Date Recorded Frequency of Communication with Friends and Fami ly Not on file 07/19/2021 Financial Resource Strain Answer Date R ecorded Difficulty of Paying Living Expenses Not on file 07/19/2021 Difficulty of Paying Living Expenses Not on file 07/19/2021 Sex and Gender Information Value Date Recorded Sex Assigned at Not on file Gender Identity Not on file Sexual Orientation Not on file Obstetrics History Last Filed Vital Signs Vital Sign Reading Time Taken Comments Blood Pressure 114/78 12/14/2020 11:07 AM CDT Pulse 60 12/14/2020 11:07 AM CDT Temperature 35.8 ??C (96.4 ??F) 08/28/2017 11:[address] Respiratory Rate 20 12/14/2020 11:07 AM CDT Oxygen Saturation 98% 08/28/2017 1:00 PM WIPING CLOTH CUTTER Inhaled Oxygen Concentration - - Weight 87.1 kg (192 lb) 04/16/2020 2:43 PM CDT Height 172.7 cm (5' 8) 08/28/2017 10:57 AM WIPING CLOTH CUTTER Body Mass Index 29.19 08/28/2017 10:57 AM WIPING CLOTH CUTTER Plan of Treatment Health Maintenance Due Date Last Done Comments Tdap 1946 Depression screening for age 12+ 1947 BMI (ht and wt on same day) for age 18+ 1953 Tetanus booster 1955 Zoster (shingles) series for age 50+ (1 of 2) 1985 Medicare Wellness for age 65+ 2000 Pneumococcal series for age 65+ (1 of 1 - PCV) 2000 COVID-19 vaccine series (2022-) 09/07/2023 05/07/2023, 01/25/2023, 07/11/2022, Additional history exists Influenza for age 65+ 03/23/2024 Care Teams Water Plant Operator Relationship Specialty Start Date End Date Maria Esther Mendoza MD [address] [place] [address] PCP - General Internal Medicine 08/21/17 Garima Jorgensen AuD Audiology 12/14/05
--- OUTSIDE RECORDS SUMMARY | 2024-02-05 18:22 | XMS_ITS ---
Author Organization [facility] Address [address] [place] [address] Care Team Providers Care Bellhop Name Role Phone Unavailable Unavailable Unavailable Surgery Details Not on file Complications Check Surgery Details section. Procedure Estimated Blood Loss Check Surgery Details section. Procedure Findings Check Surgery Details section. Procedure Specimens Taken Check Surgery Details section.
--- OUTSIDE RECORDS SUMMARY | 2024-02-05 18:22 | XMS_ITS | Referral Summary ---
Author Organization [facility] Address [address] [place] [address] Care Team Providers Care Administrative Office Manager Name Role Phone Unavailable Primary Care Provider Unavailabl e Source Comments Patient records contain information from all sites at [facility]. For routine questions regarding patient records, call [phone] during business hours, M-F 8:00 AM - 5:00 PM Central Time. Record requests for emergency care only can be directed to [phone] at any time.[facility] Encounters Date Type Department Care Team Description 12/29/2023 Refill Department of Cardiovascular Medicine in [place], [place] [address] [place] [address] Ange Parry, GRACIA, C.N.P., D.N.P. Med Refill from Last 3 Months Allergies Active Allergy Reactions Criticality Noted Date Comments Apple GI intolerance Low 12/23/2012 Raw apples cause excessive amount of intestinal gas. Cat Dander Other (see comments) Low 02/25/2018 Itching, postnasal drip House Dust Mite Other (see comments) Low 10/18/2013 Itching, postnasal drip, throat irritation Grass Pollen Other (see comments) Medium 10/18/2013 Itching, postnasal drip, throat irritation Latex Other (see comments) Low 08/19/2009 Unknown reaction Mold Other (see comments) Medium 02/25/2018 Throat irritation Pollen Extracts Other (see comments) Medium 10/18/2013 Throat irritation Sulfa (Sulfonamide Antibiotics) Hives (Reselect Reaction),Other (see comments) Medium 02/23/2011 Sleep pattern change Medications Medication Sig Dispensed Refills Start Date End Date Status chlorpheniramine (CHLOR-TRIMETON) 4 mg tablet Take 1 tablet by mouth daily as needed. Rhinitis 09/27/2016 Active fluticasone propionate (FLOVENT HFA) 110 mcg/actuation inhaler Inhale 1-2 puffs at bedtime. 2 puffs twice daily; during summer months only 1 puff twice daily 09/12/2016 Active triamcinolone (NASACORT) 55 mcg/actuation nasal spray Administer 1-2 sprays into each nostril daily. Active vit C/E/Zn/coppr/lutein /zeaxan (PRESERVISION AREDS-2 ORAL) Take 2 tablets by mouth daily. Active amLODIPine (NORVASC) 5 mg tablet Take 5 mg by mouth daily. 01/19/2022 Active apixaban (ELIQUIS) 5 mg tablet Take 5 mg by mouth 2 (two) times a day. 01/19/2022 Active inhaler,assist device,accesory (INHALER,ASSIST DEVICES,ACCESS MISC) Take 2 puffs by mouth every 12 (twelve) hours. 01/19/2022 Active furosemide (LASIX) 40 mg tablet Take 40 mg by mouth daily. 01/19/2022 Active losartan (COZAAR) 100 mg tablet Take 100 mg by mouth daily. 01/19/2022 Active rosuvastatin (CRESTOR) 10 mg tablet Take 10 mg by mouth at bedtime. 01/19/2022 Active zolpidem (AMBIEN) 5 mg tablet Take 5 mg by mouth at bedtime as needed. 01/19/2022 Active Microlet Lancet as needed. 01/31/2023 Active Contour Next EZ Meter misc FOR HOME USE DIRECTED 01/26/2023 Active Contour Next Test Strips TEST NEEDED 01/31/2023 Active metoprolol succinate (TOPROL-XL) 25 mg 24 hr tablet TAKE ONE TABLET (25 MG) BY MOUTH DAILY. DO NOT CRUSH OR CHEW. 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 would like to receive here this visit.) SARS-COV-2 (COVID-19) - MODERNA(Discontinued) 12/20/2021(Deferred: Other - Pt. would like to receive this visit. Booster #2 (4th dose series)) Td Preservative Free (TENIVA C, DECAVAC) 10/12/2014 Tdap 10/12/2014 influenza high dose (65 year s or older) (PF) 04/29/2020,04/24/2019,04/25/2018,2016,05/23/2016 influenza vaccine quad (FLUZONE/FLUARIX) (6 months and older)(PF) 05/03/2020,03/25/2019,05/06/2018,2012 Social History Tobacco Use Types Packs/Day Years Used Date Smoking Tobacco: Never Smokeless Tobacco: Never Tobacco Cessation:Counseling Given: Not Answered Alcohol Use Standard Drinks/Week [...] 12/20/2021 How often do you attend chur or roman catholic services? More than 4 times per year 12/20/2021 Do you belong to any clubs o r organizations such as baptism groups, unions, fraternal or athletic groups, or [...] Answer Date Recorded PHQ-2 Score 0 12/20/2021 [facility] of Occupat ional Health - Occupational Stress [...] your living situation today? I have a [facility] place to live 04/08/2023 Education Answer Date Recorded What is the highest level of school you have completed or the highest degree you have received? Doctorate 12/20/2021 Sex and Gender Information Value Date Recorded Sex Assigned at Male 02/28/2018 2:32 PM CDT Gender Identity Male 02/28/2018 2:32 PM CDT Sexual Orientation Straight 02/28/2018 2: 32 PM CDT Last Filed Vital Signs Vital Sign Reading Time Taken Comments Blood Pressure 125/84 04/11/2023 9:14 AM CDT Pulse 102 04/11/2023 9:14 AM CDT Temperature 36.5 ??C (97.7 ??F) 01/10/2022 11:03 AM C DT Respiratory Rate 11 12/23/2021 4:54 PM CDT Oxygen Saturation 97% 12/23/2021 4:54 PM CDT Inhaled Oxygen Concentration - - Weight 90 kg (198 lb 6.6 oz) 01/10/2022 11:03 AM CDT Height 172 cm (5' 7.72) 12/20/2021 10:10 AM CDT Body Mass Index 30.42 12/20/2021 10:10 AM CDT Plan of Treatment Not on file Medical Devices Implanted Type Area Brim Stretching Machine Operator Device Identifier Shelf Expiration Date Model / Serial / Lot Band-Annulopla sty Flex-25mm - Valenz[place]a [id number] Implanted:Qty: 1 on 08/15/2006 Cardiac Valve Prosthesis Other/Legacy - See Implant Description Medtronic Description:Device Manufactu rer - OneShift. Body Location - Other. Mitral. Device Status Text - [id number]. Hardware E.G. Pins/Screws/Ro ds Hardware e.g. pins/screws/ rods Mouth [place] Lee Fuzzy 1 X 1 - Valenzuela [id number] Implanted:Qty: 1 on 08/15/2006 Mesh or Patch LS9 Description:Device Manufactu rer EndPlay. Device Status Text - [id number]. [facility] Data - [id number]. Mesh Prolene 3 X 6 Pmii - Valenzuela [id number] Implanted:Qty: 1 on 06/04/2007 Mesh or Patch Ethicon Description:Device Manufactu rer - Ethicon. Device Status Text - [id number]. Mesh Prolene 3 X 6 Pmii - Valenzuela [id number] Implanted:Qty: 2 on 03/25/2008 Mesh or Patch Ethicon Description:Device Manufactu rer - Ethicon. Device Status Text - [id number]. 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 Cerebrovascular Accident Hyperlipidemia Mixed COLONOSCOPY Routine 12/23/2021 3:53 PM CDT Polyp Colon Personal History *CT COLONOGRAPHY Routine 09/12/2001 8:48 AM WHARF HELPER from Last 3 Months or Most Recently Relevant to Health Maintenance Results * (ABNORMAL) Comprehensive Metabolic Panel (04/10/2023 10:45 AM CDT) Pathologist [facility] Potassium, S 3.9 3.6 - 5.2 mmol/L 04/10/2023 11:45 AM CDT DTL Sodium, S 144 135 - 145 mmol/L 04/10/2023 11:45 AM CDT DTL Chloride, S 106 98 - 107 mmol/L 04/10/2023 11:45 AM CDT DTL Bicarbonate, S 28 22 - 29 mmol/L 04/10/2023 11:45 AM CDT DTL Anion Gap 10 7 - 15 04/10/2023 11:45 AM CDT DTL BUN (Blood Urea Nitrogen), S 26(H) 8 - 24 mg/dL 04/10/2023 11:45 AM CDT DTL Creatinine 1.37(H) 0.74 - 1.35 mg/dL 04/10/2023 11:45 AM CDT DTL Estimated GFR (eGFR) 50(L) >=60 mL/min/BS A 04/10/2023 11:45 AM CDT DTL Comment: Estimated GFR calculated using the 2020 CKD_EPI creatinine equation. Calcium, Total, S 8.9 8.8 - 10.2 mg/dL 04/10/2023 11:45 AM CDT DTL Glucose, S 137 70 - 140 mg/dL 04/10/2023 11:45 AM CDT DTL Protein, Total, S 6.3 6.3 - 7.9 g/dL 04/10/2023 11:45 AM CDT DTL Albumin, S 4.0 3.5 - 5.0 g/dL 04/10/2023 11:45 AM CDT DTL Aspartate Aminotransferase (AST), S 17 8 - 48 U/L 04/10/2023 11:45 AM CDT DTL Alkaline Phosphatase, S 86 40 - 129 U/L 04/10/2023 11:45 AM CDT DTL Alanine Aminotransferase (ALT), S 19 7 - 55 U/L 04/10/2023 11:45 AM CDT DTL Bilirubin, Total, S 1.0 <=1.2 mg/dL 04/10/2023 11:45 AM CDT DTL Blood (Blood, Venous) 04/10/2023 10:45 AM CDT 04/10/2023 11:28 AM CDT Zoran Nuñez M.D. LAB BLOOD ADD-ON [facility] [address] [place] [address], [place] [facility] [address] [place] [address] * CT Colonography (09/12/2001 8:48 AM WHARF HELPER) Anatomical Region Laterality Modality Computed Tomogra phy 09/12/2001 8:48 AM WHARF HELPER Narrative 09/12/2001 12:16 PM WHARF HELPER 12-Sep-2001 08:48:00 ??Exam: *CT Colonography Indications: COLONOGRAPHY - IRB #[id number]^*RESEARCH* ORIGINAL REPORT - 12-Sep-2001 12:16:00 ([id number]) ?? CT scan of the abdomen and pelvis according to colonography protocol for research purposes. Extracolonic findings include indeterminate low-attenuation areas within both kidneys. Ultrasound is recommended for further characterization. Tiny calculus in the right mid kidney collecting system. Cholecystectomy. Right inguinal hernia. ?? ([id number]) Ind: 750.320 ?? Dia.450 ?? Electronically signed by: ?? Ernesto Marie M.D. [id number] 12-Sep-2001 12:16 Procedure Note Ernesto Marie M.D. - 10/26/2017 12-Sep-2001 08:48:00 Exam: *CT Colonography Indications: COLONOGRAPHY - IRB #[id number]^*RESEARCH* ORIGINAL REPORT - 12-Sep-2001 12:16:00 ([id number]) CT scan of the abdomen and pelvis according to colonographyprotocol for research purposes. Extracolonic findings includeindeterminate low-attenuation areas within both kidneys. Ultrasound isrecommended for further characterization. Tiny calculus in the right midkidney collecting system. Cholecystectomy. Right inguinal hernia. ([id number]) Ind: 750.320 Dia.450 Electronically signed by: Ernesto Marie M.D. [id number] 12-Sep-2001 12:[address] PROCEDURES from Last 3 Months or Most Recently Relevant to Health Maintenance Advance Directives For more information, please contact: [phone] Documents on File Type Date Recorded Patient Elementary School Director Expl anation Advance Directives 08/22/2006 12:00 AM Leg acy document. See document viewer.
--- OUTSIDE RECORDS SUMMARY | 2024-02-05 18:22 | XMS_ITS | Clinical Summary ---
Author Organization [facility] Address [address] [place] [address] Care Team Providers Care Power Switchboard Operator Name Role Phone Unavailable Primary Care Provider Unavailabl e Source Comments Patient records contain information from all sites at [facility]. For routine questions regarding patient records, call [phone] during business hours, M-F 8:00 AM - 5:00 PM Central Time. 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 Med Refill from Last 3 Months Immunizations Name Administration [...] How often do you attend chur or buddhist services? More than 4 times per year 12/20/2021 Do you belong to any clubs o r organizations such as rastafari groups, unions, fraternal or athletic groups, or [...] Answer Date Recorded PHQ-2 Score 0 12/20/2021 [facility] [place] of Occupat ional Health - Occupational Stress [...] Health Maintenance Due Date Last Done Comments Depression Screening (Annual PHQ-2) 07/23/2023 Fall Risk Screen (Annual) 07/23/2023 COVID-19 Vaccine (2022- 4 season) 2023 05/07/2023, 01/25/2023, 07/11/2022, Additional history exists Creatinine Level (Kidney Fun ction Test) 04/10/2024 04/10/2023, 01/10/2022, 04/15/2018, Additional history exists Potassium Level 04/10/2024 04/10/2023, 12/22, 04/15/2018, Additional history exists Sodium Level 04/10/2024 04/10/2023, 12/22, 04/15/2018, Additional history exists Influenza Vaccine (#1) 2024 , 05/09/2021, 05/03/2020, Additional history exists DTaP,Tdap,and Td Vaccines (3 - Td or Tdap) 10/12/2024 10/12/2014, 10/12/2014 CT Colonography Discontinued 09/12/2001 Pneumococcal vaccine (65+ years) Completed 06/28/2017, 09/30/2016, 10/12/2014 Colonoscopy Discontinued 12/23/2021, 0609/2021, 06/10/2015, Additional history exists Colorectal Cancer Surveillance Discontinued Zoster Vaccines Completed 06/12/2022, 12/22, 12/20/2021, Additional history exists Cologuard Discontinued Medical Devices Implanted Type Area Cloth Opener Hand Device Identifier Shelf Expiration Date Model / Serial / Lot Band-Annulopla sty Flex-25mm - Valenzuela [id number] Implanted:Qty: 1 on 08/15/2006 Cardiac Valve Prosthesis Other/Legacy - See Implant Description Medtronic Description:Device Manufactu rer - [employer]. Body Location - Other. Mitral. Device Status Text - [id number]. Hardware E.G. Pins/Screws/Ro ds Hardware e.g. pins/screws/ rods Mouth Bradley Lee Fuzzy 1 X 1 - Valenzuela [id number] Implanted:Qty: 1 on 08/15/2006 Mesh or Patch Relationship Analytics Description:Device Manufactu rer ChargePoint [employer]. Device Status Text - [id number]. [facility] Data - [id number]. Mesh Prolene 3 X 6 Pmii - [...] History *CT COLONOGRAPHY Routine 09/12/2001 8:48 AM CLINICAL APPLICATION MANAGER from Last 3 Months or Most Recently Relevant to Health Maintenance Results * (ABNORMAL) Comprehensive Metabolic Panel (04/10/2023 10:45 AM CDT) Potassium, S 3.9 3.6 - 5.2 mmol/L [...] CDT Zoran Nuñez M.D. LAB BLOOD ADD-ON [facility] [address] [place] [address], [facility]TL [facility] [address] [place] [address] * CT Colonography (09/12/2001 8:48 AM CLINICAL APPLICATION MANAGER) Anatomical Region Laterality Modality Computed Tomogra phy 09/12/2001 8:48 AM CLINICAL APPLICATION MANAGER Narrative 09/12/2001 12:16 PM CLINICAL APPLICATION MANAGER 12-Sep-2001 08:48:00 ??Exam: *CT Colonography Indications: COLONOGRAPHY - IRB #[id number]^*RESEARCH* ORIGINAL REPORT - 12-Sep-2001 12:16:00 ([id number]) ?? CT scan of the abdomen and pelvis according to colonography protocol for research purposes. Extracolonic findings include indeterminate low-attenuation areas within both kidneys. Ultrasound is recommended for further characterization. Tiny calculus in the right mid kidney collecting system. Cholecystectomy. Right inguinal hernia. ?? ([id number]) Ind: 750.320 ?? Dia.450 ?? Electronically signed by: ?? Ernesto Marie M.D. [id number] 12-Sep-2001 12:16 Procedure Note Ernesto Marie M.D. - 10/26/2017 12-Sep-2001 08:48:00 Exam: *CT Colonography Indications: COLONOGRAPHY - IRB #[id number]^*RESEARCH* ORIGINAL REPORT - 12-Sep-2001 12:16:00 ([id number]) CT scan of the abdomen and pelvis according to colonographyprotocol for research purposes. Extracolonic findings includeindeterminate low-attenuation areas within both kidneys. Ultrasound isrecommended for further characterization. Tiny calculus in the right midkidney collecting system. Cholecystectomy. Right inguinal hernia. ([id number]) Ind: 750.320 Dia.450 Electronically signed by: Ernesto Marie M.D. [id number] 12-Sep-2001 12:16 Lupillo Cai M.D. IMAnahi CT PROCEDURES from Last 3 Months or Most Recently Relevant to Health Maintenance Advance Directives For more information, please contact: [phone] Documents on File Type Date Recorded Patient Sectional Belt Mold Assembler Expl anation Advance Directives 08/22/2006 12:00 AM Leg acy document. See document viewer.
== END 2024-02-04 10:27 | disposition home or self-care (01) ==
LOC: NFLDREF 02-05 18:17
PROVIDERS: PCP Internal Medicine; Referring Provider Internal Medicine; Visit Provider Internal Medicine
DX: E11.9 Type 2 diabetes mellitus without complications (principal); I10 Essential (primary) hypertension; E78.5 Hyperlipidemia, unspecified; R54 Age-related physical debility; R29.898 Other symptoms and signs involving the musculoskeletal system; I48.91 Unspecified atrial fibrillation; Z85.828 Personal history of other malignant neoplasm of skin
CPT/HCPCS: 80053; 80061; 82043; 82570

== ENCOUNTER 2024-02-18 03:18 | Outpatient (CLI) | payer MEDICARE, BC, SELFPAY ==
--- OUTSIDE RECORDS SUMMARY | 2024-02-20 02:03 | XMS_ITS | Clinical Summary ---
Author Organization [facility] Address [address] [place] [address] Care Team Providers Care Reimbursement Consultant Name Role Phone Unavailable Primary Care Provider Unavailabl e Source Comments Patient records contain information from all sites at [facility]. For routine questions regarding patient records, call [phone] during business hours, M-F 8:00 AM - 5:00 PM Central Time. Record requests for emergency care only can be directed to [phone] at any time.[facility] Allergies Active Allergy Reactions Criticality Noted Date [...] Date Repair Mitral Valve Status Post 04/11/2023 [facility] (Current) Anticoagulant Treatment 03/24 Obstructive Sleep Apnea Adult 04/11/2023 Tachycardia Atrial Paroxysmal 04/11/2023 Gait Disorder From Stroke Cerebrovascular Accide nt 04/11/2023 Abnormal Oximetry 05/14/2018 Atrial Fibrillation Paroxysmal 05/14/2018 Stroke 11/29/2016 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 Cerebrovascular Accident 08/24 Asthma NOS 10/01/2015 Bronchitis Chronic 08/19/2009 Hypertension 03/19/2003 Encounters Date Type Department Care Team Description 12/29/2023 Refill Department of Cardiovascular Medicine in [place], [place] [address] [place] [address] Ange Parry APRN, C.N.P., D.N.P. Med Refill [...] How often do you attend chur or episcopalian services? More than 4 times per year 12/20/2021 Do you belong to any clubs o r organizations such as rastafarian groups, unions, fraternal or athletic groups, or [...] Answer Date Recorded PHQ-2 Score 0 12/20/2021 [facility] of Occupat ional Health - Occupational Stress [...] your living situation today? I [facility] a [facility] place to live 04/08/2023 Education Answer [...] Cologuard Discontinued Medical Devices Implanted Type Area Entry Specialist Device Identifier Shelf Expiration Date Model / Serial / Lot Band-Annulopla sty Flex-25mm - Valenzuela [id number] Implanted:Qty: 1 on 08/15/2006 Cardiac Valve Prosthesis Other/Legacy - See Implant Description Medtronic Description:Device Manufactu rer - Customized [employer] Body Location - Other. Mitral. Device Status Text - [id number]. Hardware E.G. Pins/Screws/Ro ds Hardware e.g. pins/screws/ rods Mouth [place] Lee Fuzzy 1 X 1 - Valenzuela [id number] Implanted:Qty: 1 on 08/15/2006 Mesh or Patch [employer] Description:Device Manufactu rer MugenUp. Device Status Text - [id number]. [facility] Data - [id number]. Mesh Prolene 3 X 6 Pmii - [...] History *CT COLONOGRAPHY Routine 09/12/2001 8:48 AM CAUSTIC MIXER from Last 3 Months or Most Recently [...] CDT Zoran Nuñez M.D. LAB BLOOD ADD-ON [facility] [address] [place] [address], [facility] DTL [facility] [address] [place] [address] * CT Colonography (09/12/2001 8:48 AM CAUSTIC MIXER) Anatomical Region Laterality Modality Computed Tomogra phy 09/12/2001 8:48 AM CAUSTIC MIXER Narrative 09/12/2001 12:16 PM CAUSTIC MIXER 12-Sep-2001 08:48:00 ??Exam: *CT Colonography Indications: COLONOGRAPHY - IRB #[id number]^*RESEARCH* ORIGINAL REPORT - 12-Sep-2001 12:16:00 ([id number]) ?? CT scan of the abdomen and pelvis according to colonography protocol for research purposes. Extracolonic findings include indeterminate low-attenuation areas within both kidneys. Ultrasound is recommended for further characterization. Tiny calculus in the right mid kidney collecting system. Cholecystectomy. Right inguinal hernia. ?? ([id number]) Ind: 750.320 ?? Dia.450 ?? Electronically signed [...] midkidney collecting system. Cholecystectomy. Right inguinal hernia. ([id number]) Ind: 750.320 Dia.450 Electronically signed by: Ernesto Marie M.D. [id number] 12-Sep-2001 12:16 Lupillo Cai [address] IM[address] PROCEDURES from Last 3 Months or Most Recently Relevant to Health Maintenance Advance Directives For more information, please contact: [phone] Documents on File Type Date Recorded Patient Vibrating Screen Operator Expl anation Advance Directives 08/22/2006 12:00 AM Leg acy document. See document viewer.
--- OUTSIDE RECORDS SUMMARY | 2024-02-20 02:03 | XMS_ITS ---
Author Organization [facility] Address [address] [place] [address] Care Team Providers Care Salesperson Men'S Hats Name Role Phone Unavailable Unavailable Unavailable Surgery Details Not on file Complications Check Surgery Details section. Procedure Estimated Blood Loss Check Surgery Details section. Procedure Findings Check Surgery Details section. Procedure Specimens Taken Check Surgery Details section.
--- OUTSIDE RECORDS SUMMARY | 2024-02-20 02:03 | XMS_ITS | Clinical Summary ---
Author Organization [facility] Address [place], [place] [address] Care Team Providers Care Birthing Nurse Name Role Phone Garima Jorgensen AuD Unavailable [phone] Maria Esther Mendoza MD Primary Care Provider [phone] Allergies No known active allergies Medications Medication [...] hypercholesterolemia 10/17/2006 Sensorineural hearing loss, bilateral 10/16/2006 Encounters Date Type Department Care Team Description 02/18/2024 4:00 PM CDT Ancillary Procedure [facility] & [address] [address] Arrived from Last 3 Months Family History Medical History Relation Name Comments [...] CDT Oxygen Saturation 98% 08/28/2017 1:00 PM ECOLOGY TEACHER Inhaled Oxygen Concentration - - Weight 87.1 kg (192 lb) 04/16/2020 2:43 PM CDT Height 172.7 cm (5' 8) 08/28/2017 10:57 AM ECOLOGY TEACHER Body Mass Index 29.19 08/28/2017 10:57 AM ECOLOGY TEACHER Plan of Treatment Health Maintenance Due Date [...] Completed 11/20/19, 05/07/2023, 01/25/2023, Additional history exists Procedures Procedure Name Priority Date/Time Associated Diagnosis Comments ECHO TTE COMPLETE WO CONTRAST Routine 02/18/2024 3:00 PM CDT Weakness Tachycardia from Last 3 Months Results * ECHO TTE COMPLETE WO CONTRAST (02/18/2024 3:00 PM CDT) AORTIC VALVE MEAN PG 2 mmHg EJECTION FRACTION 58 % PEAK TR VELOCITY 2.9 m/s LVEDD 4.2 cm MITRAL VALVE MR ERO 3 mm2 EJECTION FRACTION 55 - 60% Anatomical Region Laterality Modality Ultrasound 02/18/2024 2:28 PM CDT Narrative 02/18/2024 3:52 PM CDT ECHOCARDIOGRAM GREGG VILLA ? Accession#: ?? [id number] : ?1935 88 years Study Date: ?? 02/18/2024 2:28:45 PM Gender: M ?BP: ? 120/72 mmHg Height: 173.00 cm ?BSA: ?2.02 m? ? ? Weight: 88.00 kg ? Tech: ? MJW ? Referring MD: ZINA ELKINS Site: ? [facility] Reading Location: [facility] Patient Location: Inpatient. Procedure: 2D, Color Doppler and Spectral Doppler. Indication for study: Weakness Tachycardia Cardiac Rhythm: Irregular.Study quality: Good. Final Impressions: 1. Normal LV size, mildly increased wall thickness, normal global systolic function with an estimated EF of 55 - 60%. 2. Right ventricular cavity size is normal, global systolic RV function is normal. 3. Severe bi atrial enlargement. 4. 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 Mean gradient 2 mmHg at HR 100 BPM. 5. 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 Comparison Compared to prior exam of 08/28/2017: LVEF has normalized. Mitral regurgitation only appears mild. Chamber Sizes and Function Normal left ventricular size, mildly increased wall thickness, normal global systolic function with an estimated EF of 55 - 60%. Mild concentric left ventricular hypertrophy. Left atrial size is severely enlarged. Right ventricular cavity size is normal, global systolic RV function is normal. RV wall thickness is normal. The right atrium is severely enlarged. Right atrial volume index is 50 ml/m? ? ?. Right atrial area is 29 cm? ? ?. The pulmonary artery is of normal size and origin. The sinus of Valsalva is normal sized. The ascending aorta is dilated. Valves, RV Pressures and Diastolic Function The aortic valve is trileaflet, no stenosis and trivial regurgitation. 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 Indeterminate pattern of LV diastolic filling. The tricuspid valve is normal in structure. Tricuspid regurgitation is mild regurgitation. The tricuspid regurgitant velocity is 2.9 m/s, the estimated right ventricular systolic pressure is 33 mmHg plus right atrial pressure. There is normal estimated pulmonary pressure by tricuspid regurgitation velocity and right atrial pressure. The pulmonic valve is not well visualized. Trace pulmonary regurgitation. Masses, Effusion, Shunts There is no pericardial effusion. The inferior vena cava is normal sized, respiratory size variation greater than 50%. Interatrial septum is not well visualized. MEASUREMENTS AND CALCULATIONS 2-D Measurements and LV Function: LVID (d) 4.2 cm LV FS% (2D) ?? 25 % LVID (s) 3.1 cm LVOT diameter 2.7 cm IVS (d) ??1.4 cm HR ?105 bpm LVPW (d) 1.2 cm LA Vol index ??70 ml/m2 Ao Sinus 3.9 cm RA Vol index ??50 ml/m2 Asc Ao ?? 3.8 cm RA area ? 29 cm? ? ? LA ? 5.0 cm RV Max 4C (d) 3.7 cm Diastology: Mitral E Peak 1.4 m/s DT ? 169 msec Aortic Valve: Vmax ? 1.0 m/s ??ALLEY (V) ?? 3.75 cm? ? ? VTI ?0.14 m ?? ALLEY (I) ?? 4.15 cm? ? ? LVOT V max ? 0.7 m/s ??Max PG ?4 mmHg LVOT VTI ? 0.11 m ?? Mean PG ?? 2 mmHg SV ? 60 ml ?Dim Index 0.74 SV index ? 30 ml/m? ? ? CO ?6.3 l/min AV Ejection Time 0.19 sec CI ?3.1 l/min/m? ? ? AV Flow Rate ? 317 ml/s Mitral Valve: MVA ? 4.5 cm? ? ? MR ERO ??0.03 cm? ? ? MV P 1/2 ??49 msec MR Vol. 3 ml MV Mean G 3 mmHg ??MR TVI ??0.89 m MV VTI ?0.17 m Tricuspid Valve and estimated PA pressures: TR Vmax 2.9 m/s TAPSE 1.3 cm TR maxG 33 mmHg . This study was interpreted by an [facility] accredited facility. CC: Med/Surg - IP [facility], HIM (med records) [facility]. ??Final ?? Procedure Note Elmer Todd MD - 02/18/2024 ECHOCARDIOGRAM GREGG VILLA : 1935 88 years Study Date: 02/18/2024 2:28:45 PM Gender: M BP: 120/72 mmHg Height: 173.00 cm BSA: 2.02 m? ? ? Weight: 88.00 kg Tech: ELICEO Referring MD: ZINA ELKINS Site: [facility] Reading Location: [facility] Patient Location: Inpatient. Procedure: 2D, Color Doppler and Spectral Doppler. Indication for study: Weakness Tachycardia Cardiac Rhythm: Irregular.Study quality: Good. Final Impressions: 1. Normal LV size, mildly increased wall thickness, normal globalsystolic function with an estimated EF of 55 - 60%. 2. Right ventricular cavity size is normal, global systolic RV functionis normal. 3. Severe bi atrial enlargement. 4. The mitral valve is repaired with an annuloplasty ring, mild mitralregurgitation. Mean gradient 2 mmHg at HR 100 BPM. 5. 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 Comparison Compared to prior exam of 08/28/2017: LVEF has normalized. Mitralregurgitation only appears mild. Chamber Sizes and Function Normal left ventricular size, mildly increased wall thickness, normalglobal systolic function with an estimated EF of 55 - 60%. Mild concentricleft ventricular hypertrophy. Left atrial size is severely enlarged. Rightventricular cavity size is normal, global systolic RV function is normal.RV wall thickness is normal. The right atrium is severely enlarged. Rightatrial volume index is 50 ml/m? ? ?. Right atrial area is 29 cm? ? ?. Thepulmonary artery is of normal size and origin. The sinus of Valsalva isnormal sized. The ascending aorta is dilated. Valves, RV Pressures and Diastolic Function The aortic valve is trileaflet, no stenosis and trivial regurgitation. Themitral valve is repaired with an annuloplasty ring, mild mitralregurgitation. Indeterminate pattern of LV diastolic filling. Thetricuspid valve is normal in structure. Tricuspid regurgitation is mildregurgitation. The tricuspid regurgitant velocity is 2.9 m/s, theestimated right ventricular systolic pressure is 33 mmHg plus right atrialpressure. There is normal estimated pulmonary pressure by tricuspidregurgitation velocity and right atrial pressure. The pulmonic valve isnot well visualized. Trace pulmonary regurgitation. Masses, Effusion, Shunts There is no pericardial effusion. The inferior vena cava is normal sized,respiratory size variation greater than 50%. Interatrial septum is notwell visualized. MEASUREMENTS AND CALCULATIONS 2-D Measurements and LV Function: LVID (d) 4.2 cm LV FS% (2D) 25 % LVID (s) 3.1 cm LVOT diameter 2.7 cm IVS (d) 1.4 cm HR 105 bpm LVPW (d) 1.2 cm LA Vol index 70 ml/m2 Ao Sinus 3.9 cm RA Vol index 50 ml/m2 Asc Ao 3.8 cm RA area 29 cm? ? ? LA 5.0 cm RV Max 4C (d) 3.7 cm Diastology: Mitral E Peak 1.4 m/s DT 169 msec Aortic Valve: Vmax 1.0 m/s ALLEY (V) 3.75 cm? ? ? VTI 0.14 m ALLEY (I) 4.15 cm? ? ? LVOT V max 0.7 m/s Max PG 4 mmHg LVOT VTI 0.11 m Mean PG 2 mmHg SV 60 ml Dim Index 0.74 SV index 30 ml/m? ? ? CO 6.3 l/min AV Ejection Time 0.19 sec CI 3.1 l/min/m? ? ? AV Flow Rate 317 ml/s Mitral Valve: MVA 4.5 cm? ? ? MR ERO 0.03 cm? ? ? MV P 1/2 49 msec MR Vol. 3 ml MV Mean G 3 mmHg MR TVI 0.89 m MV VTI 0.17 m Tricuspid Valve and estimated PA pressures: TR Vmax 2.9 m/s TAPSE 1.3 cm TR maxG 33 mmHg . This study was interpreted by an [facility] accredited facility. CC: Med/Surg - IP [facility], HIM (med records) [facility]. Final Zina Elkins MD ECHO ORD from Last 3 Months Care Teams Birthing Nurse Relationship Specialty Start Date End Date Maria Esther Mendoza MD [address] [place] [address] PCP - General Internal Medicine 08/21/17 Garima Jorgensen AuD Audiology 12/14/05
--- OUTSIDE RECORDS SUMMARY | 2024-02-20 02:03 | XMS_ITS | Encounter Summary ---
Author Organization [facility] Address [address] [place] [address] Care Team Providers Care Counselor Manager Name Role Phone Unavailable Primary Care Provider Unavailabl e Reason for Referral * Outpatient (Routine) - Authorized Specialty Diagnoses / Procedures Referred By Contac t Referred To Contact Cardiovascular Disease Ange Parry APRN, C.N.PHorace, D.N.P. [address] [place] [phone] [facility] Referral ID Status Reason Start Date Expiration Date V isits Requested Visits Authorized [id number] Authorized 01/01/2024 07/02/2025 1 1 Scheduling Instructions Self or any provider if I have no availability. To review Holter results * Outpatient (Routine) - Authorized Specialty Diagnoses / Procedures Referred By Contac t Referred To Contact Diagnoses Atrial Fibrillation Paroxysmal (HCC) [facility] (Current) Anticoagulant Treatment Procedures ECG Heart Rhythm Monitor (Holter) Ange Parry APRN, C.N.P., D.N.P. [address] [place] [phone] [facility] Referral ID Status Reason Start Date Expiration Date V isits Requested Visits Authorized [id number] Authorized 01/01/2024 12/31/2024 1 1 Reason for Visit * Reason Comments Med Refill Encounter Details Date Type Department Care Team (Late st Contact Info) Description 12/29/2023 Refill Department of Cardiovascular Medicine in [place], [place] [address] [place] [address] Ange Parry APRN, C.N.P., D.N.P. [address] [place] [phone] Med Refill Social History Tobacco Use Types [...] often do you attend chur ch or faith services? More than 4 times per year 12/20/2021 Do you belong to any clubs o r organizations such as spiritism groups, unions, fraternal or athletic groups, or [...] Answer Date Recorded PHQ-2 Score 0 12/20/2021 [facility] of Occupat ional Health - Occupational Stress [...] Cardiac Services Routine Atrial Fibrillation Paroxysmal (HCC) [facility] Management Intern (Current) Anticoagulant Treatment Expected: 01/01/2024, Expires: 04/02/2025 Scheduled Referrals Name Type Priority Associated Diagnoses Order Schedule Cardiovascular Disease office visit (clinic) Outpatient Referral Routine Expect ed: 01/01/2024, Expires: 04/02/2025 documented as of this encounter Visit Diagnoses Diagnosis Atrial Fibrillation Paroxysmal (HCC)- Primary [facility] (Current) Anticoagulant Treatment documented in this encounter Additional Health Concerns Assessment Noted Time PHQ-9 Depression Total Score: 0 09/13/19 17 5:57 AM INSTRUCTIONAL DEVELOPER documented as of this encounter
--- OUTSIDE RECORDS SUMMARY | 2024-02-20 02:03 | XMS_ITS | Referral Summary ---
Author Organization [facility] Address [address] [place] [address] Care Team Providers Care Agitator Operator Name Role Phone Unavailable Primary Care Provider Unavailabl e Source Comments Patient records contain information from all sites at [facility]. For routine questions regarding patient records, call [phone] during business hours, M-F 8:00 AM - 5:00 PM Central Time. Record requests for emergency care only can be directed to [phone] at any time.[facility] Encounters Date Type Department Care Team Description 12/29/2023 Refill Department of Cardiovascular Medicine in [place], [place] [address] [place] [address] Ange Parry, GRACIA, C.N.P., D.N.P. Med Refill [...] Date Repair Mitral Valve Status Post 04/11/2023 [facility] (Current) Anticoagulant Treatment 03/24 Obstructive Sleep Apnea [...] How often do you attend chur or synagogue services? More than 4 times per year 12/20/2021 Do you belong to any clubs o r organizations such as religious groups, unions, fraternal or athletic groups, or [...] Answer Date Recorded PHQ-2 Score 0 12/20/2021 [facility] of Occupat ional Health - Occupational Stress [...] your living situation today? I have a [facility] place to live 04/08/2023 Education Answer [...] on file Medical Devices Implanted Type Area Transition Nurse Device Identifier Shelf Expiration Date Model / Serial / Lot Band-Annulopla sty Flex-25mm - Valenzuela [id number] Implanted:Qty: 1 on 08/15/2006 Cardiac Valve Prosthesis Other/Legacy - See Implant Description Medtronic Description:Device Manufactu rer - [employer]. Body Location - Other. Mitral. Device Status Text - [id number]. Hardware E.G. Pins/Screws/Ro ds Hardware e.g. pins/screws/ rods Mouth [place] Lee Fuzzy 1 X 1 - Valenzuela [id number] Implanted:Qty: 1 on 08/15/2006 Mesh or Patch [employer] Description:Device Manufactu rer [employer]. Device Status Text - [id number]. [facility] Data - [id number]. Mesh Prolene 3 X 6 Pmii - [...] History *CT COLONOGRAPHY Routine 09/12/2001 8:48 AM STUD DRIVER from Last 3 Months or Most Recently Relevant to Health Maintenance Results * (ABNORMAL) Comprehensive Metabolic Panel (04/10/2023 10:45 AM CDT) Pathologist [facility] Potassium, S 3.9 3.6 - 5.2 mmol/L [...] CDT Zoran Nuñez M.D. LAB BLOOD ADD-ON [facility] [address] [place] [address], [place] DTL [facility] [address] [place] [address] * CT Colonography (09/12/2001 8:48 AM STUD DRIVER) Anatomical Region Laterality Modality Computed Tomogra phy 09/12/2001 8:48 AM STUD DRIVER Narrative 09/12/2001 12:16 PM STUD DRIVER 12-Sep-2001 08:48:00 ??Exam: *CT Colonography Indications: COLONOGRAPHY - IRB #[id number]^*RESEARCH* ORIGINAL REPORT - 12-Sep-2001 12:16:00 ([id number]) ?? CT scan of the abdomen and pelvis according to colonography protocol for research purposes. Extracolonic findings include indeterminate low-attenuation areas within both kidneys. Ultrasound is recommended for further characterization. Tiny calculus in the right mid kidney collecting system. Cholecystectomy. Right inguinal hernia. ?? ([id number]) Ind: 750.320 ?? Dia.450 ?? Electronically signed by: ?? Ernesto Marie M.D. [id number] 12-Sep-2001 12:16 Procedure Note Ernesto Marie M.D. - 10/26/2017 12-Sep-2001 08:48:00 Exam: *CT Colonography Indications: COLONOGRAPHY - IRB #[id number]^*RESEARCH* ORIGINAL REPORT - 12-Sep-2001 12:16:00 ([id number]) CT scan of the abdomen and pelvis according to colonographyprotocol for research purposes. Extracolonic findings includeindeterminate low-attenuation areas within both kidneys. Ultrasound isrecommended for further characterization. Tiny calculus in the right midkidney collecting system. Cholecystectomy. Right inguinal hernia. ([id number]) Ind: 750.320 Dia.450 Electronically signed by: Ernesto Marie M.D. [id number] 12-Sep-2001 12:[address] PROCEDURES from Last 3 Months or Most Recently Relevant to Health Maintenance Advance Directives For more information, please contact: [phone] Documents on File Type Date Recorded Patient Meat Boner And Slicer Expl anation Advance Directives 08/22/2006 12:00 AM Leg acy document. See document viewer.
== END 2024-02-18 03:19 | disposition home or self-care (01) ==
LOC: AMB 02-20 02:01
PROVIDERS: PCP Internal Medicine; Visit Provider Emergency Medicine
DX: R53.1 Weakness (principal); R11.10 Vomiting, unspecified
CPT/HCPCS: A0998

== ENCOUNTER 2024-02-18 07:03 | Outpatient (CLI) | payer MEDICARE, BC, SELFPAY | END 2024-02-18 07:04 | disposition home or self-care (01) | LOC: AMB 02-20 02:15 | PROVIDERS: PCP Internal Medicine; Visit Provider Emergency Medicine | DX: R53.1 Weakness (principal) | CPT/HCPCS: A0425; A0427; A0998 ==

== ENCOUNTER 2024-02-18 07:45 | Inpatient (IN) | payer MEDICARE, BC, SELFPAY ==
[2024-02-18] VITALS (20 sets, daily range): BP systolic 116–139; BP diastolic 72–93; PULSE 96–125; RESP 14–18; TEMP 36.4–37.1; O2SAT 89–96; BMI 29.3
--- NOTE | 2024-02-18 08:18 | ED.WEAKNESS ---
HPI - Weakness General Chief complaint: Weakness Stated complaint: possible UTI Time Seen by Provider: 02/18/24 07:48 History of Present Illness HPI Narrative: This 88-year-old male comes in reporting generalized weakness. He has had some increased frequency of urinating. He does have a remote history of a ischemic stroke and has some residual dysarthria and one-sided weakness. He typically is able to ambulate with the assistance of a walker. He states that he has been feeling worse over the past 2 or 3 days. He arrives here in atrial fibrillation with which is chronic. He is taking Eliquis. His heart rate is increased. He does have some difficulty speaking which is not new for him but it is noted that he does have a rather dry mouth and that also seems to affect his speech. Related Data Home Medications ?Medication ?Instructions ?Recorded ?Confirmed vit C 250 mg-vit E 90 mg-zinc 40 1 tab PO QAM AND QHS 01/15/23 02/18/24 mg-copper 1 [id number] capsule (PreserVision AREDS-2) chlorpheniramine maleate 4 mg 4 mg PO DAILY 02/12/23 02/18/24 tablet triamcinolone acetonide 55 mcg 1 spray intranasal DAILY 02/12/23 02/18/24 nasal spray aerosol amlodipine 5 mg tablet 5 mg PO DAILY 02/18/24 02/18/24 metoprolol succinate 25 mg 25 mg PO DAILY 02/18/24 02/18/24 tablet,extended release 24 hr Previous Rx's ?Medication ?Instructions ?Recorded acetaminophen 500 mg tablet 500 mg PO Q4H PRN Pain #60 tabs 04/06/22 blood sugar diagnostic (Accu-Chek #100 ea 01/31/23 Guide test strips) blood-glucose meter (Blood Glucose #1 ea 01/31/23 Monitoring kit) lancets (Accu-Chek Softclix #200 ea 01/31/23 Lancets) apixaban 5 mg tablet (Eliquis) 5 mg PO BID #180 tabs 02/12/23 furosemide 40 mg tablet 40 mg PO DAILY #90 tabs 02/12/23 losartan 100 mg tablet 100 mg PO DAILY #90 tabs 02/12/23 rosuvastatin 10 mg tablet 10 mg PO HS #90 tabs 02/12/23 fluticasone propionate 110 2 puff inhalation Q12H #12 grams 07/12/23 mcg/actuation HFA aerosol inhaler (Flovent HFA) zolpidem 5 mg tablet 5 - 10 mg (1 - 2 x 5 mg) PO HS PRN 10/02/23 insomnia #180 tabs Allergies Allergy/AdvReac Type Severity Reaction Status Date / Time Sulfa (Sulfonamide Allergy Intermediate Hives Verified 02/04/24 10:26 Antibiotics) latex Allergy Mild allergy Verified 02/04/24 10:26 test grass pollen AdvReac Intermediate Verified 02/04/24 10:26 mold AdvReac Intermediate Verified 02/04/24 10:26 pollen extracts AdvReac Intermediate Verified 02/04/24 10:26 apple AdvReac Mild Gastrointestinal Verified 02/04/24 10:26 Upset cat dander AdvReac Mild Verified 02/04/24 10:26 house dust mite AdvReac Mild Verified 02/04/24 10:26 Review of Systems Status of ROS: Reports: 10 or more systems reviewed and unremarkable except as noted in History and below Narrative: Constitutional: No fevers, no weight gain or loss. Eyes: No discharge. No vision changes. HENT: No congestion, no sore throat, no ear pain. Cardiovascular: No chest pain, no palpitations. Respiratory: No shortness of breath, no wheezes, no cough. Gastrointestinal: No abdominal pain, no vomiting, no diarrhea. Genitourinary: No hematuria. Increased urinary frequency. Musculoskeletal: Normal range of motion. Skin: No rashes, no pruritis. Neurological: Late affects of a ischemic stroke which have caused residual speech difficulty and one-sided weakness. Endo/Heme/Allergies: No bruising or bleeding. No polydipsia. Pysch: no suicidality, no anxiety, no insomnia. All other systems reviewed and are negative. [facility] Medical History (Updated 02/18/24 @ 11:24 by Kuldip Berry MD) History of chronic bronchitis ?Z87.09 - Personal history of other diseases of the respiratory system (ICD-10) Thyroid nodule ?E04.1 - Nontoxic single thyroid nodule (ICD-10) Surgical History History of cholecystectomy (1990) ?Z90.49 - Acquired absence of other specified parts of digestive tract (ICD-10) History of uvulopalatopharyngoplasty (2001) ?Z98.890 - Other specified postprocedural states (ICD-10) Hx of tonsillectomy (~1942) ?Z90.89 - Acquired absence of other organs (ICD-10) H/O arthroscopic knee surgery ?Z98.890 - Other specified postprocedural states (ICD-10) H/O bilateral cataract extraction ?Z98.41 - Cataract extraction status, right eye (ICD-10) ?Z98.42 - Cataract extraction status, left eye (ICD-10) S/P rotator cuff repair ?Z98.890 - Other specified postprocedural states (ICD-10) S/P mitral valve repair (2006) ?Z98.890 - Other specified postprocedural states (ICD-10) S/P Mohs surgery for basal cell carcinoma (2014) ?Z98.890 - Other specified postprocedural states (ICD-10) ?Z85.828 - Personal history of other malignant neoplasm of skin (ICD-10) Status post prostatectomy ?Z90.79 - Acquired absence of other genital organ(s) (ICD-10) S/P hernia surgery (2006) ?Z98.890 - Other specified postprocedural states (ICD-10) ?Z87.19 - Personal history of other diseases of the digestive system (ICD-10) Melanoma in situ (2019) ?D03.9 - Melanoma in situ, unspecified (ICD-10) Social History (Updated 02/04/24 @ 10:29 by Franchesca Farrell ~ [facility], [facility]) What is your current living situation?: I presently have a place to live Problems where you live: carbon monoxide detectors missing or not working and no known problems In the past 12 months, utilities in danger of being shut off: no In past 12 months, lack of transportation kept you from medical appts, meetings, work, or getting things needed for daily living: no In the past 12 mos, have been you worried that your food would run out before you had money to buy more?: never true In the past 12 mos, the food you bought just didn't last and you didn't have money to buy more?: never true Smoking Status: Never smoker How often do you have a drink containing alcohol: 2-4 times a month Alcohol type: wine Alcohol type details: occassional How many standard drinks containing alcohol do you have on a typical day: 1 or 2 How often do you have six or more drinks on one occasion: Never AUDIT-C Alcohol total score: 2 Non-prescribed substance use: denies use Caffeine: Yes (3 cups per day of tea) How often does anyone, including family, friends and others, physically hurt you: never How often does anyone, including family, friends and others, insult or talk down to you: rarely How often does anyone, including family, friends and others, threaten you with harm: never How often does anyone, including family, friends and others, scream or curse at you: never Little interest or pleasure in doing things: not at all Feeling down, depressed, or hopeless: several days service: Yes Exam Narrative: Exam Narrative: Constitutional: Well-developed, well-nourished, no acute distress. HEENT: Normocephalic, atraumatic. Dry mouth. Neck: Normal range of motion. Nontender. Supple. Heart: Irregular. No murmurs. Tachycardia. Intact distal pulses. Lungs: Clear to auscultation. No chest discomfort. No wheezes, rhonchi, or rales. Abdomen: Normal bowel sounds. Nontender. No rebound tenderness. Genitalia: Deferred. Back: No midline tenderness. Normal range of motion. Extremities: Normal range of motion. No injury. Skin: Intact. No rash. Warm. No erythema or pallor. Neurologic: No altered sensation. Alert and oriented. Psychiatric: No suicidality. No anxiety or depression. No insomnia. Nursing notes and vitals signs are reviewed. Const: Vital Signs, click to edit/add: Vital Signs - 24 hr 02/18/24 07:55 Temperature 98.5 F Pulse Rate [Pulse Oximeter] 123 H Respiratory Rate 14 Blood Pressure [Le ft Upper Arm] 133/83 Pulse Oximetry 91 Oxygen Delivery Me thod Room Air Course Vital Signs Vital signs: Initial Vital Signs Temperature 98.5 F 02/18/24 07:55 Temperature Source Temporal Artery Scan 02/18/24 07:55 Pulse Rate 123 H 02/18/24 07:55 Respiratory Rate 14 02/18/24 07:55 Blood Pressure 133/83 02/18/24 07:55 Blood Pressure Mean 99 02/18/24 07:55 Blood Pressure Position Supine 02/18/24 07:55 Pulse Oximetry 91 02/18/24 07:55 Oxygen Delivery Method Room Air 02/18/24 07:55 Vital Signs Temperature 98.5 F 02/18/24 07:55 Pulse Rate 123 H 02/18/24 07:55 Respiratory Rate 14 02/18/24 07:55 Blood Pressure 133/83 02/18/24 07:55 Pulse Oximetry 91 02/18/24 07:55 Oxygen Delivery Method Room Air 02/18/24 07:55 Temperature 98.5 F 02/18/24 07:55 Pulse Rate 123 H 02/18/24 07:55 Respiratory Rate 14 02/18/24 07:55 Blood Pressure 133/83 02/18/24 07:55 Pulse Oximetry 91 02/18/24 07:55 Oxygen Delivery Method Room Air 02/18/24 07:55 Medications Administered Medications: Discontinued Medications Generic Name Dose Route Start Last Admin Trade Name Freq PRN Reason Stop Dose Admin Sodium Chloride 1,000 mls @ 1,000 mls/hr 02/18/24 08:30 02/18/24 08:54 0.9 % Sodium Chloride 1000 Ml IV 02/18/24 09:29 1,000 mls/hr .Q1H DIXIE Administration MDM - Weakness MDM Narrative Medical decision making narrative: This patient comes in reporting generalized weakness. He did consult an ambulance yesterday but refused transport. Today he has similar symptoms but is feeling more weakness. He does have a report of increased urinary frequency however his urinalysis today shows no sign of infection. He arrives with normal vital signs except for tachycardia. His EKG shows no ST or T-wave abnormalities. The patient is on Eliquis. He does have a history of a stroke with some altered speech and right-sided weakness that is residual from the previous stroke. He does not report any new symptoms in that regard. Lab results returned with notable with a significant increase in his white blood cell count at around 22,000. I did not acquire blood cultures or do a septic workup as he did not trip enough of those triggers. I did speak with the hospitalist on-call who agrees to his admission into the hospital and orders were placed for additional lab results including venous blood glass, nasal pharyngeal swab to check for virus, lactate, and C-reactive protein. Lab Data Labs: Lab Results 02/18/24 02/18/24 Range/Units 08:10 08:35 WBC 22.65 H (4.50-11.00) K/uL RBC 5.22 (4.30-5.90) m/uL Hgb 15.3 (13.5-17.5) gm/dL Hct 46.9 (37.0-53.0) % MCV 90 (80-100) fL MCH 29 (26-34) pg MCHC 33 (32-36) gm/dL RDW Coeff of Melissa 13.2 (11.5-15.5) % Plt Count 184 (140-440) K/uL Neut % (Auto) 92.5 H (42.0-72.0) % Lymph % (Auto) 3.4 L (20-44) % Lincoln % (Auto) 3.4 (0.0-11.0) % Eos % (Auto) 0.0 (0.0-7.0) % Baso % (Auto) 0.0 (0.0-3.0) % Neut # (Auto) 21.00 H (1.7-7.0) K/uL Lymph # (Auto) 0.80 L (0.90-2.90) K/uL Lincoln # (Auto) 0.80 (0.00-0.90) K/UL Eos # (Auto) 0.00 (0.00-0.50) K/uL Baso # (Auto) 0.00 (0.00-0.30) K/uL Abs Immat Gran (auto) 0.20 (0.00-0.30) K/uL Imm/Tot Granulo (auto) 0.7 % Sodium 140 (135-149) mmol/L Potassium 3.8 (3.6-5.1) mmol/L Chloride 105 (96-114) mmol/L Carbon Dioxide 26 (20-32) mmol/L Anion Gap 9 (7-15) mEq/L BUN 27 (7-30) mg/dL Creatinine 0.9 (0.5-1.5) mg/dL Estimated Creat Clear 49.40 Estimated GFR 82 ml/min Glucose 207 H (60-115) mg/dL Calcium 9.3 (8.4-10.6) mg/dL Urine Color Yellow (Yellow) Urine Appearance Clear (Clear) Urine pH 5.5 (5.0-8.5) Ur Specific [place] 1.025 (1.000-1.030) Urine Protein 1+ A (Negative) Urine Glucose (UA) Negative (Negative) Urine Ketones 1+ A (Negative) Urine Blood Negative (Negative) Urine Nitrite Negative (Negative) Urine Bilirubin Negative (Negative) Urine Urobilinogen 0.2 (0.2-1.0) Ur Leukocyte Esterase Negative (Negative) Urine RBC 0-2 (0-2) Urine WBC 0-2 (0-5) Ur Squamous Epith Cells None (None-Few) Urine Bacteria None (None) Urine Mucus Few A (None) POC Troponin I 0.01 (0.01-0.04) ng/ml Imaging Data Chest x-ray: Radiologist's impression: Increased cardiomegaly. Hypoinflated lungs without focal consolidation. ECG Data Attestation: I personally reviewed and interpreted this ECG as follows: Interpretation: Accelerated junctional rhythm with some PVCs. Rate is 126 beats per minute. There are no specific ST or T-wave abnormalities. Discharge Plan Discharge Clinical Impression: Weakness, Leukocytosis Patient Disposition: Admitted As Inpatient Condition: Unchanged Prescriptions: No Action triamcinolone acetonide 55 mcg aerosol,spray 1 spray intranasal DAILY Rx Instructions: Administer 1-2 sprays into each nostril daily. chlorpheniramine maleate 4 mg tablet 4 mg PO DAILY Rx Instructions: do not exceed 2 doses per 24 hrs furosemide 40 mg tablet 40 mg PO DAILY Qty: 90 3RF Eliquis 5 mg tablet 5 mg PO BID Qty: 180 3RF losartan 100 mg tablet 100 mg PO DAILY Qty: 90 3RF rosuvastatin 10 mg tablet 10 mg PO HS Qty: 90 3RF acetaminophen 500 mg Tablet 500 mg PO Q4H PRN (Reason: Pain) Qty: 60 0RF PreserVision AREDS-2 250-90-40-1 mg capsule 1 tab PO QAM AND QHS amlodipine 5 mg tablet 5 mg PO DAILY Rx Instructions: Take 5 mg by mouth daily. metoprolol succinate 25 mg tablet extended release 24 hr 25 mg PO DAILY (DME) blood-glucose meter [Blood Glucose Monitoring] Kit See Rx Instructions .Route Qty: 1 0RF Rx Instructions: As directed (DME) lancets [Accu-Chek Softclix Lancets] Misc See Rx Instructions .Route Qty: 200 0RF Rx Instructions: as needed (DME) Accu-Chek Guide test strips Strip See Rx Instructions .Route Qty: 100 0RF Rx Instructions: As needed fluticasone propionate [Flovent HFA] 110 mcg/actuation HFA aerosol inhaler 2 puff INHALATION Q12H Qty: 12 6RF zolpidem 5 mg tablet 5 - 10 mg PO HS PRN (Reason: insomnia) Qty: 180 2RF Follow Up/Referrals: Maria Esther Mendoza MD [Primary Care Provider] -
[2024-02-18 08:22] LABS: Appearance Urine Clear (Clear); Bilirubin Urine Negative (Negative); Blood Urine Negative (Negative); Color Urine Yellow (Yellow); Glucose Urine Negative (Negative); Ketones Urine 1+ (Negative); Leukocyte Esterase Urine Negative (Negative); Nitrite Urine Negative (Negative); Protein Urine 1+ (Negative); Specific Gravity Urine 1.025 (1.000-1.030); Urobilinogen Urine 0.2 (0.2-1.0); pH Urine 5.5 (5.0-8.5)
[2024-02-18 08:33] LABS: RBC Urine 0-2 (0-2); WBC Urine 0-2 (0-5)
[2024-02-18 08:34] LABS: Mucus Urine Few
[2024-02-18 08:46] LABS: Hematocrit 46.9 % (37.0-53.0); Hemoglobin* 15.3 gm/dL (13.5-17.5); Immature Granulocytes Pct Auto 0.7 %; Lymphocytes Percent Auto 3.4 % (20-44); Mean Corpuscular HGB Conc 33 gm/dL (32-36); Mean Corpuscular Hemoglobin 29 pg (26-34); Mean Corpuscular Volume 90 fL (80-100); Monocytes Percent Auto 3.4 % (0.0-11.0); Neutrophils Percent Auto 92.5 % (42.0-72.0); Platelet Count* 184 K/uL (140-440); RDW Coefficient of Variation % 13.2 % (11.5-15.5); Red Blood Count 5.22 m/uL (4.30-5.90); White Blood Count* 22.65 K/uL (4.50-11.00)
--- OUTSIDE RECORDS SUMMARY | 2024-02-18 08:48 | XMS_ITS | Encounter Summary ---
Author Organization [facility] Address [address] [place] [address] Care Team Providers Care Manager Harbor Name Role Phone Unavailable Primary Care Provider Unavailabl e Reason for Referral * Outpatient (Routine) - Authorized Specialty Diagnoses / Procedures Referred By Contac t Referred To Contact Cardiovascular Disease Ange Parry APRN, C.N.PHorace, D.N.P. [address] [place] [phone] [facility] Referral ID Status Reason Start Date Expiration Date V isits Requested Visits Authorized [id number] Authorized 01/01/2024 07/02/2025 1 1 Scheduling Instructions Self or any provider if I have no availability. To review Holter results * Outpatient (Routine) - Authorized Specialty Diagnoses / Procedures Referred By Contac t Referred To Contact Diagnoses Atrial Fibrillation Paroxysmal (HCC) Mcfp (Current) Anticoagulant Treatment Procedures ECG Heart Rhythm Monitor (Holter) Ange Parry APRN, C.N.P., D.N.P. [address] [place] [phone] [facility] Referral ID Status Reason Start Date Expiration Date V isits Requested Visits Authorized [id number] Authorized 01/01/2024 12/31/2024 1 1 Reason for Visit * Reason Comments Med Refill Encounter Details Date Type Department Care Team (Late st Contact Info) Description 12/29/2023 Refill Department of Cardiovascular Medicine in [place], [place] [address] [place] [address] Ange Parry APRN, C.N.P., D.N.P. [address] [place] [phone] Med Refill Social History Tobacco Use Types [...] often do you attend chur ch or bahai services? More than 4 times per year 12/20/2021 Do you belong to any clubs o r organizations such as sikh groups, unions, fraternal [...] Answer Date Recorded PHQ-2 Score 0 12/20/2021 [facility] of Occupat ional Health - Occupational Stress [...] Cardiac Services Routine Atrial Fibrillation Paroxysmal (HCC) Sports Agent (Current) Anticoagulant Treatment Expected: 01/01/2024, Expires: 04/02/2025 Scheduled Referrals Name Type Priority Associated Diagnoses Order Schedule Cardiovascular Disease office visit (clinic) Outpatient Referral Routine Expect ed: 01/01/2024, Expires: 04/02/2025 documented as of this encounter Visit Diagnoses Diagnosis Atrial Fibrillation Paroxysmal (HCC)- Primary Mcfp (Current) Anticoagulant Treatment documented in this encounter Additional Health Concerns Assessment Noted Time PHQ-9 Depression Total Score: 0 09/13/19 17 5:57 AM TORCH OPERATOR documented as of this encounter
--- OUTSIDE RECORDS SUMMARY | 2024-02-18 08:48 | XMS_ITS | Clinical Summary ---
Author Organization [facility] Address [address] [place] [address] Care Team Providers Care Reinsurance Claims Analyst Name Role Phone Unavailable Primary Care Provider Unavailabl e Source Comments Patient records contain information from all sites at [facility]. For routine questions regarding patient records, call [phone] during business hours, M-F 8:00 AM - 5:00 PM Central Time. 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 Med Refill [...] How often do you attend chur or druze services? More than 4 times per year 12/20/2021 Do you belong to any clubs o r organizations such as confucianism groups, unions, fraternal or athletic groups, or [...] Answer Date Recorded PHQ-2 Score 0 12/20/2021 [facility] of Occupat ional Health - Occupational Stress [...] your living situation today? I have a [facility] place to live 04/08/2023 Education Answer Date [...] Cologuard Discontinued Medical Devices Implanted Type Area Trial Court Judge Device Identifier Shelf Expiration Date Model / Serial / Lot Band-Annulopla sty Flex-25mm - Valenzuela [id number] Implanted:Qty: 1 on 08/15/2006 Cardiac Valve Prosthesis Other/Legacy - See Implant Description Medtronic Description:Device Manufactu rer - [employer] Body Location - Other. Mitral. Device Status Text - [id number]. Hardware E.G. Pins/Screws/Ro ds Hardware e.g. pins/screws/ rods Mouth [place] Lee Fuzzy 1 X 1 - Valenzuela [id number] Implanted:Qty: 1 on 08/15/2006 Mesh or Patch Musicmetric Description:Device Manufactu rer Context app. Device Status Text - [id number]. [facility] Data - [id number]. Mesh Prolene 3 X 6 Pmii - [...] History *CT COLONOGRAPHY Routine 09/12/2001 8:48 AM PERL PROGRAMMER from Last 3 Months or Most Recently [...] CDT Zoran Nuñez M.D. LAB BLOOD ADD-ON [facility] [address] [place] [address], [facility] [address] [place] [address] * CT Colonography (09/12/2001 8:48 AM PERL PROGRAMMER) Anatomical Region Laterality Modality Computed Tomogra phy 09/12/2001 8:48 AM PERL PROGRAMMER Narrative 09/12/2001 12:16 PM PERL PROGRAMMER 12-Sep-2001 08:48:00 ??Exam: *CT Colonography Indications: COLONOGRAPHY - IRB #[id number]^*RESEARCH* ORIGINAL REPORT - 12-Sep-2001 12:16:00 ([id number]) ?? CT scan of the abdomen and pelvis according to colonography protocol for research purposes. Extracolonic findings include indeterminate low-attenuation areas within both kidneys. Ultrasound is recommended for further characterization. Tiny calculus in the right mid kidney collecting system. Cholecystectomy. Right inguinal hernia. ?? ([id number]) Ind: 750.320 ?? Dia.450 ?? Electronically signed [...] midkidney collecting system. Cholecystectomy. Right inguinal hernia. ([id number]) Ind: 750.320 Dia.450 Electronically signed by: Ernesto Marie M.D. [id number] 12-Sep-2001 12:16 Lupillo Cai M[address]D. IMAnahi CT PROCEDURES from Last 3 Months or Most Recently Relevant to Health Maintenance Advance Directives For more information, please contact: [phone] Documents on File Type Date Recorded Patient Hardboard Grinder Expl anation Advance Directives 08/22/2006 12:00 AM Leg acy document. See document viewer.
--- OUTSIDE RECORDS SUMMARY | 2024-02-18 08:48 | XMS_ITS | Clinical Summary ---
Author Organization [facility] Address [place], [place] [address] Care Team Providers Care Steam Finisher Name Role Phone Garima Jorgensen AuD Unavailable [phone] Maria Esther Mendoza MD Primary Care Provider [phone] Allergies No known active allergies Medications Medication [...] CDT Oxygen Saturation 98% 08/28/2017 1:00 PM GRAVITY METER OPERATOR Inhaled Oxygen Concentration - - Weight 87.1 kg (192 lb) 04/16/2020 2:43 PM CDT Height 172.7 cm (5' 8) 08/28/2017 10:57 AM GRAVITY METER OPERATOR Body Mass Index 29.19 08/28/2017 10:57 AM GRAVITY METER OPERATOR Plan of Treatment Health Maintenance Due Date Last Done Comments Tdap 1946 Depression screening for age 12+ 1947 BMI (ht and wt on same day) for age 18+ 1953 Tetanus booster 1955 Zoster (shingles) series for age 50+ (1 of 2) 1985 Medicare Wellness for age 65+ 2000 Pneumococcal series for age 65+ (1 of 1 - PCV) 2000 Influenza for age 65+ 03/23/2024 COVID-19 vaccine series Completed 11/20/19, 05/07/2023, 01/25/2023, Additional history exists Care Teams Steam Finisher Relationship Specialty Start Date End Date Maria Esther Mendoza MD [address] [place] [address] PCP - General Internal Medicine 08/21/17 Garima Jorgensen AuD Audiology 12/14/05
--- OUTSIDE RECORDS SUMMARY | 2024-02-18 08:48 | XMS_ITS ---
Author Organization [facility] Address [address] [place] [address] Care Team Providers Care Piece Meat Trimmer Name Role Phone Unavailable Unavailable Unavailable Surgery Details Not on file Complications Check Surgery Details section. Procedure Estimated Blood Loss Check Surgery Details section. Procedure Findings Check Surgery Details section. Procedure Specimens Taken Check Surgery Details section.
--- OUTSIDE RECORDS SUMMARY | 2024-02-18 08:48 | XMS_ITS | Referral Summary ---
Author Organization [facility] Address [address] [place] [address] Care Team Providers Care Prep Person Name Role Phone Unavailable Primary Care Provider Unavailabl e Source Comments Patient records contain information from all sites at [facility]. For routine questions regarding patient records, call [phone] during business hours, M-F 8:00 AM - 5:00 PM Central Time. Record requests for emergency care only can be directed to [phone] at any time.[facility] Encounters Date Type Department Care Team Description 12/29/2023 Refill Department of Cardiovascular Medicine in [place], [place] [address] [place] [address] Ange Parry, GRACIA, C.N.P., D.N.P. Med Refill [...] Date Repair Mitral Valve Status Post 04/11/2023 [facility] (Current) Anticoagulant Treatment 03/24 Obstructive Sleep Apnea [...] How often do you attend chur or gnosticist services? More than 4 times per year [...] Answer Date Recorded PHQ-2 Score 0 12/20/2021 [facility] [place] of Occupat ional Health - Occupational Stress [...] your living situation today? I have a [facility] place to live 04/08/2023 Education Answer [...] on file Medical Devices Implanted Type Area Dependency Case Manager Device Identifier Shelf Expiration Date Model / Serial / Lot Band-Annulopla sty Flex-25mm - Valenzuela [id number] Implanted:Qty: 1 on 08/15/2006 Cardiac Valve Prosthesis Other/Legacy - See Implant Description Medtronic Description:Device Manufactu rer - [id number]. Body Location - Other. Mitral. Device Status Text - [id number]. Hardware E.G. Pins/Screws/Ro ds Hardware e.g. pins/screws/ rods Mouth [place] Lee Fuzzy 1 X 1 - Valenzuela [id number] Implanted:Qty: 1 on 08/15/2006 Mesh or Patch Transpond Description:Device Manufactu rer LookUP. Device Status Text - [id number]. [facility] Data - [id number]. Mesh Prolene 3 X 6 Pmii - [...] History *CT COLONOGRAPHY Routine 09/12/2001 8:48 AM PEDIATRIC SURGEON from Last 3 Months or Most Recently Relevant to Health Maintenance Results * (ABNORMAL) Comprehensive Metabolic Panel (04/10/2023 10:45 AM CDT) Pathologist [facility] Potassium, S 3.9 3.6 - 5.2 mmol/L [...] [facility] [address] [place] [address], [place] D[place] [facility] [address] [place] [address] * CT Colonography (09/12/2001 8:48 AM PEDIATRIC SURGEON) Anatomical Region Laterality Modality Computed Tomogra phy 09/12/2001 8:48 AM PEDIATRIC SURGEON Narrative 09/12/2001 12:16 PM PEDIATRIC SURGEON 12-Sep-2001 08:48:00 ??Exam: *CT Colonography Indications: COLONOGRAPHY - IRB #[id number]^*RESEARCH* ORIGINAL REPORT - 12-Sep-2001 12:16:00 ([id number]) ?? CT scan of the abdomen and pelvis according to colonography protocol for research purposes. Extracolonic findings include indeterminate low-attenuation areas within both kidneys. Ultrasound is recommended for further characterization. Tiny calculus in the right mid kidney collecting system. Cholecystectomy. Right inguinal hernia. ?? ([id number]) Ind: 750.320 ?? Dia.450 ?? Electronically signed by: ?? Ernesto Marie M.D. [id number] 12-Sep-2001 12:16 Procedure Note Ernesto Marie M.D. - 10/26/2017 12-Sep-2001 08:48:00 Exam: *CT Colonography Indications: COLONOGRAPHY - IRB #[id number]^*RESEARCH* ORIGINAL REPORT - 12-Sep-2001 12:16:00 ([id number]) CT scan of the abdomen and pelvis according to colonographyprotocol for research purposes. Extracolonic findings includeindeterminate low-attenuation areas within both kidneys. Ultrasound isrecommended for further characterization. Tiny calculus in the right midkidney collecting system. Cholecystectomy. Right inguinal hernia. ([id number]) Ind: 750.320 Dia.450 Electronically signed by: Ernesto Marie M.D. [id number] 12-Sep-2001 12:[address] PROCEDURES from Last 3 Months or Most Recently Relevant to Health Maintenance Advance Directives For more information, please contact: [phone] Documents on File Type Date Recorded Patient Private Sector Executive Expl anation Advance Directives 08/22/2006 12:00 AM Leg acy document. See document viewer.
[2024-02-18 08:49] LABS: Slide Review Reflex No
[2024-02-18 08:51] LABS: Troponin, Point-of-Care* 0.01 ng/ml (0.01-0.04)
[2024-02-18] MEDS: 0.9 % SODIUM CHLORIDE 1000 ml 1,000 ML IV (08:54)
--- NOTE | 2024-02-18 08:55 | CRLHL7_ITS ---
For Patients: As a result of the Century Cures Act, medical imaging exams and procedure reports are released immediately into your electronic medical record. You may view this report before your referring provider. If you have questions, please contact your health care provider. Indication: Weakness. Technique: One view(s) of the chest. Comparison: 04/04/2022. Findings: Moderately enlarged cardiomediastinal silhouette, increased from prior. Post median sternotomy. Pulmonary vasculature is unremarkable. Mildly hypoinflated lungs. No focal consolidation. No large pleural effusion or pneumothorax. Unchanged bones and soft tissues. Status post left distal clavicle excision and rotator cuff repair. Impression: Increased cardiomegaly. Hypoinflated lungs without focal consolidation. Dictated by Jyoti Farrell MD @ 02/18/2024 9:35:05 AM (Electronically Signed)
[2024-02-18 08:58] LABS: Chloride* 105 mmol/L (96-114); Potassium* 3.8 mmol/L (3.6-5.1); Sodium* 140 mmol/L (135-149)
[2024-02-18 09:01] LABS: Anion Gap 9 mEq/L (7-15); Blood Urea Nitrogen* 27 mg/dL (7-30); Carbon Dioxide* 26 mmol/L (20-32); Creatinine* 0.9 mg/dL (0.5-1.5); Estimated Glomerular Filt Rate 82 ml/min
[2024-02-18 09:02] LABS: Calcium* 9.3 mg/dL (8.4-10.6); Glucose* 207 mg/dL (60-115)
[2024-02-18 11:30] LABS: HCO3 VBG 25 mmol/L (21-28); Lactate* 2.5 mmol/L (0.5-1.9); PCO2 VBG 39 mmHG (40-50); PO2 VBG < 30.1 mmHG (25-47); pH VBG 7.416 (7.32-7.43)
[2024-02-18 11:47] LABS: C Reactive Protein* 4.3 mg/dL (0.5-1.0)
[2024-02-18 12:04] LABS: PCR FLU A Negative PCR FLU A (Negative); PCR FLU B Negative PCR FLU B (Negative); PCR RSV Negative PCR RSV (Negative); SARS PCR* Negative SARS-CoV-2 (Negative)
--- NOTE | 2024-02-18 12:48 | P.IMHP_ITS ---
Hospitalist- H&P: HPI History of Present Illness Date Seen: 02/18/24 Chief complaint: possible UTI Narrative: ADMISSION HISTORY AND PHYSICAL - HOSPITALIST Chief Complaint: Weakness; some mild nausea HPI: 88 y/o with hx of CVA, AFIB on Eliquis and metoprolol, presents with a nonspecific weakness. He lives in an [facility] where he uses a walker and has some daily check-ins and meals provided. He traveled with his daughter from [place] to [place] to see his who lives with his step-daughter. He said he had one day of feeling not well but that seemed to resolve. He just states he feels weak and legs rubbery. Some mild nausea and increased thirst. The staff at the [facility] called EMS yesterday and he refused transport. He states he succumbed today to the pressure and allowed paramedics to transport him. ER COURSE: CXR neg Urine Neg vitals notable for tachycardia (junctional) no fever labs: elevated WBC, elevated lactate. CODE STATUS: FULL CODE EMERGENCY CONTACT PLAN: EMERSON NEFF Rel To Pat Daughter Cell I've updated the PFSH, medications and allergies in the Expanse tabs. INVESTIGATIONS: LABS/MICRO/ECG/IMAGING CXR neg Labs reviewed. 22.65, 92.5% neutrophils. normal pH 7.416 Neg resp swab EKG Accelerated junctional rhythm in the 120s with noted PVCs and fusion complexes Is a previously in 01/12 was sinus Ge with first-degree AV block 07/25/2017 Final Impressions: 1. Normal LV size, mildly increased wall thickness, severely reduced global systolic function with an estimated EF of 20 - 25%. 2. 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 3. The mitral valve is repaired with an annuloplasty ring, moderate mitral regurgitation, normal mean gradient of 2 mmHg at heart rate of 81 bpm. 4. Moderate tricuspid regurgitation. 5. Right ventricular cavity size is mildly enlarged, global systolic RV function is borderline reduced. 6. Normal estimated pulmonary pressures by tricuspid regurgitation velocity and right atrial pressure (23 mmHg plus RAP). 7. No prior studies for comparison. 08/28/2017 Final Impression: Limited BENTLEY performed. No obvious left atrial appendage thrombus. REVIEW OF SYSTEMS: 12-point ROS completed with patient and negative unless otherwise stated in HPI or below. PHYSICAL EXAM: CONSTITUTIONAL: Conversive, good historian. A/O. Knows setting and context. I do note his mild aphasia - which is described to me as chronic from CVA. VITAL SIGNS: see record. HEENT: Normocephalic, atraumatic. PERRL, EOMI, conjunctivae pink, no scleral icterus. Ears and nose externally normal. Pharynx normal. NECK: No JVD. No carotid bruit, no thyromegaly, no adenopathy. CHEST: Clear to auscultation bilaterally HEART: S1 and S2 normal. No harsh murmurs. Edema 2+ (wearing compression stockings) MUSCULOSKELETAL: No gross joint deformity or swelling. NEURO: Cranial nerves intact. Grossly intact. No asymmetric findings. SKIN: No rashes, petechiae, concerning changes PSYCHIATRIC: Euthymic. ADMIT TO MEDSURG: FLOOR CARE DVT: continue Eliquis GI: PO intake Time spent: Today I spent 75 minutes seeing the patient, discussing the patient with ER staff, reviewing Expanse and EPIC notes/diagnostics, discussing the care plan with our care time that includes social work, PT/OT, pharmacy, RT, senior care and documenting my impressions and plan in the medical record. [facility] Medical History (Updated 02/18/24 @ 13:46 by Zina Campos MD) Obstructive sleep apnea ?G47.33 - Obstructive sleep apnea (adult) (pediatric) (ICD-10) Systolic congestive heart failure ?I50.20 - Unspecified systolic (congestive) heart failure (ICD-10) Rosacea ?L71.9 - Rosacea, unspecified (ICD-10) Physician orders for life-sustaining treatment (POLST) form indicates patient wish for full code resuscitation status (01/08/18) ?Z78.9 - Other specified health status (ICD-10) Tubular adenoma of colon ?D12.6 - Benign neoplasm of colon, unspecified (ICD-10) Health care directive on file ?Z78.9 - Other specified health status (ICD-10) Microalbuminuria due to type 2 diabetes mellitus ?E11.29 - Type 2 diabetes mellitus with other diabetic kidney complication (ICD-10) ?R80.9 - Proteinuria, unspecified (ICD-10) History of chronic bronchitis ?Z87.09 - Personal history of other diseases of the respiratory system (ICD- 10) Thyroid nodule ?E04.1 - Nontoxic single thyroid nodule (ICD-10) Surgical History History of cholecystectomy (1990) ?Z90.49 - Acquired absence of other specified parts of digestive tract (ICD- 10) History of uvulopalatopharyngoplasty (2001) ?Z98.890 - Other specified postprocedural states (ICD-10) Hx of tonsillectomy (~1942) ?Z90.89 - Acquired absence of other organs (ICD-10) H/O arthroscopic knee surgery ?Z98.890 - Other specified postprocedural states (ICD-10) H/O bilateral cataract extraction ?Z98.41 - Cataract extraction status, right eye (ICD-10) ?Z98.42 - Cataract extraction status, left eye (ICD-10) S/P rotator cuff repair ?Z98.890 - Other specified postprocedural states (ICD-10) S/P mitral valve repair (2006) ?Z98.890 - Other specified postprocedural states (ICD-10) S/P Mohs surgery for basal cell carcinoma (2014) ?Z98.890 - Other specified postprocedural states (ICD-10) ?Z85.828 - Personal history of other malignant neoplasm of skin (ICD-10) Status post prostatectomy ?Z90.79 - Acquired absence of other genital organ(s) (ICD-10) S/P hernia surgery (2006) ?Z98.890 - Other specified postprocedural states (ICD-10) ?Z87.19 - Personal history of other diseases of the digestive system (ICD-10) Melanoma in situ (2019) ?D03.9 - Melanoma in situ, unspecified (ICD-10) Social History (Updated 02/04/24 @ 10:29 by Franchesca Farrell ~ [facility]) What is your current living situation?: I presently have a place to live Problems where you live: carbon monoxide detectors missing or not working and no known problems In the past 12 months, utilities in danger of being shut off: no In past 12 months, lack of transportation kept you from medical appts, meetings, work, or getting things needed for daily living: no In the past 12 mos, have been you worried that your food would run out before you had money to buy more?: never true In the past 12 mos, the food you bought just didn't last and you didn't have money to buy more?: never true Smoking Status: Never smoker How often do you have a drink containing alcohol: 2-4 times a month Alcohol type: wine Alcohol type details: occassional How many standard drinks containing alcohol do you have on a typical day: 1 or 2 How often do you have six or more drinks on one occasion: Never AUDIT-C Alcohol total score: 2 Non-prescribed substance use: denies use Caffeine: Yes (3 cups per day of tea) How often does anyone, including family, friends and others, physically hurt you : never How often does anyone, including family, friends and others, insult or talk down to you: rarely How often does anyone, including family, friends and others, threaten you with harm: never How often does anyone, including family, friends and others, scream or curse at you: never Little interest or pleasure in doing things: not at all Feeling down, depressed, or hopeless: several days service: Yes Meds Home Medications and Allergies Home Medications ?Medication ?Instructions ?Recorded ?Confirmed ?Type vit C 250 mg-vit E 90 mg-zinc 40 1 tab PO QAM AND QHS 01/15/23 02/18/24 History mg-copper 1 [id number] capsule (PreserVision AREDS-2) chlorpheniramine maleate 4 mg 4 mg PO DAILY 02/12/23 02/18/24 History tablet triamcinolone acetonide 55 mcg 1 spray intranasal DAILY 02/12/23 02/18/24 History nasal spray aerosol amlodipine 5 mg tablet 5 mg PO DAILY 02/18/24 02/18/24 History metoprolol succinate 25 mg 25 mg PO DAILY 02/18/24 02/18/24 History tablet,extended release 24 hr Allergies Allergy/AdvReac Type Severity Reaction Status Date / Time Sulfa (Sulfonamide Allergy Intermediate Hives Verified 02/04/24 10:26 Antibiotics) latex Allergy Mild allergy Verified 02/04/24 10:26 test grass pollen AdvReac Intermediate Verified 02/04/24 10:26 mold AdvReac Intermediate Verified 02/04/24 10:26 pollen extracts AdvReac Intermediate Verified 02/04/24 10:26 apple AdvReac Mild Gastrointestinal Verified 02/04/24 10:26 Upset cat dander AdvReac Mild Verified 02/04/24 10:26 house dust mite AdvReac Mild Verified 02/04/24 10:26 Exam Const: Vital Signs, click to edit/add: Vital Signs - 24 hr 02/18/24 07:55 02/18/24 08:46 02/18/24 09:00 Temperature 98.5 F Pulse Rate 109 H 109 H Pulse Rate [Pulse Oximeter] 123 H Respiratory Rate 14 Blood Pressure Blood Pressure [Le ft Upper Arm] 133/83 Pulse Oximetry 91 93 93 Oxygen Delivery Me od Room Air 02/18/24 09:02 02/18/24 09:30 02/18/24 09:31 Temperature Pulse Rate 118 H 108 H 122 H Pulse Rate [Pulse Oximeter] Respiratory Rate Blood Pressure 139/92 H 134/85 Blood Pressure [Le ft Upper Arm] Pulse Oximetry 91 89 91 Oxygen Delivery Me thod 02/18/24 10:00 02/18/24 10:01 02/18/24 10:30 Temperature Pulse Rate 121 H 105 H 104 H Pulse Rate [Pulse Oximeter] Respiratory Rate Blood Pressure 116/74 Blood Pressure [Le ft Upper Arm] Pulse Oximetry 91 91 91 Oxygen Delivery Me od 02/18/24 10:31 02/18/24 11:00 02/18/24 11:02 Temperature Pulse Rate 106 H 125 H 109 H Pulse Rate [Pulse Oximeter] Respiratory Rate Blood Pressure 116/81 120/72 Blood Pressure [Le ft Upper Arm] Pulse Oximetry 91 91 94 Oxygen Delivery Me thod 02/18/24 11:30 02/18/24 11:35 Temperature Pulse Rate 101 H 97 Pulse Rate [Pulse Oximeter] Respiratory Rate Blood Pressure Blood Pressure [Le ft Upper Arm] Pulse Oximetry 90 90 Oxygen Delivery Me od Hospitalist - H&P: Result Labs Labs: Short CBC 02/18/24 Range/Units 08:35 WBC 22.65 H (4.50-11.00) K/uL Hgb 15.3 (13.5-17.5) gm/dL Hct 46.9 (37.0-53.0) % Plt Count 184 (140-440) K/uL BMP 02/18/24 08:35 Sodium 140 Potassium 3.8 Chloride 105 Carbon Dioxide 26 BUN 27 Creatinine 0.9 Glucose 207 H Calcium 9.3 Urine 02/18/24 Range/Units 08:10 Urine Color Yellow (Yellow) Urine Appearance Clear (Clear) Urine pH 5.5 (5.0-8.5) Ur Specific Eccles 1.025 (1.000-1.030) Urine Protein 1+ A (Negative) Urine Glucose (UA) Negative (Negative) Assessment and Plan Assessment and plan (1) Weakness: Problem comment: broad differential at admission. With tachycardia (previously has had AFIB but now AV node is primary - new SA node dysfunction? -- hx of mitral valve replacement) + WBC elevation, elevated lactate. No fever documented, no hypotension. -will order last scan and f/u clinical status, lab abnormalities Status: Acute (2) Tachycardia: Problem comment: AV Node predominantly - follow on telemetry and serial EKGs -echo ordered Status: Acute (3) Leukocytosis: Problem comment: CRP elevated; awaiting Procalcitonin no blood/urine cultures; no antibiotics last CT ordered Status: Acute (4) History of ischemic stroke: Problem comment: Had cerebellar stroke with right-sided hemiplegia/dysarthria/ataxia 09/08, found to have atrial fibrillation and anticoagulation started then (apixaban), and rate controlled with metoprolol ER 25, losartan 100, amlodipine. -no new neurological findings today; but need to keep ischemic event on our radar Status: Acute (5) Essential hypertension: Problem comment: amlodipine, losartan, metoprolol Status: Acute (6) Type 2 diabetes mellitus: Problem comment: Pre-diabetes (dxed 2016) progressed to DM2 02/11 A1C 7.4 - diet controlled Status: Acute (7) Atrial fibrillation: Problem comment: -telemetry and rate control paramount. trop neg at admission. BNP pending noted at time of stroke 09/08 and anticoagulation started then, s/p unsuccessful DCCV at [facility] 09/09, amiodarone started then, [place] stopped amiodarone 04/14 and started metoprolol instead Status: Acute (8) Hyperlipidemia: Problem comment: on statin ([place] real estate office manager requested simvastatin to rosuvastatin, which was done 01/11) Status: Chronic (9) GERD (gastroesophageal reflux disease): Status: Chronic (10) Frailty syndrome in geriatric patient: Problem comment: lives [facility] - has daily help and goes to dining room for meals Status: Chronic (11) Chronic insomnia: Problem comment: ambien has been prescribed routinely to him Status: Chronic
--- NOTE | 2024-02-18 13:14 | CRLHL7_ITS ---
For Patients: As a result of the Century Cures Act, medical imaging exams and procedure reports are released immediately into your electronic medical record. You may view this report before your referring provider. If you have questions, please contact your health care provider. INDICATION: Weakness. Tachycardia. Elevated lactate. Increased white blood count. TECHNIQUE: CT chest, abdomen and pelvis acquired with 95 cc of Isovue 370 IV contrast. COMPARISON: None. FINDINGS: CHEST: Cardiovascular structures: Aortic atherosclerosis. Ascending thoracic aorta measures 3.8 cm. Main pulmonary artery is dilated to 3.5 cm. Thoracic aorta and pulmonary arteries as imaged are otherwise unremarkable. Prior median sternotomy and CABG, with quileute coronary artery calcifications. Cardiomegaly. Mediastinum and frantz: No pathologic lymphadenopathy. Lungs: No pneumothorax. Central airways are patent. Motion artifact with mild bibasilar scarring or atelectasis. Lungs are otherwise clear. Pleura and pericardium: No effusions. Chest wall and axilla: Unremarkable. ABDOMEN AND PELVIS: Liver: Unremarkable. Spleen: Unremarkable. Pancreas: Unremarkable. Gallbladder and bile ducts: Cholecystectomy. No biliary ductal dilatation. Kidneys: There is heterogeneous stranding in the right lower quadrant that abuts small bowel and the distal ureter. No obstructing uroliths. Punctate nonobstructing left renal stone. Multiple bilateral cysts. No CT findings to strongly suggest pyelonephritis. No perinephric fluid collection. Adrenal glands: Bilateral nodular thickening. GI tract: Mild distal colonic diverticulosis without evidence of acute diverticulitis. No obstruction or discrete bowel wall thickening. Normal appendix. No free air or free fluid. Lymph nodes: No pathologic lymphadenopathy. Vascular structures: Atherosclerotic disease. No abdominal aortic aneurysm. Mesenteric vasculature as imaged is patent. Pelvic Organs: Prostatectomy. Bladder as imaged is unremarkable. Bones: No acute or suspicious osseous abnormality. Degenerative changes of the spine and pelvis. IMPRESSION: 1. No evidence of acute disease in the chest. 2. Heterogeneous fat stranding in the right lower quadrant abuts a small bowel loop in the distal ureter. No obstructing stone or discrete bowel wall thickening evident. Findings are likely infectious or inflammatory versus possible small area of evolving fatty infarction. 3. Mild distal colonic diverticulosis without evidence of acute diverticulitis. Dictated by Elmer Mcguire MD @ 02/18/2024 3:13:59 PM Please note that all CT scans at this facility use dose modulation, iterative reconstruction, and/or weight-based dosing when appropriate to reduce radiation dose to as low as reasonably achievable. Dictated by: Elmer Mcguire MD @ 02/18/2024 15:14:11 (Electronically Signed)
[2024-02-18] MEDS: 0.9 % SODIUM CH + KCL 20 mEq/L 1,000 ML 100 ML IV (13:26)
[2024-02-18 13:41] LABS: Lactate* 2.4 mmol/L (0.5-1.9)
[2024-02-18 14:17] LABS: Procalcitonin* 3.44 ng/mL (<0.50)
[2024-02-18 14:18] LABS: NT Pro B Type NatriureticPept* 1040 pg/mL
[2024-02-18] MEDS: ACETAMINOPHEN 325 MG TABLET 650 MG PO (16:30)
[2024-02-18] MEDS: PIPERACILLIN/TAZOBACTAM 3.375 GM in 0.9 % SODIUM CHLORIDE Mini-bag 100 ML IVPB ×2 (16:30→22:46)
--- NOTE | 2024-02-18 16:33 | P.EN_ITS ---
Chart Event Note Chart Event Note: Called about this patient's CT scan findings. Briefly, he was admitted for weakness. Found to be in A fib (on chronic anticoagulation) and with elevated lactate of 2.4 and WBC of 22. CT CAP showed fat stranding in the Right lower abdomen. I was called to advise. Reviewed images with radiologist. Stranding appears retroperitoneal around the iliac vessels. Bowel is all perfused, non- dilated and non-thickened; particularly noted near the area near the inflammation. No evidence of hernia though he may have some fat stranding that extends along the femoral vessels as well. At this point, there is no clear surgical target. Discussed with Dr. Zazueta. Patient has no abdominal symptoms. Recommend blood cultures and trending labs as well as antibiotics. Consider echocardiogram looking for source of possible septic emboli if blood culture positive.
[2024-02-18 17:24] LABS: Lactate* 2.8 mmol/L (0.5-1.9)
[2024-02-18 17:31] LABS: Basophils Percent Auto 0.1 % (0.0-3.0); Hematocrit 39.9 % (37.0-53.0); Hemoglobin* 13.1 gm/dL (13.5-17.5); Immature Granulocytes Pct Auto 0.6 %; Lymphocytes Percent Auto 4.6 % (20-44); Mean Corpuscular HGB Conc 33 gm/dL (32-36); Mean Corpuscular Hemoglobin 29 pg (26-34); Mean Corpuscular Volume 89 fL (80-100); Monocytes Percent Auto 3.1 % (0.0-11.0); Neutrophils Percent Auto 91.6 % (42.0-72.0); Platelet Count* 145 K/uL (140-440); RDW Coefficient of Variation % 13.3 % (11.5-15.5); White Blood Count* 17.53 K/uL (4.50-11.00)
[2024-02-18 17:37] LABS: Slide Review Reflex No
--- NOTE | 2024-02-18 18:56 | PC.NURSE ---
End of shift note ([id number]):?Pt A&Ox3, pleasant, and cooperative. VSS. Denies N/V/CP/SOB. Pt reported no pain throughout the shift.?Residual right sided weakness from previous CVA. Pt used urinal with 25-50 ml out each time. Bladder scan completed, showing 307 ml. Straight cathed pt with an output of 600 ml. Pt has been in bed since his arrival. Had ice cream for supper. ?
[2024-02-18] MEDS: ROSUVASTATIN CALCIUM 10 MG TABLET PO (21:45)
[2024-02-18] MEDS: APIXABAN 5 MG TABLET PO (21:46)
[2024-02-18] MEDS: SODIUM CHLORIDE 0.9 % (FLUSH) 10 ML SYRINGE 5 ML IVF (21:47)
[2024-02-18] MEDS: METOPROLOL SUCCINATE (XL) 25 MG TAB 50 MG PO (23:59)
[2024-02-19] VITALS (11 sets, daily range): BP systolic 96–126; BP diastolic 64–85; PULSE 80–92; RESP 16–26; TEMP 36.7–37.1; O2SAT 92–97
[2024-02-19] MEDS: ZOLPIDEM 5 MG TABLET PO ×2 (00:03→22:07)
[2024-02-19] MEDS: 0.9 % SODIUM CH + KCL 20 mEq/L 1,000 ML 100 ML IV ×2 (02:03→17:14)
[2024-02-19] MEDS: PIPERACILLIN/TAZOBACTAM 3.375 GM in 0.9 % SODIUM CHLORIDE Mini-bag 100 ML IVPB ×4 (04:34→22:07)
--- NOTE | 2024-02-19 06:35 | PC.NURSE ---
Shift note: Pt continue to feel weak. Had difficulty using walker with assist. Used wheelchair, A2 to transfer from bed to wheelchair. Pt had though block. No fever, pain, SOB recorded. Vitally stable. Pt reported of difficulty sleeping, Ambien given at 2100.
[2024-02-19] MEDS: LOSARTAN POTASSIUM 50 MG TABLET 100 MG PO (08:54)
[2024-02-19] MEDS: APIXABAN 5 MG TABLET PO ×2 (08:54→21:05)
--- NOTE | 2024-02-19 09:59 | PM.IMPN1 ---
Progress Note: A&P Assessment and plan (1) Weakness: Problem details: broad differential at admission and into day 2. see #2. Status: Acute (2) Elevated procalcitonin: Problem details: -considering the uptrending procal, crp and plateaued elevated lactate keeps infection high on the differential; but not finding a specific cause. -ordered renal ultrasound -The RLQ findings could be omental infarct, pyelo or UTI or mesentery involvement. -I will keep zosyn on board as monotherapy; follow clinical ques and labs. -consider discussing with ID if further direction needed. Status: Acute (3) Leukocytosis: Problem details: downtrending CT reviewed with general surgery broad spectrum with Zosyn Status: Acute (4) Tachycardia: Problem details: resolved. echo reassuring. Status: Acute (5) History of ischemic stroke: Problem details: Had cerebellar stroke with right-sided hemiplegia/dysarthria/ataxia 09/08, found to have atrial fibrillation and anticoagulation started then (apixaban), and rate controlled with metoprolol ER 25, losartan 100, amlodipine. -no new neurological findings today; but need to keep ischemic event on our radar Status: Acute (6) Essential hypertension: Problem details: amlodipine, losartan, metoprolol Status: Acute (7) Type 2 diabetes mellitus: Problem details: Pre-diabetes (dxed 2016) progressed to DM2 02/11 A1C 7.4 - diet controlled well managed Status: Acute (8) Atrial fibrillation: Problem details: -telemetry and rate control paramount. trop neg at admission. BNP pending noted at time of stroke 09/08 and anticoagulation started then, s/p unsuccessful DCCV at [facility] 09/09, amiodarone started then, [place] stopped amiodarone 04/14 and started metoprolol instead Status: Acute (9) Frailty syndrome in geriatric patient: Problem details: lives [place] - has daily help and goes to dining room for meals Status: Chronic Subjective Date Seen: 02/19/24 Interval history: Daily Progress Note - Hospital Medicine Day #: 2 CC: weakness with likely occult infection (WBC elevation, procal elevation, lactate elevation, fat stranding in the RLQ - possible pyelo) 24 HOUR UPDATE: Has remained afebrile. Hemodynamically stable. Tachycardia has nicely resolved. CT ordered shortly after admission has been reviewed. Of note, urine sample from ED (prior to abx) is being cultured (late add on 02/18). IMPRESSION: 1. No evidence of acute disease in the chest. 2. Heterogeneous fat stranding in the right lower quadrant abuts a small bowel loop in the distal ureter. No obstructing stone or discrete bowel wall thickening evident. Findings are likely infectious or inflammatory versus possible small area of evolving fatty infarction. 3. Mild distal colonic diverticulosis without evidence of acute diverticulitis. Notable Labs, Micro, Rads, Interventions: Inadvertently, no morning labs. Ordering those at 10:00 a.m. on 02/18 WBC is down trending from 22.6-17.5 --> 11.9 lactate remains mildly elevated CRP is UPTRENDING At admission yesterday we noted that a procal was markedly elevated at 3.4 AND IS UPTRENDING 5.58 --> this triggered last scan and use of antibiotics and ordering of blood cultures. MRSA and urine, blood cultures are pending - NGTD Echo was done which shows normal LV size and function. EF 55-60%. Normal right ventricular size and function. Severe by atrial enlargement. Mitral valve annuloplasty ring noted. Mild dilation of the ascending aorta Objective: color looks better. he seems to have a little more pep/humor Vitals: see above abdomen: obese but nontender Lungs: Clear. Cardiac: S1S2. no concerning murmurs; click with known MV repair. Disposition/Potential discharge - [place] once ready; likely with home health Today I spent 50minutes seeing the patient, reviewing Expanse and EPIC notes/diagnostics, discussing the care plan with our care time that includes social work, PT/OT, pharmacy, RT, penitentiary and documenting my impressions and plan in the medical record. Exam Const: Vital Signs, click to edit/add: Vital Signs - 24 hr 02/18/24 10:00 02/18/24 10:01 02/18/24 10:30 Temperature Pulse Rate 121 H 105 H 104 H Pulse Rate [Pulse Oximeter] Respiratory Rate Blood Pressure 116/74 Blood Pressure [Le ft Arm] Pulse Oximetry 91 91 91 Oxygen Delivery Me thod 02/18/24 10:31 02/18/24 11:00 02/18/24 11:02 Temperature Pulse Rate 106 H 125 H 109 H Pulse Rate [Pulse Oximeter] Respiratory Rate Blood Pressure 116/81 120/72 Blood Pressure [Le ft Arm] Pulse Oximetry 91 91 94 [facility] Delivery [facility] 02/18/24 11:30 02/18/24 11:35 02/18/24 12:44 Temperature Pulse Rate 101 H 97 120 H Pulse Rate [Pulse Oximeter] Respiratory Rate Blood Pressure Blood Pressure [Le ft Arm] Pulse Oximetry 90 90 Oxygen Delivery [facility] 02/18/24 13:01 02/18/24 13:01 02/18/24 15:00 Temperature Pulse Rate Pulse Rate [Pulse Oximeter] Respiratory Rate 16 Blood Pressure Blood Pressure [Le ft Arm] Pulse Oximetry 92 Oxygen Delivery [facility] Room Air Room Air Room Air 02/18/24 15:00 02/18/24 17:49 02/18/24 17:54 Temperature 98.1 F 97.5 F L Pulse Rate 114 H Pulse Rate [Pulse Oximeter] 96 Respiratory Rate 16 Blood Pressure Blood Pressure [Le ft Arm] 123/93 H Pulse Oximetry 92 Oxygen Delivery [facility] Room Air 02/18/24 19:00 02/18/24 23:00 02/18/24 23:00 Temperature 97.7 F Pulse Rate Pulse Rate [Pulse Oximeter] 96 96 Respiratory Rate 18 18 18 Blood Pressure Blood Pressure [Le ft Arm] 118/86 Pulse Oximetry 95 96 Oxygen Delivery [facility] Room Air Room Air 02/18/24 23:00 02/19/24 01:00 02/19/24 02:17 Temperature 98.7 F 98.7 F Pulse Rate 91 Pulse Rate [Pulse Oximeter] 97 90 Respiratory Rate 18 18 Blood Pressure Blood Pressure [Le ft Arm] 117/79 96/64 Pulse Oximetry 96 93 Oxygen Delivery [facility] Room Air Room Air 02/19/24 07:00 02/19/24 07:00 02/19/24 07:37 Temperature 98.3 F Pulse Rate 92 Pulse Rate [Pulse Oximeter] 92 Respiratory Rate 26 H Blood Pressure Blood Pressure [Le ft Arm] 108/64 Pulse Oximetry 97 Oxygen Delivery [facility] Room Air Room Air Labs Labs: Laboratory Results - last 24 hr 02/18/24 02/18/24 02/18/24 08:35 11:12 11:19 WBC RBC Hgb Hct MCV MCH MCHC RDW Coeff of Melissa Plt Count Neut % (Auto) Lymph % (Auto) [place] % (Auto) Eos % (Auto) Baso % (Auto) Neut # (Auto) Lymph # (Auto) [place] # (Auto) Eos # (Auto) Baso # (Auto) Abs Immat Gran (auto) Imm/Tot Granulo (auto) VBG pH 7.416 VBG pCO2 39 L VBG pO2 < 30.1 VBG HCO3 25 Lactate 2.5 H C-Reactive Protein 4.3 H NT-Pro-B Natriuret Pep 1040 Procalcitonin 3.44 H SARS-CoV-2 (PCR) Negative SARS-CoV-2 Influenza Type A (PCR) Negative PCR FLU A Influenza Type B (PCR) Negative PCR FLU B RSV (PCR) Negative PCR RSV Lab Acknowledgement 02/18/24 02/18/24 02/18/24 13:22 13:34 17:22 WBC 17.53 H RBC 4.50 Hgb 13.1 L Hct 39.9 MCV 89 MCH 29 MCHC 33 RDW Coeff of Melissa 13.3 Plt Count 145 Neut % (Auto) 91.6 H Lymph % (Auto) 4.6 L [place] % (Auto) 3.1 Eos % (Auto) 0.0 Baso % (Auto) 0.1 Neut # (Auto) 16.10 H Lymph # (Auto) 0.80 L [place] # (Auto) 0.50 Eos # (Auto) 0.00 Baso # (Auto) 0.00 Abs Immat Gran (auto) 0.10 Imm/Tot Granulo (auto) 0.6 VBG pH VBG pCO2 VBG pO2 VBG HCO3 Lactate 2.4 H 2.8 H C-Reactive Protein NT-Pro-B Natriuret Pep Procalcitonin SARS-CoV-2 (PCR) Influenza Type A (PCR) Influenza Type B (PCR) RSV (PCR) Lab Acknowledgement Test Added
[2024-02-19 10:19] LABS: Basophils Percent Auto 0.2 % (0.0-3.0); Eosinophils Percent Auto 0.2 % (0.0-7.0); Hematocrit 37.3 % (37.0-53.0); Immature Granulocytes Pct Auto 0.3 %; Mean Corpuscular HGB Conc 32 gm/dL (32-36); Mean Corpuscular Hemoglobin 29 pg (26-34); Mean Corpuscular Volume 91 fL (80-100); Monocytes Percent Auto 2.9 % (0.0-11.0); Neutrophils Percent Auto 87.4 % (42.0-72.0); Platelet Count* 138 K/uL (140-440); RDW Coefficient of Variation % 13.7 % (11.5-15.5); Red Blood Count 4.08 m/uL (4.30-5.90)
[2024-02-19 10:20] LABS: Slide Review Reflex No
[2024-02-19 10:23] LABS: HCO3 VBG 23 mmol/L (21-28); Lactate* 2.6 mmol/L (0.5-1.9); PCO2 VBG 38 mmHG (40-50); PO2 VBG 30.9 mmHG (25-47); pH VBG 7.396 (7.32-7.43)
[2024-02-19 10:40] LABS: Albumin* 3.3 g/dL (3.3-5.0); Chloride* 109 mmol/L (96-114); Sodium* 138 mmol/L (135-149)
[2024-02-19 10:41] LABS: Potassium* 3.7 mmol/L (3.6-5.1)
[2024-02-19 10:42] LABS: Bilirubin Total* 2.1 mg/dL (0.1-1.5); Creatinine* 1.2 mg/dL (0.5-1.5); Est. Creatinine Clearance* 41.17; Estimated Glomerular Filt Rate 58 ml/min
[2024-02-19 10:43] LABS: Alanine Aminotransferase* 17 U/L (4-50); Alkaline Phosphatase* 48 U/L (40-150); Anion Gap 7 mEq/L (7-15); Aspartate Amino Transferase* 20 U/L (12-35); Blood Urea Nitrogen* 23 mg/dL (7-30); Carbon Dioxide* 22 mmol/L (20-32); Glucose* 132 mg/dL (60-115); Lipase* 35 U/L (23-300); Total Protein* 6.1 g/dL (6.0-8.3)
[2024-02-19 10:44] LABS: Calcium* 8.1 mg/dL (8.4-10.6)
[2024-02-19 10:55] LABS: NT Pro B Type NatriureticPept* 3560 pg/mL; Troponin I* 0.02 ng/mL (0.01-0.04)
[2024-02-19 10:57] LABS: C Reactive Protein* 25.9 mg/dL (0.5-1.0)
[2024-02-19 11:00] LABS: Procalcitonin* 5.58 ng/mL (<0.50)
--- NOTE | 2024-02-19 11:30 | CRLHL7_ITS ---
For Patients: As a result of the Century Cures Act, medical imaging exams and procedure reports are released immediately into your electronic medical record. You may view this report before your referring provider. If you have questions, please contact your health care provider. Indication: abnormal CT r/o hydronephrosis history of cysts Technique: Multiple transverse and longitudinal sonographic grayscale images of the kidneys and bladder were obtained, supplemented with color, power, and spectral Doppler imaging. Comparison: 02/18/2024 Findings: Right kidney: Length: 10.5 cm. Appearance: No hydronephrosis. Multiple simple cysts with the largest measuring 2.7 x 2.3 x 2.7 centimeter. Left kidney: Length: 12.1 cm. Appearance: No hydronephrosis. Multiple simple cysts with the largest measuring 4.3 x 3.5 x 4.0 centimeter. Bladder: Normal. Impression: No hydronephrosis. Bilateral renal cysts as described above. Dictated by Azael Diaz MD @ 02/19/2024 12:22:16 PM (Electronically Signed)
[2024-02-19 12:17] LABS: Bilirubin Direct* 0.4 mg/dL (0.0-0.5); Gamma Glutamyl Transpeptidase* 13 U/L (8-55)
--- NOTE | 2024-02-19 12:34 | P.GSCN_ITS ---
History of Present Illness Consult details Date Seen: 02/19/24 Consult date: 02/19/24 Narrative: The patient is an 88-year-old male who was admitted to the hospital after presenting to the emergency department with weakness. He lives in an assisted living facility and ambulates with a walker. Because he was not feeling well he was sent to the emergency department. He states that he mainly felt weak. Denied fever. Had a mild amount of nausea but no vomiting. He has a history of a prostatectomy and states that he noticed his urine output was less. Denies any abdominal pain. Has been moving his bowels normally. No leg pain. [facility] Medical History (Updated 02/19/24 @ 11:59 by Zina Campos MD) Obstructive sleep apnea ?G47.33 - Obstructive sleep apnea (adult) (pediatric) (ICD-10) Systolic congestive heart failure ?I50.20 - Unspecified systolic (congestive) heart failure (ICD-10) Rosacea ?L71.9 - Rosacea, unspecified (ICD-10) Physician orders for life-sustaining treatment (POLST) form indicates patient wish for full code resuscitation status (01/08/18) ?Z78.9 - Other specified health status (ICD-10) Tubular adenoma of colon ?D12.6 - Benign neoplasm of colon, unspecified (ICD-10) Health care directive on file ?Z78.9 - Other specified health status (ICD-10) Microalbuminuria due to type 2 diabetes mellitus ?E11.29 - Type 2 diabetes mellitus with other diabetic kidney complication (ICD-10) ?R80.9 - Proteinuria, unspecified (ICD-10) History of chronic bronchitis ?Z87.09 - Personal history of other diseases of the respiratory system (ICD- 10) Thyroid nodule ?E04.1 - Nontoxic single thyroid nodule (ICD-10) Surgical History History of cholecystectomy (1990) ?Z90.49 - Acquired absence of other specified parts of digestive tract (ICD- 10) History of uvulopalatopharyngoplasty (2001) ?Z98.890 - Other specified postprocedural states (ICD-10) Hx of tonsillectomy (~1942) ?Z90.89 - Acquired absence of other organs (ICD-10) H/O arthroscopic knee surgery ?Z98.890 - Other specified postprocedural states (ICD-10) H/O bilateral cataract extraction ?Z98.41 - Cataract extraction status, right eye (ICD-10) ?Z98.42 - Cataract extraction status, left eye (ICD-10) S/P rotator cuff repair ?Z98.890 - Other specified postprocedural states (ICD-10) S/P mitral valve repair (2007) ?Z98.890 - Other specified postprocedural states (ICD-10) S/P Mohs surgery for basal cell carcinoma (2014) ?Z98.890 - Other specified postprocedural states (ICD-10) ?Z85.828 - Personal history of other malignant neoplasm of skin (ICD-10) Status post prostatectomy ?Z90.79 - Acquired absence of other genital organ(s) (ICD-10) S/P hernia surgery (2006) ?Z98.890 - Other specified postprocedural states (ICD-10) ?Z87.19 - Personal history of other diseases of the digestive system (ICD-10) Melanoma in situ (2019) ?D03.9 - Melanoma in situ, unspecified (ICD-10) Social History (Updated 02/04/24 @ 10:29 by Franchesca Farrell ~ [facility]) What is your current living situation?: I presently have a place to live Problems where you live: no known problems Problems where you live details: NA In the past 12 months, utilities in danger of being shut off: no In past 12 months, lack of transportation kept you from medical appts, meetings, work, or getting things needed for daily living: no In the past 12 mos, have been you worried that your food would run out before you had money to buy more?: never true In the past 12 mos, the food you bought just didn't last and you didn't have money to buy more?: never true Highest level of school completed/degree received: Doctoral degree Smoking Status: Former smoker What tobacco products do you use: pipe Do you use any of these nicotine containing products: None Second hand tobacco smoke exposure: No How often do you have a drink containing alcohol: 2-4 times a month Alcohol type: wine Alcohol type details: RED WINE WHEN GOING OUT TO EAT How many standard drinks containing alcohol do you have on a typical day: 1 or 2 How often do you have six or more drinks on one occasion: Never AUDIT-C Alcohol total score: 2 Non-prescribed substance use: denies use Caffeine: Yes (BLACK TEA EVERYDAY) How often does anyone, including family, friends and others, physically hurt you : never How often does anyone, including family, friends and others, insult or talk down to you: never How often does anyone, including family, friends and others, threaten you with harm: never How often does anyone, including family, friends and others, scream or curse at you: never Little interest or pleasure in doing things: not at all Feeling down, depressed, or hopeless: several days service: Yes Meds Home Medications and Allergies Home Medications ?Medication ?Instructions ?Recorded ?Confirmed ?Type vit C 250 mg-vit E 90 mg-zinc 40 1 tab PO QAM AND QHS 01/15/23 02/18/24 History mg-copper 1 [id number] capsule (PreserVision AREDS-2) chlorpheniramine maleate 4 mg 4 mg PO DAILY 02/12/23 02/18/24 History tablet triamcinolone acetonide 55 mcg 1 spray intranasal DAILY 02/12/23 02/18/24 History nasal spray aerosol amlodipine 5 mg tablet 5 mg PO DAILY 02/18/24 02/18/24 History metoprolol succinate 25 mg 25 mg PO DAILY 02/18/24 02/18/24 History tablet,extended release 24 hr Allergies Allergy/AdvReac Type Severity Reaction Status Date / Time Sulfa (Sulfonamide Allergy Intermediate Hives Verified 02/18/24 14:02 Antibiotics) latex Allergy Mild allergy Verified 02/18/24 14:02 test grass pollen AdvReac Intermediate Verified 02/18/24 14:02 mold AdvReac Intermediate Verified 02/18/24 14:02 pollen extracts AdvReac Intermediate Verified 02/18/24 14:02 apple AdvReac Mild Gastrointestinal Verified 02/18/24 14:02 Upset cat dander AdvReac Mild Verified 02/18/24 14:02 house dust mite AdvReac Mild Verified 02/18/24 14:02 Exam Narrative: Exam Narrative: General: No acute distress Respiratory: Breathing is nonlabored on room air Abdomen: Mild edema noted in abdominal skin. He is nontender to palpation. : Difficult to palpate given habitus on left, no hernia noted on the right. Extremities: Warm. Mildly edematous bilaterally Const: Vital Signs, click to edit/add: Vital Signs - 24 hr 02/18/24 12:44 02/18/24 13:01 02/18/24 13:01 Temperature Pulse Rate 120 H Pulse Rate [Pulse Oximeter] Respiratory Rate Blood Pressure [Le ft Arm] Pulse Oximetry Oxygen Delivery Ks thod Room Air Room Air 02/18/24 15:00 02/18/24 15:00 02/18/24 17:49 Temperature 98.1 F 97.5 F L Pulse Rate Pulse Rate [Pulse Oximeter] 96 Respiratory Rate 16 16 Blood Pressure [Le ft Arm] 123/93 H Pulse Oximetry 92 92 Oxygen Delivery Ks thod Room Air Room Air 02/18/24 17:54 02/18/24 19:00 02/18/24 23:00 Temperature 97.7 F Pulse Rate 114 H Pulse Rate [Pulse Oximeter] 96 96 Respiratory Rate 18 18 Blood Pressure [Le ft Arm] 118/86 Pulse Oximetry 95 [facility] 02/18/24 23:00 02/18/24 23:00 02/19/24 01:00 Temperature 98.7 F Pulse Rate 91 Pulse Rate [Pulse Oximeter] 97 Respiratory Rate 18 18 Blood Pressure [Le ft Arm] 117/79 Pulse Oximetry 96 96 Oxygen Delivery [facility] Room Air Room Air 02/19/24 02:17 02/19/24 07:00 02/19/24 07:00 Temperature 98.7 F 98.3 F Pulse Rate Pulse Rate [Pulse Oximeter] 90 92 Respiratory Rate 18 26 H Blood Pressure [Le ft Arm] 96/64 108/64 Pulse Oximetry 93 97 Oxygen Delivery [facility] Room Air Room Air Room Air 02/19/24 07:37 Temperature Pulse Rate 92 Pulse Rate [Pulse Oximeter] Respiratory Rate Blood Pressure [Le ft Arm] Pulse Oximetry Oxygen Delivery Me thod Results Labs Labs: White blood cell count is 11 from 22 yesterday Lactate remains elevated at 2.6 from 2.8 from 2.4 yesterday Total bilirubin is 2.1, this is an indirect hyperbilirubinemia. Remainder of LFTs are normal. CRP is up to 25 from 4.3 Procalcitonin is 5.5 UA from 02/13 is negative Imaging Abdomen CT scan report/results: report reviewed and image reviewed Additional studies: CT scan of the abdomen from 02/17: IMPRESSION: 1. No evidence of acute disease in the chest. 2. Heterogeneous fat stranding in the right lower quadrant abuts a small bowel loop in the distal ureter. No obstructing stone or discrete bowel wall thickening evident. Findings are likely infectious or inflammatory versus possible small area of evolving fatty infarction. 3. Mild distal colonic diverticulosis without evidence of acute diverticulitis. Dictated by Elmer Mcguire MD @ 02/18/2024 3:13:59 PM Please note that all CT scans at this facility use dose modulation, iterative reconstruction, and/or weight-based dosing when appropriate to reduce radiation dose to as low as reasonably achievable. Dictated by: Elmer Mcguire MD @ 02/18/2024 15:14:11 Progress Note:A&P Assessment and plan (1) Weakness: Status: Acute (2) Elevated procalcitonin: Status: Acute (3) Leukocytosis: Status: Acute (4) Type 2 diabetes mellitus: Status: Acute (5) Atrial fibrillation: Status: Acute Plan The patient is an 88-year-old male with leukocytosis, elevated lactate, CRP and procalcitonin with likely infection of unknown origin. Denies abdominal pain and abdominal exam appears benign today. CT scan shows fat stranding in the retroperitoneum on the right. The images were discussed with radiology. No clear cause for this. Bowel appears perfused, nonobstructed, non dilated or thickened. Does not appear to have ischemic limb. Is not on metformin which could cause lactic acidosis. Echo did not show significant findings to suggest hypoperfusion. Unclear as to the cause of the fat stranding in the retroperitoneum on the right. There does not appear to be any sort of internal hernia or inflammatory process involving the bowel. Could this be related to septic emboli such as which causes psoas abscess or pyelonephritis? Clinically the patient appears improved and white blood cell count is down. -follow up cultures -agree with empiric antibiotics -patient may benefit from ID consult
--- NOTE | 2024-02-19 15:35 | PC.SOCIAL ---
Addendum entered by Ary Prakash PENSION EXAMINER 02/20/24 09:50: Called Barbara, nurse at [facility], and updated her on plans for possible discharge tomorrow. Barbara requested new MD note be sent when completed and is able to accept pt back tomorrow. Barbara states nursing at [facility] will manage pt's Ambien when he returns as he had made errors in taking that medication prior to admission to the hospital. Barbara states she has already discussed this with pt's daughter and she is in agreement. break up worker to follow up as needed. Original Note: Discharge planning: Barbara(nurse from [facility]) came to visit the pt today to complete a face to face with the pt. Barbara shared that the pt can return to [facility] tomorrow if he is ready for discharge. Barbara requested pt's history and physical and ED note. break up worker sent the notes via fax. Barbara stated that she would need the pt's discharge summary tomorrow(if he is ready for discharge) and home health care orders. [facility] provide therapy service at [facility] for PT/OT home health and pt would just need a doctor's order in order for them to start up therapies. break up worker will talk to the doctor about the orders in the morning at rounds. Social work to follow-up as needed.
--- NOTE | 2024-02-19 17:55 | PC.NURSE ---
End of shift note (): Pt A&Ox3, pleasant, and cooperative. VSS. Denies N/V/CP/SOB. Pt reported no pain throughout the shift. Residual right sided weakness from previous CVA. Pt used toilet this evening and had UO: 400 ml and a BM. Pt is assistx2 GB and W. Tolerating regular diet well. Refused insulin today. BG @ 0730: 167. BG @ 1130: 127 BG @ 1530: 215.?
[2024-02-19] MEDS: AMLODIPINE 5 MG TABLET PO (21:05)
[2024-02-19] MEDS: METOPROLOL SUCCINATE (XL) 25 MG TAB 50 MG PO (21:06)
[2024-02-19] MEDS: ROSUVASTATIN CALCIUM 10 MG TABLET PO (21:06)
[2024-02-20] VITALS (9 sets, daily range): BP systolic 119–139; BP diastolic 84–106; PULSE 86–101; RESP 16–20; TEMP 36.6–36.9; O2SAT 90–96
[2024-02-20] MEDS: 0.9 % SODIUM CH + KCL 20 mEq/L 1,000 ML 100 ML IV (03:21)
[2024-02-20] MEDS: PIPERACILLIN/TAZOBACTAM 3.375 GM in 0.9 % SODIUM CHLORIDE Mini-bag 100 ML IVPB ×4 (04:01→22:20)
[2024-02-20 06:16] LABS: Lactate* 0.9 mmol/L (0.5-1.9)
[2024-02-20 06:21] LABS: Hematocrit 34.6 % (37.0-53.0); Hemoglobin* 11.1 gm/dL (13.5-17.5); Mean Corpuscular HGB Conc 32 gm/dL (32-36); Mean Corpuscular Hemoglobin 29 pg (26-34); Mean Corpuscular Volume 91 fL (80-100); Platelet Count* 122 K/uL (140-440); Red Blood Count 3.82 m/uL (4.30-5.90); White Blood Count* 8.64 K/uL (4.50-11.00)
[2024-02-20 06:23] LABS: Slide Review Reflex No
[2024-02-20 06:32] LABS: Albumin* 2.8 g/dL (3.3-5.0); Chloride* 112 mmol/L (96-114)
[2024-02-20 06:33] LABS: Potassium* 3.8 mmol/L (3.6-5.1); Sodium* 136 mmol/L (135-149)
[2024-02-20 06:35] LABS: Creatinine* 0.9 mg/dL (0.5-1.5); Estimated Glomerular Filt Rate 82 ml/min
[2024-02-20 06:36] LABS: Alanine Aminotransferase* 13 U/L (4-50); Alkaline Phosphatase* 45 U/L (40-150); Anion Gap 3 mEq/L (7-15); Aspartate Amino Transferase* 17 U/L (12-35); Bilirubin Direct* 0.1 mg/dL (0.0-0.5); Bilirubin Total* 1.7 mg/dL (0.1-1.5); Blood Urea Nitrogen* 23 mg/dL (7-30); Calcium* 7.7 mg/dL (8.4-10.6); Carbon Dioxide* 21 mmol/L (20-32); Glucose* 137 mg/dL (60-115); Phosphorus* 2.6 mg/dL (2.5-4.5); Total Protein* 5.4 g/dL (6.0-8.3)
[2024-02-20 06:37] LABS: Gamma Glutamyl Transpeptidase* < 10 U/L (8-55)
[2024-02-20 06:52] LABS: C Reactive Protein* 17.7 mg/dL (0.5-1.0)
[2024-02-20 06:53] LABS: Procalcitonin* 3.72 ng/mL (<0.50)
--- NOTE | 2024-02-20 07:04 | PC.NURSE ---
End of shift [id number]: A&O pleasant and cooperative. VSS. Afebrile. Denies pain. Walked to bathroom w/ A2 walker and gait belt. Tolerated well. Bed alarm in place.
[2024-02-20] MEDS: LOSARTAN POTASSIUM 50 MG TABLET 100 MG PO (08:40)
[2024-02-20] MEDS: APIXABAN 5 MG TABLET PO ×2 (08:41→21:06)
--- NOTE | 2024-02-20 09:26 | PM.IMPN1 ---
Progress Note: A&P Assessment and plan (1) Weakness: Problem details: - illness vs deconditioning vs cardiac source (a fib, CHF) - no growth on urine or blood cultures, reassuring TTE - significant improvement since admission - working with therapies, hoping to return home tomorrow Status: Acute (2) Elevated procalcitonin: Problem details: - in addition to leukocytosis and elevated CRP/lactate on admission - all down trending - mild abnormality on Ab CT (possible omental infarct, pyelo, or UTI - asymptomatic for all three conditions) - renal ultrasound normal - continuing Zosyn as monotherapy Status: Acute (3) Leukocytosis: Problem details: - down trending, afebrile, no obvious nidus of infection - CT reviewed with general surgery - broad spectrum coverage with Zosyn Status: Acute (4) Type 2 diabetes mellitus: Problem details: - A1C 7.4 - diet controlled - well managed, follows closely with PCP (Dr. 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 Normal LV size, mildly increased wall thickness, normal global systolic function with an estimated EF of 55 - 60%. 2. Right ventricular cavity size is normal, global systolic RV function is normal. 3. Severe bi atrial enlargement. 4. 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 Mean gradient 2 mmHg at HR 100 BPM. 5. 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 Status: Acute Plan - continue abx, close monitoring - likely back to [facility] 02/20 - will address oral abx upon discharge tomorrow, pending clinical course Subjective Date Seen: 02/20/24 Interval history: Gregg was admitted to the hospital on 02/17 in the morning for weakness, found to have tachycardia, elevated lactate, WBC, and procalcitonin on admission. Afebrile. Mild abnormality on abdominal CT (see below), asymptomatic. Given findings, Zosyn empirically initiated during the afternoon of 02/17. No nidus of infection has been identified (no rashes, negative urine/blood cultures, no cough, reassuring TTE). Procalcitonin and CRP initially uptrending, improving as of 02/19. WBC also trending downward (normal on 02/19) and patient remains afebrile and hemodynamically stable. Tolerating po intake, no GI/ concerns. He is hoping to return to [facility] tomorrow and has no concerns for our hospitalist team. - CT results from 02/17: IMPRESSION: 1. No evidence of acute disease in the chest. 2. Heterogeneous fat stranding in the right lower quadrant abuts a small bowel loop in the distal ureter. No obstructing stone or discrete bowel wall thickening evident. Findings are likely infectious or inflammatory versus possible small area of evolving fatty infarction. 3. Mild distal colonic diverticulosis without evidence of acute diverticulitis. Exam Narrative: Exam Narrative: GEN: Alert and oriented, sitting comfortably in bedside chair, nontoxic HEENT: Wearing hearing aides bilaterally, EOMIs bilaterally, no scleral icterus CV: Rate controlled atrial fibrillation R: Breathing comfortably, no wheezing Ab: Soft, nontender, no masses, + bowel sounds Ext: + BLE edema, chronic and unchanged Skin: No concerning skin lesions or rashes on exposed skin Neuro: Mild speech slowing (chronic sequela of CVA) Psych: Appropriate Const: Vital Signs, click to edit/add: Vital Signs - 24 hr 02/19/24 11:00 02/19/24 15:00 02/19/24 15:00 Temperature 98.8 F 98.6 F Pulse Rate Pulse Rate [Pulse Oximeter] 92 82 Respiratory Rate 20 22 Blood Pressure [Le ft Arm] 116/75 126/85 Pulse Oximetry 96 94 Oxygen Delivery Me thod Room Air Room Air Room Air Oxygen Flow Rate 02/19/24 16:11 02/19/24 19:36 02/19/24 22:38 Temperature 98.8 F Pulse Rate 91 87 Pulse Rate [Pulse Oximeter] 80 Respiratory Rate 18 Blood Pressure [Le ft Arm] 118/70 Pulse Oximetry 92 Oxygen Delivery Me thod Room Air Oxygen Flow Rate 02/19/24 22:45 02/19/24 22:47 02/20/24 04:10 Temperature 98.1 F 98.5 F Pulse Rate Pulse Rate [Pulse Oximeter] 80 101 H Respiratory Rate 16 16 Blood Pressure [Le ft Arm] 122/81 119/91 H Pulse Oximetry 96 96 90 Oxygen Delivery Me thod Room Air Room Air Room Air Oxygen Flow Rate 02/20/24 04:23 02/20/24 07:00 02/20/24 07:00 Temperature Pulse Rate 100 Pulse Rate [Pulse Oximeter] Respiratory Rate Blood Pressure [Le ft Arm] Pulse Oximetry 91 Oxygen Delivery Me thod Nasal Cannula Nasal Cannula Oxygen Flow Rate 1 02/20/24 07:59 Temperature 98.4 F Pulse Rate Pulse Rate [Pulse Oximeter] 86 Respiratory Rate 20 Blood Pressure [Le ft Arm] 124/89 Pulse Oximetry 96 Oxygen Delivery Me thod Room Air Oxygen Flow Rate Labs Labs: Laboratory Results - last 24 hr 02/19/24 02/19/24 02/19/24 10:02 10:13 12:03 WBC 11.90 H RBC 4.08 L Hgb 12.0 L Hct 37.3 MCV 91 MCH 29 MCHC 32 RDW Coeff of Melissa 13.7 Plt Count 138 L Neut % (Auto) 87.4 H Lymph % (Auto) 9.0 L [place] % (Auto) 2.9 Eos % (Auto) 0.2 Baso % (Auto) 0.2 Neut # (Auto) 10.40 H Lymph # (Auto) 1.10 [place] # (Auto) 0.30 Eos # (Auto) 0.00 Baso # (Auto) 0.00 Abs Immat Gran (auto) 0.00 Imm/Tot Granulo (auto) 0.3 VBG pH 7.396 VBG pCO2 38 L VBG pO2 30.9 VBG HCO3 23 Sodium 138 Potassium 3.7 Chloride 109 Carbon Dioxide 22 Anion Gap 7 BUN 23 Creatinine 1.2 Estimated Creat Clear 41.17 Estimated GFR 58 Glucose 132 H Lactate 2.6 H Uric Acid 4.0 Calcium 8.1 L Phosphorus Magnesium 2.0 Total Bilirubin 2.1 H Direct Bilirubin 0.4 GGT 13 AST 20 ALT 17 Alkaline Phosphatase 48 Troponin I 0.02 C-Reactive Protein 25.9 H NT-Pro-B Natriuret Pep 3560 Total Protein 6.1 Albumin 3.3 Lipase 35 Procalcitonin 5.58 H TSH 1.480 Lab Acknowledgement Test Added Test Added 02/19/24 02/20/24 12:03 05:50 WBC 8.64 RBC 3.82 L Hgb 11.1 L Hct 34.6 L MCV 91 MCH 29 MCHC 32 RDW Coeff of Melissa Plt Count 122 L Neut % (Auto) Lymph % (Auto) [place] % (Auto) Eos % (Auto) Baso % (Auto) Neut # (Auto) Lymph # (Auto) [place] # (Auto) Eos # (Auto) Baso # (Auto) Abs Immat Gran (auto) Imm/Tot Granulo (auto) VBG pH VBG pCO2 VBG pO2 VBG HCO3 Sodium 136 Potassium 3.8 Chloride 112 Carbon Dioxide 21 Anion Gap 3 L BUN 23 Creatinine 0.9 Estimated Creat Clear 49.40 Estimated GFR 82 Glucose 137 H Lactate 0.9 Uric Acid Calcium 7.7 L Phosphorus 2.6 Magnesium Total Bilirubin 1.7 H Direct Bilirubin 0.1 GGT < 10 AST 17 ALT 13 Alkaline Phosphatase 45 Troponin I C-Reactive Protein 17.7 H NT-Pro-B Natriuret Pep Total Protein 5.4 L Albumin 2.8 L Lipase Procalcitonin 3.72 H TSH Lab Acknowledgement Test Added
[2024-02-20] MEDS: CALCIUM GLUC 1,000MG/50 ML 1,000 MG/50 ML BAG 100 MG IVPB (11:34)
[2024-02-20] MEDS: ZOLPIDEM 5 MG TABLET PO (21:05)
[2024-02-20] MEDS: METOPROLOL SUCCINATE (XL) 25 MG TAB 50 MG PO (21:05)
[2024-02-20] MEDS: AMLODIPINE 5 MG TABLET PO (21:05)
[2024-02-20] MEDS: ROSUVASTATIN CALCIUM 10 MG TABLET PO (21:06)
[2024-02-20] MEDS: SODIUM CHLORIDE 0.9 % (FLUSH) 10 ML SYRINGE 5 ML IVF (21:07)
--- NOTE | 2024-02-20 23:22 | PC.NURSE ---
End of Shift 1500 - 2300: Patient pleasant and cooperative, A&O. VSS, afebrile. Patient denies pain this shift. SBA. Tolerating regular diet.
[2024-02-21 00:15] VITALS: RESP 18
[2024-02-21 00:17] VITALS: PULSE 95
[2024-02-21 04:05] VITALS: BP 134/97; PULSE 88; RESP 16; TEMP 36.8; O2SAT 94
[2024-02-21] MEDS: PIPERACILLIN/TAZOBACTAM 3.375 GM in 0.9 % SODIUM CHLORIDE Mini-bag 100 ML IVPB (04:23)
--- NOTE | 2024-02-21 06:21 | PC.NURSE ---
End of shift [id number]: A&O. VSS. Afebrile. Denies pain. Ambulated w/ A1 walker and gait belt. Tolerated well. Bed alarm in place.?
[2024-02-21 06:50] LABS: Basophils Absolute Auto 0.01 K/uL (0.00-0.30); Basophils Percent Auto 0.1 % (0.0-3.0); Eosinophils Absolute Auto 0.22 K/uL (0.00-0.50); Eosinophils Percent Auto 3.3 % (0.0-7.0); Hematocrit 37.8 % (37.0-53.0); Hemoglobin* 12.4 gm/dL (13.5-17.5); Immature Granulocytes Abs Auto 0.02 K/uL (0.00-0.30); Immature Granulocytes Pct Auto 0.3 %; Lymphocytes Percent Auto 19.5 % (20-44); Mean Corpuscular HGB Conc 33 gm/dL (32-36); Mean Corpuscular Hemoglobin 29 pg (26-34); Mean Corpuscular Volume 90 fL (80-100); Neutrophils Absolute Auto 4.68 K/uL (1.7-7.0); Neutrophils Percent Auto 69.8 % (42.0-72.0); Platelet Count* 147 K/uL (140-440); RDW Coefficient of Variation % 13.3 % (11.5-15.5); Red Blood Count 4.22 m/uL (4.30-5.90); White Blood Count* 6.71 K/uL (4.50-11.00)
[2024-02-21 07:12] LABS: Albumin* 3.1 g/dL (3.3-5.0); Chloride* 112 mmol/L (96-114)
[2024-02-21 07:13] LABS: Potassium* 3.8 mmol/L (3.6-5.1); Sodium* 137 mmol/L (135-149)
[2024-02-21 07:15] LABS: Bilirubin Total* 1.4 mg/dL (0.1-1.5); Creatinine* 0.8 mg/dL (0.5-1.5); Estimated Glomerular Filt Rate 85 ml/min; Slide Review Reflex No
[2024-02-21 07:16] LABS: Alanine Aminotransferase* 14 U/L (4-50); Alkaline Phosphatase* 54 U/L (40-150); Anion Gap 5 mEq/L (7-15); Aspartate Amino Transferase* 18 U/L (12-35); Blood Urea Nitrogen* 18 mg/dL (7-30); Carbon Dioxide* 20 mmol/L (20-32); Glucose* 144 mg/dL (60-115); Total Protein* 5.9 g/dL (6.0-8.3)
[2024-02-21 07:17] LABS: Calcium* 8.2 mg/dL (8.4-10.6)
[2024-02-21 07:19] LABS: C Reactive Protein* 8.8 mg/dL (0.5-1.0)
[2024-02-21 07:40] VITALS: PULSE 87
[2024-02-21] MEDS: APIXABAN 5 MG TABLET PO (08:16)
[2024-02-21] MEDS: LOSARTAN POTASSIUM 50 MG TABLET 100 MG PO (08:16)
[2024-02-21] MEDS: SODIUM CHLORIDE 0.9 % (FLUSH) 10 ML SYRINGE 5 ML IVF (08:17)
--- NOTE | 2024-02-21 08:53 | PM.DS1 ---
DS: Providers Provider Date Seen: 02/21/24 Date of admission: 02/19/24 13:57 Primary care physician: Maria Esther Mendoza MD Admitting Clinician: Zina Campos MD Consults: OT, PT, SW Attending Physician on discharge: Lizette Zazueta MD Date of Discharge: 02/21/24 DS: Diagnosis Discharge Diagnosis (1) Weakness: Status: Acute Problem details: - illness vs deconditioning vs cardiac source (a fib, CHF) - no growth on urine or blood cultures, reassuring TTE - working with therapies, improved sufficiently to discharge back to [facility] (with increased services) on 02/20 (2) Elevated procalcitonin: Status: Acute Problem details: - in addition to leukocytosis and elevated CRP/lactate on admission - all down trending - mild abnormality on Ab CT (possible omental infarct, pyelo, or UTI - asymptomatic for all three conditions) - renal ultrasound normal - treated with Zosyn during stay, d/c on Augmentin 02/20 (3) Leukocytosis: Status: Acute Problem details: - down trending, afebrile, no obvious nidus of infection - normalized on day of discharge - CT reviewed with general surgery, no surgical needs identified - broad spectrum coverage with Zosyn during stay, home on Augmentin (4) Type 2 diabetes mellitus: Status: Acute Problem details: - A1C 7.4 - diet controlled - well managed, follows closely with PCP (Dr. 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 Normal LV size, mildly increased wall thickness, normal global systolic function with an estimated EF of 55 - 60%. 2. Right ventricular cavity size is normal, global systolic RV function is normal. 3. Severe bi atrial enlargement. 4. 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 Mean gradient 2 mmHg at HR 100 BPM. 5. 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 DS: Summary Hospital Course Hospital Course: Gregg was admitted to the hospital on 02/17 for weakness, found to have leukocytosis, elevated lactate, and elevated procalcitonin in the Emergency Room. He did not have any lateralizing symptoms and was and afebrile; however, given diffuse weakness and laboratory abnormalities, Zosyn was initiated empirically. During stay, no nidus of infection was identified. Imaging obtained, results below. Patient had a mild abnormality in the RLQ without any focal abdominal symptoms. His urine and blood cultures remained negative and renal ultrasound was within normal limits. Laboratory findings on improved during stay, and he worked with therapies for his weakness. He was appropriate for discharge home to [facility] assisted living on 02/21/2024 with an increase in services. Close follow-up with PCP scheduled, daughter updated by phone and agreeable to plan. Status at Discharge Functional status at discharge: uses cane/walker Overall status at discharge: patient is progressing back to baseline Time Spent with Patient Time attestation: Total time spent providing and/or coordinating discharge services: Time spent: Greater than 30 minutes Specific discharge activities: multidisciplinary team discussion/planning, updates to patient and family, medication reconciliation Exam Narrative: Exam Narrative: GEN: Alert and oriented, sitting in bedside chair and eating breakfast HEENT: Normal external ears, EOMIs bilaterally, no scleral icterus CV: Rate controlled atrial fibrillation R: LCTA bilaterally Ext: + edema bilateral ankles, stable/unchanged Skin: No concerning skin lesions or rashes on exposed skin Neuro: Baseline (previous CVA) Psych: Appropriate Const: Vital Signs, click to edit/add: Vital Signs - 24 hr 02/20/24 11:03 02/20/24 15:00 02/20/24 15:00 Temperature 97.9 F Pulse Rate Pulse Rate [Pulse Oximeter] 94 86 Respiratory Rate 18 18 18 Blood Pressure [Le ft Arm] 125/84 Pulse Oximetry 96 95 Oxygen Delivery Me thod Room Air Room Air 02/20/24 15:00 02/20/24 16:23 02/20/24 20:00 Temperature 98.0 F 98.0 F Pulse Rate 99 Pulse Rate [Pulse Oximeter] 86 100 Respiratory Rate 18 18 Blood Pressure [Le ft Arm] 131/90 H 139/106 H Pulse Oximetry 95 95 Oxygen Delivery Me thod Room Air Room Air 02/20/24 23:13 02/21/24 00:15 02/21/24 00:17 Temperature Pulse Rate 95 Pulse Rate [Pulse Oximeter] Respiratory Rate 18 18 Blood Pressure [Le ft Arm] Pulse Oximetry Oxygen Delivery Me thod Room Air 02/21/24 04:05 02/21/24 07:40 Temperature 98.3 F Pulse Rate 87 Pulse Rate [Pulse Oximeter] 88 Respiratory Rate 16 Blood Pressure [Le ft Arm] 134/97 H Pulse Oximetry 94 Oxygen Delivery Me thod DS: Data Data Completed and Pending Completed studies during hospitalization: IMPRESSION: 1. No evidence of acute disease in the chest. 2. Heterogeneous fat stranding in the right lower quadrant abuts a small bowel loop in the distal ureter. No obstructing stone or discrete bowel wall thickening evident. Findings are likely infectious or inflammatory versus possible small area of evolving fatty infarction. 3. Mild distal colonic diverticulosis without evidence of acute diverticulitis. Dictated by Elmer Mcguire MD @ 02/18/2024 3:13:59 PM Labs on day of discharge: Labs from last 24 hours 02/21/24 06:03 WBC 6.71 RBC 4.22 L Hgb 12.4 L Hct 37.8 MCV 90 MCH 29 MCHC 33 RDW Coeff of Melissa 13.3 Plt Count 147 Neut % (Auto) 69.8 Lymph % (Auto) 19.5 L [place] % (Auto) 7.0 Eos % (Auto) 3.3 Baso % (Auto) 0.1 Neut # (Auto) 4.68 Lymph # (Auto) 1.30 [place] # (Auto) 0.50 Eos # (Auto) 0.22 Baso # (Auto) 0.01 Abs Immat Gran (auto) 0.02 Imm/Tot Granulo (auto) 0.3 Sodium 137 Potassium 3.8 Chloride 112 Carbon Dioxide 20 Anion Gap 5 L BUN 18 Creatinine 0.8 Estimated Creat Clear 49.40 Estimated GFR 85 Glucose 144 H Calcium 8.2 L Total Bilirubin 1.4 AST 18 ALT 14 Alkaline Phosphatase 54 C-Reactive Protein 8.8 H Total Protein 5.9 L Albumin 3.1 L Preliminary micro results at discharge 02/18/24 17:22 Blood Culture - Preliminary Blood NO GROWTH AFTER 48 HOURS 02/18/24 17:57 MRSA Screen - Preliminary Nares No MRSA (Methicillin resistant Staph aureus) isolated. Discharge Plan Discharge Disposition: Xfer [facility] Date of Admission: 02/19/24 13:57 Attending Provider on Discharge: Lizette Zazueta Primary Care Provider: Maria Esther Mendoza Condition: Improved Anticipated Discharge Date/Time: 02/21/24 07:46 Discharge Medications: New amoxicillin-pot clavulanate 875-125 mg tablet 1 tab PO BID Qty: 10 0RF zolpidem 5 mg Tablet 5 mg PO HS PRN (Reason: insomnia) Qty: 30 0RF Rx Instructions: to be administered by nursing staff Continued triamcinolone acetonide 55 mcg aerosol,spray 1 spray intranasal DAILY Rx Instructions: Administer 1-2 sprays into each nostril daily. chlorpheniramine maleate 4 mg tablet 4 mg PO DAILY Rx Instructions: do not exceed 2 doses per 24 hrs Eliquis 5 mg tablet 5 mg PO BID Qty: 180 3RF losartan 100 mg tablet 100 mg PO DAILY Qty: 90 3RF rosuvastatin 10 mg tablet 10 mg PO HS Qty: 90 3RF acetaminophen 500 mg Tablet 500 mg PO Q4H PRN (Reason: Pain) Qty: 60 0RF PreserVision AREDS-2 250-90-40-1 mg capsule 1 tab PO QAM AND QHS amlodipine 5 mg tablet 5 mg PO DAILY Rx Instructions: Take 5 mg by mouth daily. metoprolol succinate 25 mg tablet extended release 24 hr 25 mg PO DAILY fluticasone propionate [Flovent HFA] 110 mcg/actuation HFA aerosol inhaler 2 puff INHALATION Q12H Qty: 12 6RF Changed furosemide 40 mg tablet 40 mg PO DAILY PRNQty: 90 3RF Discontinued zolpidem 5 mg tablet 5 - 10 mg PO HS PRN (Reason: insomnia) Qty: 180 2RF No Action (DME) blood-glucose meter [Blood Glucose Monitoring] Kit See Rx Instructions .Route Qty: 1 0RF Rx Instructions: As directed (DME) lancets [Accu-Chek Softclix Lancets] Misc See Rx Instructions .Route Qty: 200 0RF Rx Instructions: as needed (DME) Accu-Chek Guide test strips Strip See Rx Instructions .Route Qty: 100 0RF Rx Instructions: As needed Discharge Orders: Discharge Order (Routine); Ordered 02/21/24 Ordered By: Lizette Zazueta Additional Instructions: 5 more days of oral antibiotics sent to [place], take these twice/day with food. Looser stools is a medication side effect, eat one yogurt/day to try and help with this. See Dr. Mendoza in followup as scheduled. Your Blood Pressures were on the lower side while in the hospital, so just keep an eye on these. You can take your Lasix (Furosemide) as needed if your blood pressures are low. No more than 5mg of Ambien at night for sleep, the staff at [facility] will help with this administration. Activity Level: Activity as Tolerated Discharge Diet: Heart Healthy (2 gm sodium, low fat) Follow Up Appointments: [facility] [Outside] (Patient is being transferred to [facility].) Maria Esther Mendoza MD [Primary Care Provider] - 02/28/24 1:30 pm ([facility] for hospital follow-up.) Forms: [employer] Instructions Admit to: Assisted Living Code Status: Full Code Therapy: Physical Therapy and Occupational Therapy Therapy Orders: Evaluate and Treat and Gait Training Oxygen: No Urinary Catheter: No Next INR: n/a Orders are good >30 days: Yes Signature: Lizette Zazueta MD
[2024-02-21 10:05] VITALS: BP 138/109; PULSE 102; O2SAT 95
--- NOTE | 2024-02-21 11:18 | PC.SOCIAL ---
Addendum entered by MANJINDER Layne 02/21/24 13:44: Discharge planning: mastic worker provided pt with a copy of The Important Message from Medicare form before he discharged today. Pt had no plans to appeal his discharge from the hospital. Social work to follow-up as needed. Original Note: Discharge planning: Pt will return to [facility] today. Non-emergent EMS was set-up for transport back to the facility. mastic worker spoke to pt's daughter, Vee, about the cost, which is $95.00($85 for pick-up and $5 per mile/[facility] is two miles from the hospital 85+5x2= 95). Pt's daughter was fine with that amount and pt was in agreement, as well. mastic worker talked with nurse Tete at [facility] and sent her all the requested paperwork(D/C orders, Home Care orders and D/C Summary). Pt will start PT/OT with [facility] through [facility]. Social work to follow-up as needed.
[2024-02-21 11:20] VITALS: RESP 20; O2SAT 96
--- NOTE | 2024-02-21 11:25 | PC.NURSE ---
Discharge - Pt alert, oriented, cooperative and talkative. Up with standby assistance and walker/gait belt. Tolerating RA, regular diet/fluids. Observed to ambulate with PT/OT during shift. Pt denies pain, SOB, dizziness. IV removed with catheter intact. D/c paperwork reviewed with pt, copies sent with pt to [facility]. Pt d/c'd to [facility] via non-emergent EMS at approximately 1111.
== END 2024-02-21 11:11 | DRG 815 ==
LOC: ED 11:24 → MEDSURG 12:16
PROVIDERS: Family Medicine; Admitting Provider Family Medicine; Emergency Provider Emergency Medicine Emergency Medical Services; PCP Internal Medicine; Visit Provider Family Medicine
DX: D72.829 Elevated white blood cell count, unspecified (principal); I47.19 Other supraventricular tachycardia; I48.20 Chronic atrial fibrillation, unspecified; I50.20 Unspecified systolic (congestive) heart failure; I69.359 Hemiplegia and hemiparesis following cerebral infarction affecting unspecified side; R53.1 Weakness; R79.89 Other specified abnormal findings of blood chemistry; I11.0 Hypertensive heart disease with heart failure; E11.29 Type 2 diabetes mellitus with other diabetic kidney complication; Z79.01 Long term (current) use of anticoagulants; G47.33 Obstructive sleep apnea (adult) (pediatric); F51.04 Psychophysiologic insomnia; K21.9 Gastro-esophageal reflux disease without esophagitis; R54 Age-related physical debility; E04.1 Nontoxic single thyroid nodule; I69.328 Other speech and language deficits following cerebral infarction; E78.5 Hyperlipidemia, unspecified
CPT/HCPCS: 36415; 51702; 51798; 71045; 71260; 74177; 76775; 80048; 80053; 80069; 80076; 81001; 82248; 82803; 82962; 82977; 83605; 83690; 83735; 83880; 84145; 84443; 84484; 84550; 85025; 85027; 86140; 87040; 87081; 87086; 87631; 93005; 93306; 97110; 97116; 97161; 97165; 97530; 97535; 99285; G0378; A9270; J0613; J2543; J7030; Q9967

== ENCOUNTER 2024-02-21 11:14 | Outpatient (CLI) | payer MEDICARE, BC, SELFPAY ==
--- OUTSIDE RECORDS SUMMARY | 2024-02-22 06:23 | XMS_ITS | Clinical Summary ---
Author Organization [facility] Address [place], [place] [address] Care Team Providers Care Contract Negotiator Name Role Phone Garima Jorgensen AuD Unavailable [phone] Maria Esther Mendoza MD Primary Care Provider [phone] Allergies No known active allergies Medications Medication [...] Description 02/18/2024 4:00 PM CDT Ancillary Procedure [facility] & [address] [address] Arrived from Last 3 Months Family History [...] CDT Oxygen Saturation 98% 08/28/2017 1:00 PM [employer]ENTAL SALES REPRESENTATIVE Inhaled Oxygen Concentration - - Weight 87.1 kg (192 lb) 04/16/2020 2:43 PM CDT Height 172.7 cm (5' 8) 08/28/2017 10:57 AM RENTAL SALES REPRESENTATIVE Body Mass Index 29.19 08/28/2017 10:57 AM RENTAL SALES REPRESENTATIVE Plan of Treatment Health Maintenance Due Date [...] CDT ECHOCARDIOGRAM GREGG VILLA ? Accession#: ?? [id number] : ?1935 88 years Study Date: ?? 02/18/2024 2:28:45 PM Gender: M ?BP: ? 120/72 mmHg Height: 173.00 cm ?BSA: ?2.02 m? ? ? Weight: 88.00 kg ? Tech: ? MJW ? Referring MD: ZINA ELKINS Site: ? [facility] Reading Location: [facility] Patient Location: Inpatient. Procedure: 2D, Color Doppler [...] . This study was interpreted by an [facility] accredited facility. CC: Med/Surg - IP [facility], HIM (med records) [facility]. ??Final ?? Procedure Note Elmer Todd MD - 02/18/2024 ECHOCARDIOGRAM GREGG VILLA : 1935 88 years Study Date: 02/18/2024 2:28:45 PM Gender: M BP: 120/72 mmHg Height: 173.00 cm BSA: 2.02 m? ? ? Weight: 88.00 kg Tech: ELICEO Referring MD: ZINA ELKINS Site: [facility] Reading Location: [facility] Patient Location: Inpatient. Procedure: 2D, Color Doppler [...] [facility] accredited facility. CC: Med/Surg - IP [facility], HIM (med records) [facility]. Final Zina Elkins MD ECHO ORD from Last 3 Months Care Teams Contract Negotiator Relationship Specialty Start Date End Date Maria Esther Mendoza MD [address] [place] [address] PCP - General Internal Medicine 08/21/17 Garima Jorgensen AuD Audiology 12/14/05
--- OUTSIDE RECORDS SUMMARY | 2024-02-22 06:24 | XMS_ITS | Referral Summary ---
Author Organization [facility] Address [address] [place] [address] Care Team Providers Care Library Customer Service Clerk Name Role Phone Unavailable Primary Care Provider Unavailabl e Source Comments Patient records contain information from all sites at [facility]. For routine questions regarding patient records, call [phone] during business hours, M-F 8:00 AM - 5:00 PM Central Time. Record requests for emergency care only can be directed to [phone] at any time.[facility] Encounters Date Type Department Care Team Description 12/29/2023 Refill Department of Cardiovascular Medicine in [place], [place] [address] [place] [address] Ange Parry, GRACIA, C.N.P., D.N.P. Med Refill [...] Date Repair Mitral Valve Status Post 04/11/2023 Longterm (Current) Anticoagulant Treatment 03/24 Obstructive Sleep Apnea [...] How often do you attend chur or temple services? More than 4 times per year [...] Answer Date Recorded PHQ-2 Score 0 12/20/2021 [facility] [place] of Occupat ional Health - Occupational Stress [...] your living situation today? I have a [facility] place to live 04/08/2023 Education Answer [...] on file Medical Devices Implanted Type Area Buckle Attacher Device Identifier Shelf Expiration Date Model / Serial / Lot Band-Annulopla sty Flex-25mm - Valenzuela [id number] Implanted:Qty: 1 on 08/15/2006 Cardiac Valve Prosthesis Other/Legacy - See Implant Description Medtronic Description:Device Manufactu rer - Synchrony. Body Location - Other. Mitral. Device Status Text - [id number]. Hardware E.G. Pins/Screws/Ro ds Hardware e.g. pins/screws/ rods Mouth Glady Lee Fuzzy 1 X 1 - Valenzuela [id number] Implanted:Qty: 1 on 08/15/2006 Mesh or Patch [employer]peroo Description:Device Manufactu rer kajeet. Device Status Text - [id number]. [facility] Data - [id number]. Mesh Prolene 3 X 6 Pmii - [...] History *CT COLONOGRAPHY Routine 09/12/2001 8:48 AM BINDERY MACHINE FEEDER OFFBEARER from Last 3 Months or Most Recently [...] CDT Zoran Nuñez M.D. LAB BLOOD ADD-ON [facility] [address] [place] [address], [place] DTL [facility][note 3] [address] [place] [address] * CT Colonography (09/12/2001 8:48 AM BINDERY MACHINE FEEDER OFFBEARER) Anatomical Region Laterality Modality Computed Tomogra phy 09/12/2001 8:48 AM BINDERY MACHINE FEEDER OFFBEARER Narrative 09/12/2001 12:16 PM BINDERY MACHINE FEEDER OFFBEARER 12-Sep-2001 08:48:00 ??Exam: *CT Colonography Indications: COLONOGRAPHY - IRB #[id number]^*RESEARCH* ORIGINAL REPORT - 12-Sep-2001 12:16:00 ([id number]) ?? CT scan of the abdomen and pelvis according to colonography protocol for research purposes. Extracolonic findings include indeterminate low-attenuation areas within both kidneys. Ultrasound is recommended for further characterization. Tiny calculus in the right mid kidney collecting system. Cholecystectomy. Right inguinal hernia. ?? ([id number]) Ind: 750.320 ?? Dia.450 ?? Electronically signed by: ?? Ernesto Marie M.D. [id number] 12-Sep-2001 12:16 Procedure Note Ernesto Marie M.D. - 10/26/2017 12-Sep-2001 08:48:00 Exam: *CT Colonography Indications: COLONOGRAPHY - IRB #[id number]^*RESEARCH* ORIGINAL REPORT - 12-Sep-2001 12:16:00 ([id number]) CT scan of the abdomen and pelvis according to colonographyprotocol for research purposes. Extracolonic findings includeindeterminate low-attenuation areas within both kidneys. Ultrasound isrecommended for further characterization. Tiny calculus in the right midkidney collecting system. Cholecystectomy. Right inguinal hernia. ([id number]) Ind: 750.320 Dia.450 Electronically signed by: Ernesto Marie M.D. [id number] 12-Sep-2001 12:[address] PROCEDURES from Last 3 Months or Most Recently Relevant to Health Maintenance Advance Directives For more information, please contact: [phone] Documents on File Type Date Recorded Patient Mat Man Expl anation Advance Directives 08/22/2006 12:00 AM Leg acy document. See document viewer.
--- OUTSIDE RECORDS SUMMARY | 2024-02-22 06:24 | XMS_ITS ---
Author Organization [facility] Address [address] [place] [address] Care Team Providers Care Avionics Electrical Engineer Name Role Phone Unavailable Unavailable Unavailable Surgery Details Not on file Complications Check Surgery Details section. Procedure Estimated Blood Loss Check Surgery Details section. Procedure Findings Check Surgery Details section. Procedure Specimens Taken Check Surgery Details section.
--- OUTSIDE RECORDS SUMMARY | 2024-02-22 06:24 | XMS_ITS | Clinical Summary ---
Author Organization [facility] Address [address] [place] [address] Care Team Providers Care Telephone Switchboard Operator Name Role Phone Unavailable Primary Care Provider Unavailabl e Source Comments Patient records contain information from all sites at [facility]. For routine questions regarding patient records, call [phone] during business hours, M-F 8:00 AM - 5:00 PM Central Time. 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 Med Refill [...] How often do you attend chur or jewish services? More than 4 times per year 12/20/2021 Do you belong to any clubs o r organizations such as christianity groups, unions, fraternal [...] Date Recorded PHQ-2 Score 0 12/20/2021 [facility] [place] of Occupat ional Health - Occupational Stress [...] your living situation today? I have a [facility] place to live 04/08/2023 Education Answer [...] Cologuard Discontinued Medical Devices Implanted Type Area Last Picker Device Identifier Shelf Expiration Date Model / Serial / Lot Band-Annulopla sty Flex-25mm - Valenzuela [id number] Implanted:Qty: 1 on 08/15/2006 Cardiac Valve Prosthesis Other/Legacy - See Implant Description Medtronic Description:Device Manufactu rer - [employer] Body Location - Other. Mitral. Device Status Text - [id number]. Hardware E.G. Pins/Screws/Ro ds Hardware e.g. pins/screws/ rods Mouth Rich[place] Lee Fuzzy 1 X 1 - Valenzuela [id number] Implanted:Qty: 1 on 08/15/2006 Mesh or Patch IngagePatient Description:Device Manufactu rer Register My Info. Device Status Text - [id number]-1667. [facility] Data - [id number]. Mesh Prolene 3 X 6 Pmii - [...] History *CT COLONOGRAPHY Routine 09/12/2001 8:48 AM DISH PERSON from Last 3 Months or Most Recently [...] Nuñez M.D. LAB BLOOD ADD-ON [facility] [place] [address] [place] [address], [email or web address] DTL [facility] [address] [place] [address] * CT Colonography (09/12/2001 8:48 AM DISH PERSON) Anatomical Region Laterality Modality Computed Tomogra phy 09/12/2001 8:48 AM DISH PERSON Narrative 09/12/2001 12:16 PM DISH PERSON 12-Sep-2001 08:48:00 ??Exam: *CT Colonography Indications: COLONOGRAPHY - IRB #[id number]^*RESEARCH* ORIGINAL REPORT - 12-Sep-2001 12:16:00 ([id number]) ?? CT scan of the abdomen and pelvis according to colonography protocol for research purposes. Extracolonic findings include indeterminate low-attenuation areas within both kidneys. Ultrasound is recommended for further characterization. Tiny calculus in the right mid kidney collecting system. Cholecystectomy. Right inguinal hernia. ?? ([id number]) Ind: 750.320 ?? Dia.450 ?? Electronically signed [...] midkidney collecting system. Cholecystectomy. Right inguinal hernia. ([id number]) Ind: 750.320 Dia.450 Electronically signed by: Ernesto Marie M.D. [id number] 12-Sep-2001 12:16 Lupillo Cai M[address]D. IMAnahi CT PROCEDURES from Last 3 Months or Most Recently Relevant to Health Maintenance Advance Directives For more information, please contact: [phone] Documents on File Type Date Recorded Patient Optics Technical Officer Expl anation Advance Directives 08/22/2006 12:00 AM Leg acy document. See document viewer.
--- OUTSIDE RECORDS SUMMARY | 2024-02-22 06:24 | XMS_ITS | Encounter Summary ---
Author Organization [facility] Address [address] [place] [address] Care Team Providers Care Toilet Attendant Name Role Phone Unavailable Primary Care Provider Unavailabl e Reason for Referral * Outpatient (Routine) - Authorized Specialty Diagnoses / Procedures Referred By Contac t Referred To Contact Cardiovascular Disease Ange Parry APRN, C.N.PHorace, D.N.P. [address] [place] [phone] [facility] Referral ID Status Reason Start Date Expiration Date V isits Requested Visits Authorized [id number] Authorized 01/01/2024 07/02/2025 1 1 Scheduling Instructions Self or any provider if I have no availability. To review Holter results * Outpatient (Routine) - Authorized Specialty Diagnoses / Procedures Referred By Contac t Referred To Contact Diagnoses Atrial Fibrillation Paroxysmal (HCC) Medical Laboratory Technician (Current) Anticoagulant Treatment Procedures ECG Heart Rhythm Monitor (Holter) Ange Parry APRN, C.N.P., D.N.P. [address] [place] [phone] [facility] Referral ID Status Reason Start Date Expiration Date V isits Requested Visits Authorized [id number] Authorized 01/01/2024 12/31/2024 1 1 Reason for Visit * Reason Comments Med Refill Encounter Details Date Type Department Care Team (Late st Contact Info) Description 12/29/2023 Refill Department of Cardiovascular Medicine in [place], [place] [address] [place] [address] Ange Parry APRN, C.N.P., D.N.P. [address] [place] [phone] Med Refill Social History Tobacco Use Types [...] often do you attend chur ch or spiritism services? More than 4 times per year 12/20/2021 Do you belong to any clubs o r organizations such as samaritan groups, unions, fraternal [...] Answer Date Recorded PHQ-2 Score 0 12/20/2021 [facility] of Occupat ional Health - Occupational [...] Cardiac Services Routine Atrial Fibrillation Paroxysmal (HCC) Medical Laboratory Technician (Current) Anticoagulant Treatment Expected: 01/01/2024, Expires: 04/02/2025 Scheduled Referrals Name Type Priority Associated Diagnoses Order Schedule Cardiovascular Disease office visit (clinic) Outpatient Referral Routine Expect ed: 01/01/2024, Expires: 04/02/2025 documented as of this encounter Visit Diagnoses Diagnosis Atrial Fibrillation Paroxysmal (HCC)- Primary Correction (Current) Anticoagulant Treatment documented in this encounter Additional Health Concerns Assessment Noted Time PHQ-9 Depression Total Score: 0 09/13/19 17 5:57 AM BROOM WORKER documented as of this encounter
== END 2024-02-21 11:15 | disposition home or self-care (01) ==
LOC: AMB 02-22 06:22
PROVIDERS: PCP Internal Medicine; Visit Provider Emergency Medicine Emergency Medical Services
DX: R53.1 Weakness (principal); Z99.3 Dependence on wheelchair
CPT/HCPCS: A0425; A0428

== ENCOUNTER 2024-05-22 11:14 | Outpatient (CLI) | payer MEDICARE, BC, SELFPAY ==
--- OUTSIDE RECORDS SUMMARY | 2024-05-22 11:17 | XMS_ITS | Referral Summary ---
Author Organization [facility] Address [address] [place] [address] Care Team Providers Care Communications Equipment Operator Name Role Phone Unavailable Primary Care Provider Unavailabl e Source Comments Patient records contain information from all sites at [facility]. For routine questions regarding patient records, call [phone] during business hours, M-F 8:00 AM - 5:00 PM Central Time. Record requests for emergency care only can be directed to [phone] at any time.[facility] [...] comments) Medium 02/23/2011 Sleep pattern change Medications * This document contains information received from the source organization and may not represent a complete record from that organization. chlorpheniramin e (CHLOR-TRIMETON ) 4 mg tablet Take 1 tablet by mouth daily as needed. Rhinitis 7 Active fluticasone propionate (FLOVENT HFA) 110 mcg/actuation inhaler Inhale 1-2 puffs at bedtime. 2 puffs twice daily; during summer months only 1 puff twice daily 7 Active triamcinolone (NASACORT) 55 mcg/actuation nasal spray Administer 1-2 sprays into each nostril daily. Active vit C/E/Zn/coppr/felipa tein/zeaxan (PRESERVISION AREDS-2 ORAL) Take 2 tablets by mouth daily. Active amLODIPine (NORVASC) 5 mg tablet Take 5 mg by mouth daily. 2 Active apixaban (ELIQUIS) 5 mg tablet Take 5 mg by mouth 2 (two) times a day. 2 Active inhaler,assist device,accesory (INHALER,ASSIST DEVICES,ACCESS MISC) Take 2 puffs by mouth every 12 (twelve) hours. 2 Active furosemide (LASIX) 40 mg tablet Take 40 mg by mouth daily. 2 Active losartan (COZAAR) 100 mg tablet Take 100 mg by mouth daily. 2 Active rosuvastatin (CRESTOR) 10 mg tablet Take 10 mg by mouth at bedtime. 2 Active zolpidem (AMBIEN) 5 mg tablet Take 5 mg by mouth at bedtime as needed. 2 Active Microlet Lancet as needed. 3 Active Contour Next EZ Meter misc FOR HOME USE DIRECTED 3 Active Contour Next Test Strips TEST NEEDED 3 Active metoprolol succinate (TOPROL-XL) 25 mg 24 hr tablet TAKE ONE TABLET (25 MG) BY MOUTH DAILY. DO NOT CRUSH OR CHEW. 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 More than 4 times per year 12/20/2021 Do you belong to any clubs o r organizations such as episcopal groups, unions, fraternal or athletic groups, or [...] Answer Date Recorded PHQ-2 Score 0 12/20/2021 [facility] of Occupat ional Health - Occupational [...] living? No 04/08/2023 Nutrition Answer Date Recorded On average, how many serving s of fruits and vegetables do you eat per day (serving size is equal to 1 cup or approximately the size of a tennis ball)? 3-5 04/08/2023 Dental Answer Date Recorded Dental: Regular Dentist Yes 12/21/19 Employment Answer Date Recorded Employment status Retired 04/08/2023 Housing Stability Answer Date Recorded What is your living situation today? I have a [facility] place to live 04/08/2023 Education Answer Date Recorded What is the highest level of school you have completed or the highest degree you have received? Doctorate 12/20/2021 Sex and Gender Information Value Date Recorded Sex Assigned at Male 02/28/2018 2:32 PM CDT Legal Sex Male 9:27 AM LITERACY EDUCATION PROFESSOR Gender Identity Male 02/28/2018 2:32 PM CDT [...] on file Medical Devices Implanted Type Area Director Business Development Device Identifier Shelf Expiration Date Model / Serial / Lot Band-Annulopla sty Flex-25mm - Valenzuela [id number] Implanted:Qty: 1 on 08/15/2006 Cardiac Valve Prosthesis Other/Legacy - See Implant Description Medtronic Description:Device Manufactu rer - [employer]. Body Location - Other. Mitral. Device Status Text - [id number]. Hardware E.G. Pins/Screws/Ro ds Hardware e.g. pins/screws/ rods Mouth Alston Lee Fuzzy 1 X 1 - Valenzuela [id number] Implanted:Qty: 1 on 08/15/2006 Mesh or Patch [employer] Description:Device Manufactu rer Lumenpulse. Device Status Text - [id number]-[id number]. [facility] Data - [id number]. Mesh Prolene 3 X 6 Pmii - Valenzuela [id number] Implanted:Qty: 1 on 06/04/2007 Mesh or Patch Ethicon Description:Device Manufactu rer - Ethicon. Device Status Text - [id number]-969. Mesh Prolene 3 X 6 Pmii - Valenzuela 969 Implanted:Qty: 2 on 03/25/2008 Mesh or Patch Ethicon Description:Device Manufactu rer [place] Ethicon. Device Status Text - MESHPATCH-969. 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 LAB BLOOD ADD-ON [facility] lt [facility] [address] [place] [address], [place] DTL [facility] [address] [place] [address] * CT Colonography (09/12/2001 8:48 AM LITERACY EDUCATION PROFESSOR) Anatomical Region Laterality Modality Computed Tomogra phy 09/12/2001 8:48 AM LITERACY EDUCATION PROFESSOR Narrative 09/12/2001 12:16 PM LITERACY EDUCATION PROFESSOR 12-Sep-2001 08:48:00 ??Exam: *CT Colonography Indications: COLONOGRAPHY - IRB #[id number]^*RESEARCH* ORIGINAL REPORT - 12-Sep-2001 12:16:00 ([id number]) ?? CT scan of the abdomen and pelvis according to colonography protocol for research purposes. Extracolonic findings include indeterminate low-attenuation areas within both kidneys. Ultrasound is recommended for further characterization. Tiny calculus in the right mid kidney collecting system. Cholecystectomy. Right inguinal hernia. ?? ([id number]) Ind: 750.320 ?? Dia.450 ?? Electronically signed [...] midkidney collecting system. Cholecystectomy. Right inguinal hernia. ([id number]) Ind: 750.320 Dia.450 Electronically signed by: Ernesto Marie M.D. [id number] 12-Sep-2001 12:16 Lupillo Cai M[address]D. IMAnahi [address] PROCEDURES Final R esult from Last 3 Months or Most Recently Relevant to Health Maintenance Insurance [facility] MEDICARE Advance Directives For more information, please contact: [phone] Documents on File Type Date Recorded Patient Orthopedic Radiologic Technologist Expl anation Advance Directives 08/22/2006 12:00 AM Leg acy document. See document viewer.
--- OUTSIDE RECORDS SUMMARY | 2024-05-22 11:17 | XMS_ITS ---
Author Organization [facility] Address [address] [place] [address] Care Team Providers Care Birth Attendant Name Role Phone Unavailable Unavailable Unavailable Surgery Details Not on file Complications Check Surgery Details section. Procedure Estimated Blood Loss Check Surgery Details section. Procedure Findings Check Surgery Details section. Procedure Specimens Taken Check Surgery Details section.
--- OUTSIDE RECORDS SUMMARY | 2024-05-22 11:17 | XMS_ITS | Clinical Summary ---
Author Organization [facility] Address [place], [place] [address] Care Team Providers Care Shipping And Receiving Specialist Name Role Phone Garima Castro Unavailable [phone] Maria Esther Mednoza MD Primary Care Provider [phone] Allergies No known active allergies Medications Medication [...] times daily. 180 tablet 3 04/16/2020 Active digoxin (LANOXIN) 125 mcg (0.125 mg) tabletIndications:P ersistent atrial fibrillation (HC) Take 1 Tablet (125 mcg) by mouth once daily. 30 Tablet 3 03/21/2024 Active Active Problems Problem Noted Date Diagnosed Date Persistent atrial fibrillation 08/28/2017 Unspecified essential hypertension 10/17/2006 Pure hypercholesterolemia 10/17/2006 Sensorineural hearing loss, bilateral 10/16/2006 Encounters Date Type Department Care Team Description 05/22/2024 10:30 AM CDT Office Visit [facility] [address] [place] [address] Eliot Bolton MD Arrived 03/20/2024 1:00 PM CDT Office Visit [address] [address] Eliot Bolton MD from Last 3 Months Family History Medical [...] Friends and Fami ly Not on file 03/20/2024 Financial Resource Strain Answer Date R ecorded [...] CDT Oxygen Saturation 98% 08/28/2017 1:00 PM MAGNETIC RESONANCE IMAGING DIRECTOR Inhaled Oxygen Concentration - - Weight 87.1 kg (192 lb) 04/16/2020 2:43 PM CDT Height 172.7 cm (5' 8) 08/28/2017 10:57 AM MAGNETIC RESONANCE IMAGING DIRECTOR Body Mass Index 29.19 08/28/2017 10:57 AM MAGNETIC RESONANCE IMAGING DIRECTOR Plan of Treatment Upcoming Encounters Date Type Department Care Team (Late st Contact Info) Description 05/30/2024 10:00 AM MAGNETIC RESONANCE IMAGING DIRECTOR Office Visit [facility] [address] [place] [address] Burton Gardiner AuD [address] [place] [phone] 05/30/2024 11:00 AM MAGNETIC RESONANCE IMAGING DIRECTOR Office Visit [facility] [address] [place] [address] Burton Gardiner AuD [address] [place] [phone] Health Maintenance Due Date Last Done Comments Tdap 1946 Depression screening for age 12+ 1947 BMI (ht and wt on same day) for age 18+ 1953 Tetanus booster 1955 Zoster (shingles) series for age 50+ (1 of 2) 1985 Medicare Wellness for age 65+ 2000 Pneumococcal series for age 65+ (1 of 1 - PCV) 2000 RSV vaccine for adults or (1 - 1-dose 75+ series) 2010 Influenza for age 65+ 03/23/2024 COVID-19 vaccine series Completed 04/30/20, 11/20/2023, 05/07/2023, Additional history exists Care Teams Shipping And Receiving Specialist Relationship Specialty Start Date End Date Maria Esther Mendoza MD [address] [place] [address] PCP - General Internal Medicine 08/21/17 Garima Castro AuD Audiology 12/14/05
--- OUTSIDE RECORDS SUMMARY | 2024-05-22 11:17 | XMS_ITS | Clinical Summary ---
Author Organization [facility] Address [address] [place] [address] Care Team Providers Care Ortho/Prosthetic Aide Name Role Phone Unavailable Primary Care Provider Unavailabl e Source Comments Patient records contain information from all sites at [facility]. For routine questions regarding patient records, call [phone] during business hours, M-F 8:00 AM - 5:00 PM Central Time. Record requests for emergency care only can be directed to [phone] at any time.[facility] Allergies Active Allergy Reactions Criticality Noted [...] often do you attend [employer] [facility] or [employer] services? More than 4 times per year 12/20/2021 Do you belong to any clubs o r organizations such as bahai groups, unions, fraternal or athletic groups, or [...] Answer Date Recorded PHQ-2 Score 0 12/20/2021 [facility] - Occupational [...] your living situation today? I have a [facility] place to live 04/08/2023 Education Answer Date Recorded What is the highest level of school you have completed or the highest degree you have received? Doctorate 12/20/2021 Sex and Gender Information Value Date Recorded Sex Assigned at Male 02/28/2018 2:32 PM CDT Legal Sex Male 9:27 AM LEARNING OFFICER Gender Identity Male 02/28/2018 2:32 PM CDT [...] Fall Risk Screen (Annual) 07/23/2023 COVID-19 Vaccine ( season) 2024 11/20/2023, 05/07/2023, 01/25/2023, Additional history exists Creatinine Level (Kidney Function Test) 04/10/2024 04/10/2023, 01/10/2022, 04/15/2018, Additional history exists Potassium Level 04/10/2024 04/10/2023, 12/22, 04/15/2018, Additional history exists Sodium Level 04/10/2024 04/10/2023, 12/22, 04/15/2018, Additional history exists Influenza Vaccine (#1) 2024 , 05/11/2022, 05/09/2021, Additional history exists DTaP,Tdap,and Td Vaccines (3 - Td or Tdap) 10/12/2024 10/12/2014, 10/12/2014 CT Colonography Discontinued 09/12/2001 Pneumococcal vaccine (65+ years) Completed 06/28/2017, 09/30/2016, 10/12/2014 Colonoscopy Discontinued 12/23/2021, 09/2021, 06/10/2015, Additional history exists Colorectal Cancer Surveillance Discontinued Zoster Vaccines Completed 06/12/2022, 12/22, 12/20/2021, Additional history exists RSV vaccine - (32-36 weeks) or 60+ years Completed 07/27/2023 Cologuard Discontinued IPV Vaccines Aged Out No longer eligi ble based on patient's age to complete this topic Medical Devices Implanted Type Area Highway Engineer Device Identifier Shelf Expiration Date Model / Serial / Lot Band-Annulopla sty Flex-25mm - Valenzuela [id number] Implanted:Qty: 1 on 08/15/2006 Cardiac Valve Prosthesis Other/Legacy - See Implant Description Medtronic Description:Device Manufactu rer - [employer] Body Location - Other. Mitral. Device Status Text - [id number]. Hardware E.G. Pins/Screws/Ro ds Hardware e.g. pins/screws/ rods Mouth Shelby Lee Fuzzy 1 X 1 - Valenzuela [id number] Implanted:Qty: 1 on 08/15/2006 Mesh or Patch RedMica Description:Device Manufactu rer - [employer]. Device Status Text - [id number]. [facility] Data - [id number]. Mesh Prolene 3 X 6 Pmii - [...] History *CT COLONOGRAPHY Routine 09/12/2001 8:48 AM LEARNING OFFICER from Last 3 Months or Most Recently [...] M.D. LAB BLOOD ADD-ON Final Resu lt [facility] [address] [place] [address], [facility] D[facility] [address] [place] [address] * CT Colonography (09/12/2001 8:48 AM LEARNING OFFICER) Anatomical Region Laterality Modality Computed Tomogra phy 09/12/2001 8:48 AM LEARNING OFFICER Narrative 09/12/2001 12:16 PM LEARNING OFFICER 12-Sep-2001 08:48:00 ??Exam: *CT Colonography Indications: COLONOGRAPHY - IRB #[id number]^*RESEARCH* ORIGINAL REPORT - 12-Sep-2001 12:16:00 ([id number]) ?? CT scan of the abdomen and pelvis according to colonography protocol for research purposes. Extracolonic findings include indeterminate low-attenuation areas within both kidneys. Ultrasound is recommended for further characterization. Tiny calculus in the right mid kidney collecting system. Cholecystectomy. Right inguinal hernia. ?? ([id number]) Ind: 750.320 ?? Dia.450 ?? Electronically signed [...] midkidney collecting system. Cholecystectomy. Right inguinal hernia. ([id number]) Ind: 750.320 Dia.450 Electronically signed by: Ernesto Marie M.D. [id number] 12-Sep-2001 12:16 Lupillo Cai M[address]. An[address] PROCEDURES Final R esult from Last 3 Months or Most Recently Relevant to Health Maintenance Insurance [address] [address] [facility] MEDICARE Advance Directives For more information, please contact: [phone] Documents on File Type Date Recorded Patient Freight Hustler Expl anation Advance Directives 08/22/2006 12:00 AM Leg acy document. See document viewer.
== END 2024-05-22 11:15 | disposition home or self-care (01) ==
PROVIDERS: PCP Internal Medicine; Visit Provider Internal Medicine Cardiovascular Disease
DX: I50.20 Unspecified systolic (congestive) heart failure (principal); Z79.899 Other long term (current) drug therapy; Z51.81 Encounter for therapeutic drug level monitoring
CPT/HCPCS: 80048; 80162

== ENCOUNTER 2024-08-05 10:35 | Outpatient (CLI) | payer MEDICARE, BC, SELFPAY | END 2024-08-05 10:36 | disposition home or self-care (01) | LOC: NFLDREF 10:53 | PROVIDERS: PCP Internal Medicine; Visit Provider Internal Medicine | DX: Z11.9 Encounter for screening for infectious and parasitic diseases, unspecified (principal) | CPT/HCPCS: 80048; 83036 ==

== ENCOUNTER 2025-01-29 12:55 | Outpatient (CLI) | payer MEDICARE, BC, SELFPAY | END 2025-01-29 12:56 | disposition home or self-care (01) | PROVIDERS: PCP Internal Medicine; Visit Provider Emergency Medicine | DX: R41.82 Altered mental status, unspecified (principal) | CPT/HCPCS: A0425; A0427 ==

== ENCOUNTER 2025-01-29 13:26 | Inpatient (IN) | payer MEDICARE, BC, SELFPAY ==
[2025-01-29] VITALS (43 sets, daily range): BP systolic 93–155; BP diastolic 60–136; PULSE 64–124; RESP 15–65; TEMP 36.6–38.2; O2SAT 90–94; BMI 26.6; BMI 28.3
--- NOTE | 2025-01-29 13:28 | ED.GENADULT ---
HPI - General Adult General Date Seen: 01/29/25 Chief complaint: Fall/Minor Trauma Stated complaint: Fall Time Seen by Provider: 01/29/25 13:28 Source: patient, EMS and RN notes reviewed Mode of arrival: EMS Limitations: no limitations History of Present Illness HPI narrative: Gregg is a very pleasant 89-year-old gentleman with history thromboembolic stroke with residual right-sided weakness, anticoagulation, currently residing at [facility] who is brought to the emergency room by EMS after he was found this morning on floor in his apartment. Gregg had fallen sometime overnight according to EMS and was found this morning. They were able to get him into a wheelchair. Unfortunately he had episodes of vomiting after this and was brought to the emergency room for evaluation. Unsure how long he was down overnight. EMS did give Zofran after placing an IV with relief of his vomiting. I meet Gregg in the back hallway and we proceed immediately to CT. He agrees that he is feeling better. No complaints of pain at this time. A quick cursory exam shows no respiratory distress. I do meet him back in the ED department after CT. I do me Gregg back in the ER room 8. He denies any head neck chest or abdominal pain to me but nursing staff states he was saying that his neck was sore. He does not know how long he was down last night or what time he fell. He cannot really recall those events. Does feel like he is breathing okay at this time. Was incontinent and does have evidence of vomitus on his shirt. Related Data Home Medications ?Medication ?Instructions ?Recorded ?Confirmed vit C 250 mg-vit E 90 mg-zinc 40 1 tab PO QAM AND QHS 01/15/23 01/29/25 mg-copper 1 un-fbeiea-kktbiv capsule (PreserVision AREDS-2) chlorpheniramine maleate 4 mg 4 mg PO DAILY 02/12/23 01/29/25 tablet triamcinolone acetonide 55 mcg 1 spray intranasal DAILY 02/12/23 01/29/25 nasal spray aerosol digoxin 125 mcg (0.125 mg) tablet 125 mcg PO DAILY 03/27/24 01/29/25 fluticasone propionate 110 2 puff inhalation Q12H PRN 01/29/25 01/29/25 mcg/actuation HFA aerosol inhaler furosemide 40 mg tablet 40 mg PO DAILY weight gain 01/29/25 01/29/25 metoprolol succinate 100 mg 100 mg PO DAILY 01/29/25 01/29/25 tablet,extended release 24 hr rosuvastatin 10 mg tablet 10 mg PO HS 01/29/25 01/29/25 zolpidem 5 mg tablet 5 - 10 mg PO HS insomnia 01/29/25 01/29/25 Previous Rx's ?Medication ?Instructions ?Recorded blood sugar diagnostic (Accu-Chek #100 ea 01/31/23 Guide test strips) blood-glucose meter (Blood Glucose #1 ea 01/31/23 Monitoring kit) lancets (Accu-Chek Softclix #200 ea 01/31/23 Lancets) apixaban 5 mg tablet (Eliquis) 5 mg PO BID #180 tabs 04/03/24 losartan 100 mg tablet 100 mg PO DAILY #90 tabs 04/03/24 Allergies Allergy/AdvReac Type Severity Reaction Status Date / Time Sulfa (Sulfonamide Allergy Intermediate Hives Verified 08/05/24 09:37 Antibiotics) latex Allergy Mild allergy Verified 08/05/24 09:37 test grass pollen AdvReac Intermediate Verified 08/05/24 09:37 mold AdvReac Intermediate Verified 08/05/24 09:37 pollen extracts AdvReac Intermediate Verified 08/05/24 09:37 apple AdvReac Mild Gastrointestinal Verified 08/05/24 09:37 Upset cat dander AdvReac Mild Verified 08/05/24 09:37 house dust mite AdvReac Mild Verified 08/05/24 09:37 Review of Systems Status of ROS: Reports: unobtainable due to mental status Narrative: Denies fever chills abdominal pain or any pain at all to me at this time but I do think Gregg is a poor historian. I do know Gregg from prior to his stroke and thus I do not know his baseline at this time. He is very pleasant and we do converse about his daughter who is in [place]. [facility] Medical History History of chronic bronchitis ?Z87.09 - Personal history of other diseases of the respiratory system (ICD-10) Thyroid nodule ?E04.1 - Nontoxic single thyroid nodule (ICD-10) Surgical History History of cholecystectomy (1990) ?Z90.49 - Acquired absence of other specified parts of digestive tract (ICD-10) History of uvulopalatopharyngoplasty (2001) ?Z98.890 - Other specified postprocedural states (ICD-10) Hx of tonsillectomy (~1942) ?Z90.89 - Acquired absence of other organs (ICD-10) H/O arthroscopic knee surgery ?Z98.890 - Other specified postprocedural states (ICD-10) H/O bilateral cataract extraction ?Z98.41 - Cataract extraction status, right eye (ICD-10) ?Z98.42 - Cataract extraction status, left eye (ICD-10) S/P rotator cuff repair ?Z98.890 - Other specified postprocedural states (ICD-10) S/P mitral valve repair (2006) ?Z98.890 - Other specified postprocedural states (ICD-10) S/P Mohs surgery for basal cell carcinoma (2014) ?Z98.890 - Other specified postprocedural states (ICD-10) ?Z85.828 - Personal history of other malignant neoplasm of skin (ICD-10) Status post prostatectomy ?Z90.79 - Acquired absence of other genital organ(s) (ICD-10) S/P hernia surgery (2006) ?Z98.890 - Other specified postprocedural states (ICD-10) ?Z87.19 - Personal history of other diseases of the digestive system (ICD-10) Melanoma in situ (2019) ?D03.9 - Melanoma in situ, unspecified (ICD-10) Social History What is your current living situation?: I presently have a place to live Problems where you live: no known problems Problems where you live details: NA In the past 12 months, utilities in danger of being shut off: no In past 12 months, lack of transportation kept you from medical appts, meetings, work, or getting things needed for daily living: no In the past 12 mos, have been you worried that your food would run out before you had money to buy more?: never true In the past 12 mos, the food you bought just didn't last and you didn't have money to buy more?: never true Highest level of school completed/degree received: Doctoral degree Smoking Status: Never smoker Do you use any of these nicotine containing products: None Second hand tobacco smoke exposure: No How often do you have a drink containing alcohol: monthly or less Alcohol type: wine Alcohol type details: RED WINE WHEN GOING OUT TO EAT How many standard drinks containing alcohol do you have on a typical day: 1 or 2 How often do you have six or more drinks on one occasion: Never AUDIT-C Alcohol total score: 1 Non-prescribed substance use: denies use Caffeine: Yes (BLACK TEA EVERYDAY) How often does anyone, including family, friends and others, physically hurt you: never How often does anyone, including family, friends and others, insult or talk down to you: never How often does anyone, including family, friends and others, threaten you with harm: never How often does anyone, including family, friends and others, scream or curse at you: never service: Yes ([employer]) Exam Narrative: Exam Narrative: Gregg is alert to self and place. His face is symmetrical. He is conversing and following commands. He is unable to answer many questions regarding the events of last night. His head is without laceration bleeding or discomfort. His neck has no midline cervical tenderness but I do not have him perform range of motion given the fact that he just complain to nursing staff about neck pain. His heart is with an irregularly irregular rhythm with long pauses. Patient appears to be asymptomatic while supine to this. Upper extremity strength intact. Perhaps slight decreased strength on the right. Abdomen is soft nontender. Pelvis stable. Able to move lower extremities although right side seems again somewhat weak. This is the affected side from the stroke. Back exam: Const: Vital Signs, click to edit/add: Vital Signs - 24 hr 01/29/25 13:34 01/29/25 13:49 01/29/25 13:50 Temperature 97.8 F Pulse Rate 83 79 Pulse Rate [Pulse Oximeter] 64 Respiratory Rate 18 15 28 H Blood Pressure 155/89 H Blood Pressure [Le ft Upper Arm] 150/85 H Pulse Oximetry 93 92 92 Oxygen Delivery Me thod Room Air 01/29/25 14:00 01/29/25 14:02 01/29/25 14:15 Temperature Pulse Rate 79 82 77 Pulse Rate [Pulse Oximeter] Respiratory Rate 21 22 32 H Blood Pressure 134/85 Blood Pressure [Le ft Upper Arm] Pulse Oximetry 94 94 91 Oxygen Delivery Me thod 01/29/25 14:17 01/29/25 14:30 01/29/25 14:32 Temperature Pulse Rate 87 72 78 Pulse Rate [Pulse Oximeter] Respiratory Rate 65 H 25 H Blood Pressure 145/75 H 135/92 H Blood Pressure [Le ft Upper Arm] Pulse Oximetry 93 94 Oxygen Delivery Me thod 01/29/25 14:45 01/29/25 14:47 01/29/25 15:00 Temperature Pulse Rate 78 80 73 Pulse Rate [Pulse Oximeter] Respiratory Rate 59 H 64 H 46 H Blood Pressure 148/84 H Blood Pressure [Le ft Upper Arm] Pulse Oximetry 93 93 Oxygen Delivery Ky thod 01/29/25 15:02 01/29/25 15:15 01/29/25 15:17 Temperature Pulse Rate 77 80 Pulse Rate [Pulse Oximeter] Respiratory Rate 18 20 27 H Blood Pressure 140/79 H 131/77 Blood Pressure [Le ft Upper Arm] Pulse Oximetry [facility] 01/29/25 15:30 01/29/25 15:32 01/29/25 15:45 Temperature Pulse Rate 74 70 95 Pulse Rate [Pulse Oximeter] Respiratory Rate 38 H 23 20 Blood Pressure 131/84 Blood Pressure [Le ft Upper Arm] Pulse Oximetry 90 92 [facility] 01/29/25 15:47 01/29/25 15:48 01/29/25 16:00 Temperature Pulse Rate 81 72 75 Pulse Rate [Pulse Oximeter] Respiratory Rate 21 22 Blood Pressure 125/81 Blood Pressure [Le ft Upper Arm] Pulse Oximetry 92 92 90 Oxygen Delivery Me thod 01/29/25 16:02 01/29/25 16:15 01/29/25 16:16 Temperature Pulse Rate 77 88 101 H Pulse Rate [Pulse Oximeter] Respiratory Rate 17 Blood Pressure 127/69 125/80 Blood Pressure [Le ft Upper Arm] Pulse Oximetry 90 93 93 Oxygen Delivery Ky thod 01/29/25 16:30 01/29/25 16:32 01/29/25 16:45 Temperature Pulse Rate 74 71 72 Pulse Rate [Pulse Oximeter] Respiratory Rate 22 21 21 Blood Pressure 140/70 H Blood Pressure [Le ft Upper Arm] Pulse Oximetry 94 94 93 Oxygen Delivery Me thod 01/29/25 16:47 01/29/25 17:00 01/29/25 17:02 Temperature Pulse Rate 76 82 75 Pulse Rate [Pulse Oximeter] Respiratory Rate 23 17 Blood Pressure 98/72 131/77 Blood Pressure [Le ft Upper Arm] Pulse Oximetry 92 93 93 Oxygen Delivery Me thod 01/29/25 17:15 01/29/25 17:16 01/29/25 17:30 Temperature Pulse Rate 84 91 86 Pulse Rate [Pulse Oximeter] Respiratory Rate 22 24 Blood Pressure 129/75 Blood Pressure [Le ft Upper Arm] Pulse Oximetry 91 92 91 Oxygen Delivery Me thod 01/29/25 17:32 Temperature Pulse Rate 85 Pulse Rate [Pulse Oximeter] Respiratory Rate 19 Blood Pressure 153/136 H Blood Pressure [Le ft Upper Arm] Pulse Oximetry 92 Oxygen Delivery Me thod Documenting provider has reviewed patient's vital signs: yes Course Course ED Course: Patient met immediately in the back hallway in immediately taken to CT. He was protecting his airway and did not appear to be any respiratory distress. CT of the head and cervical spine as well as plain check chest x-ray was ordered. Patient brought back to the emergency room at which time I was able to do a more thorough exam. EKG does show AFib with a rate of 68 but there was a significant pause greater than 2nd where as a ventricular escape the cyst was noted. Will keep patient on monitor, check a troponin, labs to include CBC, comprehensive panel, urinalysis, magnesium. Will also obtain did obtain digoxin level given the slow heart rate. At this time patient is noted to have normal blood pressure 150 systolic and a temp of 97.8?. Currently on apixaban. Reevaluation(s) Reevaluation #1: Patient has remained stable and has been resting. Head CT cervical spine without acute abnormality. Patient noted to have elevated creatinine kinase. IV fluids 500 mL have been administered and will continue after speaking to hospitalist. Consultations Consultation #1: I had the pleasure of speaking with Dr. Sampson a home restoration service cleaner with [facility]. I was able to share EKG with him with concerns regarding the AFib with escape complexes. Dr. 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 He notes that he actually saw Gregg about 7 years ago and remembers a similar EKG. Fortunately he has had 2 sets of negative cardiac enzymes. He does have a mild elevation of his Pro BNP at 3060 but this is essentially the same as the summer of 2023. At this time Dr. Sampson feels we can safely keep Gregg in [place]. He does not think that any pauses that were exhibited on the EKG would be the cause of the fall that Gregg experience last night but does agree with ongoing cardiac monitoring. Vital Signs Vital signs: Initial Vital Signs Temperature 97.8 F 01/29/25 13:34 Temperature Source Temporal Artery Scan 01/29/25 13:34 Pulse Rate 64 01/29/25 13:34 Respiratory Rate 18 01/29/25 13:34 Blood Pressure 150/85 H 01/29/25 13:34 Blood Pressure Mean 106 H 01/29/25 13:34 Blood Pressure Position Supine 01/29/25 13:34 Pulse Oximetry 93 01/29/25 13:34 Oxygen Delivery Method Room Air 01/29/25 13:34 Vital Signs Temperature 97.8 F 01/29/25 13:34 Pulse Rate 64 01/29/25 13:34 Respiratory Rate 18 01/29/25 13:34 Blood Pressure 150/85 H 01/29/25 13:34 Pulse Oximetry 93 01/29/25 13:34 Oxygen Delivery Method Room Air 01/29/25 13:34 Temperature 99.2 F 01/29/25 20:14 Pulse Rate 99 01/29/25 20:14 Respiratory Rate 26 H 01/29/25 20:14 Blood Pressure 117/68 01/29/25 20:14 Pulse Oximetry 90 01/29/25 20:14 Oxygen Delivery Method Room Air 01/29/25 20:14 Medications Administered Medications: Generic Name Dose Route Start Last Admin Trade Name Freq PRN Reason Stop Dose Admin Sodium Chloride 1,000 mls @ 75 mls/hr 01/29/25 18:16 01/29/25 19:43 0.9 % Sodium Chloride 1000 Ml IV 01/30/25 07:35 0 mls/hr .[id number] DIXIE Infusion Discontinued Medications Generic Name Dose Route Start Last Admin Trade Name Freq PRN Reason Stop Dose Admin Sodium Chloride 500 mls @ 500 mls/hr 01/29/25 13:30 01/29/25 15:20 0.9 % Sodium Chloride 500 Ml IV 01/29/25 14:29 Infused .Q1H DIXIE Infusion Sodium Chloride 500 mls @ 500 mls/hr 01/29/25 19:20 01/29/25 19:42 0.9 % Sodium Chloride 500 Ml IV 01/29/25 20:19 500 mls/hr .Q1H DIXIE Administration Medical Decision Making MDM Narrative Medical decision making narrative: 1. Rhabdomyolysis-CK elevated at 284. Patient given 500 mL normal saline 2. Fall with vomiting and anticoagulation-head CT reassuring. EMS had administered Zofran and no further vomiting is noted. Both head CT and cervical spine negative for any acute findings. 3. 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 Digoxin level low at 0.4. Two sets of cardiac enzymes were negative. 4. Abnormal chest [id number] lung markings. ProBNP is similar to 1 year ago. No fever although white count is elevated I am attributing this to stress of falling and being on the floor. 4. History of CVA with residual right-sided weakness 5. Thyroid nodule-2 cm nodule that will need outpatient follow-up. 6. Disposition -admit to [facility] under the care of hospitalist RADHA Chang Pleasure of speaking to Gregg's daughter Teresa who is currently living in [place]. She does note that she has seen a decline in her dad recently. His had earlier this year and they had the 1 week ago. She notes that her dad is in charge of his own pills and there is a question if he is taking them. She does think that he has had decreased p.o. intake. I did discuss with her the cardiac arrhythmia and might discussion with the home restoration service cleaner earlier today. She notes that a few years ago they did discuss with at home restoration service cleaner that would come here to the clinic about the possibility of an ablation and then pacer placement. They decided against that at that time. I do think there is significant concern regarding patient living independently at [facility] comments. He has declined all the services but I am wondering if OT consult for ADL assessment would be helpful for Gregg. Teresa and her brother both live in [place] and they would like him to move there but he has been resistant to this idea. Teresa can be reached at [phone]. She knows her dad does not have cell phone so he may need assistance in calling her. Medical Records Medical records reviewed: Yes I reviewed the patient's medical records Lab Data Lab results reviewed: Yes I reviewed the patient's lab results Labs: Lab Results 01/29/25 01/29/25 01/29/25 Range/Units 13:35 14:00 14:00 WBC 17.43 H (4.50-11.00) K/uL RBC 4.52 (4.30-5.90) m/uL Hgb 13.5 (13.5-17.5) gm/dL Hct 40.8 (37.0-53.0) % MCV 90 (80-100) fL MCH 30 (26-34) pg MCHC 33 (32-36) gm/dL RDW Coeff of Melissa 13.3 (11.5-15.5) % Plt Count 162 (140-440) K/uL Neut % (Auto) 91.3 H (42.0-72.0) % Lymph % (Auto) 3.4 L (20-44) % Davie % (Auto) 5.0 (0.0-11.0) % Eos % (Auto) 0.0 (0.0-7.0) % Baso % (Auto) 0.1 (0.0-3.0) % Neut # (Auto) 15.90 H (1.7-7.0) K/uL Lymph # (Auto) 0.60 L (0.90-2.90) K/uL Davie # (Auto) 0.90 (0.00-0.90) K/UL Eos # (Auto) 0.00 (0.00-0.50) K/uL Baso # (Auto) 0.00 (0.00-0.30) K/uL Abs Immat Gran (auto) 0.00 (0.00-0.30) K/uL Imm/Tot Granulo (auto) 0.2 % Sodium 140 (135-149) mmol/L Potassium 3.8 (3.6-5.1) mmol/L Chloride 106 (96-114) mmol/L Carbon Dioxide 25 (20-32) mmol/L Anion Gap 9 (7-15) mEq/L BUN 26 (7-30) mg/dL Creatinine 0.8 (0.5-1.5) mg/dL Estimated Creat Clear 48.45 Estimated GFR 85 ml/min Glucose 246 H (60-115) mg/dL Calcium 9.1 (8.4-10.6) mg/dL Magnesium 2.0 1.9 (1.5-2.6) mg/dL Total Bilirubin 1.8 H (0.1-1.5) mg/dL AST 36 H (12-35) U/L ALT 36 (4-50) U/L Alkaline Phosphatase 65 (40-150) U/L Total Creatine Kinase 284 H (54-186) U/L NT-Pro-B Natriuret Pep Cancelled Total Protein (6.0-8.3) g/dL Albumin (3.3-5.0) g/dL Urine Color (Yellow) Urine Appearance (Clear) Urine pH (5.0-8.5) Ur Specific [place] (1.000-1.030) Urine Protein (Negative) Urine Glucose (UA) (Negative) Urine Ketones (Negative) Urine Blood (Negative) Urine Nitrite (Negative) Urine Bilirubin (Negative) Urine Urobilinogen (0.2-1.0) Ur Leukocyte Esterase (Negative) Urine RBC (0-2) Urine WBC (0-5) Ur Squamous Epith Cells (None-Few) Urine Bacteria (None) Digoxin (0.8-2.0) ng/mL Lab Acknowledgement POC Troponin I 0.04 (0.01-0.04) ng/ml 01/29/25 01/29/25 01/29/25 Range/Units 14:00 15:23 15:45 WBC (4.50-11.00) K/uL RBC (4.30-5.90) m/uL Hgb (13.5-17.5) gm/dL Hct (37.0-53.0) % MCV (80-100) fL MCH (26-34) pg MCHC (32-36) gm/dL RDW Coeff of Melissa (11.5-15.5) % Plt Count (140-440) K/uL Neut % (Auto) (42.0-72.0) % Lymph % (Auto) (20-44) % Davie % (Auto) (0.0-11.0) % Eos % (Auto) (0.0-7.0) % Baso % (Auto) (0.0-3.0) % Neut # (Auto) (1.7-7.0) K/uL Lymph # (Auto) (0.90-2.90) K/uL Davie # (Auto) (0.00-0.90) K/UL Eos # (Auto) (0.00-0.50) K/uL Baso # (Auto) (0.00-0.30) K/uL Abs Immat Gran (auto) (0.00-0.30) K/uL Imm/Tot Granulo (auto) % Sodium (135-149) mmol/L Potassium (3.6-5.1) mmol/L Chloride (96-114) mmol/L Carbon Dioxide (20-32) mmol/L Anion Gap (7-15) mEq/L BUN (7-30) mg/dL Creatinine (0.5-1.5) mg/dL Estimated Creat Clear Estimated GFR ml/min Glucose (60-115) mg/dL Calcium (8.4-10.6) mg/dL Magnesium (1.5-2.6) mg/dL Total Bilirubin (0.1-1.5) mg/dL AST (12-35) U/L ALT (4-50) U/L Alkaline Phosphatase (40-150) U/L Total Creatine Kinase (54-186) U/L NT-Pro-B Natriuret Pep 3060 H Total Protein 6.9 (6.0-8.3) g/dL Albumin 4.0 (3.3-5.0) g/dL Urine Color Yellow (Yellow) Urine Appearance Clear (Clear) Urine pH 5.5 (5.0-8.5) Ur Specific [place] 1.020 (1.000-1.030) Urine Protein 3+ A (Negative) Urine Glucose (UA) Trace A (Negative) Urine Ketones 1+ A (Negative) Urine Blood 1+ A (Negative) Urine Nitrite Negative (Negative) Urine Bilirubin Negative (Negative) Urine Urobilinogen 0.2 (0.2-1.0) Ur Leukocyte Esterase Negative (Negative) Urine RBC 0-2 (0-2) Urine WBC 2-5 (0-5) Ur Squamous Epith Cells Moderate A (None-Few) Urine Bacteria Moderate A (None) Digoxin 0.4 L (0.8-2.0) ng/mL Lab Acknowledgement Test Added POC Troponin I 0.03 (0.01-0.04) ng/ml Imaging Data CT scan - head: Attestation: I have reviewed the pertinent imaging results. My impression: I do not note acute finding. Radiologist's impression: Parenchyma: No acute hemorrhage, infarction, or mass. Moderate confluent periventricular white matter hypoattenuation is nonspecific and is favored to represent chronic small vessel ischemic disease. Small to moderate left frontal and right cerebellar encephalomalacia are compatible with sequela of chronic prior infarcts. Ventricles and extra-axial spaces: Moderate involutional changes. Visualized paranasal sinuses: Moderate left maxillary sinus mucosal retention cyst versus polyp. Mastoid air cells: Clear. Bones: No focal abnormality. Additional comment: Bilateral lens surgery. IMPRESSION: No acute intracranial abnormality. Cervical spine CT: Attestation: I have reviewed the pertinent imaging results. Radiologist's impression: INDINGS: Alignment: 3 millimeter of anterolisthesis of C4 on C5. Vertebrae: Vertebral bodies and posterior elements are intact without acute fracture. Moderate degenerative changes of the visualized spine. Extra-vertebral soft tissues: Normal. Visualized brain: Normal. Additional comment: Partial visualization of postsurgical changes from median sternotomy. Right thyroid nodules measuring up to 2.0 centimeter (). Recommend further evaluation with ultrasound for a thyroid nodule measuring <= 1.5 cm in a patient <= 35 years of age, as is appropriate taking into consideration the patient?s comorbidities and life expectancy. Adapted from Consensus Recommendations, J Am Alexia Radiol 2015;12:143?150. IMPRESSION: No acute displaced fracture or malalignment of the cervical spine. 3 millimeter of anterolisthesis of C4 on C5 is favored to be degenerative in etiology. Chest x-ray: Attestation: I have reviewed the pertinent imaging results. Radiologist's impression: Mildly enlarged cardiomediastinal silhouette. Subtle mild patchy bilateral airspace opacities. No pleural effusion or visualized pneumothorax. Left humeral head suture anchors. Impression: Subtle mild patchy bilateral airspace opacities may represent mild pulmonary edema or atypical infection or inflammation. ECG Data Attestation: I personally reviewed and interpreted this ECG as follows: Interpretation: EKG by my read shows atrial fibrillation at the rate of 68. However, there are at least 1 2nd pauses in up to 2 seconds with ventricular escape complexes noted. QT intervals within normal limits. Discharge Plan Discharge Clinical Impression: Fall, Rhabdomyolysis, Arrhythmia, Thyroid nodule Patient Disposition: Admitted As Observation Condition: Improved
--- OUTSIDE RECORDS SUMMARY | 2025-01-29 13:28 | XMS_ITS | Clinical Summary ---
Author Organization [facility] Address [address] [place] [address] Care Team Providers Care Station Jailer Name Role Phone Unavailable Primary Care Provider Unavailabl e Source Comments Patient records contain information from all sites at [facility]. For routine questions regarding patient records, call [phone] during business hours, M-F 8:00 AM - 5:00 PM Central Time. 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 No 12/20/2021 Hunger Vital Sign Answer Date Recorded Within [...] things needed for daily living? No 04/08/2023 Housing Stability Answer Date Recorded What is your living situation today? I have a [facility] place to live 04/08/2023 Education Answer Date Recorded What is the highest level of school you have completed or the highest degree you have received? Doctorate 12/20/2021 Sex and Gender Information Value Date Recorded Sex Assigned at Male 02/28/2018 2:32 PM CDT Legal Sex Male 9:27 AM CARPET YARN WINDER OPERATOR Gender Identity Male 02/28/2018 2:32 PM CDT Sexual Orientation Straight 02/28/2018 2: 32 PM CDT Last Filed Vital Signs Vital Sign Reading Time Taken Comments Blood Pressure 125/84 04/11/2023 9:14 AM CDT Pulse 102 04/11/2023 9:14 AM CDT Temperature 36.5 C (97.7 F) 01/10/2022 11:03 AM CDT Respiratory Rate 11 12/23/2021 4:54 PM CDT Oxygen Saturation 97% 12/23/2021 4:54 PM CDT Inhaled Oxygen Concentration - - Weight 90 kg (198 lb 6.6 oz) 01/10/2022 11:03 AM CDT Height 172 cm (5' 7.72) 12/20/2021 10:10 AM CDT Body Mass Index 30.42 12/20/2021 10:10 AM CDT Plan of Treatment Health Maintenance Due Date Last Done Comments RSV vaccine - (32-36 weeks) or 60+ years (1 - 1-dose 75+ series) 2010 COVID-19 Vaccine ( season) 2024 05/07/2023, 01/25/2023, 07/11/2022, Additional history exists Creatinine Level (Kidney Function Test) 04/10/2024 04/10/2023, 01/10/2022, 04/15/2018, Additional history exists Potassium Level 04/10/2024 04/10/2023, 12/22, 04/15/2018, Additional history exists Sodium Level 04/10/2024 04/10/2023, 12/22, 04/15/2018, Additional history exists Depression Screening (Annual PHQ-2) 07/23/2024 Fall Risk Screen (Annual) 07/23/2024 DTaP,Tdap,and Td Vaccines (3 - Td or Tdap) 10/12/2024 10/12/2014, 10/12/2014 Influenza Vaccine (#1) 2025 , 05/09/2021, 05/03/2020, Additional history exists CT Colonography Discontinued 09/12/2001 Pneumococcal vaccine (50+ years) Completed 06/28/2017, 09/30/2016, 10/12/2014 Colonoscopy Discontinued 12/23/2021, 05/23, 06/02/2013, Additional history exists Colorectal Cancer Surveillance Discontinued Zoster Vaccines Completed 06/12/2022, 12/22, 06/12/2006 Cologuard Discontinued IPV Vaccines Aged Out No longer eligi ble based on patient's age to complete this topic Medical Devices Implanted Type Area Bullet Lubricant Mixer Device Identifier Shelf Expiration Date Model / Serial / Lot Band-Annulopla sty Flex-25mm - Valenzuela [id number] Implanted:Qty: 1 on 08/15/2006 Cardiac Valve Prosthesis Other/Legacy - See Implant Description Medtronic Description:Device Manufactu rer - [employer] Body Location - Other. Mitral. Device Status Text - [id number]. Hardware E.G. Pins/Screws/Ro ds Hardware e.g. pins/screws/ rods Mouth [place] Lee Fuzzy 1 X 1 - Valenzuela [id number] Implanted:Qty: 1 on 08/15/2006 Mesh or Patch Hydrelis Description:Device Manufactu rer - [employer]. Device Status Text - [id number]. [facility] Data - [id number]. Mesh Prolene 3 X 6 Pmii - [...] History *CT COLONOGRAPHY Routine 09/12/2001 8:48 AM CARPET YARN WINDER OPERATOR from Last 3 Months or Most Recently [...] AM CDT 04/10/2023 11:28 AM CDT us Mejia Nuñez M.D. LAB BLOOD ADD-ON Final Result [facility] [address] [place] [address], [facility] [address] [place] [address] * Colonoscopy (12/23/2021 3:53 PM CDT) 12/23/2021 3:53 PM CDT Impressions [facility] - 12/23/2021 4:56 PM CDT Post-op Diagnoses: - Hemorrhoids found on perianal exam. - Benign polypoid lesion at the appendiceal orifice. Biopsied. - Diverticulosis in the sigmoid colon. - External and internal hemorrhoids. - The examination was otherwise normal. - The examined portion of the ileum was normal. Narrative [facility] - 12/23/2021 4:56 PM CDT Tor[facility] 9 GI GI Patient Name: Gregg Villa Date of : 1935 Age: 86 Gender: Male Procedure Date: 12/23/2021 Procedure: Colonoscopy Providers: Tim Brown MD Referring Provider: Ernesto Shea Pre-op Diagnoses: High risk colon cancer surveillance: Personal history of colonic polyps Recommendation: - Await pathology results. If tissue is adenomatous, then would need to consider surgical consideration for appendectomy, since endoscopic treatment at the appendiceal orifice would likely be inadequate. Findings: Hemorrhoids were found on perianal exam. A 15 mm polypoid lesion was found at the appendiceal orifice. The lesion was flat. This was biopsied with a cold forceps for histology. Diverticula were found in the sigmoid colon. External and internal hemorrhoids were found. The hemorrhoids were small. The exam was otherwise without abnormality. The terminal ileum appeared normal. Procedural Details: The patient was seen, evaluated, history reviewed, airway and heart-lung exams were performed by licensed provider and were satisfactory for planned level of sedation care. The risks, benefits and alternatives for the procedure and sedation were discussed and informed consent was obtained. A procedural pause was conducted in the presence of assisting personnel to verify the correct patient identity and procedure to be performed. Throughout the procedure, the patient's blood pressure, pulse, and oxygen saturations were monitored continuously. The Pediatric Colonoscope was introduced under direct vision through the anus and advanced to 3 cm into the ileum. The colonoscopy was performed without difficulty. The patient tolerated the procedure well. The quality of the bowel preparation was adequate. The terminal ileum, ileocecal valve, appendiceal orifice, and rectum were photographed. Estimated Blood Loss: Estimated blood loss was minimal. Complications: No immediate complications. Sedation: No sedation administered. Attending Participation: I personally performed the entire procedure. Tim Brown MD 12/23/2021 4:56:42 PM This report has been signed electronically. Number of Addenda: 0 us Ernesto Shea M.D. GI PROCEDURE ORDERABLES Fin al Result [facility] NA * CT Colonography (09/12/2001 8:48 AM CARPET YARN WINDER OPERATOR) Anatomical Region Laterality Modality Computed Tomogra phy 09/12/2001 8:48 AM CARPET YARN WINDER OPERATOR Narrative 09/12/2001 12:16 PM CARPET YARN WINDER OPERATOR 12-Sep-2001 08:48:00 Exam: *CT Colonography Indications: COLONOGRAPHY - IRB #[id number]^*RESEARCH* ORIGINAL REPORT - 12-Sep-2001 12:16:00 ([id number]) CT scan of the abdomen and pelvis according to colonography protocol for research purposes. Extracolonic findings include indeterminate low-attenuation areas within both kidneys. Ultrasound is recommended for further characterization. Tiny calculus in the right mid kidney collecting system. Cholecystectomy. Right inguinal hernia. ([id number]) Ind: 750.320 Dia.450 Electronically signed by: Ernesto Marie M.D. [id number] 12-Sep-2001 12:16 Procedure [...] midkidney collecting system. Cholecystectomy. Right inguinal hernia. ([id number]) Ind: 750.320 Dia.450 Electronically signed by: Ernesto Marie M.D. [id number] 12-Sep-2001 12:16 Lupillo Cai M.D. IMAnahi CT PROCEDURES Final R esult from Last 3 Months or Most Recently Relevant to Health Maintenance Insurance [address] [address] [facility] MEDICARE Advance Directives For more information, please contact: [phone] Documents on File Type Date Recorded Patient Carburizing Furnace Operator Expl anation Advance Directives 08/22/2006 12:00 AM Leg acy document. See document viewer.
--- OUTSIDE RECORDS SUMMARY | 2025-01-29 13:28 | XMS_ITS | Clinical Summary ---
Author Organization [facility] Address [address] [place] [address] Care Team Providers Care Head Char Filter Tank Tender Name Role Phone Garima Castro Unavailable [phone] Maria Esther Mendoza MD Primary Care Provider [phone] Allergies No known active allergies Medications COZAAR 50 MG TAB None Entered 0 Active MULTIVITAMIN ORAL None Entered 0 Active FISH OIL CAP None Entered 0 Acti ve simvastatin (ZOCOR) 20 mg tablet Take 20 mg by mouth at bedtime. 3 7 Active chlorpheniramine (CHLOR-TRIMETON) 4 mg tablet Take 1 tablet by mouth every 4 hours if needed for Rhinitis. 0 8 Active triamcinolone, 55 mcg each actuation, nasal (NASACORT AQ) 55 mcg nasal spray Inhale 2 Sprays into both nostrils once daily. 16.5 g 8 Active fluticasone (FLOVENT DISKUS) 100 mcg/actuation inhaler Inhale 1 Puff by mouth 2 times daily. 1 Inhaler 8 Active medication order composer Focus Select 2mg per day, macular degeneration and glaucoma 0 8 Active zolpidem (AMBIEN) 5 mg tablet Take 1 tablet by mouth at bedtime if needed for Sleep. 0 8 Active furosemide (LASIX) 40 mg tablet Take 1 tablet by mouth every morning. 0 8 Active amiodarone (CORDARONE) 200 mg tabletIndication s:Persistent atrial fibrillation (HC) Start amiodarone 400mg (2 pills) twice daily for one week - 09/04/2017 decrease to 400mg (2 pills) daily -10/03/2017 decrease to 200mg daily 180 tablet 3 8 Active rivaroxaban (XARELTO) 20 mg tabletIndication s:Atrial fibrillation, unspecified type (HC) Take 1 tablet by mouth once daily with evening meal. 180 tablet 1 8 Active apixaban (ELIQUIS) 5 mg tabletIndication s:PAF (paroxysmal atrial fibrillation) (HC) Take 1 tablet by mouth 2 times daily. 180 tablet 3 0 Active potassium chloride (KLOR-CON M20) 20 mEq extended-release tablet (part/cryst)Briana cations:Potassiu m serum decreased Take 1 Tablet (20 mEq) by mouth once daily with a meal. 90 Tablet 3 4 Active digoxin (LANOXIN) 125 mcg (0.125 mg) tabletIndication s:Persistent atrial fibrillation (HC) Take 1 Tablet (125 mcg) by mouth once daily. 90 Tablet 3 4 Active Active Problems Problem Noted Date Diagnosed Date Persistent atrial fibrillation 08/28/2017 Unspecified essential hypertension 10/17/2006 Pure hypercholesterolemia 10/17/2006 Sensorineural hearing loss, bilateral 10/16/2006 Encounters Date Type Department Care Team Description 01/15/2025 11:00 AM CDT Office Visit [facility] [address] [place] [address] Burton Gardiner AuD Hearing Aid 01/15/2025 Travel 12/09/[address] 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 Gender Identity Not on file Sexual Orientation Not on file Obstetrics History Last Filed Vital Signs Vital Sign Reading Time Taken Comments Blood Pressure 114/78 12/14/2020 11:07 AM CDT Pulse 60 12/14/2020 11:07 AM CDT Temperature 35.8 C (96.4 F) 08/28/2017 11:00 AM 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 FITNESS INSTRUCTOR Respiratory Rate 20 12/14/2020 11:07 AM CDT Oxygen Saturation 98% 08/28/2017 1:00 PM 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 FITNESS INSTRUCTOR Inhaled Oxygen Concentration - - Weight 87.1 kg (192 lb) 04/16/2020 2:43 PM CDT Height 172.7 cm (5' 8) 08/28/2017 10:57 AM 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 FITNESS INSTRUCTOR Body Mass Index 29.19 08/28/2017 10:57 AM 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 FITNESS INSTRUCTOR Plan of Treatment Health Maintenance Due Date Last Done Comments Tetanus booster 1946 Depression screening for age 12+ 1947 BMI (ht and wt on same day) for age 18+ 1953 Pneumococcal series for age 50+ (1 of 2 - PCV) 1954 Zoster (shingles) series for age 50+ (1 of 2) 1985 Medicare Wellness for age 65+ 2000 RSV vaccine for adults or (1 - 1-dose 75+ series) 2010 Influenza Vaccine (#1) 2025 COVID-19 vaccine series Completed 11/13/19, 04/30/2024, 11/20/2023, Additional history exists Hepatitis B series for 19+ Aged Out N o longer eligible based on patient's age to complete this topic Insurance MEDICARE PB ONLY MEDICARE PART B HB ONLY MEDICARE PART A HB ONLY [facility] Care Teams Head Char Filter Tank Tender Relationship Specialty Start Date End Date Maria Esther Mendoza MD [address] [place] [id number] PCP - General Internal Medicine 08/21/17 Garima Castro AuD Audiology 12/14/05
--- OUTSIDE RECORDS SUMMARY | 2025-01-29 13:28 | XMS_ITS | Data Portability ---
Author Organization [place] - [facility], Main Office Address [address] [address] Assessment Encounter Date Assessment Date Assessment LastModified by Organization Details LastModified Time 07/19/2020 07/19/2020 1. 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 An extensive period of time was taken with him and his daughter preoperatively demonstrating to her the actual size of the lesion. Demonstrating it to him with photographs. Discussing the potential need for flap or graft but overall granulation will offer similar cosmetic results with less risk of infection pain discomfort and cost. If possible we plan on granulation. Written and verbal informed consent was obtained. Area anesthetized 1% lidocaine with epinephrine with an infra-auricular nerve block for the lower half of the ear and 2 cc to 3 cc total to the upper half of the ear throughout the entire day. [facility] case number [id number] Stage I: Curette debulk. 2 mm margins taken down to the deep dermis revealing residual basaloid islands at the periphery and several points. Stage II: Peripheral rim taken with 1 mm margins touching the apex of the superior helical rim. Revealing no residual basal carcinoma there is a follicular structure near the 8:00 pole. These were divided into 3 sections total. This structure appears follicular or folded epidermis. Has no artificial retraction no marked basaloid cells per se. More proper maturation of the hair follicle Total stages 2 total sections 4. Final defect 4 x 3.0 cm. We discussed options we chose to allow the area to granulate. We can always later potentially do a flap. We fenestrated the cartilage in 6 sites with a 2 mm punch discussing the risk benefits. Discussed risk benefits pain discomfort downtime bleeding scarring chance recurrence. Follow-up in [place] in 6 weeks. Written verbal and typewritten wound care instructions given along with cell phone number. [email or web address] Not available 07/25/2020 20:22:49 Plan of Treatment Reminders Order Date Submit Date Provider Last Modified By Organization Details Last Modified Time Details Appointments None record ed. Lab None record ed. Referral None record ed. Procedures None record ed. Surgeries None record ed. Imaging None record ed. Medication Orders None record ed. Patient TargetsNo targets recorded. Patient InstructionsNo instructions recorded. Reason for Referral None Reported. Problems No Known Problems Medical Equipment None Reported. Allergies No known drug allergies Medications Name Sig Start Date Stop Date Status Note LastModified by Organization Details LastModified Time losartan 50 mg tablet TAKE 1 AND ONE-HALF TABLET DAILY active Not Available Not Available No t Available furosemide 40 mg tablet TAKE ONE TABLET BY MOUTH DAILY active Not Available Not Available No t Available amiodarone 200 mg tablet TAKE ONE TABLET DAILY active Not Available Not Available No t Available simvastatin 10 mg tablet TAKE ONE TABLET BY MOUTH AT BEDTIME active Not Available Not Available No t Available doxycycline monohydrate 100 mg capsule active Not Available Not Available Not Available zolpidem 5 mg tablet TAKE 1 TABLET AT BEDTIME NEEDED active Not Available Not Available No t Available Flovent HFA 110 mcg/actuation aerosol inhaler INHALE 2 PUFFS TWICE DAILY active Not Available Not Available No t Available Xarelto 20 mg tablet TAKE ONE TABLET BY MOUTH DAILY WITH EVENING MEAL active Not Available Not Available No t Available Eliquis 5 mg tablet active Not Available Not Available Not Available Vitals None Recorded Social History Question Answer Notes LastModified by Organizat ion Details LastModified Time Tobacco Smoking Status Never Smoker [facility] 07/19/2020 10:10:22 Animal Exposure? No Information not available 07/19/2020 Do You Use Sunscreen Routinely? No Information not available 07/19/2020 Tanning Bed Exposure No Information not available 07/19/2020 Sex: Unknown Functional Status Question Answer Note LastModified by Organization D etails LastModified Time What is your level of alcohol consumption? None Information not available 07/19/2020 Mental Status None recorded. Family History Relationship Description Onset Age of this Age Resolved Age Notes LastModified by Organization Details LastModified Time Father No current problems or disability Not available 10:10:07 Mother No current problems or disability Not available 10:10:07 Medical History Condition Response Diabetes N Bleeding Disorder N Squamous Cell Carcinoma N Arthritis N Blood Clot N AIDS/HIV N Tuberculosis N Cancer N Melanoma N Stroke N Thyroid Problems N Asthma N Pacemaker N Anemia N Basal Cell Carcinoma Y Skin Cancer N Hepatitis N Liver Disease N Heart Disease N Pulmonary Embolism N Hypertension N Seasonal Allergies N Kidney Disease N Past Encounters Encounter ID Performer Location Encounter Start Date Encounter Closed Date Diagnosis/Indication Diagnosis SNOMED-CT Code Diagnosis ICD10 Code Diagnosis Note [id number] Pastor Arrington MD Main [address] [address] 07/19/2020 09:45:47 07/25/2020 20:23:15 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 [id number] C44.219 Health Concerns Section Related Observation LastModified by Organization Detai ls LastModified Time None Recorded Concern Status LastModified by Organization Details LastModified Time None Recorded Advance Directives Directive None Recorded Payers Insurance Date Sequence Insurance Name Policy Number Policy Arteaga Covered Member ID Arteaga Member ID Guarantor Name 07/25/2020 2 [place] [id number] Gregg Villa [id number] Gregg Villa 07/19/2020 1 [place] [employer] Gregg Villa [id number] Gregg Villa Notes Date Note Type Note Provider Name and Address Organization Details Recorded Time 07/19/2020 text/html 84-year-old male , presents with his daughter, for evaluation of a longstanding biopsy-proven superficial basal carcinoma encompassing almost the entire upper half of his right ear. See photographs. He is known to me from [place] we have had numerous consultative discussions personally at the original visit over the phone several times. He had a superficial staph infection which we identified and treated. His past medical history is reviewed in detail he is on a blood thinner. Social history unchanged from his [place] visit. Pastor Arrington MD [address] [place], [address], [facility] 07/25/2020 20:23:04
--- NOTE | 2025-01-29 13:29 | CRLHL7_ITS ---
For Patients: As a result of the Cures Act, medical imaging exams and procedure reports are released immediately into your electronic medical record. You may view this report before your referring provider. If you have questions, please contact your health care provider. Indication: Fall Technique: AP view of the chest. Comparison: 02/18/2024. Findings: Postsurgical changes from median sternotomy. Low lung volumes. Mildly enlarged cardiomediastinal silhouette. Subtle mild patchy bilateral airspace opacities. No pleural effusion or visualized pneumothorax. Left humeral head suture anchors. Impression: Subtle mild patchy bilateral airspace opacities may represent mild pulmonary edema or atypical infection or inflammation. Dictated by Azael Diaz MD @ 01/29/2025 3:15:05 PM (Electronically Signed)
--- NOTE | 2025-01-29 13:29 | CRLHL7_ITS ---
For Patients: As a result of the Century Cures Act, medical imaging exams and procedure reports are released immediately into your electronic medical record. You may view this report before your referring provider. If you have questions, please contact your health care provider. INDICATION: FALL, ON BLOOD THINNER. TECHNIQUE: CT of the cervical spine was performed without intravenous contrast. COMPARISON: None. FINDINGS: Alignment: 3 millimeter of anterolisthesis of C4 on C5. Vertebrae: Vertebral bodies and posterior elements are intact without acute fracture. Moderate degenerative changes of the visualized spine. Extra-vertebral soft tissues: Normal. Visualized brain: Normal. Additional comment: Partial visualization of postsurgical changes from median sternotomy. Right thyroid nodules measuring up to 2.0 centimeter (). Recommend further evaluation with ultrasound for a thyroid nodule measuring <= 1.5 cm in a patient <= 35 years of age, as is appropriate taking into consideration the patient???s comorbidities and life expectancy. Adapted from Consensus Recommendations, J Am Alexia Radiol 2015;12:143???150. IMPRESSION: No acute displaced fracture or malalignment of the cervical spine. 3 millimeter of anterolisthesis of C4 on C5 is favored to be degenerative in etiology. Please note that all CT scans at this facility use dose modulation, iterative reconstruction, and/or weight-based dosing when appropriate to reduce radiation dose to as low as reasonably achievable. Dictated by Azael Diaz MD @ 01/29/2025 2:13:26 PM (Electronically Signed)
--- NOTE | 2025-01-29 13:29 | CRLHL7_ITS ---
For Patients: As a result of the 21st Century Cures Act, medical imaging exams and procedure reports are released immediately into your electronic medical record. You may view this report before your referring provider. If you have questions, please contact your health care provider. INDICATION: FALL, ON BLOOD THINNER TECHNIQUE: CT of the head was performed without IV contrast. COMPARISON: Report 05/13/2019. FINDINGS: Parenchyma: No acute hemorrhage, infarction, or mass. Moderate confluent periventricular white matter hypoattenuation is nonspecific and is favored to represent chronic small vessel ischemic disease. Small to moderate left frontal and right cerebellar encephalomalacia are compatible with sequela of chronic prior infarcts. Ventricles and extra-axial spaces: Moderate involutional changes. Visualized paranasal sinuses: Moderate left maxillary sinus mucosal retention cyst versus polyp. Mastoid air cells: Clear. Bones: No focal abnormality. Additional comment: Bilateral lens surgery. IMPRESSION: No acute intracranial abnormality. Please note that all CT scans at this facility use dose modulation, iterative reconstruction, and/or weight-based dosing when appropriate to reduce radiation dose to as low as reasonably achievable. Dictated by Azael Diaz MD @ 01/29/2025 2:07:06 PM (Electronically Signed)
[2025-01-29 14:09] LABS: Appearance Urine Clear (Clear)
[2025-01-29 14:10] LABS: Hematocrit 40.8 % (37.0-53.0); Hemoglobin* 13.5 gm/dL (13.5-17.5); Immature Granulocytes Pct Auto 0.2 %; Mean Corpuscular HGB Conc 33 gm/dL (32-36); Mean Corpuscular Hemoglobin 30 pg (26-34); Mean Corpuscular Volume 90 fL (80-100); RDW Coefficient of Variation % 13.3 % (11.5-15.5); Red Blood Count 4.52 m/uL (4.30-5.90); White Blood Count* 17.43 K/uL (4.50-11.00)
[2025-01-29 14:15] LABS: Immature Granulocytes Abs Auto 0.00 K/uL (0.00-0.30); Lymphocytes Absolute Auto 0.60 K/uL (0.90-2.90); Slide Review Reflex No
[2025-01-29 14:22] LABS: Albumin* 4.0 g/dL (3.3-5.0); Chloride* 106 mmol/L (96-114); Potassium* 3.8 mmol/L (3.6-5.1); Sodium* 140 mmol/L (135-149)
[2025-01-29 14:24] LABS: Alanine Aminotransferase* 36 U/L (4-50); Alkaline Phosphatase* 65 U/L (40-150); Anion Gap 9 mEq/L (7-15); Aspartate Amino Transferase* 36 U/L (12-35); Bilirubin Total* 1.8 mg/dL (0.1-1.5); Blood Urea Nitrogen* 26 mg/dL (7-30); Carbon Dioxide* 25 mmol/L (20-32); Creatinine* 0.8 mg/dL (0.5-1.5); Est. Creatinine Clearance* 48.45; Estimated Glomerular Filt Rate 85 ml/min; Total Protein* 6.9 g/dL (6.0-8.3)
[2025-01-29 14:25] LABS: Calcium* 9.1 mg/dL (8.4-10.6); Creatine Kinase* 284 U/L (54-186); Glucose* 246 mg/dL (60-115)
[2025-01-29] MEDS: 0.9 % SODIUM CHLORIDE 500 ML 500 ML IV ×2 (14:25→19:42)
[2025-01-29 14:48] LABS: Digoxin* 0.4 ng/mL (0.8-2.0)
[2025-01-29 16:00] LABS: Troponin, Point-of-Care* 0.03 ng/ml (0.01-0.04)
[2025-01-29 16:16] LABS: NT Pro B Type NatriureticPept* 3060 pg/mL (See Note)
[2025-01-29 16:19] LABS: Troponin, Point-of-Care* 0.04 ng/ml (0.01-0.04)
--- NOTE | 2025-01-29 17:06 | P.IMHP_ITS ---
Assessment and Plan Assessment and plan (1) Rhabdomyolysis: Problem comment: Found down unknown length of time, unwitnessed fall overnight CK 284 CT head and C-spine without acute abnormalities Received 500 mL IVF in ED, continue gentle IV hydration overnight PT/OT industrial services worker for discharge planning/placement needs Status: Acute (2) Leukocytosis: Problem comment: WBC 17.43, with left shift. Afebrile. Lactate pending. UA rather unremarkable. UC pending. CXR indeterminate Likely reactionary but will monitor for new or worsening symptoms. Defer antibiotics for now. Recheck in a.m. 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 Sampson, Cardioloy [facility], thought to be rhythm illustrated on EKG in ED Chronic according to cardiologists review. 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 Consider Zio patch at discharge Status: Acute (5) Hyperlipidemia: Problem comment: Continue statin ([place] litigator requested simvastatin to rosuvastatin, which was done 12/2021) Status: Acute (6) Type 2 diabetes mellitus: Problem comment: Diagnosis January 2023 Most recent A1c 7.7 Diet controlled, followed by PCP Status: Acute (7) Essential hypertension: Problem comment: Continue losartan. Also on metoprolol and digoxin for AFib Status: Acute (8) Systolic congestive heart failure: Problem comment: Right and Left Systolic function decreased BNP 3060 (previous 3896-1359) Weight 79kg, 87 kg 1 year ago TTE January 2024: Final Impressions: 1. Normal LV size, mildly increased wall thickness, normal global systolic function with an estimated EF of 55 - 60%. 2. Right ventricular cavity size is normal, global systolic RV function is normal. 3. Severe bi atrial enlargement. 4. 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 Mean gradient 2 mmHg at HR 100 BPM. 5. 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 Comparison Compared to prior exam of 08/28/2017: LVEF has normalized. Mitral regurgitation only appears mild. Status: Acute (9) Thyroid nodule: Problem comment: CT shows Right thyroid nodules measuring up to 2.0 centimeter () S/p benign biopsy at [facility] 2016 and unchanging remarkable ultrasound 2017 Status: Acute Plan Monitor overnight. Therapies in the morning. Total Time Spent Total Time Spent: Today I spent 75 minutes seeing the patient, reviewing Expanse and EPIC notes/diagnostics, discussing the care plan with our care time that includes social work, PT/OT, pharmacy, RT, intermediate and documenting my impressions and plan in the medical record. Hospitalist- H&P: HPI History of Present Illness Date Seen: 01/29/25 Chief complaint: Fall Narrative: Gregg Villa is a 89 year old male past medical history significant for diet-controlled diabetes mellitus type 2, hypertension, hyperlipidemia, atrial fibrillation on chronic anticoagulation, GERD, cerebellar stroke with right- sided hemiplegia, systolic congestive heart failure, JAMAAL is admitted to the medical floor from the ED for overnight observation following a fall, found down for unknown amount of time, mild rhabdomyolysis. Patient is seen sitting up in bed. Does not recall overnight events. Does not know how long he was on the floor. Had been feeling well otherwise yesterday. Currently denies headache or dizziness. No neck pain. Denies chest pain or shortness of breath. Denies recent cough or cold symptoms. Did vomit this morning otherwise no recent vomiting or diarrhea. No change in urination. No other injuries reported. Resident at [facility]. Has a daughter Teresa who lives in [place]. Nonsmoker. Enjoys an occasional rare glass of wine. Wishes to be full code. PCP is Dr. Mendoza. Review of Systems Narrative: REVIEW OF SYSTEMS: Complete review of systems performed and negative unless otherwise stated in HPI or below. Medical Decision Making Medical Decision Making Code Status: Full code Has patient completed a Health Care Directive: Yes [facility] Medical History History of chronic bronchitis ?Z87.09 - Personal history of other diseases of the respiratory system (ICD- 10) Thyroid nodule ?E04.1 - Nontoxic single thyroid nodule (ICD-10) Surgical History History of cholecystectomy (1990) ?Z90.49 - Acquired absence of other specified parts of digestive tract (ICD-10) History of uvulopalatopharyngoplasty (2001) ?Z98.890 - Other specified postprocedural states (ICD-10) Hx of tonsillectomy (~1942) ?Z90.89 - Acquired absence of other organs (ICD-10) H/O arthroscopic knee surgery ?Z98.890 - Other specified postprocedural states (ICD-10) H/O bilateral cataract extraction ?Z98.41 - Cataract extraction status, right eye (ICD-10) ?Z98.42 - Cataract extraction status, left eye (ICD-10) S/P rotator cuff repair ?Z98.890 - Other specified postprocedural states (ICD-10) S/P mitral valve repair (2006) ?Z98.890 - Other specified postprocedural states (ICD-10) S/P Mohs surgery for basal cell carcinoma (2014) ?Z98.890 - Other specified postprocedural states (ICD-10) ?Z85.828 - Personal history of other malignant neoplasm of skin (ICD-10) Status post prostatectomy ?Z90.79 - Acquired absence of other genital organ(s) (ICD-10) S/P hernia surgery (2006) ?Z98.890 - Other specified postprocedural states (ICD-10) ?Z87.19 - Personal history of other diseases of the digestive system (ICD-10) Melanoma in situ (2019) ?D03.9 - Melanoma in situ, unspecified (ICD-10) Social History What is your current living situation?: I presently have a place to live Problems where you live: no known problems Problems where you live details: NA In the past 12 months, utilities in danger of being shut off: no In past 12 months, lack of transportation kept you from medical appts, meetings, work, or getting things needed for daily living: no In the past 12 mos, have been you worried that your food would run out before you had money to buy more?: never true In the past 12 mos, the food you bought just didn't last and you didn't have money to buy more?: never true Highest level of school completed/degree received: Doctoral degree Smoking Status: Former smoker What tobacco products do you use: pipe Do you use any of these nicotine containing products: None Second hand tobacco smoke exposure: No How often do you have a drink containing alcohol: 2-4 times a month Alcohol type: wine Alcohol type details: RED WINE WHEN GOING OUT TO EAT How many standard drinks containing alcohol do you have on a typical day: 1 or 2 How often do you have six or more drinks on one occasion: Never AUDIT-C Alcohol total score: 2 Non-prescribed substance use: denies use Caffeine: Yes (BLACK TEA EVERYDAY) How often does anyone, including family, friends and others, physically hurt you : never How often does anyone, including family, friends and others, insult or talk down to you: never How often does anyone, including family, friends and others, threaten you with harm: never How often does anyone, including family, friends and others, scream or curse at you: never service: Yes Meds Home Medications and Allergies Home Medications ?Medication ?Instructions ?Recorded ?Confirmed ?Type vit C 250 mg-vit E 90 mg-zinc 40 1 tab PO QAM AND QHS 01/15/23 01/29/25 History mg-copper 1 [id number] capsule (PreserVision AREDS-2) blood sugar diagnostic (Accu-Chek #100 ea 01/31/23 Rx Guide test strips) blood-glucose meter (Blood Glucose #1 ea 01/31/2307/23 Rx Monitoring kit) lancets (Accu-Chek Softclix #200 ea 01/31/23 08/05/24 Rx Lancets) chlorpheniramine maleate 4 mg 4 mg PO DAILY 02/12/23 0 01/29/25 History tablet triamcinolone acetonide 55 mcg 1 spray intranasal HERMINIA Y 02/12/23 01/29/25 History nasal spray aerosol digoxin 125 mcg (0.125 mg) tablet 125 mcg PO DAILY 12/1301/29/25 History apixaban 5 mg tablet (Eliquis) 5 mg PO BID #180 tabs 0 04/03/24 01/29/25 Rx losartan 100 mg tablet 100 mg PO DAILY #90 tabs 07/1501/29/25 Rx fluticasone propionate 110 2 puff inhalation Q12H PRN 01/29/25 01/29/25 History mcg/actuation HFA aerosol inhaler furosemide 40 mg tablet 40 mg PO DAILY weight gain 0 01/29/25 01/29/25 History metoprolol succinate 100 mg 100 mg PO DAILY 01/29/25 0 01/29/25 History tablet,extended release 24 hr rosuvastatin 10 mg tablet 10 mg PO HS 01/29/25 5 History zolpidem 5 mg tablet 5 - 10 mg PO HS insomnia 05/1601/29/25 History Allergies Allergy/AdvReac Type Severity Reaction Status Date / Time Sulfa (Sulfonamide Allergy Intermediate Hives Verified 08/05/24 09:37 Antibiotics) latex Allergy Mild allergy Verified 08/05/24 09:37 test grass pollen AdvReac Intermediate Verified 08/05/24 09:37 mold AdvReac Intermediate Verified 08/05/24 09:37 pollen extracts AdvReac Intermediate Verified 08/05/24 09:37 apple AdvReac Mild Gastrointestinal Verified 08/05/24 09:37 Upset cat dander AdvReac Mild Verified 08/05/24 09:37 house dust mite AdvReac Mild Verified 08/05/24 09:37 Exam Narrative: Exam Narrative: PHYSICAL EXAM General: Very pleasant, conversant, NAD HEENT: Normocephalic, atraumatic, sclera white, EOMI, oral mucosa moist Cardiovascular: RRR, S1S2. No pitting edema Pulmonary: CTA bilaterally without rhonchi, rales, expiratory wheezes. No dyspnea on room air Abdominal: Soft, nondistended, NTTP Neurological: Alert, answering questions appropriately, cranial nerves intact, no focal findings Extremities: No gross joint deformity or swelling. AROMI. Neurovascularly intact Skin: Warm, dry. Const: Vital Signs, click to edit/add: Vital Signs - 24 hr 01/29/25 13:34 01/29/25 13:49 01/29/25 13:50 Temperature 97.8 F Pulse Rate 83 79 Pulse Rate [Pulse Oximeter] 64 Respiratory Rate 18 15 28 H Blood Pressure 155/89 H Blood Pressure [Le ft Upper Arm] 150/85 H Pulse Oximetry 93 92 92 Oxygen Delivery Me od Room Air 01/29/25 14:00 01/29/25 14:02 01/29/25 14:15 Temperature Pulse Rate 79 82 77 Pulse Rate [Pulse Oximeter] Respiratory Rate 21 22 32 H Blood Pressure 134/85 Blood Pressure [Le ft Upper Arm] Pulse Oximetry 94 94 91 Oxygen Delivery Me od 01/29/25 14:17 01/29/25 14:30 01/29/25 14:32 Temperature Pulse Rate 87 72 78 Pulse Rate [Pulse Oximeter] Respiratory Rate 65 H 25 H Blood Pressure 145/75 H 135/92 H Blood Pressure [Le ft Upper Arm] Pulse Oximetry 93 94 Oxygen Delivery Me od 01/29/25 14:45 01/29/25 14:47 01/29/25 15:00 Temperature Pulse Rate 78 80 73 Pulse Rate [Pulse Oximeter] Respiratory Rate 59 H 64 H 46 H Blood Pressure 148/84 H Blood Pressure [Le ft Upper Arm] Pulse Oximetry 93 93 Oxygen Delivery Me od 01/29/25 15:02 01/29/25 15:15 01/29/25 15:17 Temperature Pulse Rate 77 80 Pulse Rate [Pulse Oximeter] Respiratory Rate 18 20 27 H Blood Pressure 140/79 H 131/77 Blood Pressure [Le ft Upper Arm] Pulse Oximetry Oxygen Delivery Me od 01/29/25 15:30 01/29/25 15:32 01/29/25 15:45 Temperature Pulse Rate 74 70 95 Pulse Rate [Pulse Oximeter] Respiratory Rate 38 H 23 20 Blood Pressure 131/84 Blood Pressure [Le ft Upper Arm] Pulse Oximetry 90 92 Oxygen Delivery Me od 01/29/25 15:47 01/29/25 15:48 01/29/25 16:00 Temperature Pulse Rate 81 72 75 Pulse Rate [Pulse Oximeter] Respiratory Rate 21 22 Blood Pressure 125/81 Blood Pressure [Le ft Upper Arm] Pulse Oximetry 92 92 90 Oxygen Delivery Me od 01/29/25 16:02 01/29/25 16:15 Temperature Pulse Rate 77 88 Pulse Rate [Pulse Oximeter] Respiratory Rate 17 Blood Pressure 127/69 Blood Pressure [Le ft Upper Arm] Pulse Oximetry 90 93 Oxygen Delivery Me od Hospitalist - H&P: Result Labs Labs: Short CBC 01/29/25 Range/Units 14:00 WBC 17.43 H (4.50-11.00) K/uL Hgb 13.5 (13.5-17.5) gm/dL Hct 40.8 (37.0-53.0) % Plt Count 162 (140-440) K/uL BMP 01/29/25 14:00 Sodium 140 Potassium 3.8 Chloride 106 Carbon Dioxide 25 BUN 26 Creatinine 0.8 Glucose 246 H Calcium 9.1 Cardiac Enzymes 01/29/25 Range/Units 14:00 Total Creatine Kinase 284 H (54-186) U/L Liver Function 01/29/25 Range/Units 14:00 Total Bilirubin 1.8 H (0.1-1.5) mg/dL AST 36 H (12-35) U/L ALT 36 (4-50) U/L Alkaline Phosphatase 65 (40-150) U/L Albumin 4.0 (3.3-5.0) g/dL Urine 01/29/25 Range/Units 14:00 Urine Color Yellow (Yellow) Urine Appearance Clear (Clear) Urine pH 5.5 (5.0-8.5) Ur Specific [place] 1.020 (1.000-1.030) Urine Protein 3+ A (Negative) Urine Glucose (UA) Trace A (Negative) ECG Interpretation: Awaiting EKG from ED for review Imaging CT scan - head: Attestation: I have reviewed the pertinent imaging results. Radiologist's impression: Parenchyma: No acute hemorrhage, infarction, or mass. Moderate confluent periventricular white matter hypoattenuation is nonspecific and is favored to represent chronic small vessel ischemic disease. Small to moderate left frontal and right cerebellar encephalomalacia are compatible with sequela of chronic prior infarcts. Ventricles and extra-axial spaces: Moderate involutional changes. Visualized paranasal sinuses: Moderate left maxillary sinus mucosal retention cyst versus polyp. Mastoid air cells: Clear. Bones: No focal abnormality. Additional comment: Bilateral lens surgery. IMPRESSION: No acute intracranial abnormality. CT C-spine: Attestation: I have reviewed the pertinent imaging results. Radiologist's impression: Alignment: 3 millimeter of anterolisthesis of C4 on C5. Vertebrae: Vertebral bodies and posterior elements are intact without acute fracture. Moderate degenerative changes of the visualized spine. Extra-vertebral soft tissues: Normal. Visualized brain: Normal. Additional comment: Partial visualization of postsurgical changes from median sternotomy. Right thyroid nodules measuring up to 2.0 centimeter (7/97). Recommend further evaluation with ultrasound for a thyroid nodule measuring <= 1.5 cm in a patient <= 35 years of age, as is appropriate taking into consideration the patient???s comorbidities and life expectancy. Adapted from Consensus Recommendations, J Am Alexia Radiol 2015;12:143???150. IMPRESSION: No acute displaced fracture or malalignment of the cervical spine. 3 millimeter of anterolisthesis of C4 on C5 is favored to be degenerative in etiology. Chest x-ray: Attestation: I have reviewed the pertinent imaging results. Radiologist's impression: Postsurgical changes from median sternotomy. Low lung volumes. Mildly enlarged cardiomediastinal silhouette. Subtle mild patchy bilateral airspace opacities. No pleural effusion or visualized pneumothorax. Left humeral head suture anchors. Impression: Subtle mild patchy bilateral airspace opacities may represent mild pulmonary edema or atypical infection or inflammation.
[2025-01-29 18:47] LABS: Lactate* 2.7 mmol/L (0.5-1.9)
[2025-01-29] MEDS: SODIUM CHLORIDE 0.9 % (FLUSH) 10 ML SYRINGE 5 ML IVF (19:00)
[2025-01-29] MEDS: APIXABAN 5 MG TABLET PO (21:24)
[2025-01-29] MEDS: ACETAMINOPHEN 325 MG TABLET 650 MG PO (21:24)
[2025-01-29] MEDS: ROSUVASTATIN CALCIUM 10 MG TABLET PO (21:24)
[2025-01-29 22:21] LABS: Lactate* 1.8 mmol/L (0.5-1.9)
[2025-01-30] VITALS (16 sets, daily range): BP systolic 93–117; BP diastolic 47–98; PULSE 59–114; RESP 18–20; TEMP 36.4–37.1; O2SAT 88–95
[2025-01-30] MEDS: VANCOMYCIN 1.5 GM/300 ML 1.5 GM/300 ML PIGGYBACK IVPB ×2 (00:34→21:32)
[2025-01-30] MEDS: PIPERACILLIN/TAZOBACTAM 3.375 GM in 0.9 % SODIUM CHLORIDE Mini-bag 100 ML IVPB ×5 (00:46→23:25)
[2025-01-30] MEDS: SODIUM CHLORIDE 661 ML IV (00:46)
[2025-01-30 00:52] LABS: Procalcitonin* 2.57 ng/mL (<0.50)
--- NOTE | 2025-01-30 02:47 | PC.NURSE ---
Nursing Care Hours: [id number] Pt this shift calm and cooperative. Oriented to self and where pt comes from. Can not recall falling. Poor historian. Denies pain. Bilat body man strength equal. R arm strength weak compared to L arm. Orthostatics done with assist x2 for standing. Pt weak and c/o lightheadedness while standing. After admission, pt became increasingly tachycardic, developing low grade fever, increased RR, and hypotension. Septicemia protocol followed. 2nd IV started and fluids and ABX infusing per order. Pt incontinent void brief changed x2. Redness and warmth noted to Mejia EPSTEIN, outlined and dated. Hospitalist made aware. Extended pauses in tele observed. Heart rate went from 104 to 35 at one point. EKG done and [place] updated. Instructed to hold metoprolol tomorrow. Telephone order placed.
[2025-01-30 06:35] LABS: Hematocrit 38.1 % (37.0-53.0); Hemoglobin* 12.1 gm/dL (13.5-17.5); Mean Corpuscular HGB Conc 32 gm/dL (32-36); Mean Corpuscular Hemoglobin 30 pg (26-34); Mean Corpuscular Volume 93 fL (80-100); Red Blood Count 4.08 m/uL (4.30-5.90); White Blood Count* 11.50 K/uL (4.50-11.00)
[2025-01-30 06:42] LABS: Slide Review Reflex No
[2025-01-30 06:49] LABS: Albumin* 3.3 g/dL (3.3-5.0); Chloride* 111 mmol/L (96-114)
[2025-01-30 06:50] LABS: Potassium* 3.6 mmol/L (3.6-5.1); Sodium* 141 mmol/L (135-149)
[2025-01-30 06:52] LABS: Alanine Aminotransferase* 34 U/L (4-50); Aspartate Amino Transferase* 39 U/L (12-35); Blood Urea Nitrogen* 23 mg/dL (7-30); Creatinine* 0.9 mg/dL (0.5-1.5); Est. Creatinine Clearance* 46.82; Estimated Glomerular Filt Rate 82 ml/min
[2025-01-30 06:53] LABS: Alkaline Phosphatase* 48 U/L (40-150); Anion Gap 7 mEq/L (7-15); Bilirubin Total* 1.7 mg/dL (0.1-1.5); Calcium* 7.8 mg/dL (8.4-10.6); Carbon Dioxide* 23 mmol/L (20-32); Creatine Kinase* 481 U/L (54-186); Glucose* 159 mg/dL (60-115); Total Protein* 6.1 g/dL (6.0-8.3)
[2025-01-30] MEDS: APIXABAN 5 MG TABLET PO ×2 (07:49→21:06)
[2025-01-30] MEDS: SODIUM CHLORIDE 0.9 % (FLUSH) 10 ML SYRINGE 5 ML IVF ×2 (07:50→21:06)
[2025-01-30] MEDS: DIGOXIN 125 MCG TABLET PO (07:50)
--- NOTE | 2025-01-30 10:46 | PC.SOCIAL ---
Discharge planning: Called [facility] where pt lives [phone] and spoke with RN, October. October states that if pt is ready for discharge over the weekend, hospital RN can call the main [facility] phone number at [phone] and ask to speak with the on-call nurse. When discussing discharge with the on-call nurse, the [facility] nurse will provide the fax# or email address to send discharge orders with pt. There is not a nurse at [facility] regularly on the weekend, but on-call nurse should be able to facilitate a discharge back to [facility] from the hospital over the weekend.
--- NOTE | 2025-01-30 11:13 | PM.IMPN1 ---
Assessment and Plan Assessment and plan (1) Sepsis: Problem comment: - 01/29/25: after admission to the floor; noted to have HR of 124, BP of 93/47, T of 100.7, WBC of 17 with PMN predominance, lactate 2.7, procalcitonin 2.57 - source presumably RLE cellulitis Status: Acute (2) Rhabdomyolysis: Problem comment: - Found down unknown length of time, unwitnessed fall at [facility] - CK 284 --> 481 - CT head and C-spine without acute abnormalities - Received 500 mL IVF in ED, continued gentle IV hydration overnight, stopping IVFs 01/30 given po intake and stability/improvement (will continue to follow CK) - PT/OT, financial services professional for discharge planning/placement needs Status: Acute (3) Atrial fibrillation: Problem comment: Historically, noted at time of stroke 09/08 and anticoagulation started then, s/p unsuccessful DCCV at [facility] 09/09, amiodarone started then, [place] stopped amiodarone 04/14 and started metoprolol instead, [facility] cardiology started digoxin in 2023 - on admission 01/29: child monitor, 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 Digoxin level on 01/29 0.4 Status: Acute (4) Wandering atrial pacemaker: Problem comment: ED provider discussed with Dr. Sampson, [facility], thought to be rhythm illustrated on EKG in ED (01/29/25) Chronic according to cardiologists review. Not thought to be cause of overnight fall Consider Zio patch at discharge Status: Acute (5) Hyperlipidemia: Problem comment: - Continue statin ([place] senior product integrity engineer requested simvastatin to rosuvastatin, which was done 12/2021) Status: Acute (6) Type 2 diabetes mellitus: Problem comment: Diagnosis January 2023 Most recent A1c 7.7 Diet controlled, followed by PCP, will obtain accuchecks during stay Status: Acute (7) Essential hypertension: Problem comment: - HOLDING Losartan and Metoprolol given hypotension 01/29, continue to follow Status: Acute (8) Systolic congestive heart failure: Problem comment: - HFpEF, chronic, no evidence of acute exacerbation at this time - BNP 3060 (previous [id number]) - current Weight 84kg, 87 kg 1 year ago TTE January 2024: Final Impressions: 1. Normal LV size, mildly increased wall thickness, normal global systolic function with an estimated EF of 55 - 60%. 2. Right ventricular cavity size is normal, global systolic RV function is normal. 3. Severe bi atrial enlargement. 4. 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 Mean gradient 2 mmHg at HR 100 BPM. 5. 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 Comparison Compared to prior exam of 08/28/2017: LVEF has normalized. Mitral regurgitation only appears mild. 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 WBC 17 with PMN predominance. After admission to the floor, noted to have an elevated temperature, increased HR (up to 120s), and decreased BP ([place] 93/47); at that time blood and urine cultures collected and Zosyn/Vancomycin initiated. Procalcitonin noted to be 2.57, CRP 13. RLE noted to have mild erythema and outlined. This morning, Gregg is feeling better, not yet back to baseline. He has no concerns for the hospitalist team. No growth on Urine or blood cultures. WBC improved to 11, HR and BP also improved. Exam Narrative: Exam Narrative: GEN: Alert and oriented, sitting up in bed and having breakfast, speaking in full sentences HEENT: EOMIs bilaterally, no scleral icterus CV: Irregular rate R: LCTA bilaterally without concerning wheezing, air movement adequate Ext: Erythema of distal RLE has extended from outline drawn on admission, + warm. No erythema of LLE, symmetric 1-2+ BLE edema Skin: No other concerning skin lesions or rashes on exposed skin Neuro: RUE resting tremor Psych: Appropriate Const: Vital Signs, click to edit/add: Vital Signs - 24 hr 01/29/25 13:34 01/29/25 13:49 01/29/25 13:50 Temperature 97.8 F Pulse Rate 83 79 Pulse Rate [Left P ulse Oximeter] Pulse Rate [Pulse Oximeter] 64 Pulse Rate [orthos tatic lying Right Pulse Oximeter] Pulse Rate [orthos tatic sitting Righ t Pulse Oximeter] Pulse Rate [orthos tatic standing Rig ht Pulse Oximeter] Respiratory Rate 18 15 28 H Blood Pressure 155/89 H Blood Pressure [Le ft Arm] Blood Pressure [Le ft Upper Arm] 150/85 H Blood Pressure [Ri ght Arm] Blood Pressure [or thostatic lying Ri ght Arm] Blood Pressure [or thostatic sitting Right Arm] Blood Pressure [or thostatic standing Right Arm] Pulse Oximetry 93 92 92 [facility] 01/29/25 14:00 01/29/25 14:02 01/29/25 14:15 Temperature Pulse Rate 79 82 77 Pulse Rate [Left P ulse Oximeter] Pulse Rate [Pulse Oximeter] Pulse Rate [orthos tatic lying Right Pulse Oximeter] Pulse Rate [orthos tatic sitting Righ t Pulse Oximeter] Pulse Rate [orthos tatic standing Rig ht Pulse Oximeter] Respiratory Rate 21 22 32 H Blood Pressure 134/85 Blood Pressure [Le ft Arm] Blood Pressure [Le ft Upper Arm] Blood Pressure [Ri ght Arm] Blood Pressure [or thostatic lying Ri ght Arm] Blood Pressure [or thostatic sitting Right Arm] Blood Pressure [or thostatic standing Right Arm] Pulse Oximetry 94 94 91 Oxygen Delivery Me thod 01/29/25 14:17 01/29/25 14:30 01/29/25 14:32 Temperature Pulse Rate 87 72 78 Pulse Rate [Left P ulse Oximeter] Pulse Rate [Pulse Oximeter] Pulse Rate [orthos tatic lying Right Pulse Oximeter] Pulse Rate [orthos tatic sitting Righ t Pulse Oximeter] Pulse Rate [orthos tatic standing Rig ht Pulse Oximeter] Respiratory Rate 65 H 25 H Blood Pressure 145/75 H 135/92 H Blood Pressure [Le ft Arm] Blood Pressure [Le ft Upper Arm] Blood Pressure [Ri ght Arm] Blood Pressure [or thostatic lying Ri ght Arm] Blood Pressure [or thostatic sitting Right Arm] Blood Pressure [or thostatic standing Right Arm] Pulse Oximetry 93 94 Oxygen Delivery Ar thod 01/29/25 14:45 01/29/25 14:47 01/29/25 15:00 Temperature Pulse Rate 78 80 73 Pulse Rate [Left P ulse Oximeter] Pulse Rate [Pulse Oximeter] Pulse Rate [orthos tatic lying Right Pulse Oximeter] Pulse Rate [orthos tatic sitting Righ t Pulse Oximeter] Pulse Rate [orthos tatic standing Rig ht Pulse Oximeter] Respiratory Rate 59 H 64 H 46 H Blood Pressure 148/84 H Blood Pressure [Le ft Arm] Blood Pressure [Le ft Upper Arm] Blood Pressure [Ri ght Arm] Blood Pressure [or thostatic lying Ri ght Arm] Blood Pressure [or thostatic sitting Right Arm] Blood Pressure [or thostatic standing Right Arm] Pulse Oximetry 93 93 Oxygen Delivery Ar thod 01/29/25 15:02 01/29/25 15:15 01/29/25 15:17 Temperature Pulse Rate 77 80 Pulse Rate [Left P ulse Oximeter] Pulse Rate [Pulse Oximeter] Pulse Rate [orthos tatic lying Right Pulse Oximeter] Pulse Rate [orthos tatic sitting Righ t Pulse Oximeter] Pulse Rate [orthos tatic standing Rig ht Pulse Oximeter] Respiratory Rate 18 20 27 H Blood Pressure 140/79 H 131/77 Blood Pressure [Le ft Arm] Blood Pressure [Le ft Upper Arm] Blood Pressure [Ri ght Arm] Blood Pressure [or thostatic lying Ri ght Arm] Blood Pressure [or thostatic sitting Right Arm] Blood Pressure [or thostatic standing Right Arm] Pulse Oximetry Oxygen Delivery Ar thod 01/29/25 15:30 01/29/25 15:32 01/29/25 15:45 Temperature Pulse Rate 74 70 95 Pulse Rate [Left P ulse Oximeter] Pulse Rate [Pulse Oximeter] Pulse Rate [orthos tatic lying Right Pulse Oximeter] Pulse Rate [orthos tatic sitting Righ t Pulse Oximeter] Pulse Rate [orthos tatic standing Rig ht Pulse Oximeter] Respiratory Rate 38 H 23 20 Blood Pressure 131/84 Blood Pressure [Le ft Arm] Blood Pressure [Le ft Upper Arm] Blood Pressure [Ri ght Arm] Blood Pressure [or thostatic lying Ri ght Arm] Blood Pressure [or thostatic sitting Right Arm] Blood Pressure [or thostatic standing Right Arm] Pulse Oximetry 90 92 Oxygen Delivery Me thod 01/29/25 15:47 01/29/25 15:48 01/29/25 16:00 Temperature Pulse Rate 81 72 75 Pulse Rate [Left P ulse Oximeter] Pulse Rate [Pulse Oximeter] Pulse Rate [orthos tatic lying Right Pulse Oximeter] Pulse Rate [orthos tatic sitting Righ t Pulse Oximeter] Pulse Rate [orthos tatic standing Rig ht Pulse Oximeter] Respiratory Rate 21 22 Blood Pressure 125/81 Blood Pressure [Le ft Arm] Blood Pressure [Le ft Upper Arm] Blood Pressure [Ri ght Arm] Blood Pressure [or thostatic lying Ri ght Arm] Blood Pressure [or thostatic sitting Right Arm] Blood Pressure [or thostatic standing Right Arm] Pulse Oximetry 92 92 90 Oxygen Delivery Ar thod 01/29/25 16:02 01/29/25 16:15 01/29/25 16:16 Temperature Pulse Rate 77 88 101 H Pulse Rate [Left P ulse Oximeter] Pulse Rate [Pulse Oximeter] Pulse Rate [orthos tatic lying Right Pulse Oximeter] Pulse Rate [orthos tatic sitting Righ t Pulse Oximeter] Pulse Rate [orthos tatic standing Rig ht Pulse Oximeter] Respiratory Rate 17 Blood Pressure 127/69 125/80 Blood Pressure [Le ft Arm] Blood Pressure [Le ft Upper Arm] Blood Pressure [Ri ght Arm] Blood Pressure [or thostatic lying Ri ght Arm] Blood Pressure [or thostatic sitting Right Arm] Blood Pressure [or thostatic standing Right Arm] Pulse Oximetry 90 93 93 Oxygen Delivery Ar thod 01/29/25 16:30 01/29/25 16:32 01/29/25 16:45 Temperature Pulse Rate 74 71 72 Pulse Rate [Left P ulse Oximeter] Pulse Rate [Pulse Oximeter] Pulse Rate [orthos tatic lying Right Pulse Oximeter] Pulse Rate [orthos tatic sitting Righ t Pulse Oximeter] Pulse Rate [orthos tatic standing Rig ht Pulse Oximeter] Respiratory Rate 22 21 21 Blood Pressure 140/70 H Blood Pressure [Le ft Arm] Blood Pressure [Le ft Upper Arm] Blood Pressure [Ri ght Arm] Blood Pressure [or thostatic lying Ri ght Arm] Blood Pressure [or thostatic sitting Right Arm] Blood Pressure [or thostatic standing Right Arm] Pulse Oximetry 94 94 93 Oxygen Delivery Me thod 01/29/25 16:47 01/29/25 17:00 01/29/25 17:02 Temperature Pulse Rate 76 82 75 Pulse Rate [Left P ulse Oximeter] Pulse Rate [Pulse Oximeter] Pulse Rate [orthos tatic lying Right Pulse Oximeter] Pulse Rate [orthos tatic sitting Righ t Pulse Oximeter] Pulse Rate [orthos tatic standing Rig ht Pulse Oximeter] Respiratory Rate 23 17 Blood Pressure 98/72 131/77 Blood Pressure [Le ft Arm] Blood Pressure [Le ft Upper Arm] Blood Pressure [Ri ght Arm] Blood Pressure [or thostatic lying Ri ght Arm] Blood Pressure [or thostatic sitting Right Arm] Blood Pressure [or thostatic standing Right Arm] Pulse Oximetry 92 93 93 Oxygen Delivery Ar thod 01/29/25 17:15 01/29/25 17:16 01/29/25 17:30 Temperature Pulse Rate 84 91 86 Pulse Rate [Left P ulse Oximeter] Pulse Rate [Pulse Oximeter] Pulse Rate [orthos tatic lying Right Pulse Oximeter] Pulse Rate [orthos tatic sitting Righ t Pulse Oximeter] Pulse Rate [orthos tatic standing Rig ht Pulse Oximeter] Respiratory Rate 22 24 Blood Pressure 129/75 Blood Pressure [Le ft Arm] Blood Pressure [Le ft Upper Arm] Blood Pressure [Ri ght Arm] Blood Pressure [or thostatic lying Ri ght Arm] Blood Pressure [or thostatic sitting Right Arm] Blood Pressure [or thostatic standing Right Arm] Pulse Oximetry 91 92 91 Oxygen Delivery Ar thod 01/29/25 17:32 01/29/25 18:22 01/29/25 19:38 Temperature 99.3 F Pulse Rate 85 Pulse Rate [Left P ulse Oximeter] 98 Pulse Rate [Pulse Oximeter] Pulse Rate [orthos tatic lying Right Pulse Oximeter] 99 Pulse Rate [orthos tatic sitting Righ t Pulse Oximeter] 104 H Pulse Rate [orthos tatic standing Rig ht Pulse Oximeter] 124 H Respiratory Rate 19 18 Blood Pressure 153/136 H Blood Pressure [Le ft Arm] Blood Pressure [Le ft Upper Arm] Blood Pressure [Ri ght Arm] 132/84 Blood Pressure [or thostatic lying Ri ght Arm] 117/68 Blood Pressure [or thostatic sitting Right Arm] 127/81 Blood Pressure [or thostatic standing Right Arm] 128/76 Pulse Oximetry 92 93 Oxygen Delivery Me thod Room Air 01/29/25 20:13 01/29/25 20:14 01/29/25 21:24 Temperature 99.2 F 100.7 F H Pulse Rate 94 Pulse Rate [Left P ulse Oximeter] 99 Pulse Rate [Pulse Oximeter] Pulse Rate [orthos tatic lying Right Pulse Oximeter] Pulse Rate [orthos tatic sitting Righ t Pulse Oximeter] Pulse Rate [orthos tatic standing Rig ht Pulse Oximeter] Respiratory Rate 26 H Blood Pressure Blood Pressure [Le ft Arm] Blood Pressure [Le ft Upper Arm] Blood Pressure [Ri ght Arm] 117/68 Blood Pressure [or thostatic lying Ri ght Arm] Blood Pressure [or thostatic sitting Right Arm] Blood Pressure [or thostatic standing Right Arm] Pulse Oximetry 90 Oxygen Delivery Me thod Room Air 01/29/25 21:25 01/29/25 23:00 01/29/25 23:24 Temperature 100.7 F H 98.6 F Pulse Rate Pulse Rate [Left P ulse Oximeter] 107 H 99 108 H Pulse Rate [Pulse Oximeter] Pulse Rate [orthos tatic lying Right Pulse Oximeter] Pulse Rate [orthos tatic sitting Righ t Pulse Oximeter] Pulse Rate [orthos tatic standing Rig ht Pulse Oximeter] Respiratory Rate 20 20 20 Blood Pressure Blood Pressure [Le ft Arm] Blood Pressure [Le ft Upper Arm] Blood Pressure [Ri ght Arm] 128/74 93/60 Blood Pressure [or thostatic lying Ri ght Arm] Blood Pressure [or thostatic sitting Right Arm] Blood Pressure [or thostatic standing Right Arm] Pulse Oximetry 90 90 Oxygen Delivery Me thod Room Air Room Air 01/29/25 23:26 01/30/25 00:00 01/30/25 00:20 Temperature 98.7 F Pulse Rate Pulse Rate [Left P ulse Oximeter] 89 106 H Pulse Rate [Pulse Oximeter] Pulse Rate [orthos tatic lying Right Pulse Oximeter] Pulse Rate [orthos tatic sitting Righ t Pulse Oximeter] Pulse Rate [orthos tatic standing Rig ht Pulse Oximeter] Respiratory Rate Blood Pressure Blood Pressure [Le ft Arm] 98/62 93/47 L Blood Pressure [Le ft Upper Arm] Blood Pressure [Ri ght Arm] Blood Pressure [or thostatic lying Ri ght Arm] Blood Pressure [or thostatic sitting Right Arm] Blood Pressure [or thostatic standing Right Arm] Pulse Oximetry 90 90 Oxygen Delivery Me thod 01/30/25 00:30 01/30/25 01:00 01/30/25 01:30 Temperature 98.2 F 98.1 F Pulse Rate Pulse Rate [Left P ulse Oximeter] 114 H 103 H 103 H Pulse Rate [Pulse Oximeter] Pulse Rate [orthos tatic lying Right Pulse Oximeter] Pulse Rate [orthos tatic sitting Righ t Pulse Oximeter] Pulse Rate [orthos tatic standing Rig ht Pulse Oximeter] Respiratory Rate 20 Blood Pressure Blood Pressure [Le ft Arm] 95/55 L 100/62 96/53 L Blood Pressure [Le ft Upper Arm] Blood Pressure [Ri ght Arm] Blood Pressure [or thostatic lying Ri ght Arm] Blood Pressure [or thostatic sitting Right Arm] Blood Pressure [or thostatic standing Right Arm] Pulse Oximetry 91 92 89 Oxygen Delivery Ar thod Room Air Room Air 01/30/25 02:00 01/30/25 02:30 01/30/25 03:00 Temperature 98.2 F Pulse Rate Pulse Rate [Left P ulse Oximeter] 62 Pulse Rate [Pulse Oximeter] Pulse Rate [orthos tatic lying Right Pulse Oximeter] Pulse Rate [orthos tatic sitting Righ t Pulse Oximeter] Pulse Rate [orthos tatic standing Rig ht Pulse Oximeter] Respiratory Rate 20 Blood Pressure Blood Pressure [Le ft Arm] 103/62 113/71 109/58 L Blood Pressure [Le ft Upper Arm] Blood Pressure [Ri ght Arm] Blood Pressure [or thostatic lying Ri ght Arm] Blood Pressure [or thostatic sitting Right Arm] Blood Pressure [or thostatic standing Right Arm] Pulse Oximetry 88 Oxygen Delivery Me thod Room Air 01/30/25 07:00 01/30/25 07:50 Temperature 98.1 F Pulse Rate 103 H Pulse Rate [Left P ulse Oximeter] 64 Pulse Rate [Pulse Oximeter] Pulse Rate [orthos tatic lying Right Pulse Oximeter] Pulse Rate [orthos tatic sitting Righ t Pulse Oximeter] Pulse Rate [orthos tatic standing Rig ht Pulse Oximeter] Respiratory Rate 18 Blood Pressure Blood Pressure [Le ft Arm] 113/73 Blood Pressure [Le ft Upper Arm] Blood Pressure [Ri ght Arm] Blood Pressure [or thostatic lying Ri ght Arm] Blood Pressure [or thostatic sitting Right Arm] Blood Pressure [or thostatic standing Right Arm] Pulse Oximetry 92 Oxygen Delivery Me thod Room Air Labs Labs: Laboratory Results - last 24 hr 01/29/25 01/29/25 01/29/25 13:35 14:00 14:00 WBC 17.43 H RBC 4.52 Hgb 13.5 Hct 40.8 MCV 90 MCH 30 MCHC 33 RDW Coeff of Melissa 13.3 Plt Count 162 Neut % (Auto) 91.3 H Lymph % (Auto) 3.4 L [place] % (Auto) 5.0 Eos % (Auto) 0.0 Baso % (Auto) 0.1 Neut # (Auto) 15.90 H Lymph # (Auto) 0.60 L [place] # (Auto) 0.90 Eos # (Auto) 0.00 Baso # (Auto) 0.00 Abs Immat Gran (auto) 0.00 Imm/Tot Granulo (auto) 0.2 Sodium 140 Potassium 3.8 Chloride 106 Carbon Dioxide 25 Anion Gap 9 BUN 26 Creatinine 0.8 Estimated Creat Clear 48.45 Estimated GFR 85 Glucose 246 H Lactate Calcium 9.1 Magnesium 2.0 1.9 Total Bilirubin 1.8 H AST 36 H ALT 36 Alkaline Phosphatase 65 Total Creatine Kinase 284 H C-Reactive Protein NT-Pro-B Natriuret Pep Cancelled Total Protein Albumin Procalcitonin Urine Color Urine Appearance Urine pH Ur Specific [place] Urine Protein Urine Glucose (UA) Urine Ketones Urine Blood Urine Nitrite Urine Bilirubin Urine Urobilinogen Ur Leukocyte Esterase Urine RBC Urine WBC Ur Squamous Epith Cells Urine Bacteria Digoxin Lab Acknowledgement POC Troponin I 0.04 01/29/25 01/29/25 01/29/25 14:00 15:23 15:45 WBC RBC Hgb Hct MCV MCH MCHC RDW Coeff of Melissa Plt Count Neut % (Auto) Lymph % (Auto) [place] % (Auto) Eos % (Auto) Baso % (Auto) Neut # (Auto) Lymph # (Auto) [place] # (Auto) Eos # (Auto) Baso # (Auto) Abs Immat Gran (auto) Imm/Tot Granulo (auto) Sodium Potassium Chloride Carbon Dioxide Anion Gap BUN Creatinine Estimated Creat Clear Estimated GFR Glucose Lactate Calcium Magnesium Total Bilirubin AST ALT Alkaline Phosphatase Total Creatine Kinase C-Reactive Protein NT-Pro-B Natriuret Pep 3060 H Total Protein 6.9 Albumin 4.0 Procalcitonin Urine Color Yellow Urine Appearance Clear Urine pH 5.5 Ur Specific [place] 1.020 Urine Protein 3+ A Urine Glucose (UA) Trace A Urine Ketones 1+ A Urine Blood 1+ A Urine Nitrite Negative Urine Bilirubin Negative Urine Urobilinogen 0.2 Ur Leukocyte Esterase Negative Urine RBC 0-2 Urine WBC 2-5 Ur Squamous Epith Cells Moderate A Urine Bacteria Moderate A Digoxin 0.4 L Lab Acknowledgement Test Added POC Troponin I 0.03 01/29/25 01/29/25 01/29/25 18:16 18:40 22:15 WBC RBC Hgb Hct MCV MCH MCHC RDW Coeff of Melissa Plt Count Neut % (Auto) Lymph % (Auto) [place] % (Auto) Eos % (Auto) Baso % (Auto) Neut # (Auto) Lymph # (Auto) [place] # (Auto) Eos # (Auto) Baso # (Auto) Abs Immat Gran (auto) Imm/Tot Granulo (auto) Sodium Potassium Chloride Carbon Dioxide Anion Gap BUN Creatinine Estimated Creat Clear Estimated GFR Glucose Lactate 2.7 H 1.8 Calcium Magnesium Total Bilirubin AST ALT Alkaline Phosphatase Total Creatine Kinase C-Reactive Protein NT-Pro-B Natriuret Pep Total Protein Albumin Procalcitonin Urine Color Urine Appearance Urine pH Ur Specific [place] Urine Protein Urine Glucose (UA) Urine Ketones Urine Blood Urine Nitrite Urine Bilirubin Urine Urobilinogen Ur Leukocyte Esterase Urine RBC Urine WBC Ur Squamous Epith Cells Urine Bacteria Digoxin Lab Acknowledgement Test Added POC Troponin I 01/30/25 01/30/25 00:05 06:20 WBC 11.50 H RBC 4.08 L Hgb 12.1 L Hct 38.1 MCV 93 MCH 30 MCHC 32 RDW Coeff of Melissa Plt Count 143 Neut % (Auto) Lymph % (Auto) [place] % (Auto) Eos % (Auto) Baso % (Auto) Neut # (Auto) Lymph # (Auto) [place] # (Auto) Eos # (Auto) Baso # (Auto) Abs Immat Gran (auto) Imm/Tot Granulo (auto) Sodium 141 Potassium 3.6 Chloride 111 Carbon Dioxide 23 Anion Gap 7 BUN 23 Creatinine 0.9 Estimated Creat Clear 46.82 Estimated GFR 82 Glucose 159 H Lactate Calcium 7.8 L Magnesium Total Bilirubin 1.7 H AST 39 H ALT 34 Alkaline Phosphatase 48 Total Creatine Kinase 481 H C-Reactive Protein 13.2 H 14.8 H NT-Pro-B Natriuret Pep Total Protein 6.1 Albumin 3.3 Procalcitonin 2.57 H Urine Color Urine Appearance Urine pH Ur Specific [place] Urine Protein Urine Glucose (UA) Urine Ketones Urine Blood Urine Nitrite Urine Bilirubin Urine Urobilinogen Ur Leukocyte Esterase Urine RBC Urine WBC Ur Squamous Epith Cells Urine Bacteria Digoxin Lab Acknowledgement POC Troponin I
--- NOTE | 2025-01-30 11:27 | NUTR.NU ---
Nutrition screen initiated r/t [facility] nursing referral noting weight loss. 89 y/o. Admit fall, sepsis. Height 67, weight 186.1 lbs, IBW BMI 28.5. / chart weight 203.5 lbs, down 17.4 lbs/8.3% in 1 year. Not a significant loss of weight. Diet order Regular. No intakes at this time. Visited with patient who reports the 203 lb weight was with clothes and shoes. He reports a usual weight is about 5 lbs higher than current. He also reports his appetite has decreased over the past year, but it is not concerning to him. He reports living at [facility] and moved in there for his 's needs and she passed 2 months ago. Gregg reports having 2 poached eggs and an Canadian muffin with peanut butter, skim milk and fruit most mornings for breakfast. He eats lunch and dinner as provided at [facility]. Sometimes he does not feel like eating what is served and will skip meals, he estimates 2 to 3 times a month. He keeps salami and cheese and yogurt on hand for times when he skips meals. No interventions at this time. Monitor diet tolerance and intake and follow up if needed.
--- NOTE | 2025-01-30 12:42 | PC.PHA ---
Vancomycin consult note: Indication for vancomycin: [sepsis,leg wound] Age: [89] Height: [170 cm] Weight: [84.4kg] Most recent SCr: [0.9] Estimated CrCL: [75] Recommended dose and frequency: [1.5 gm iv q24h] to obtain an estimated AUC/OWEN of 400-600 mcg*hr/m 463 Additional comment: []
[2025-01-30] MEDS: ACETAMINOPHEN 325 MG TABLET 650 MG PO (17:30)
--- NOTE | 2025-01-30 19:49 | PC.NURSE ---
End of shift - [id number] - Pt alert, oriented, cooperative and pleasant. Up with x1 assistance and walker/gait belt. Pt reported pain in R heel, reposition to have heel floating with pillow under RLE and removal of compression stocking increased pt comfort. RLE redness observed to exceed previously outlined boundary. MD made aware, new boundary outlined and dated, new orders given. Pt tolerating RA and regular diet/fluids. Appears to be resting in bed with call light within reach at end of shift.
[2025-01-30] MEDS: ROSUVASTATIN CALCIUM 10 MG TABLET PO (21:06)
[2025-01-30] MEDS: ZOLPIDEM 5 MG TABLET PO (21:59)
[2025-01-31] VITALS (10 sets, daily range): BP systolic 130–185; BP diastolic 72–99; PULSE 47–75; RESP 16–22; TEMP 36.4–37; O2SAT 93–99
[2025-01-31] MEDS: PIPERACILLIN/TAZOBACTAM 3.375 GM in 0.9 % SODIUM CHLORIDE Mini-bag 100 ML IVPB ×4 (05:29→23:49)
--- NOTE | 2025-01-31 06:14 | PC.NURSE ---
End of shift [id number]: A&O with some forgetfulness but pleasant and cooperative. VSS and afebrile overnight. denies pain. right lower leg red and warm but does not appear to be exceeding outlines. up w/ A1 walker and GB. bed alarm in place.
[2025-01-31 07:23] LABS: Hematocrit 34.5 % (37.0-53.0); Hemoglobin* 11.0 gm/dL (13.5-17.5); Immature Granulocytes Abs Auto 0.02 K/uL (0.00-0.30); Immature Granulocytes Pct Auto 0.3 %; Lymphocytes Absolute Auto 1.38 K/uL (0.90-2.90); Mean Corpuscular HGB Conc 32 gm/dL (32-36); Mean Corpuscular Hemoglobin 30 pg (26-34); Mean Corpuscular Volume 94 fL (80-100); RDW Coefficient of Variation % 13.6 % (11.5-15.5); Red Blood Count 3.68 m/uL (4.30-5.90); White Blood Count* 6.74 K/uL (4.50-11.00)
[2025-01-31 07:32] LABS: Albumin* 2.7 g/dL (3.3-5.0); Chloride* 112 mmol/L (96-114); Potassium* 3.7 mmol/L (3.6-5.1); Slide Review Reflex No; Sodium* 139 mmol/L (135-149)
[2025-01-31 07:35] LABS: Alanine Aminotransferase* 15 U/L (4-50); Alkaline Phosphatase* 52 U/L (40-150); Anion Gap 5 mEq/L (7-15); Aspartate Amino Transferase* 20 U/L (12-35); Bilirubin Total* 1.0 mg/dL (0.1-1.5); Blood Urea Nitrogen* 26 mg/dL (7-30); Carbon Dioxide* 22 mmol/L (20-32); Creatine Kinase* 183 U/L (54-186); Creatinine* 0.9 mg/dL (0.5-1.5); Est. Creatinine Clearance* 46.82; Estimated Glomerular Filt Rate 82 ml/min; Total Protein* 5.3 g/dL (6.0-8.3)
[2025-01-31 07:36] LABS: Calcium* 7.8 mg/dL (8.4-10.6); Glucose* 137 mg/dL (60-115)
[2025-01-31] MEDS: APIXABAN 5 MG TABLET PO ×2 (10:34→21:04)
[2025-01-31] MEDS: DIGOXIN 125 MCG TABLET PO (10:34)
[2025-01-31] MEDS: SODIUM CHLORIDE 0.9 % (FLUSH) 10 ML SYRINGE 5 ML IVF ×2 (10:35→21:04)
--- NOTE | 2025-01-31 12:48 | PM.IMPN1 ---
Assessment and Plan Assessment and plan (1) Sepsis: Problem comment: - 01/29/25: after admission to the floor; noted to have HR of 124, BP of 93/47, T of 100.7, WBC of 17 with PMN predominance, lactate 2.7, procalcitonin 2.57 - source RLE cellulitis - improved 01/31 Status: Acute (2) Rhabdomyolysis: Problem comment: - mild, Found down unknown length of time, unwitnessed fall at [facility] - CK 284 --> 481 --> 183 - CT head and C-spine without acute abnormalities - Received 500 mL IVF in ED followed by low dose maintenance fluids, stopped IVFs 01/30 given po intake and stability/improvement (will continue to follow CK) - PT/OT, flight attendant inflight services for discharge planning/placement needs Status: Acute (3) Atrial fibrillation: Problem comment: - Historically, noted at time of stroke 09/08 and anticoagulation started then, s/p unsuccessful DCCV at [facility] 09/09, amiodarone started then, [place] stopped amiodarone 04/14 and started metoprolol instead, [facility] cardiology started digoxin in 2023 - 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 Digoxin level on 01/29 0.4 Status: Acute (4) Wandering atrial pacemaker: Problem comment: - ED provider discussed with Dr. Sampson, Cardioloy [facility], thought to be rhythm illustrated on EKG in ED (01/29/25) - Chronic, according to refrigeration systems installer's review. Not thought to be cause of overnight fall - Consider Zio patch at discharge Status: Acute (5) Hyperlipidemia: Problem comment: - Continue statin ([place] refrigeration systems installer requested simvastatin to rosuvastatin, which was done 12/2021) Status: Acute (6) Type 2 diabetes mellitus: Problem comment: - Diagnosis January 2023 - Most recent A1c 7.7 - Diet controlled, followed by PCP, defers accuchecks during stay Status: Acute (7) Essential hypertension: Problem comment: - HOLDING Losartan and Metoprolol given hypotension 01/29, continue to follow - 01/31: restarted Metoprolol Status: Acute (8) Systolic congestive heart failure: Problem comment: - HFpEF, chronic, no evidence of acute exacerbation at this time - BNP 3060 (previous [id number]) - current Weight 84kg, 87 kg 1 year ago TTE January 2024: Final Impressions: 1. Normal LV size, mildly increased wall thickness, normal global systolic function with an estimated EF of 55 - 60%. 2. Right ventricular cavity size is normal, global systolic RV function is normal. 3. Severe bi atrial enlargement. 4. 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 Mean gradient 2 mmHg at HR 100 BPM. 5. 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 Comparison Compared to prior exam of 08/28/2017: LVEF has normalized. Mitral regurgitation only appears mild. Status: Acute Plan - continue Zosyn, therapies, telemetry - likely back to [employer] in 1-2 days, pending continued clinical improvement Subjective Date Seen: 01/31/25 Interval history: Gregg was admitted to the hospital on 01/29 after a mechanical fall at home ([employer]) and mild rhabdomyolysis. Comorbidities include noninsulin dependent DM2 (A1C in the 7s), essential HTN, atrial fibrillation (on Metoprolol and Digoxin for rate control, anticoagulated on Apixaban). Upon admission, WBC noted to be 17 with PMN predominance; + increased temperature and HR upon arrival to the floor, in addition to mild hypotension, elevated procalcitonin, elevated CRP. RLE noted to have erythema, likely source of infection (and contributing factor to fall). IV Zosyn and Vancomycin initiated 01/29. Blood cultures exhibited no growth to date. MRSA screen negative; Vancomycin is being discontinued on 01/31 after 2 doses. Gregg continues to feel a bit better each day, not yet back to baseline. This morning, his heart rate increased to 130 during ambulation with PT and he felt fairly lightheaded. Heart rate normalized with rest. Exam Narrative: Exam Narrative: GEN: Alert HEENT: Normal external ears, EOMIs bilaterally, no scleral icterus CV: Irregular rhythm with rate in the 50s, no concerning murmurs R: LCTA bilaterally without concerning wheezing, air movement adequate Ext: wwp, trace bilateral lower extremity edema, erythema of right lower extremity has improvedn Neuro: Baseline mild R sided weakness, +RUE tremor Psych: Appropriate Const: Vital Signs, click to edit/add: Vital Signs - 24 hr 01/30/25 13:14 01/30/25 15:00 01/30/25 15:00 Temperature 97.6 F 97.7 F Pulse Rate 97 Pulse Rate [Left P ulse Oximeter] 60 101 H Respiratory Rate 18 18 Blood Pressure [Le ft Arm] 116/63 117/66 Pulse Oximetry 94 95 Oxygen Delivery Me thod Room Air Room Air 01/30/25 19:55 01/30/25 23:06 01/30/25 23:08 Temperature 98.3 F 98.0 F Pulse Rate 59 L Pulse Rate [Left P ulse Oximeter] 73 Respiratory Rate 18 18 Blood Pressure [Le ft Arm] 117/98 H 109/73 Pulse Oximetry 93 94 Oxygen Delivery Me thod Room Air Room Air 01/31/25 03:22 01/31/25 07:00 01/31/25 10:34 Temperature 97.7 F 98.1 F Pulse Rate 70 Pulse Rate [Left P ulse Oximeter] 62 57 L Respiratory Rate 22 20 Blood Pressure [Le ft Arm] 130/72 185/91 H Pulse Oximetry 94 96 Oxygen Delivery Me thod Room Air Room Air 01/31/25 11:57 Temperature Pulse Rate 47 L Pulse Rate [Left P ulse Oximeter] Respiratory Rate Blood Pressure [Le ft Arm] Pulse Oximetry Oxygen Delivery Me thod Labs Labs: Laboratory Results - last 24 hr 01/31/25 05:59 WBC 6.74 RBC 3.68 L Hgb 11.0 L Hct 34.5 L MCV 94 MCH 30 MCHC 32 RDW Coeff of Melissa 13.6 Plt Count 126 L Neut % (Auto) 68.4 Lymph % (Auto) 20.5 Barber % (Auto) 8.6 Eos % (Auto) 2.1 Baso % (Auto) 0.1 Neut # (Auto) 4.61 Lymph # (Auto) 1.38 Barber # (Auto) 0.60 Eos # (Auto) 0.14 Baso # (Auto) 0.01 Abs Immat Gran (auto) 0.02 Imm/Tot Granulo (auto) 0.3 Sodium 139 Potassium 3.7 Chloride 112 Carbon Dioxide 22 Anion Gap 5 L BUN 26 Creatinine 0.9 Estimated Creat Clear 46.82 Estimated GFR 82 Glucose 137 H Calcium 7.8 L Total Bilirubin 1.0 AST 20 ALT 15 Alkaline Phosphatase 52 Total Creatine Kinase 183 Total Protein 5.3 L Albumin 2.7 L
--- NOTE | 2025-01-31 18:49 | PC.NURSE ---
End of shift [id number] - Pt alert, oriented, cooperative. Up with assist x 1 and walker, reports feeling stronger to RN while ambulating. Denies pain, SOB, n/v. VSS and afebrile during shift. Redness on RLE observed to be improved from previous shift and remain within previously outlined area. Tolerating RA, regular diet/fluids. RN provided education on oral hydration, pt receptive and eager to increase oral intake. Pt up walking with PT and noted to have increased HR of 130+, MD notified, no orders given. RN talked to pt daughter via phone for update. Pt appears to be resting in bed at end of shift with call light within reach.
[2025-01-31] MEDS: ROSUVASTATIN CALCIUM 10 MG TABLET PO (21:04)
[2025-01-31] MEDS: ZOLPIDEM 5 MG TABLET PO ×2 (21:04→23:44)
[2025-02-01] VITALS (9 sets, daily range): BP systolic 143–160; BP diastolic 78–99; PULSE 46–73; RESP 14–22; TEMP 36.5–37.1; O2SAT 92–96
[2025-02-01] MEDS: PIPERACILLIN/TAZOBACTAM 3.375 GM in 0.9 % SODIUM CHLORIDE Mini-bag 100 ML IVPB ×2 (06:01→12:02)
--- NOTE | 2025-02-01 06:54 | PC.NURSE ---
Pt pleasant, alert and oriented to self and place. VSS. Tele reads sinus arrhythmia with 1st degree AV. RLE redness seemingly receding from outline. Bilateral LE +2 pitting edema, legs elevated throughout shift. Denies pain. Pt 1a with walker and gait belt. Pt stated feeling weaker this morning, and gait slightly shuffled. Pt in bed, appears to be resting, call light within reach.? ?
[2025-02-01] MEDS: METOPROLOL SUCCINATE (XL) 100 MG TAB PO (10:37)
[2025-02-01] MEDS: DIGOXIN 125 MCG TABLET PO (10:37)
[2025-02-01] MEDS: SODIUM CHLORIDE 0.9 % (FLUSH) 10 ML SYRINGE 5 ML IVF ×2 (10:38→20:37)
[2025-02-01] MEDS: APIXABAN 5 MG TABLET PO ×2 (10:38→20:37)
--- NOTE | 2025-02-01 13:12 | P.IMPN_ITS ---
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 Digoxin level on 01/29 0.4 Status: Acute (3) Wandering atrial pacemaker: Problem comment: - ED provider discussed with Dr. Sampson, Cardioloy [facility], thought to be rhythm illustrated on EKG in ED (01/29/25) - Chronic, according to loss claim clerk's review. Not thought to be cause of overnight fall - Consider Zio patch at discharge - one episode of HR in 130s during ambulation on 01/31 (associated lightheadedness), resolved spontaneously with rest Status: Acute (4) Hyperlipidemia: Problem comment: - Continue statin ([place] loss claim clerk requested simvastatin to rosuvastatin, which was done 12/2021) Status: Acute (5) Type 2 diabetes mellitus: Problem comment: - Diagnosis January 2023 - Most recent A1c 7.7 - Diet controlled, followed by PCP, defers accuchecks during stay Status: Acute (6) Essential hypertension: Problem comment: - HOLDING Losartan and Metoprolol given hypotension 01/29, continue to follow - 01/31: restarted Metoprolol Status: Acute (7) Systolic congestive heart failure: Problem comment: - HFpEF, chronic, no evidence of acute exacerbation at this time - BNP 3060 (previous [id number]), takes Furosemid prn at home - appears fluid up with weight gain and wheezing noted 02/01 (stable on RA), will restart Furosemide TTE January 2024: Final Impressions: 1. Normal LV size, mildly increased wall thickness, normal global systolic function with an estimated EF of 55 - 60%. 2. Right ventricular cavity size is normal, global systolic RV function is normal. 3. Severe bi atrial enlargement. 4. 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 Mean gradient 2 mmHg at HR 100 BPM. 5. 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 Comparison Compared to prior exam of 08/28/2017: LVEF has normalized. Mitral regurgitation only appears mild. Status: Acute Plan - per above Subjective Date Seen: 02/01/25 Interval history: Gregg was admitted to the hospital on 01/29 after a mechanical fall at home ([employer]) and mild rhabdomyolysis. Comorbidities include noninsulin dependent DM2 (A1C in the 7s), essential HTN, atrial fibrillation (on Metoprolol and Digoxin for rate control, anticoagulated on Apixaban). Upon admission, WBC noted to be 17 with PMN predominance; + increased temperature and HR upon arrival to the floor, in addition to mild hypotension, elevated procalcitonin, elevated CRP. RLE noted to have erythema, likely source of infection (and contributing factor to fall). IV Zosyn and Vancomycin initiated 01/29. Blood cultures remain negative. MRSA screen negative; Vancomycin discontinued on 01/31 after 2 doses. IV Zosyn de-escalated to oral Cephalexin on 02/01/25. Gregg continues to feel a bit better each day, not yet back to baseline, still deconditioned and working with therapies. May require more assistance at [employer] upon discharge. Weight noted to be up, UOP low side. Not taking home Furosemide (40mg prn), will restart 02/01. Exam Narrative: Exam Narrative: GEN: Alert and answering questions appropriately, sitting comfortably in bed HEENT: EOMIs bilaterally, no scleral icterus CV: Irregular rhythm, rate 60s R: Fine expiratory wheeze, clears with deep breath, no rales or rhonchi Skin: 1-2+ edema of BLE, erythema of right lower extremity continues to improve Neuro: Mildly decreased R sided strength, baseline Psych: Appropriate Const: Vital Signs, click to edit/add: Vital Signs - 24 hr 01/31/25 15:30 01/31/25 17:12 01/31/25 20:02 Temperature 98.6 F 98.1 F Pulse Rate 75 Pulse Rate [Left P ulse Oximeter] 71 62 Respiratory Rate 18 18 Blood Pressure [Le ft Arm] 150/79 H 165/76 H Pulse Oximetry 93 96 Oxygen Delivery Me thod Room Air Room Air 01/31/25 23:00 01/31/25 23:55 02/01/25 00:50 Temperature 97.6 F Pulse Rate 54 L Pulse Rate [Left P ulse Oximeter] 58 L 58 L Respiratory Rate 16 16 Blood Pressure [Le ft Arm] 157/81 H Pulse Oximetry 94 Oxygen Delivery Me thod Room Air 02/01/25 03:00 02/01/25 07:00 02/01/25 07:00 Temperature 97.9 F Pulse Rate 61 Pulse Rate [Left P ulse Oximeter] 58 L 58 L Respiratory Rate 14 20 Blood Pressure [Le ft Arm] 155/88 H 160/99 H Pulse Oximetry 92 93 Oxygen Delivery Me thod Room Air Room Air 02/01/25 10:37 Temperature Pulse Rate 71 Pulse Rate [Left P ulse Oximeter] Respiratory Rate Blood Pressure [Le ft Arm] Pulse Oximetry Oxygen Delivery Me thod
--- NOTE | 2025-02-01 19:20 | PC.NURSE ---
End of shift [id number] - Pt alert, oriented, cooperative. Drowsy and difficult to rouse at start of shift, but alertness improved through shift. Up with walker/gait belt and standby assistance and observed with [facility] staff to ambulate in hay. Denies pain, SOB, n/v. Pt refused IV dose of diuretic medication ordered by . RN provided education r/t medication use, pt continued to refuse. Family updated via phone. Pt appears to be resting comfortably in chair at end of shift with call light within reach.
[2025-02-01] MEDS: ROSUVASTATIN CALCIUM 10 MG TABLET PO (20:37)
[2025-02-01] MEDS: ZOLPIDEM 5 MG TABLET PO (20:58)
[2025-02-02] VITALS (7 sets, daily range): BP systolic 167–185; BP diastolic 90–111; PULSE 48–68; RESP 16–20; TEMP 36.9–37.2; O2SAT 93–95
[2025-02-02 06:09] LABS: Hematocrit 34.4 % (37.0-53.0); Hemoglobin* 11.3 gm/dL (13.5-17.5); Immature Granulocytes Abs Auto 0.01 K/uL (0.00-0.30); Immature Granulocytes Pct Auto 0.2 %; Lymphocytes Absolute Auto 1.78 K/uL (0.90-2.90); Mean Corpuscular HGB Conc 33 gm/dL (32-36); Mean Corpuscular Hemoglobin 30 pg (26-34); Mean Corpuscular Volume 90 fL (80-100); RDW Coefficient of Variation % 13.2 % (11.5-15.5); Red Blood Count 3.81 m/uL (4.30-5.90); White Blood Count* 6.25 K/uL (4.50-11.00)
[2025-02-02 06:10] LABS: Slide Review Reflex No
[2025-02-02 06:19] LABS: Chloride* 109 mmol/L (96-114); Potassium* 4.0 mmol/L (3.6-5.1); Sodium* 136 mmol/L (135-149)
[2025-02-02 06:22] LABS: Blood Urea Nitrogen* 16 mg/dL (7-30); Creatinine* 0.9 mg/dL (0.5-1.5); Est. Creatinine Clearance* 46.82; Estimated Glomerular Filt Rate 82 ml/min
--- NOTE | 2025-02-02 06:22 | PC.NURSE ---
End of shift [id number]: A&O pleasant and cooperative.VSS afebrile. denies pain. RLE redness receding from outlines. up w/ a1 walker and gb. some SOB w/ activity. using call light appropriately.
[2025-02-02 06:23] LABS: Calcium* 8.3 mg/dL (8.4-10.6); Carbon Dioxide* 24 mmol/L (20-32); Glucose* 138 mg/dL (60-115)
[2025-02-02 06:27] LABS: Anion Gap 3 mEq/L (7-15)
[2025-02-02] MEDS: DIGOXIN 125 MCG TABLET PO (08:59)
[2025-02-02] MEDS: FUROSEMIDE 40 MG TABLET PO (08:59)
[2025-02-02] MEDS: METOPROLOL SUCCINATE (XL) 100 MG TAB PO (08:59)
[2025-02-02] MEDS: APIXABAN 5 MG TABLET PO (08:59)
[2025-02-02] MEDS: SODIUM CHLORIDE 0.9 % (FLUSH) 10 ML SYRINGE 5 ML IVF (09:00)
[2025-02-02] MEDS: LOSARTAN POTASSIUM 50 MG TABLET 100 MG PO (10:21)
--- NOTE | 2025-02-02 12:44 | P.DS_ITS ---
DS: Providers Provider Date Seen: 02/02/25 Date of admission: 01/29/25 23:51 Primary care physician: Maria Esther Mendoza MD Admitting Clinician: Zina Campos MD Consults: OT, PT, SW Attending Physician on discharge: Lizette Zazueta MD Date of Discharge: 02/02/25 DS: Diagnosis Discharge Diagnosis (1) Sepsis: Status: Acute Problem details: - 01/29/25: HR of 124, BP of 93/47, T of 100.7, WBC of 17 with PMN predominance, lactate 2.7, procalcitonin 2.57 - source: RLE cellulitis (treateded with Vancomycin/Zosyn-->Cephalexin on d/c) - BCx negative (2) Atrial fibrillation: Status: Acute Problem details: - Historically, noted at time of stroke 09/08 and anticoagulation started then, s/p unsuccessful DCCV at [facility] 09/09, amiodarone started then, [place] stopped amiodarone 04/14 and started metoprolol instead, [facility] cardiology started digoxin in 2023 - 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 Digoxin level on 01/29 0.4 (3) Wandering atrial pacemaker: Status: Acute Problem details: - ED provider discussed with Dr. Sampson, Cardioloy [facility], thought to be rhythm illustrated on EKG in ED (01/29/25) - Chronic, according to hospice executive director's review. Not thought to be cause of overnight fall - one episode of HR in 130s during ambulation on 01/31 (associated lighth eadedness), resolved spontaneously with rest - discharge on Zio patch (4) Hyperlipidemia: Status: Acute Problem details: - Continue statin ([place] hospice executive director requested simvastatin to rosuvastatin, which was done 12/2021) (5) Type 2 diabetes mellitus: Status: Acute Problem details: - Diagnosis January 2023 - Most recent A1c 7.7 - Diet controlled, followed by PCP, deferred accuchecks during stay (6) Essential hypertension: Status: Acute Problem details: - HOLDING Losartan and Metoprolol given hypotension 01/29, continue to follow - 01/31: restarted Metoprolol (7) Systolic congestive heart failure: Status: Acute Problem details: - HFpEF, chronic, no evidence of acute exacerbation at this time - BNP 3060 (previous 1490-9095), takes Furosemide prn at home - appeared fluid up with weight gain and wheezing noted 02/01 (stable on RA), restarted Furosemide on 02/01 and will continue this daily until PCP f/u TTE January 2024: Final Impressions: 1. Normal LV size, mildly increased wall thickness, normal global systolic function with an estimated EF of 55 - 60%. 2. Right ventricular cavity size is normal, global systolic RV function is normal. 3. Severe bi atrial enlargement. 4. 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 Mean gradient 2 mmHg at HR 100 BPM. 5. 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 Comparison Compared to prior exam of 08/28/2017: LVEF has normalized. Mitral regurgitation only appears mild. DS: Summary Hospital Course Hospital Course: Gregg was admitted to the hospital on 01/29 after a mechanical fall at home ([employer]) and mild rhabdomyolysis. Comorbidities include noninsulin dependent DM2 (A1C in the 7s), essential HTN, atrial fibrillation (on Metoprolol and Digoxin for rate control, anticoagulated on Apixaban). Upon admission, WBC noted to be 17 with PMN predominance; + increased temperature and HR upon arrival to the floor, in addition to mild hypotension, elevated procalcitonin, elevated CRP. RLE noted to have erythema, likely source of infection (and contributing factor to fall). IV Zosyn and Vancomycin initiated 01/29. Blood cultures remain negative. MRSA screen negative; Vancomycin discontinued on 01/31 after 2 doses. IV Zosyn de-escalated to oral Cephalexin on 02/01/25. HR variable during stay with history of atrial fibrillation and wandering pacemaker. No dizziness or lightheadedness. Zio patch upon discharge. Gregg continues to feel a bit better each day, not yet back to baseline, still deconditioned and working with therapies. Recommend that nursing staff take over medication administration upon d/c; also add therapies if possible to continue to build endurance. Status at Discharge Functional status at discharge: uses cane/walker Overall status at discharge: patient is progressing back to baseline Time Spent with Patient Time attestation: Total time spent providing and/or coordinating discharge services: Time spent: Greater than 30 minutes Specific discharge activities: Medication reconciliation, Zio patch order, multidisciplinary team discussion Exam Narrative: Exam Narrative: GEN: Alert and answering questions appropriately, sitting comfortably in bed HEENT: EOMIs bilaterally, no scleral icterus CV: Irregular rhythm, rate 50-60s during exam R: No wheezing, no rales, air movement adequate Skin: 1+ edema of BLE, erythema of right lower extremity is almost fully rseolved Neuro: Mildly decreased R sided strength, baseline Psych: Appropriate Const: Vital Signs, click to edit/add: Vital Signs - 24 hr 02/01/25 18:02 02/01/25 18:08 02/01/25 19:17 Temperature 98.1 F 98.7 F Pulse Rate 62 Pulse Rate [Apical ] Pulse Rate [Left P ulse Oximeter] 64 73 Respiratory Rate 18 18 Blood Pressure [Le ft Arm] 143/83 H 159/78 H Pulse Oximetry 96 93 [facility] Room [facility] 02/01/25 22:15 02/01/25 22:43 02/02/25 03:02 Temperature 97.7 F 99.0 F Pulse Rate 46 L Pulse Rate [Apical ] Pulse Rate [Left P ulse Oximeter] 55 L 65 Respiratory Rate 22 20 Blood Pressure [Le ft Arm] 159/87 H 170/90 H Pulse Oximetry 96 93 [facility] Room Air 02/02/25 07:00 02/02/25 07:50 02/02/25 08:00 Temperature 98.4 F Pulse Rate 48 L Pulse Rate [Apical ] 68 58 L Pulse Rate [Left P ulse Oximeter] 65 Respiratory Rate 18 18 Blood Pressure [Le ft Arm] 179/111 H Pulse Oximetry 95 [facility] 02/02/25 08:57 02/02/25 08:59 02/02/25 10:14 Temperature Pulse Rate 68 Pulse Rate [Apical ] 68 65 Pulse Rate [Left P ulse Oximeter] Respiratory Rate 16 Blood Pressure [Le ft Arm] 185/96 H 167/91 H Pulse Oximetry Oxygen Delivery Nd thod DS: Data Data Completed and Pending Labs on day of discharge: Labs from last 24 hours 02/02/25 05:37 WBC 6.25 RBC 3.81 L Hgb 11.3 L Hct 34.4 L MCV 90 MCH 30 MCHC 33 RDW Coeff of Melissa 13.2 Plt Count 157 Neut % (Auto) 57.5 Lymph % (Auto) 28.5 Simpson % (Auto) 9.3 Eos % (Auto) 4.2 Baso % (Auto) 0.3 Neut # (Auto) 3.60 Lymph # (Auto) 1.78 Simpson # (Auto) 0.60 Eos # (Auto) 0.26 Baso # (Auto) 0.02 Abs Immat Gran (auto) 0.01 Imm/Tot Granulo (auto) 0.2 Sodium 136 Potassium 4.0 Chloride 109 Carbon Dioxide 24 Anion Gap 3 L BUN 16 Creatinine 0.9 Estimated Creat Clear 46.82 Estimated GFR 82 Glucose 138 H Calcium 8.3 L Magnesium 2.1 Preliminary micro results at discharge 01/30/25 00:05 Blood Culture - Preliminary Blood NO GROWTH AFTER 72 HOURS 01/30/25 00:14 Blood Culture - Preliminary Blood NO GROWTH AFTER 72 HOURS Discharge Plan Discharge Disposition: [facility] Date of Admission: 01/29/25 23:51 Attending Provider on Discharge: Lizette Zazueta Primary Care Provider: Maria Esther Mendoza Condition: Improved Anticipated Discharge Date/Time: 02/02/25 12:32 Discharge Medications: New cephalexin 500 mg Capsule 500 mg PO TID 3 Days Qty: 9 0RF Continued triamcinolone acetonide 55 mcg aerosol,spray 1 spray intranasal DAILY Rx Instructions: Administer 1-2 sprays into each nostril daily. chlorpheniramine maleate 4 mg tablet 4 mg PO DAILY Rx Instructions: do not exceed 2 doses per 24 hrs digoxin 125 mcg (0.125 mg) tablet 125 mcg PO DAILY PreserVision AREDS-2 250-90-40-1 mg capsule 1 tab PO QAM AND QHS metoprolol succinate 100 mg tablet extended release 24 hr 100 mg PO DAILY rosuvastatin 10 mg tablet 10 mg PO HS furosemide 40 mg tablet 40 mg PO DAILY zolpidem 5 mg tablet 5 - 10 mg PO HS fluticasone propionate 110 mcg/actuation HFA aerosol inhaler 2 puff INHALATION Q12H PRN (DME) blood-glucose meter [Blood Glucose Monitoring] Kit See Rx Instructions .Route Qty: 1 0RF Rx Instructions: As directed (DME) lancets [Accu-Chek Softclix Lancets] Misc See Rx Instructions .Route Qty: 200 0RF Rx Instructions: as needed (DME) Accu-Chek Guide test strips Strip See Rx Instructions .Route Qty: 100 0RF Rx Instructions: As needed losartan 100 mg tablet 100 mg PO DAILY Qty: 90 3RF Eliquis 5 mg tablet 5 mg PO BID Qty: 180 3RF Discharge Orders: Discharge Order (Routine); Ordered 02/02/25 Ordered By: Lizette Zazueta Additional Instructions: We recommend that the nurses take over medication administration at [facility]. Keep working on your exercises daily to get stronger and increase your endurance. I would take your Furosemide daily until your f/u with Dr. Mendoza. Complete course of antibiotics as prescribed. We will have you wear a patch to follow your HR upon discharge, Dr. Mendoza will get those results. Activity Level: Activity as Tolerated and No strenuous activity Discharge Diet: Diabetic Follow Up Appointments: Maria Esther Mendoza MD [Primary Care Provider, Internal Medicine] Referral Note: 5-10 days for hospital f/u please Forms: [facility] Info Instructions Admit to: Assisted Living Length of Stay: >90 days Code Status: Full Code Therapy: Physical Therapy and Occupational Therapy Therapy Orders: Evaluate and Treat and Gait Training Therapy Orders Additional Information: Given recent fall, recommend restarting PT/OT Oxygen: No Urinary Catheter: No Orders are good >30 days: Yes Signature: Lizette Zazueta MD
--- NOTE | 2025-02-02 14:09 | PC.NURSE ---
Pt pleasant to care for. VSS. Intermittently bradycardic. A&Ox4. Denies pain. Ambulating well with walker and standby assist. Pt tolerating regular diet. Zio patch applied at 1345. Pt discharged back to [facility] at 1400 via friend, Hilda. Pt discharge information signed. Discharge instruction packet for facility was sent with patient.
== END 2025-02-02 14:00 | DRG 872 ==
LOC: ED 17:13 → MEDSURG 17:43
PROVIDERS: Family Medicine; Admitting Provider Physician Assistant; Emergency Provider Family Medicine; PCP Internal Medicine; Visit Provider Family Medicine
DX: A41.9 Sepsis, unspecified organism (principal); L03.115 Cellulitis of right lower limb; M62.82 Rhabdomyolysis; I50.22 Chronic systolic (congestive) heart failure; I69.351 Hemiplegia and hemiparesis following cerebral infarction affecting right dominant side; I11.0 Hypertensive heart disease with heart failure; I48.91 Unspecified atrial fibrillation; Z79.01 Long term (current) use of anticoagulants; E11.9 Type 2 diabetes mellitus without complications; W19.XXXA Unspecified fall, initial encounter; Y92.099 Unspecified place in other non-institutional residence as the place of occurrence of the external cause; E04.1 Nontoxic single thyroid nodule; Z95.0 Presence of cardiac pacemaker; E78.5 Hyperlipidemia, unspecified
CPT/HCPCS: 36415; 51798; 70450; 71045; 72125; 80048; 80053; 80162; 81001; 82550; 82962; 83605; 83735; 83880; 84145; 84484; 85025; 85027; 86140; 87040; 87081; 87086; 93005; 93246; 97110; 97116; 97161; 97165; 97530; 97535; 99284; 99285; A9270; G0378; J2543; J3375; J7030

== ENCOUNTER 2025-03-31 11:18 | Outpatient (CLI) | payer MEDICARE, BC, SELFPAY | END 2025-03-31 11:19 | disposition home or self-care (01) | PROVIDERS: PCP Internal Medicine; Visit Provider Internal Medicine | DX: E11.9 Type 2 diabetes mellitus without complications (principal) | CPT/HCPCS: 80061; 82043; 82570 ==

== ENCOUNTER 2025-04-21 13:25 | Outpatient (CLI) | payer MEDICARE, BC, SELFPAY | END 2025-04-21 13:26 | disposition home or self-care (01) | LOC: NFLDREF 04-23 08:45 | PROVIDERS: PCP Internal Medicine; Referring Provider Internal Medicine; Visit Provider Internal Medicine Cardiovascular Disease | DX: I50.20 Unspecified systolic (congestive) heart failure (principal); I48.91 Unspecified atrial fibrillation | CPT/HCPCS: 80048; 84443 ==